=== PATIENT | male | born 1990 | race African-American/Black ===

== ENCOUNTER 2018-01-27 16:41 | Emergency (ER) | payer OTHER ==
--- OUTSIDE RECORDS SUMMARY | 2018-01-27 16:43 | XMS REPORT | Clinical Summary ---
:1990 Author Organization [facility] Address [address] [place] [address] Care Team Providers Name Role Phone Asked, No Pcp Primary Care Provider Unavailable Allergies No Known Allergies Current Medications No known medications Active Problems No known active problems Encounters Date Type Specialty Care Team Description 07/28/2017 Office Visit Orthopedic Surgery Valerie Valentin It band syndrome, left (Primary Dx); FELIPA Shah Osteochondroma of femur, left 07/27/2017 Orders Only Orthopedic Surgery Ace Rojas, Left knee pain, MA unspecified chronicity (Primary Dx) after 01/26/2017 Family History Medical History Relation Name Comments Diabetes Father Prashanth goyal Diabetes Maternal Grandfather Wu rideaux Relation Name Status Comments Father Prashanth goyal Maternal Grandfather Wu rideaux Social History Tobacco Use Types Packs/Day Years Used Date Never Assessed Alcohol Use Drinks/Week oz/Week Comments Yes Drink only on holidays or once a month Sex Assigned at Date Recorded Not on file Last Filed Vital Signs Not on file Plan of Treatment Health Maintenance Due Date Last Done Comments INFLUENZA VACCINE 03/09/2018 Procedures Procedure Name Priority Date/Time Associated Diagnosis Comments XR KNEE 4+ VW LEFT Routine 07/28/2017 3:57 PM Left knee pain, 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 after 01/26/2017 Results XR Knee 4+ Vw Left (07/28/2017 3:57 PM) Narrative Performed At Four views (standing bilateral weightbearing AP and 45 degree flexion PA, HM [employer] Mer[employer], and lateral views) of the left knee are obtained and reviewed today. The alignment appears normal. There is no significant narrowing or other degenerative change of the tibiofemoral or patellofemoral joint spaces.No fractures or loose bodies are seen. Cortical lesion medial distal metaphysis which appears to be an osteochondroma. Performing Organization Address City/State/Zipcode Phone Number [facility] [address] [place] [address] after 01/26/2017 Insurance Payer Benefit Plan / Group Subscriber ID Type Phone Address [facility]/[place] [address]
[2018-01-27] MEDS ORDERED: ALBUTEROL 2.5 MG/3 ML NEB SOL ONE (17:26)
[2018-01-27] MEDS ORDERED: NA CHLORIDE 0.9% 1,000 ML ONE (17:26)
[2018-01-27] MEDS ORDERED: METHYLPREDNISOLONE 125 MG INJ ONE (17:26)
[2018-01-27] MEDS ORDERED: ONDANSETRON 4 MG/2 ML VIAL ONE (17:41)
--- NOTE | 2018-01-27 18:42 | ER ---
Nurse's Notes [facility] Name: Kd Velazquez Age: 27 yrs Sex: Male : 1990 Arrival Date: 01/27/2018 Time: 16:43 Bed 18 Private MD: Toni Iverson H Diagnosis: Acute bronchitis Presentation: 01/27 16:48 Presenting complaint: Patient states: Cough non productive, chest congestion, and sg wheezes for several days. Pt reports starting to take mucinex OTC for symptoms today, pt denies N/V/D,FEVER. Transition of care: patient was not received from another setting of care. Resp Distress? No respiratory distress is noted at this time. Onset of symptoms was January 27, 2018. Risk Assessment: Do you want to hurt yourself or someone else? Patient reports no desire to harm self or others. Initial Sepsis Screen: Does the patient meet any 2 criteria? No. Patient's initial sepsis screen is negative. Does the patient have a suspected source of infection? No. Patient's initial sepsis screen is negative. Care prior to arrival: None. 16:48 Method Of Arrival: Ambulatory sg 16:48 Acuity: NIELS 4 sg Historical: - Allergies: 16:46 No Known Allergies; sg - Home Meds: 16:46 None [Active]; sg - PMHx: 16:49 None; sg - PSHx: 16:46 Tonsillectomy; sg - Immunization history:: Adult Immunizations up to date. - Social history:: Smoking status: Patient/guardian denies using tobacco. - Ebola Screening: : Patient negative for fever greater than or equal to 101.5 degrees Fahrenheit, and additional compatible Ebola Virus Disease symptoms Patient denies exposure to infectious person Patient denies travel to an Ebola-affected area in the 21 days before illness onset No symptoms or risks identified at this time. Screenin:15 Abuse screen: Denies threats or abuse. Denies injuries from another. Nutritional jl7 screening: No deficits noted. Tuberculosis screening: No symptoms or risk factors identified. Fall Risk IV access (20 points). Total Carpenter Fall Scale indicates No Risk (0-24 pts). Assessment: 17:15 General: Appears in no apparent distress. uncomfortable, Behavior is calm, cooperative, jl7 appropriate for age. Pain: Denies pain. Neuro: Level of Consciousness is awake, alert, obeys commands, Oriented to person, place, time, situation. Cardiovascular: Heart tones S1 S2 present Patient's skin is warm and dry. Respiratory: Airway is patent Respiratory effort is even, unlabored, Respiratory pattern is regular, symmetrical, Breath sounds with wheezes bilaterally. GI: No signs and/or symptoms were reported involving the gastrointestinal system. : No signs and/or symptoms were reported regarding the genitourinary system. EENT: No signs and/or symptoms were reported regarding the EENT system. Derm: Skin is dry, Skin is normal, Skin temperature is warm. Musculoskeletal: No signs and/or symptoms reported regarding the musculoskeletal system. 18:15 Reassessment: Patient and/or family updated on plan of care and expected duration. Pain jl7 level reassessed. Patient is alert, oriented x 3, equal unlabored respirations, skin warm/dry/pink. Patient states symptoms have improved. Vital Signs: 16:46 Pulse 98; Resp 17 S; Temp 97.9(TE); Pulse Ox 96% on R/A; Pain 8/10; sg 17:30 BP 110 / 64; Pulse 90; Resp 16; Pulse Ox 99% ; jl7 18:30 BP 120 / 62; Pulse 85; Resp 16; Pulse Ox 99% ; jl7 ED Course: 16:43 Patient arrived in ED. sb2 16:44 Toni Iverson DO is Private Physician. sb2 16:46 Arm band placed on. sg 16:49 Triage completed. sg 16:55 Demond Marshall, YOCASTA is Primary Nurse. jl7 17:00 Greyson Rouse PA is PHCP. jr8 17:00 Suhas Thao MD is Attending Physician. jr8 17:15 Patient has correct armband on for positive identification. Bed in low position. Call jl7 light in reach. Side rails up X 1. Pulse ox on. NIBP on. 17:15 Initial lab(s) drawn, by me, sent to lab. Inserted saline lock: 20 gauge in right jl7 antecubital area, using aseptic technique. Blood collected. 18:25 XRAY Chest (1 view) In Process Unspecified. EDMS 18:41 Toni Iverson DO is Referral Physician. jr8 19:12 No provider procedures requiring assistance completed. IV discontinued, intact, jl7 bleeding controlled, No redness/swelling at site. Pressure dressing applied. Administered Medications: 17:25 Drug: Albuterol 2.5 mg Route: Inhalation; jl7 17:30 Drug: NS 0.9% 1000 ml Route: IV; Rate: 1000 ml; Site: right antecubital; jl7 18:30 Follow up: Response: No adverse reaction; IV Status: Completed infusion jl7 17:31 Drug: SOLU-Medrol 125 mg Route: IVP; Site: right antecubital; jl7 17:59 Follow up: Response: No adverse reaction jl7 19:10 Follow up: Response: No adverse reaction jl7 17:40 Drug: Zofran 4 mg Route: IVP; Site: right antecubital; jl7 18:00 Follow up: Response: No adverse reaction; Nausea is decreased jl7 17:45 Drug: Albuterol 2.5 mg Route: Inhalation; jl7 17:59 Drug: Albuterol 2.5 mg Route: Inhalation; jl7 19:10 Follow up: Response: No adverse reaction jl7 Outcome: 18:41 Discharge ordered by . jr8 19:12 Discharged to home ambulatory. jl7 19:12 Condition: stable 19:12 Discharge instructions given to patient, Instructed on discharge instructions, follow up and referral plans. medication usage, Demonstrated understanding of instructions, follow-up care, medications, Prescriptions given X 3. 19:12 Patient left the ED. jl7 Signatures: Dispatcher [employer] EDMS Cabrera Tapia RN RN sg Roszak, Josh, PA PA jr8 Demond Marshall RN RN jl7 Suzan Mackey sb2
--- NOTE | 2018-01-27 18:42 | EDPHYS ---
Physician Documentation [facility] Name: Kd Velazquez Age: 27 yrs Sex: Male : 1990 Arrival Date: 01/27/2018 Time: 16:43 Bed 18 Private MD: oTni Iverson H ED Physician Suhas Thao HPI: 01/27 17:16 This 27 yrs old Black Male presents to ER via Ambulatory with complaints of Cough, jr8 Congestion, Wheezing > 1 Year. 17:16 The patient or guardian reports cough, that is intermittent, described as moderate, jr8 with no sputum, difficulty breathing. Onset: The symptoms/episode began/occurred gradually, 1 week(s) ago. Severity of symptoms: At their worst the symptoms were mild, in the emergency department the symptoms are unchanged. Modifying factors: The symptoms are alleviated by nothing, the symptoms are aggravated by exertion. Associated signs and symptoms: The patient has no apparent associated signs or symptoms. The patient has not experienced similar symptoms in the past. The patient has not recently seen a physician. Historical: - Allergies: 16:46 No Known Allergies; sg - Home Meds: 16:46 None [Active]; sg - PMHx: 16:49 None; sg - PSHx: 16:46 Tonsillectomy; sg - Immunization history:: Adult Immunizations up to date. - Social history:: Smoking status: Patient/guardian denies using tobacco. - Ebola Screening: : Patient negative for fever greater than or equal to 101.5 degrees Fahrenheit, and additional compatible Ebola Virus Disease symptoms Patient denies exposure to infectious person Patient denies travel to an Ebola-affected area in the 21 days before illness onset No symptoms or risks identified at this time. ROS: 17:16 Eyes: Negative for injury, pain, redness, and discharge, ENT: Negative for injury, jr8 pain, and discharge, Neck: Negative for injury, pain, and swelling, Cardiovascular: Negative for chest pain, palpitations, and edema, Abdomen/GI: Negative for abdominal pain, nausea, vomiting, diarrhea, and constipation, Back: Negative for injury and pain, MS/Extremity: Negative for injury and deformity, Skin: Negative for injury, rash, and discoloration, Neuro: Negative for headache, weakness, numbness, tingling, and seizure. 17:16 Respiratory: Positive for cough, shortness of breath, wheezing. Exam: 17:16 Eyes: Pupils equal round and reactive to light, extra-ocular motions intact. Lids and jr8 lashes normal. Conjunctiva and sclera are non-icteric and not injected. Cornea within normal limits. Periorbital areas with no swelling, redness, or edema. ENT: Nares patent. No nasal discharge, no septal abnormalities noted. Tympanic membranes are normal and external auditory canals are clear. Oropharynx with no redness, swelling, or masses, exudates, or evidence of obstruction, uvula midline. Mucous membranes moist. Neck: Trachea midline, no thyromegaly or masses palpated, and no cervical lymphadenopathy. Supple, full range of motion without nuchal rigidity, or vertebral point tenderness. No Meningismus. Cardiovascular: Regular rate and rhythm with a normal S1 and S2. No gallops, murmurs, or rubs. Normal PMI, no JVD. No pulse deficits. Abdomen/GI: Soft, non-tender, with normal bowel sounds. No distension or tympany. No guarding or rebound. No evidence of tenderness throughout. Back: No spinal tenderness. No costovertebral tenderness. Full range of motion. Skin: Warm, dry with normal turgor. Normal color with no rashes, no lesions, and no evidence of cellulitis. MS/ Extremity: Pulses equal, no cyanosis. Neurovascular intact. Full, normal range of motion. Neuro: Awake and alert, GCS 15, oriented to person, place, time, and situation. Cranial nerves II-XII grossly intact. Motor strength 5/5 in all extremities. Sensory grossly intact. Cerebellar exam normal. Normal gait. 17:16 Respiratory: the patient does not display signs of respiratory distress, Respirations: normal, symetrical, no use of accessory muscles, no grunting, no evidence of nasal flaring, no prolonged exhalations, no pursed lip breathing, no retractions, no shallow respirations, no splinting, no tachypnea, Breath sounds: wheezing: expiratory that is moderate, is heard diffusely. Vital Signs: 16:46 Pulse 98; Resp 17 S; Temp 97.9(TE); Pulse Ox 96% on R/A; Pain 8/10; sg 17:30 BP 110 / 64; Pulse 90; Resp 16; Pulse Ox 99% ; jl7 18:30 BP 120 / 62; Pulse 85; Resp 16; Pulse Ox 99% ; jl7 MDM: 17:00 Patient medically screened. jr8 18:40 Data reviewed: vital signs, nurses notes, radiologic studies, plain films, and as a jr8 result, I will discharge patient. Data interpreted: Pulse oximetry: on room air is 96 %. Interpretation: normal. Counseling: I had a detailed discussion with the patient and/or guardian regarding: the historical points, exam findings, and any diagnostic results supporting the discharge/admit diagnosis, radiology results, the need for outpatient follow up, a family practitioner, to return to the emergency department if symptoms worsen or persist or if there are any questions or concerns that arise at home. Response to treatment: the patient's symptoms have markedly improved after treatment, and as a result, I will discharge patient. 01/27 17:13 Order name: XRAY Chest (1 view); Complete Time: 19:12 jr8 01/27 17:13 Order name: IV; Complete Time: 17:57 jr8 Administered Medications: 17:25 Drug: Albuterol 2.5 mg Route: Inhalation; jl7 17:30 Drug: NS 0.9% 1000 ml Route: IV; Rate: 1000 ml; Site: right antecubital; jl7 18:30 Follow up: Response: No adverse reaction; IV Status: Completed infusion jl7 17:31 Drug: SOLU-Medrol 125 mg Route: IVP; Site: right antecubital; jl7 17:59 Follow up: Response: No adverse reaction jl7 19:10 Follow up: Response: No adverse reaction jl7 17:40 Drug: Zofran 4 mg Route: IVP; Site: right antecubital; jl7 18:00 Follow up: Response: No adverse reaction; Nausea is decreased jl7 17:45 Drug: Albuterol 2.5 mg Route: Inhalation; jl7 17:59 Drug: Albuterol 2.5 mg Route: Inhalation; jl7 19:10 Follow up: Response: No adverse reaction jl7 Disposition: 01/28 07:13 Co-signature as Attending Physician, Suhas Thao MD. rn Disposition: 01/27/18 18:41 Discharged to Home. Impression: Acute bronchitis. - Condition is Stable. - Discharge Instructions: Acute Bronchitis. - Prescriptions for Prednisone 20 mg Oral Tablet - take 1 tablet by ORAL route once daily for 5 days; 5 tablet. Albuterol Sulfate 90 mcg/actuation - inhale 1-2 puff by INHALATION route every 4-6 hours; 1 Inhaler. Guaifenesin AC 10- 100 mg/5 mL Oral Liquid - take 10 milliliter by ORAL route every 4 hours As needed; 240 milliliter. - Medication Reconciliation Form, Thank You Letter, Antibiotic Education, Prescription Opioid Use form. - Follow up: Toni Iverson DO; When: 5 - 6 days; Reason: Recheck today's complaints, Continuance of care, Re-evaluation by your physician. - Problem is new. - Symptoms have improved. Signatures: Dispatcher [employer] EDMS Cabrera Tapia RN RN Suhas Martinez MD MD rn Roszak, Josh, PA PA jr8 Demond Marshall RN RN jl7 Corrections: (The following items were deleted from the chart) 01/27 19:12 18:41 01/27/2018 18:41 Discharged to Home. Impression: Acute bronchitis. Condition is jl7 Stable. Forms are Medication Reconciliation Form, Thank You Letter, Antibiotic Education, Prescription Opioid Use. Follow up: Toni Iverson; When: 5 - 6 days; Reason: Recheck today's complaints, Continuance of care, Re-evaluation by your physician. Problem is new. Symptoms have improved. jr8
--- NOTE | 2018-01-27 19:08 | RAD REPORT ---
EXAM DESCRIPTION: RAD - Chest Single View - 01/27/2018 6:26 pm CLINICAL HISTORY: Dyspnea COMPARISON: September 2016 TECHNIQUE: AP portable chest image was obtained 1753 hours . FINDINGS: No focal consolidation, mass or significant failure finding. Lung markings are not substan tially different from comparison. Heart and vasculature are normal. No measurable pleural effusion an d no pneumothorax. No gross bony abnormality seen. No acute aortic findings suspected. IMPRESSION: No acute cardiopulmonary process. No significant change from the comparison.
== END 2018-01-27 19:12 | disposition home or self-care (01) ==
LOC: ER 16:41
DX: J20.9 Acute bronchitis, unspecified (principal)
CPT/HCPCS: 71045; 96361; 96374; 96375; 99284; J2405; J2930; J7030

== ENCOUNTER 2018-05-09 08:12 | Emergency (ER) | payer OTHER ==
--- OUTSIDE RECORDS SUMMARY | 2018-05-09 08:14 | XMS REPORT | Clinical Summary ---
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 after 05/08/2017 Results XR Knee 4+ Vw Left (07/28/2017 [...] Performing Organization Address City/State/Zipcode Phone Number [facility] [address] [place] [address] after 05/08/2017 Insurance Payer Benefit Plan / Group Subscriber ID Type Phone Address [facility]WORK xxxxxxxxx[place] [address]
[2018-05-09] MEDS ORDERED: ONDANSETRON 4 MG/2 ML VIAL ONE ×2 (09:23→11:09)
[2018-05-09] MEDS ORDERED: NA CHLORIDE 0.9% 1,000 ML ONE (09:23)
[2018-05-09 09:31] LABS: Absolute Lymphocytes (CBC) 1.1 K/uL (0.7-4.9); Absolute Monocytes 0.5 K/uL (0.1-1.3); Absolute Neutrophil 2.1 K/uL (1.8-8.0); Eosinophils % 3.9 % (0-4.4); Hematocrit 39.4 % (39.6-49.0); Lymphocytes % 27.6 % (15.3-44.8); MCH 27.9 pg (27.0-35.0); MCV 82.8 fL (80-100); MPV 9.2 fL (7.6-11.3); Monocytes % 13.7 % (3.3-12.3); RBC Red Blood Cell Count 4.76 M/uL (4.33-5.43)
[2018-05-09 09:43] LABS: ALT/SGPT 47 U/L (12-78); AST/SGOT 26 U/L (15-37); Albumin 4.1 g/dL (3.4-5.0); Alkaline Phosphatase 63 U/L (45-117); BUN Blood Urea Nitrogen 12 mg/dL (7-18); Bicarbonate 27 mmol/L (21-32); Bilirubin Direct 0.3 mg/dL (0-0.2); Bilirubin Total 1.4 mg/dL (0.2-1.0); Glucose Level 101 mg/dL (74-106); Lipase 79 U/L (73-393); Protein, Total 8.3 g/dL (6.4-8.2); Sodium Level 134 mmol/L (136-145)
[2018-05-09] MEDS ORDERED: POTASSIUM CL SA 10 MEQ TAB PO ONE (10:18)
--- NOTE | 2018-05-09 10:25 | RAD REPORT ---
EXAM DESCRIPTION: RAD - Chest Single View - 05/09/2018 9:52 am CLINICAL HISTORY: Cough, shortness of breath COMPARISON: January 27 TECHNIQUE: AP portable chest image was obtained 0935 hours . FINDINGS: Lungs are clear. Heart and vasculature are normal. No measurable pleural effusion and no p neumothorax. No gross bony abnormality seen. No acute aortic findings suspected. IMPRESSION: No acute cardiopulmonary process. No significant interval change.
--- NOTE | 2018-05-09 11:12 | RAD REPORT ---
EXAM DESCRIPTION: US - Abdomen Exam Limited - 05/09/2018 10:02 am CLINICAL HISTORY: Abdominal pain, right upper quadrant pain COMPARISON: CT imaging September 2016 FINDINGS: No gallstones, sludge or other abnormalities within the gallbladder lumen. There is no wal l thickening or pericholecystic fluid. No common duct stone or biliary tree dilatation identified. Liver is 14 cm in maximum dimension. Spleen is 9-10 cm in maximum dimension. No focal liver lesions s een. No capsular nodularity or ascites. Portal vein flow direction and velocity are normal range. Anum er parenchymal echogenicity not outside of normal range. IMPRESSION: Normal gallbladder and biliary tree ultrasound. No hepatomegaly or focal hepatic parenchymal abnormality. A minimal or borderline fatty infiltration pattern is possible.
--- NOTE | 2018-05-09 11:32 | EDPHYS ---
Physician Documentation [facility] Name: Kd Velazquez Age: 27 yrs Sex: Male : 1990 Arrival Date: 05/09/2018 Time: 08:15 Bed 7 Private MD: Toni Iverson H ED Physician Suhas Thao HPI: 05/09 09:52 This 27 yrs old Black Male presents to ER via Ambulatory with complaints of Vomiting, jr8 Decreased Appetite. 09:52 The patient presents to the emergency department with nausea, vomiting. Onset: The jr8 symptoms/episode began/occurred gradually, 1 week(s) ago. Possible causes: unknown. The symptoms are aggravated by food , The symptoms are alleviated by nothing. Associated signs and symptoms: Pertinent positives: decreased appetite . Severity of symptoms: At their worst the symptoms were moderate in the emergency department the symptoms are unchanged. The patient has not experienced similar symptoms in the past. The patient has not recently seen a physician. Historical: - Allergies: 08:27 No Known Allergies; ss - Home Meds: 08:27 None [Active]; ss - PMHx: 08:27 None; ss - PSHx: 08:27 Tonsillectomy; ss - Immunization history:: Adult Immunizations up to date. - Social history:: Smoking status: Patient/guardian denies using tobacco. - Ebola Screening: : Patient denies exposure to infectious person Patient denies travel to an Ebola-affected area in the 21 days before illness onset. ROS: 09:52 Eyes: Negative for injury, pain, redness, and discharge, ENT: Negative for injury, jr8 pain, and discharge, Neck: Negative for injury, pain, and swelling, Cardiovascular: Negative for chest pain, palpitations, and edema, Respiratory: Negative for shortness of breath, cough, wheezing, and pleuritic chest pain, Back: Negative for injury and pain, MS/Extremity: Negative for injury and deformity, Skin: Negative for injury, rash, and discoloration, Neuro: Negative for headache, weakness, numbness, tingling, and seizure. 09:52 Abdomen/GI: Positive for nausea and vomiting, Negative for abdominal pain, diarrhea, abdominal cramps, abdominal distension, anorexia, dysphagia, hematemesis, black/tarry stool, rectal pain, rectal bleeding, bowel incontinence, flatulence. Exam: 10:02 Eyes: Pupils equal round and reactive to light, extra-ocular motions intact. Lids and jr8 lashes normal. Conjunctiva and sclera are non-icteric and not injected. Cornea within normal limits. Periorbital areas with no swelling, redness, or edema. ENT: Nares patent. No nasal discharge, no septal abnormalities noted. Tympanic membranes are normal and external auditory canals are clear. Oropharynx with no redness, swelling, or masses, exudates, or evidence of obstruction, uvula midline. Mucous membranes moist. Neck: Trachea midline, no thyromegaly or masses palpated, and no cervical lymphadenopathy. Supple, full range of motion without nuchal rigidity, or vertebral point tenderness. No Meningismus. Cardiovascular: Regular rate and rhythm with a normal S1 and S2. No gallops, murmurs, or rubs. Normal PMI, no JVD. No pulse deficits. Respiratory: Lungs have equal breath sounds bilaterally, clear to auscultation and percussion. No rales, rhonchi or wheezes noted. No increased work of breathing, no retractions or nasal flaring. Abdomen/GI: Soft, non-tender, with normal bowel sounds. No distension or tympany. No guarding or rebound. No evidence of tenderness throughout. Back: No spinal tenderness. No costovertebral tenderness. Full range of motion. Skin: Warm, dry with normal turgor. Normal color with no rashes, no lesions, and no evidence of cellulitis. MS/ Extremity: Pulses equal, no cyanosis. Neurovascular intact. Full, normal range of motion. Neuro: Awake and alert, GCS 15, oriented to person, place, time, and situation. Cranial nerves II-XII grossly intact. Motor strength 5/5 in all extremities. Sensory grossly intact. Cerebellar exam normal. Normal gait. Vital Signs: 08:27 BP 126 / 91; Pulse 80; Resp 16; Temp 97.8(TE); Pulse Ox 98% on R/A; Weight 99.79 kg; ss Height 6 ft. 1 in. (185.42 cm); Pain 0/10; 10:16 BP 129 / 80; Pulse 63; Resp 18; Pulse Ox 100% ; sv 11:29 BP 138 / 81; Pulse 66; Resp 18; Pulse Ox 99% ; sv 08:27 Body Mass Index 29.03 (99.79 kg, 185.42 cm) ss MDM: 08:27 Patient medically screened. jr8 11:30 Data reviewed: vital signs, nurses notes, lab test result(s), radiologic studies, jr8 ultrasound, and as a result, I will discharge patient. Data interpreted: Pulse oximetry: on room air is 99 %. Interpretation: normal. 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 ED course: Patient had also been having sinus drainage. No fevers. Likely allergy related. Will put him on short course of steroids to dry him up. Mild fatty liver but no other acute hepatic or biliary findings. Will f/u with GI again . 05/09 08:53 Order name: Basic Metabolic Panel; Complete Time: 09:47 05/09 08:53 Order name: CBC with Diff; Complete Time: 09:47 05/09 08:53 Order name: Creatinine for Radiology; Complete Time: 09:47 05/09 08:53 Order name: Hepatic Function; Complete Time: 09:47 05/09 08:53 Order name: Lipase; Complete Time: 09:47 05/09 11:19 Order name: Urine Dipstick--Ancillary (enter results) bd 05/09 08:53 Order name: IV Saline Lock; Complete Time: 09:15 05/09 09:16 Order name: XRAY Chest (1 view); Complete Time: 10:28 05/09 09:48 Order name: US Abdomen Limited; Complete Time: 11:23 05/09 11:19 Order name: Urine Dipstick-Ancillary EDMS 05/09 08:53 Order name: Labs collected and sent; Complete Time: 09:15 05/09 08:53 Order name: Urine Dipstick-Ancillary (obtain specimen); Complete Time: 08:58 Administered Medications: 09:20 Drug: Zofran 4 mg Route: IVP; Site: right antecubital; sv 09:30 Follow up: Response: No adverse reaction sv 09:20 Drug: NS 0.9% 1000 ml Route: IV; Rate: 1000 ml; Site: right antecubital; sv 11:46 Follow up: Response: No adverse reaction; IV Status: Completed infusion; IV Intake: sv 1000ml 10:13 Drug: Potassium Chloride 40 mEq Route: PO; sv 11:08 Follow up: Response: No adverse reaction sv 11:08 Drug: Zofran 4 mg Route: IVP; Site: right antecubital; sv 11:14 Follow up: Response: No adverse reaction sv Disposition: 12:54 Co-signature as Attending Physician, Suhas Thao MD. rn Disposition: 05/09/18 11:32 Discharged to Home. Impression: Postnasal drip, Nausea and vomiting. - Condition is Stable. - Discharge Instructions: Gastritis, Adult, Gastroesophageal Reflux Disease, Adult, Nausea and Vomiting, Adult. - Prescriptions for omeprazole 40 mg Oral capsule,delayed release(DR/EC) - take 1 capsule by ORAL route once daily before a meal; 14 capsule. Prednisone 20 mg Oral Tablet - take 1 tablet by ORAL route once daily for 5 days; 5 tablet. Zofran 4 mg Oral Tablet - take 1 tablet by ORAL route every 12 hours As needed; 20 tablet. - Work release form, Medication Reconciliation Form, Thank You Letter, Antibiotic Education, Prescription Opioid Use form. - Follow up: Private Physician; When: 5 - 6 days; Reason: Recheck today's complaints, Continuance of care, Re-evaluation by your physician. - Problem is new. - Symptoms have improved. Signatures: Dispatcher [employer] Cheli Rojo RN RN sv Nieto, Roman, MD MD rn Smirch, Shelby, RN RN ss Roszak, Josh, PA PA jr8 Corrections: (The following items were deleted from the chart) 11:46 11:32 05/09/2018 11:32 Discharged to Home. Impression: Postnasal drip; Nausea and sv vomiting. Condition is Stable. Forms are Medication Reconciliation Form, Thank You Letter, Antibiotic Education, Prescription Opioid Use. Follow up: Private Physician; When: 5 - 6 days; Reason: Recheck today's complaints, Continuance of care, Re-evaluation by your physician. Problem is new. Symptoms have improved. jr8
--- NOTE | 2018-05-09 11:32 | ER ---
Nurse's Notes [facility] Name: Kd Velazquez Age: 27 yrs Sex: Male : 1990 Arrival Date: 05/09/2018 Time: 08:15 Bed 7 Private MD: Toni Iverson H Diagnosis: Postnasal drip;Nausea and vomiting Presentation: 05/09 08:25 Presenting complaint: Patient states: decreased appetite, N/V and dark urine x 5 days. ss Patient states, "I think it has a lot to do with depression because my weight keeps fluctuating." Denies SI/ HI ideations. Transition of care: patient was not received from another setting of care. Onset of symptoms was June 02, 2018. Risk Assessment: Do you want to hurt yourself or someone else? Patient reports no desire to harm self or others. Initial Sepsis Screen: Does the patient meet any 2 criteria? No. Patient's initial sepsis screen is negative. Does the patient have a suspected source of infection? No. Patient's initial sepsis screen is negative. Care prior to arrival: None. 08:25 Method Of Arrival: Ambulatory 08:25 Acuity: NIELS 3 ss Historical: - Allergies: 08:27 No Known Allergies; ss - Home Meds: 08:27 None [Active]; ss - PMHx: 08:27 None; ss - PSHx: 08:27 Tonsillectomy; ss - Immunization history:: Adult Immunizations up to date. - Social history:: Smoking status: Patient/guardian denies using tobacco. - Ebola Screening: : Patient denies exposure to infectious person Patient denies travel to an Ebola-affected area in the 21 days before illness onset. Screenin:15 Abuse screen: Denies threats or abuse. Denies injuries from another. Nutritional sv screening: No deficits noted. Tuberculosis screening: No symptoms or risk factors identified. Fall Risk None identified. Assessment: 09:15 General: Appears in no apparent distress. uncomfortable, Behavior is calm, cooperative, sv appropriate for age. Pain: Denies pain. Neuro: Level of Consciousness is awake, alert, obeys commands, Oriented to person, place, time, situation, Moves all extremities. Full function Gait is steady, Speech is normal. Cardiovascular: Patient's skin is warm and dry. Respiratory: Respiratory effort is even, unlabored, Respiratory pattern is regular, symmetrical. GI: Reports intolerance of fluids, nausea, vomiting, decreased appetite. : Reports dark colored urine. Derm: Skin is normal. Musculoskeletal: Range of motion: intact in all extremities. 10:13 Reassessment: Patient appears in no apparent distress at this time. Patient and/or sv family updated on plan of care and expected duration. Pain level reassessed. Patient is alert, oriented x 3, equal unlabored respirations, skin warm/dry/pink. Pt reports decreased nausea. 11:45 Reassessment: Patient appears in no apparent distress at this time. Patient and/or sv family updated on plan of care and expected duration. Pain level reassessed. Patient is alert, oriented x 3, equal unlabored respirations, skin warm/dry/pink. Patient states symptoms have improved. Vital Signs: 08:27 BP 126 / 91; Pulse 80; Resp 16; Temp 97.8(TE); Pulse Ox 98% on R/A; Weight 99.79 kg; Height 6 ft. 1 in. (185.42 cm); Pain 0/10; 10:16 BP 129 / 80; Pulse 63; Resp 18; Pulse Ox 100% ; sv 11:29 BP 138 / 81; Pulse 66; Resp 18; Pulse Ox 99% ; sv 08:27 Body Mass Index 29.03 (99.79 kg, 185.42 cm) ED Course: 08:15 Patient arrived in ED. as 08:15 Toni Iverson DO is Private Physician. as 08:27 [facility] jr8 08:27 Suhas Thao MD is Attending Physician. jr8 08:27 Triage completed. ss 08:27 Arm band placed on right wrist. ss 09:13 Cheli Toledo, YOCASTA is Primary Nurse. sv 09:15 Patient has correct armband on for positive identification. Bed in low position. Call sv light in reach. Pulse ox on. NIBP on. Door closed. Warm blanket given. Head of bed elevated. 09:17 Initial lab(s) drawn, by me, sent to lab. Inserted saline lock: 20 gauge in right em1 antecubital area, using aseptic technique. Blood collected. 09:42 X-ray completed. Portable x-ray completed in exam room. Patient tolerated procedure ml well. 09:52 XRAY Chest (1 view) In Process Unspecified. EDMS 10:01 US Abdomen Limited In Process Unspecified. EDMS 10:01 Patient taken to ultrasound. via wheelchair. aa4 10:01 Ultrasound completed. Patient tolerated well. Patient moved back from ultrasound. aa4 11:45 No provider procedures requiring assistance completed. IV discontinued, intact, sv bleeding controlled, No redness/swelling at site. Pressure dressing applied. Administered Medications: 09:20 Drug: Zofran 4 mg Route: IVP; Site: right antecubital; sv 09:30 Follow up: Response: No adverse reaction sv 09:20 Drug: NS 0.9% 1000 ml Route: IV; Rate: 1000 ml; Site: right antecubital; sv 11:46 Follow up: Response: No adverse reaction; IV Status: Completed infusion; IV Intake: sv 1000ml 10:13 Drug: Potassium Chloride 40 mEq Route: PO; sv 11:08 Follow up: Response: No adverse reaction sv 11:08 Drug: Zofran 4 mg Route: IVP; Site: right antecubital; sv 11:14 Follow up: Response: No adverse reaction sv Intake: 11:46 IV: 1000ml; Total: 1000ml. sv Outcome: 11:32 Discharge ordered by jrCatalino 11:45 Discharged to home ambulatory. sv 11:45 Condition: stable 11:45 Discharge instructions given to patient, Instructed on discharge instructions, follow up and referral plans. medication usage, Demonstrated understanding of instructions, follow-up care, medications, Prescriptions given X 3. 11:46 Patient left the ED. sv Signatures: Dispatcher [employer] Cheli Rojo, RN Shawanda Monreal Melissa ml Frazier, Amanda aaAce Hummel1 Iman Taylor RN RN ss Roszak, Josh, PA PA jr8
[2018-05-09 12:25] VITALS: TEMP 97.8
[2018-05-09 12:27] VITALS: BP 138/81; O2SAT 99
[2018-05-09 16:25] LABS: Urine Blood 1+ (NEG); Urine Glucose NEGATIVE (NEG); Urine Protein 2+ (NEG); Urine Specific Gravity >1.030 (1.005-1.030)
== END 2018-05-09 11:46 | disposition home or self-care (01) ==
LOC: ER 08:12
DX: R09.82 Postnasal drip (principal)
CPT/HCPCS: 36415; 71045; 76705; 80048; 80076; 81003; 83690; 85025; 96361; 96374; 99284; J2405; J7030

== ENCOUNTER 2018-10-07 20:27 | Emergency (ER) | payer OTHER ==
--- OUTSIDE RECORDS SUMMARY | 2018-10-07 20:29 | XMS REPORT | Clinical Summary ---
:[address] [facility] [place], [place] Address [address] [place] [address] Care Team Providers Name Role Phone Asked, No Pcp Primary Care Provider Unavailable Allergies No Known Allergies Medications No known medications Active Problems No known active problems Family History Medical History Relation Name Comments Diabetes Father Prashanth silva Diabetes Maternal Grandfather Wu rideaux Relation Name Status Comments Father Prashanth silva Maternal Grandfather Wu rideaux Social History Tobacco Use Types Packs/Day Years Used Date Never Assessed Alcohol Use Drinks/Week oz/Week Comments Yes Drink only on holidays or once a month Sex Assigned at Date Recorded Not on file Job Start Date Occupation Industry Not on file Not on file Not on file Travel History Travel Start Travel End No recent travel history available. Last Filed Vital Signs Not on file Plan of Treatment Health Maintenance Due Date Last Done Comments INFLUENZA VACCINE 03/09/2018 Results Not on fileafter 10/06/2017 Insurance Payer Benefit Plan / Group Subscriber ID Type Phone Address [employer] C[employer] OPEN ACCESS/NETWORK xxxxxxxxxxxx HMO Advance Directives Patient has advance care planning documents on file. For more information, please contact:[facility] [id number] [place] [address]
--- NOTE | 2018-10-07 21:27 | EDPHYS ---
Physician Documentation [facility] Name: Kd Velazquez Age: 27 yrs Sex: Male : 1990 Arrival Date: 10/07/2018 Time: 20:34 Bed 7 Private MD: ED Physician Jeremy White HPI: 10/07 21:23 This 27 yrs old Black Male presents to ER via Ambulatory with complaints of Neck Pain, nh <24hrs Old, Sore Throat. 21:24 The patient reports fever, not measured (subjective). Associated signs and symptoms: nh Pertinent positives: sore throat. Severity of symptoms: At their worst the symptoms were moderate just prior to arrival, in the emergency department the symptoms are unchanged. The patient has not experienced similar symptoms in the past. Historical: - Allergies: 20:53 No Known Allergies; jd3 - Home Meds: 20:53 None [Active]; jd3 - PMHx: 20:53 None; jd3 - PSHx: 20:53 Tonsillectomy; jd3 - Immunization history:: Adult Immunizations up to date. - Social history:: Smoking status: Patient uses tobacco products, denies chronic smoking, but will smoke occasionally. - Ebola Screening: : Patient negative for fever greater than or equal to 101.5 degrees Fahrenheit, and additional compatible Ebola Virus Disease symptoms. ROS: 21:24 Constitutional: Negative for fever, chills, and weight loss, Eyes: Negative for injury, nh pain, redness, and discharge, Neck: Negative for injury, pain, and swelling, Cardiovascular: Negative for chest pain, palpitations, and edema, Respiratory: Negative for shortness of breath, cough, wheezing, and pleuritic chest pain, Abdomen/GI: Negative for abdominal pain, nausea, vomiting, diarrhea, and constipation, Back: Negative for injury and pain, : Negative for injury, bleeding, discharge, and swelling, MS/Extremity: Negative for injury and deformity, Skin: Negative for injury, rash, and discoloration. 21:24 ENT: Positive for sore throat. Exam: 21:24 Constitutional: This is a well developed, well nourished patient who is awake, alert, nh and in no acute distress. Head/Face: Normocephalic, atraumatic. Eyes: Pupils equal round and reactive to light, extra-ocular motions intact. Lids and lashes normal. Conjunctiva and sclera are non-icteric and not injected. Cornea within normal limits. Periorbital areas with no swelling, redness, or edema. Neck: Trachea midline, no thyromegaly or masses palpated, and no cervical lymphadenopathy. Supple, full range of motion without nuchal rigidity, or vertebral point tenderness. No Meningismus. Chest/axilla: Normal chest wall appearance and motion. Nontender with no deformity. No lesions are appreciated. Cardiovascular: Regular rate and rhythm with a normal S1 and S2. No gallops, murmurs, or rubs. Normal PMI, no JVD. No pulse deficits. Respiratory: Lungs have equal breath sounds bilaterally, clear to auscultation and percussion. No rales, rhonchi or wheezes noted. No increased work of breathing, no retractions or nasal flaring. Abdomen/GI: Soft, non-tender, with normal bowel sounds. No distension or tympany. No guarding or rebound. No evidence of tenderness throughout. Back: No spinal tenderness. No costovertebral tenderness. Full range of motion. 21:24 ENT: Posterior pharynx: swelling, erythema. Vital Signs: 20:53 BP 135 / 73; Pulse 70; Resp 17 S; Temp 99.1(O); Pulse Ox 100% on R/A; Weight 102.51 kg jd3 (R); Height 6 ft. 0 in. (182.88 cm) (R); Pain 6/10; 21:38 BP 136 / 83; Pulse 62; Resp 18; Pulse Ox 100% on R/A; tl2 20:53 Body Mass Index 30.65 (102.51 kg, 182.88 cm) jd3 MDM: 21:08 Patient medically screened. sc 21:24 Data reviewed: vital signs, nurses notes, and as a result, I will discharge patient. sc Counseling: I had a detailed discussion with the patient and/or guardian regarding: the historical points, exam findings, and any diagnostic results supporting the discharge/admit diagnosis, the need for outpatient follow up, to return to the emergency department if symptoms worsen or persist or if there are any questions or concerns that arise at home. Administered Medications: No medications were administered Disposition: 10/07/18 21:26 Discharged to Home. Impression: Acute pharyngitis. - Condition is Stable. - Discharge Instructions: Pharyngitis. - Prescriptions for Zithromax Z- Fernando 250 mg Oral Tablet - take 1 tablet by ORAL route as directed for 5 days Day 1 - take two (2) tablets one time. Day 2, 3, 4 , 5 take one (1) tablet once daily.; 6 tablet. - Medication Reconciliation Form, Thank You Letter, Antibiotic Education, Prescription Opioid Use form. - Follow up: Private Physician; When: 2 - 3 days; Reason: Recheck today's complaints. - Problem is new. - Symptoms are unchanged. Signatures: Sarah Paredes, MUSIC SOUND LIGHT TECHNICIAN MUSIC SOUND LIGHT TECHNICIAN sc Natalie Read RN RN tl2 Danilo May RN RN jd3 Corrections: (The following items were deleted from the chart) 21:47 21:26 10/07/2018 21:26 Discharged to Home. Impression: Acute pharyngitis. Condition is tl2 Stable. Forms are Medication Reconciliation Form, Thank You Letter, Antibiotic Education, Prescription Opioid Use. Follow up: Private Physician; When: 2 - 3 days; Reason: Recheck today's complaints. Problem is new. Symptoms are unchanged. sc
--- NOTE | 2018-10-07 21:27 | ER ---
Nurse's Notes [facility] Name: Kd Velazquez Age: 27 yrs Sex: Male : 1990 Arrival Date: 10/07/2018 Time: 20:34 Bed 7 Private MD: Diagnosis: Acute pharyngitis Presentation: 10/07 20:51 Presenting complaint: Patient states: "neck pain, ear pain, and throat pain for about a jd3 week. I am also feeling nauseous.". Transition of care: patient was not received from another setting of care. Onset of symptoms was October 07, 2018. Risk Assessment: Do you want to hurt yourself or someone else? Patient reports no desire to harm self or others. Initial Sepsis Screen: Does the patient meet any 2 criteria? No. Patient's initial sepsis screen is negative. Does the patient have a suspected source of infection? No. Patient's initial sepsis screen is negative. Care prior to arrival: None. 20:51 Method Of Arrival: Ambulatory jd3 20:51 Acuity: NIELS 4 jd3 Historical: - Allergies: 20:53 No Known Allergies; jd3 - Home Meds: 20:53 None [Active]; jd3 - PMHx: 20:53 None; jd3 - PSHx: 20:53 Tonsillectomy; jd3 - Immunization history:: Adult Immunizations up to date. - Social history:: Smoking status: Patient uses tobacco products, denies chronic smoking, but will smoke occasionally. - Ebola Screening: : Patient negative for fever greater than or equal to 101.5 degrees Fahrenheit, and additional compatible Ebola Virus Disease symptoms. Screenin:25 Abuse screen: Denies threats or abuse. Nutritional screening: No deficits noted. tl2 Tuberculosis screening: No symptoms or risk factors identified. Fall Risk None identified. Assessment: 21:25 General: Appears in no apparent distress. uncomfortable, Behavior is calm, cooperative, tl2 appropriate for age. Pain: Complains of pain in neck, sore throat. Neuro: Level of Consciousness is awake, alert, obeys commands, Oriented to person, place, time, situation. Cardiovascular: Denies chest pain. Respiratory: Airway is patent Respiratory effort is even, unlabored, Respiratory pattern is regular, symmetrical. GI: Reports nausea. : No signs and/or symptoms were reported regarding the genitourinary system. Derm: Skin is pink, warm \\T\\ dry. 21:46 Reassessment: Patient appears in no apparent distress at this time. Patient and/or tl2 family updated on plan of care and expected duration. Pain level reassessed. Patient is alert, oriented x 3, equal unlabored respirations, skin warm/dry/pink. pt verbalized understanding of discharge instructions, need for follow up and prescription usage. Vital Signs: 20:53 BP 135 / 73; Pulse 70; Resp 17 S; Temp 99.1(O); Pulse Ox 100% on R/A; Weight 102.51 kg jd3 (R); Height 6 ft. 0 in. (182.88 cm) (R); Pain 6/10; 21:38 BP 136 / 83; Pulse 62; Resp 18; Pulse Ox 100% on R/A; tl2 20:53 Body Mass Index 30.65 (102.51 kg, 182.88 cm) jd3 ED Course: 20:34 Patient arrived in ED. am2 20:52 Triage completed. jd3 20:54 Arm band placed on. jd3 20:59 Natalie Read, YOCASTA is Primary Nurse. tl2 21:08 [facility]NP [facility]. nh 21:08 Jeremy White MD is Attending Physician. nh 21:25 Patient has correct armband on for positive identification. Bed in low position. Call tl2 light in reach. Side rails up X 1. 21:25 No provider procedures requiring assistance completed. Patient did not have IV access tl2 during this emergency room visit. Administered Medications: No medications were administered Outcome: 21:26 Discharge ordered by . nh 21:39 Discharged to home ambulatory. tl2 21:39 Condition: stable 21:39 Discharge instructions given to patient, Instructed on discharge instructions, follow up and referral plans. Demonstrated understanding of instructions, follow-up care, medications, Prescriptions given X 1. 21:47 Patient left the ED. tl2 Signatures: Sarah Paredes FNP [facility] Natalie Read RN RN tl2 Kristy Machado am2 Danilo May RN RN jd3 Corrections: (The following items were deleted from the chart) 21:38 21:25 BP 136 / 83; Pulse 62bpm; Resp 18bpm; Pulse Ox 100% RA; tl2 tl2
[2018-10-07 21:50] VITALS: TEMP 99.1; O2SAT 100
[2018-10-07 21:52] VITALS: BP 136/83
== END 2018-10-07 21:47 | disposition home or self-care (01) ==
LOC: ER 20:27
DX: J02.9 Acute pharyngitis, unspecified (principal); Z72.0 Tobacco use
CPT/HCPCS: 99282

== ENCOUNTER 2019-02-01 20:16 | Emergency (ER) | payer OTHER, SELFPAY ==
--- OUTSIDE RECORDS SUMMARY | 2019-02-01 20:19 | XMS REPORT | Clinical Summary ---
:1990 Author Organization [facility] Address [address] [place] [address] Care Team Providers Name Role Phone Asked, [...] Due Date Last Done Comments INFLUENZA VACCINE 03/09/2019 Results Not on fileafter 01/31/2018 [address] [facility] (Home) [place] [id number] Advance Directives Patient has advance care planning documents on file. For more information, please contact:[place] [phone] [place] [address]
--- NOTE | 2019-02-01 21:42 | EDPHYS ---
Physician Documentation [facility] Name: Kd Velazquez Age: 28 yrs Sex: Male : 1990 Arrival Date: 02/01/2019 Time: 20:27 Bed Waiting Private MD: Toni Iverson H ED Physician Suhas Thao Historical: - Allergies: 02/01 20:35 No Known Drug Allergies; aj - Ebola Screening: : Patient negative for fever greater than or equal to 101.5 degrees Fahrenheit, and additional compatible Ebola Virus Disease symptoms Patient denies exposure to infectious person Patient denies travel to an Ebola-affected area in the 21 days before illness onset No symptoms or risks identified at this time. Vital Signs: 20:35 BP 145 / 70; Pulse 80; Resp 16; Temp 98.2; Pulse Ox 98% on R/A; Weight 98.43 kg; Height aj 6 ft. 0 in. (182.88 cm); 20:35 Body Mass Index 29.43 (98.43 kg, 182.88 cm) aj MDM: 21:38 Patient medically screened. snw 21:41 ED course: pt left facility prior to exam by me. snw Administered Medications: No medications were administered Disposition: 02/02 00:16 Co-signature as Attending Physician, Suhas Thao MD. rn Disposition: 02/01/19 21:42 Patient left the facility before being seen by provider. - Patient left due to wait time. Signatures: Kristy Barragan RN RN Robina Lester, PLASTIC SURGERY MANAGER-C PLASTIC SURGERY MANAGER-Csnw Suhas Thao MD MD rn
--- NOTE | 2019-02-01 21:42 | ER ---
Nurse's Notes [facility] Name: Kd Velazquez Age: 28 yrs Sex: Male : 1990 Arrival Date: 02/01/2019 Time: 20:27 Bed Waiting Private MD: Toni Iverson H Diagnosis: Presentation: 02/01 20:34 Presenting complaint: Patient states: "I think I may have a hernia in my abdomen, and I aj have a bump on the right side of my neck." No hernia noted and "bump" could not be felt. Care prior to arrival: None. 20:34 Acuity: NIELS 4 aj Triage Assessment: 20:35 General: Appears in no apparent distress. comfortable, Behavior is calm, cooperative, aj appropriate for age. Pain: Complains of pain in right upper quadrant. Neuro: Level of Consciousness is awake, alert, obeys commands, Oriented to person, place, time, situation, Appropriate for age. GI: Abdomen is flat. Derm: Skin is intact, is healthy with good turgor, Skin is pink, warm \\T\\ dry. normal. Historical: - Allergies: 20:35 No Known Drug Allergies; aj - Ebola Screening: : Patient negative for fever greater than or equal to 101.5 degrees Fahrenheit, and additional compatible Ebola Virus Disease symptoms Patient denies exposure to infectious person Patient denies travel to an Ebola-affected area in the 21 days before illness onset No symptoms or risks identified at this time. Vital Signs: 20:35 BP 145 / 70; Pulse 80; Resp 16; Temp 98.2; Pulse Ox 98% on R/A; Weight 98.43 kg; Height aj 6 ft. 0 in. (182.88 cm); 20:35 Body Mass Index 29.43 (98.43 kg, 182.88 cm) aj ED Course: 20:27 Patient arrived in ED. es 20:27 Toni Iverson DO is Private Physician. es 20:34 Triage completed. aj 20:35 Arm band placed on left wrist. Patient placed in waiting room, Patient notified of wait aj time. 21:22 [facility] snw 21:22 Suhas Thao MD is Attending Physician. snw 21:42 Suhas Thao MD is Attending Physician. heath Administered Medications: No medications were administered Outcome: 21:41 Eloped from waiting room, before seeing physician Time discovered patient gone: January at 21:41 21:42 Patient left the ED. heath Signatures: Kristy Barragan, RN RN Robina Lester, ANIMAL HEALTH TECHNICIAN-C ANIMAL HEALTH TECHNICIAN-Csnw Chitra Gerardo
[2019-02-01 22:37] VITALS: BP 145/70; TEMP 98.2; O2SAT 98
== END 2019-02-01 21:42 | disposition left against medical advice (07) ==
LOC: ER 20:16
DX: Z53.21 Procedure and treatment not carried out due to patient leaving prior to being seen by health care provider (principal)
CPT/HCPCS: 99281

== ENCOUNTER 2019-02-02 06:24 | Emergency (ER) | payer SELFPAY ==
--- OUTSIDE RECORDS SUMMARY | 2019-02-02 06:27 | XMS REPORT | Clinical Summary ---
:1990 Author Organization [facility] Address [address] [place] [address] Care Team Providers Name Role Phone Asked, [...] INFLUENZA VACCINE 03/09/2019 Results Not on fileafter 02/01/2018 [address] [facility] (Home) [place] [id number] Advance Directives Patient has advance care planning documents on file. For more information, please contact:[place] [phone] [place] [address]
--- NOTE | 2019-02-02 06:50 | ER ---
Nurse's Notes [facility] Name: Kd Velazquez Age: 28 yrs Sex: Male : 1990 Arrival Date: 02/02/2019 Time: 06:25 Bed 19 Private MD: Toni Iverson H Diagnosis: Localized enlarged lymph nodes-right post cervical Presentation: 02/02 06:34 Presenting complaint: Patient states: Have a nod in the back of the head. Patient ao points to the right side of the neck. Transition of care: patient was not received from another setting of care. Onset of symptoms is unknown. Risk Assessment: Do you want to hurt yourself or someone else? Patient reports no desire to harm self or others. Initial Sepsis Screen: Does the patient meet any 2 criteria? No. Patient's initial sepsis screen is negative. Does the patient have a suspected source of infection? No. Patient's initial sepsis screen is negative. Care prior to arrival: None. 06:34 Method Of Arrival: Ambulatory ao 06:34 Acuity: NIELS 4 ao Historical: - Allergies: 06:36 No Known Allergies; ao - Home Meds: 06:36 None [Active]; ao - PMHx: 06:36 None; ao - PSHx: 06:36 None; ao - Immunization history:: Adult Immunizations up to date. - Social history:: Smoking status: Patient uses tobacco products, smokes one-half pack cigarettes per day, Patient uses street drugs, marijuana. - Ebola Screening: : Patient negative for fever greater than or equal to 101.5 degrees Fahrenheit, and additional compatible Ebola Virus Disease symptoms Patient denies exposure to infectious person Patient denies travel to an Ebola-affected area in the 21 days before illness onset. Screenin:38 Abuse screen: Denies threats or abuse. Denies injuries from another. Nutritional ao screening: No deficits noted. Tuberculosis screening: No symptoms or risk factors identified. Fall Risk None identified. Assessment: 06:38 General: Appears in no apparent distress. comfortable, Behavior is calm, cooperative, ao appropriate for age. Pain: Complains of pain in base of the skull. Neuro: Level of Consciousness is awake, alert, obeys commands, Oriented to person, place, time, situation, Appropriate for age Moves all extremities. Full function Speech is normal, Facial symmetry appears normal. Cardiovascular: Capillary refill < 3 seconds Patient's skin is warm and dry. Respiratory: Airway is patent Respiratory effort is even, unlabored, Respiratory pattern is regular, symmetrical. GI: Abdomen is non-distended. : No deficits noted. No signs and/or symptoms were reported regarding the genitourinary system. EENT: Small lump noted in the right side of the neck. Derm: Skin is intact, Skin is pink, warm \T\ dry. normal, Skin temperature is warm. Musculoskeletal: Circulation, motion, and sensation intact. Range of motion: intact in all extremities. 07:00 Reassessment: DC instructions given to patient. patient agree with the POC and to ao follow up with PCP. No questions at this time. Vital Signs: 06:37 BP 137 / 82; Pulse 66; Resp 18; Temp 97.7(O); Pulse Ox 100% ; Weight 95.25 kg (R); ao Height 6 ft. 00 in. (182.88 cm) (R); Pain 5/10; 06:37 Body Mass Index 28.48 (95.25 kg, 182.88 cm) ao ED Course: 06:25 Patient arrived in ED. am2 06:26 Toni Iverson DO is Private Physician. am2 06:29 Jeremy Reeder PA is PHCP. cp 06:29 Suhas Thao MD is Attending Physician. cp 06:35 Triage completed. ao 06:38 Arm band placed on right wrist. Patient placed in an exam room, on a stretcher, on ao pulse oximetry, Patient notified of wait time. 06:38 Patient has correct armband on for positive identification. Allergy band placed. Fall ao risk band placed. Placed in gown. Bed in low position. Call light in reach. Side rails up X 1. Pulse ox on. NIBP on. 07:00 No provider procedures requiring assistance completed. Patient did not have IV access ao during this emergency room visit. Administered Medications: No medications were administered Outcome: 06:49 Discharge ordered by . cp 07:00 Discharged to home ambulatory. ao 07:00 Condition: stable 07:00 Discharge instructions given to patient, Instructed on discharge instructions, follow up and referral plans. Demonstrated understanding of instructions, follow-up care, medications. 07:03 Patient left the ED. ao Signatures: Jeremy Reeder PA PA cp Ortiz, Alex RN RN Kristy Padilla
--- NOTE | 2019-02-02 06:50 | EDPHYS ---
Physician Documentation [facility] Name: Kd Velazquez Age: 28 yrs Sex: Male : 1990 Arrival Date: 02/02/2019 Time: 06:25 Bed 19 Private MD: Toni Iverson H ED Physician Suhas Thao HPI: 02/02 06:38 This 28 yrs old Black Male presents to ER via Ambulatory with complaints of knot/bump cp on back of neck. 06:39 The patient or guardian complains of swelling. The symptoms are located on the right cp lateral posterior neck. Context: Patient reports girlfriend was messaging neck when she noticed "lump". Patient denies pain, denies cough, denies sore throat. Associated signs and symptoms: Pertinent negatives: chills, fever, headache. Severity of symptoms: in the emergency department the symptoms are unchanged, despite home interventions. Historical: - Allergies: 06:36 No Known Allergies; ao - Home Meds: 06:36 None [Active]; ao - PMHx: 06:36 None; ao - PSHx: 06:36 None; ao - Immunization history:: Adult Immunizations up to date. - Social history:: Smoking status: Patient uses tobacco products, smokes one-half pack cigarettes per day, Patient uses street drugs, marijuana. - Ebola Screening: : Patient negative for fever greater than or equal to 101.5 degrees Fahrenheit, and additional compatible Ebola Virus Disease symptoms Patient denies exposure to infectious person Patient denies travel to an Ebola-affected area in the 21 days before illness onset. ROS: 06:41 Eyes: Negative for injury, pain, redness, and discharge. cp 06:41 Constitutional: Negative for body aches, chills, fever, weight loss. 06:41 ENT: Negative for drainage from ear(s), ear pain, sinus congestion, sinus pain, sore throat, difficulty swallowing, difficulty handling secretions. 06:41 Neck: Positive for swollen nodes, Negative for pain with movement, pain at rest, rash, stiffness, tenderness, bony tenderness. 06:41 Cardiovascular: Negative for chest pain. 06:41 Respiratory: Negative for cough, shortness of breath, wheezing. 06:41 Abdomen/GI: Negative for abdominal pain, nausea, vomiting, and diarrhea. 06:41 Skin: Negative for rash. 06:41 Neuro: Negative for altered mental status, headache, weakness. 06:41 All other systems are negative. Exam: 06:42 Head/Face: Normocephalic, atraumatic. cp 06:42 Constitutional: The patient appears in no acute distress, alert, awake, non-toxic, well developed, well nourished. 06:42 Eyes: Periorbital structures: appear normal, Conjunctiva: normal, no exudate, no injection, Sclera: no appreciated abnormality, Lids and lashes: appear normal, bilaterally. 06:42 ENT: External ear(s): are unremarkable, Ear canal(s): are normal, clear, TM's: are normal, no evidence of bulging, no erythema, dullness, bilaterally, Nose: is normal, Mouth: is normal, Posterior pharynx: is normal, airway is patent, no erythema, no exudate, Voice: is normal. 06:42 Neck: ROM/movement: is normal, is supple, without pain, no range of motions limitations, no meningismus, no nuchal rigidity, Lymph nodes: lymphadenopathy is appreciated, right post cervical enlarged node, non-tender. 06:42 Chest/axilla: Inspection: normal, Palpation: is normal, no crepitus, no tenderness, Lymph nodes: lymphadenopathy is not appreciated. 06:42 Cardiovascular: Rate: normal, Rhythm: regular. 06:42 Respiratory: the patient does not display signs of respiratory distress, Respirations: normal, no use of accessory muscles, no retractions, no splinting, no tachypnea, labored breathing, is not present, Breath sounds: are clear throughout, no decreased breath sounds, no stridor, no wheezing. 06:42 Abdomen/GI: Exam negative for discomfort, distension, guarding, Inspection: abdomen appears normal. 06:42 Skin: no rash present. Vital Signs: 06:37 BP 137 / 82; Pulse 66; Resp 18; Temp 97.7(O); Pulse Ox 100% ; Weight 95.25 kg (R); ao Height 6 ft. 00 in. (182.88 cm) (R); Pain 5/10; 06:37 Body Mass Index 28.48 (95.25 kg, 182.88 cm) ao MDM: 06:29 Patient medically screened. cp Administered Medications: No medications were administered Disposition: 07:03 Co-signature as Attending Physician, Suhas Thao MD. rn Disposition: 02/02/19 06:49 Discharged to Home. Impression: Localized enlarged lymph nodes - right post cervical. - Condition is Stable. - Discharge Instructions: Lymphadenopathy. - Medication Reconciliation Form, Thank You Letter, Antibiotic Education, Prescription Opioid Use form. - Follow up: Private Physician; When: 2 - 3 days; Reason: Worsening of condition. - Problem is new. - Symptoms are unchanged. Signatures: Suhas Thao MD MD rn Jeremy Reeder PA PA cp Ortiz, Alex, RN RN ao Corrections: (The following items were deleted from the chart) 07:03 06:49 02/02/2019 06:49 Discharged to Home. Impression: Localized enlarged lymph nodes - ao right post cervical. Condition is Stable. Forms are Medication Reconciliation Form, Thank You Letter, Antibiotic Education, Prescription Opioid Use. Follow up: Private Physician; When: 2 - 3 days; Reason: Worsening of condition. Problem is new. Symptoms are unchanged. cp
[2019-02-02 07:47] VITALS: BP 137/82; TEMP 97.7; O2SAT 100
== END 2019-02-02 07:03 | disposition home or self-care (01) ==
LOC: ER 06:24
DX: R59.0 Localized enlarged lymph nodes (principal); F17.210 Nicotine dependence, cigarettes, uncomplicated
CPT/HCPCS: 99283

== ENCOUNTER 2019-02-04 07:40 | Emergency (ER) | payer SELFPAY ==
--- OUTSIDE RECORDS SUMMARY | 2019-02-04 07:42 | XMS REPORT | Clinical Summary ---
:1990 Author Organization [facility] Address [address] [place] [address] Care Team Providers Name Role Phone Asked, [...] INFLUENZA VACCINE 03/09/2019 Results Not on fileafter 02/03/2018 [address] [facility] (Home) [place] [id number] Advance Directives Patient has advance care planning documents on file. For more information, please contact:[place] [phone] [place] [address]
--- OUTSIDE RECORDS SUMMARY | 2019-02-04 07:43 | XMS REPORT ---
:1990 Author Organization [facility] Address [address] [place] [address] Dr. Solis [address] [place] [id number] Care Team Providers Name Role Phone Unavailable Unavailable Unavailable Problems This patient has no known problems. Allergies, Adverse Reactions, Alerts This patient has no known allergies or adverse reactions. Medications This patient has no known medications.
[2019-02-04] MEDS ORDERED: CYCLOBENZAPRINE 10 MG TAB ONE (08:24)
[2019-02-04 08:34] LABS: Absolute Lymphocytes (CBC) 1.5 K/uL (0.7-4.9); Basophils % 1.1 % (0-1.3); Eosinophils % 6.8 % (0-4.4); Hematocrit 40.5 % (39.6-49.0); Lymphocytes % 38.6 % (15.3-44.8); MPV 9.1 fL (7.6-11.3); Monocytes % 10.4 % (3.3-12.3); RBC Red Blood Cell Count 4.71 M/uL (4.33-5.43)
[2019-02-04 08:46] LABS: BUN Blood Urea Nitrogen 13 mg/dL (7-18); Bicarbonate 27 mmol/L (21-32); Glucose Level 99 mg/dL (74-106); Potassium 3.8 mmol/L (3.5-5.1); Sodium Level 144 mmol/L (136-145)
--- NOTE | 2019-02-04 09:36 | RAD REPORT ---
EXAM DESCRIPTION: CT - Soft Tissue Neck W/Contr - 02/04/2019 9:01 am CLINICAL HISTORY: Neck pain with sore throat COMPARISON: 2012 TECHNIQUE: Computed axial tomography of the neck was obtained. 50 cc Isovue 300 was administered in travenously. Coronal and sagittal reconstruction was performed. All CT scans are performed using dose optimization technique as appropriate and may include automated exposure control or mA/KV adjustment according to patient size. FINDINGS: The pharynx, tongue base, larynx and subglottic trachea appear unremarkable The parotid, submandibular and thyroid glands appear unremarkable. Several borderline enlarged lymph nodes Mild sinusitis. Clear mastoids IMPRESSION: Several borderline enlarged lymph nodes within the neck are nonspecific but probably patience ign.
--- NOTE | 2019-02-04 09:48 | ER ---
Nurse's Notes [facility] Name: Kd Velazquez Age: 28 yrs Sex: Male : 1990 Arrival Date: 02/04/2019 Time: 07:41 Bed 20 Private MD: Diagnosis: Torticollis;Nonspecific lymphadenitis Presentation: 02/04 07:48 Presenting complaint: Patient states: neck pain that began when patient woke up this ss morning. Pt states, "I can't move my neck, it's stiff.". Transition of care: patient was not received from another setting of care. Acute neurological deficit: none identified. Onset of symptoms was February 04, 2019. Risk Assessment: Do you want to hurt yourself or someone else? Patient reports no desire to harm self or others. Initial Sepsis Screen: Does the patient meet any 2 criteria? No. Patient's initial sepsis screen is negative. Does the patient have a suspected source of infection? No. Patient's initial sepsis screen is negative. Care prior to arrival: None. 07:48 Method Of Arrival: Ambulatory 07:48 Acuity: NIELS 3 ss Historical: - Allergies: 07:50 No Known Allergies; ss - Home Meds: 07:50 None [Active]; ss - PMHx: 07:50 None; ss - PSHx: 07:50 Tonsillectomy; ss - Immunization history:: Adult Immunizations up to date. - Social history:: Smoking status: Patient/guardian denies using tobacco, Patient uses street drugs, marijuana. - Ebola Screening: : Patient denies exposure to infectious person Patient denies travel to an Ebola-affected area in the 21 days before illness onset. - Family history:: not pertinent. - Hospitalizations: : No recent hospitalization is reported. Screenin:20 Abuse screen: Denies threats or abuse. Nutritional screening: No deficits noted. em Tuberculosis screening: No symptoms or risk factors identified. Fall Risk None identified. Assessment: 08:00 General: Appears in no apparent distress. uncomfortable, Behavior is calm, cooperative, em Denies fever. Pain: Complains of pain in left sternocleidomastoid Pain currently is 8 out of 10 on a pain scale. Pain began 3 hours ago. Neuro: Level of Consciousness is awake, alert, obeys commands, Oriented to person, place, time, situation. Cardiovascular: Capillary refill < 3 seconds Patient's skin is warm and dry. Respiratory: Airway is patent Respiratory effort is even, unlabored, Respiratory pattern is regular, symmetrical, Denies cough. GI: Reports nausea. EENT: Denies nasal congestion, nasal discharge. Derm: Skin is intact, is healthy with good turgor, Skin is pink, warm \\T\\ dry. Musculoskeletal: Capillary refill < 3 seconds, Range of motion: intact in all extremities. 08:53 Reassessment: Patient appears in no apparent distress at this time. Patient and/or em family updated on plan of care and expected duration. Pain level reassessed. Patient is alert, oriented x 3, equal unlabored respirations, skin warm/dry/pink. pain unchanged. 08:56 Reassessment: Pt to CT now VIA wheelchair. ss 09:15 Reassessment: reports medication has not helped, pain unchanged, provider notified. em 10:00 Reassessment: Patient appears in no apparent distress at this time. Patient and/or em family updated on plan of care and expected duration. Pain level reassessed. Patient is alert, oriented x 3, equal unlabored respirations, skin warm/dry/pink. Patient states symptoms have not improved. 10:20 Reassessment: pending shot time. em Vital Signs: 07:50 BP 136 / 89; Pulse 75; Resp 16; Temp 98.1(TE); Pulse Ox 98% on R/A; Height 6 ft. 0 in. ss (182.88 cm); Pain 8/10; 08:50 BP 126 / 74; Pulse 65; Resp 18; Pulse Ox 100% on R/A; em 10:00 BP 125 / 74; Pulse 72; Resp 18; Pulse Ox 99% on R/A; Pain 8/10; em ED Course: 07:41 Patient arrived in ED. as 07:44 Suhas Thao MD is Attending Physician. rn 07:47 Goyo Edmonds LVN is Primary Nurse. em 07:49 Triage completed. ss 07:50 Arm band placed on right wrist. ss 08:20 Patient has correct armband on for positive identification. Bed in low position. Call em light in reach. Pulse ox on. NIBP on. 08:20 Initial lab(s) drawn, by me, sent to lab. Inserted saline lock: 20 gauge in right em antecubital area, using aseptic technique. Blood collected. 08:30 Radiology exam delayed due to lab results not completed at this time. (BUN/Creatinine). ls3 09:00 CT completed. Patient tolerated procedure well. Patient moved back from CT. mw3 09:04 CT Soft Tissue Neck W/contr In Process Unspecified. EDMS 10:37 No provider procedures requiring assistance completed. IV discontinued, intact, em bleeding controlled, No redness/swelling at site. Pressure dressing applied. Administered Medications: 08:15 Drug: Flexeril 10 mg Route: PO; em 09:00 Follow up: Response: No adverse reaction; Pain is unchanged, physician notified em 10:18 Drug: TORadol 30 mg Route: IM; Site: left deltoid; ss 10:42 Follow up: Response: No adverse reaction em 10:18 Drug: Decadron - Dexamethasone 10 mg Route: IVP; Site: right antecubital; ss 10:42 Follow up: Response: No adverse reaction em Outcome: 09:47 Discharge ordered by . rn 10:37 Discharged to home ambulatory. em 10:37 Condition: good 10:37 Discharge instructions given to patient, Instructed on discharge instructions, follow up and referral plans. medication usage, Demonstrated understanding of instructions, follow-up care, medications, Prescriptions given X 2. 10:42 Patient left the ED. em Signatures: Dispatcher [employer] Goyo Reilly, SIZER HAND SIZER HAND Shawanda Bojorquez Roman, MD MD rn Smirch, Shelby, RN RN Leta Gan mw3 Kami Schaffer ls3
--- NOTE | 2019-02-04 09:48 | EDPHYS ---
Physician Documentation [facility] Name: Kd Velazquez Age: 28 yrs Sex: Male : 1990 Arrival Date: 02/04/2019 Time: 07:41 Bed 20 Private MD: ED Physician Suhas Thao HPI: 02/04 08:20 This 28 yrs old Black Male presents to ER via Ambulatory with complaints of Neck Pain, rn <24hrs Old, Headache. 08:20 The patient or guardian complains of pain, that is acute. The symptoms are located on rn the left lateral neck. Onset: The symptoms/episode began/occurred this morning. Associated signs and symptoms: Pertinent negatives: fever, headache, bladder incontinence, bowel incontinence, nausea, numbness, tingling, vomiting, weakness. The pain does not radiate. Modifying factors: The symptoms are alleviated by remaining still, the symptoms are aggravated by movement, pressure. Severity of symptoms: At their worst the symptoms were moderate, in the emergency department the symptoms are unchanged. The patient has not experienced similar symptoms in the past. The patient has been recently seen at the [facility] Emergency Department. REports seen here recently and told had swollen lymph nodes of neck, reports was doing ok and woke up today with left neck pain, hurts to touch and turn head, no focal neurological complaints. NO trauma. No fever. NO sore throat. Does not feel sick. Didn't try anything at home, came here immediately. No headache.. Historical: - Allergies: 07:50 No Known Allergies; ss - Home Meds: 07:50 None [Active]; ss - PMHx: 07:50 None; ss - PSHx: 07:50 Tonsillectomy; ss - Immunization history:: Adult Immunizations up to date. - Social history:: Smoking status: Patient/guardian denies using tobacco, Patient uses street drugs, marijuana. - Ebola Screening: : Patient denies exposure to infectious person Patient denies travel to an Ebola-affected area in the 21 days before illness onset. - Family history:: not pertinent. - Hospitalizations: : No recent hospitalization is reported. ROS: 08:20 Constitutional: Negative for fever, chills, and weight loss, Eyes: Negative for injury, rn pain, redness, and discharge, ENT: Negative for injury, pain, and discharge, Neck: + left neck pain Cardiovascular: Negative for chest pain, palpitations, and edema, Respiratory: Negative for shortness of breath, cough, wheezing, and pleuritic chest pain, Abdomen/GI: Negative for abdominal pain, nausea, vomiting, diarrhea, and constipation, MS/Extremity: Negative for injury and deformity, Skin: Negative for injury, rash, and discoloration, Neuro: Negative for headache, weakness, numbness, tingling, and seizure. Exam: 08:20 Constitutional: This is a well developed, well nourished patient who is awake, alert, rn sitting on edge of stretcher, appears anxious Head/Face: Normocephalic, atraumatic. Eyes: Pupils equal round and reactive to light, extra-ocular motions intact. Lids and lashes normal. Conjunctiva and sclera are non-icteric and not injected. Cornea within normal limits. Periorbital areas with no swelling, redness, or edema. ENT: MMM, no stridor, no oral swelling Neck: Trachea midline, no thyromegaly or masses palpated, mild bilateral equal non-tender cervical LAD. No vertebral point tenderness. No Meningismus. + tenderness along left SCM and trapezius. No crepitus. No overlying skin changes Respiratory: No increased work of breathing, no retractions or nasal flaring. Skin: Warm, dry with normal turgor. Normal color with no rashes, no lesions, and no evidence of cellulitis. MS/ Extremity: Pulses equal, no cyanosis. Neurovascular intact. Full, normal range of motion. Equal circumference. Neuro: Awake and alert, GCS 15, oriented to person, place, time, and situation. Cranial nerves II-XII grossly intact. Motor strength 5/5 in all extremities. Sensory grossly intact. Cerebellar exam normal. Normal gait. Vital Signs: 07:50 BP 136 / 89; Pulse 75; Resp 16; Temp 98.1(TE); Pulse Ox 98% on R/A; Height 6 ft. 0 in. ss (182.88 cm); Pain 8/10; 08:50 BP 126 / 74; Pulse 65; Resp 18; Pulse Ox 100% on R/A; em 10:00 BP 125 / 74; Pulse 72; Resp 18; Pulse Ox 99% on R/A; Pain 8/10; em MDM: 07:44 Patient medically screened. rn 09:46 Differential diagnosis: cervical strain, torticollis, lymphadenopathy, lymphadenitis. rn Data reviewed: vital signs, nurses notes. Counseling: I had a detailed discussion with the patient and/or guardian regarding: the historical points, exam findings, and any diagnostic results supporting the discharge/admit diagnosis, lab results, radiology results, the need for outpatient follow up, to return to the emergency department if symptoms worsen or persist or if there are any questions or concerns that arise at home. Response to treatment: the patient's symptoms have mildly improved after treatment, and as a result, I will discharge patient. Special discussion: I discussed with the patient/guardian in detail that at this point there is no indication for admission to the hospital. It is understood, however, that if the symptoms persist or worsen the patient needs to return immediately for re-evaluation. ED course: No acute findings, non-specific LAD on CT, bloodwork not consistent with hematologic emergency, will dc home with abx for possible lymphadenitis. Recommend heat and stretching as well as may just be torticollis.. 02/04 07:53 Order name: CBC with Diff rn 02/04 07:53 Order name: Basic Metabolic Panel; Complete Time: 08:47 rn 02/04 07:53 Order name: CT Soft Tissue Neck W/contr; Complete Time: 09:45 rn 02/04 07:54 Order name: CBC with Automated Diff; Complete Time: 08:47 EDMS 02/04 07:53 Order name: IV Start; Complete Time: 08:21 rn Administered Medications: 08:15 Drug: Flexeril 10 mg Route: PO; em 09:00 Follow up: Response: No adverse reaction; Pain is unchanged, physician notified em 10:18 Drug: TORadol 30 mg Route: IM; Site: left deltoid; ss 10:42 Follow up: Response: No adverse reaction em 10:18 Drug: Decadron - Dexamethasone 10 mg Route: IVP; Site: right antecubital; ss 10:42 Follow up: Response: No adverse reaction em Disposition: 02/04/19 09:47 Discharged to Home. Impression: Torticollis, Nonspecific lymphadenitis. - Condition is Stable. - Discharge Instructions: Acute Torticollis, Adult, Lymphadenopathy. - Prescriptions for Clindamycin HCl 300 mg Oral Capsule - take 1 capsule by ORAL route every 6 hours for 10 days; 40 capsule. Cyclobenzaprine 10 mg Oral Tablet - take 1 tablet by ORAL route every 8 hours As needed; 15 tablet. - Medication Reconciliation Form, Thank You Letter, Antibiotic Education, Prescription Opioid Use form. - Follow up: Private Physician; When: As needed; Reason: Recheck today's complaints, Re-evaluation by your physician. - Problem is an ongoing problem. - Symptoms have improved. Signatures: Dispatcher [employer] EDAR Goyo Edmonds, GENERAL SURGERY PHYSICIAN ASSISTANT GENERAL SURGERY PHYSICIAN ASSISTANT Suhas Tucker MD MD rn Iman Taylor RN RN ss Corrections: (The following items were deleted from the chart) 10:42 09:47 02/04/2019 09:47 Discharged to Home. Impression: Torticollis; Nonspecific em lymphadenitis. Condition is Stable. Forms are Medication Reconciliation Form, Thank You Letter, Antibiotic Education, Prescription Opioid Use. Follow up: Private Physician; When: As needed; Reason: Recheck today's complaints, Re-evaluation by your physician. Problem is an ongoing problem. Symptoms have improved. rn
[2019-02-04] MEDS ORDERED: DEXAMETHASONE 10 MG/ML VIAL ONE (10:28)
[2019-02-04] MEDS ORDERED: KETOROLAC 30 MG/ML INJ ONE (10:29)
[2019-02-04 11:15] VITALS: TEMP 98.1
[2019-02-04 11:17] VITALS: BP 125/74; O2SAT 99
== END 2019-02-04 10:42 | disposition home or self-care (01) ==
LOC: ER 07:40
DX: M43.6 Torticollis (principal); I88.9 Nonspecific lymphadenitis, unspecified
CPT/HCPCS: 36415; 70491; 80048; 85025; 96372; 96374; 99284; J1100

== ENCOUNTER 2020-10-16 17:00 | Emergency (ER) | payer OTHER ==
--- OUTSIDE RECORDS SUMMARY | 2020-10-16 17:03 | XMS REPORT | Continuity of Care Document ---
:1990 Author Organization [facility] t Address [address] [place] [address] Care Team Providers Name Role Phone Asked, Pcp Primary Care Physician Unavailable uJany Durand Attending Clinician Problems Condition Condition Condition Status Onset Resolution Last Treating Co mments Source Name Details Category Date Date Treatment Clinician Date Urethral Urethral Diagnosis Active [facility] - in male in male [facility] ent Clinics Tinea Tinea Problem [facility] ent Clinics Allergies, Adverse Reactions, Alerts This patient has no known allergies or adverse reactions. Family History Family Member Diagnosis Comments Start Date Stop Date Source Natural father Diabetes [facility] thodist Maternal grandfather Diabetes [facility] Social History Social Habit Start Date Stop Date Quantity Comments Source Alcohol intake 2017-07-28 2017-07-28 Current drinker [place] [facility] 00:00:00 00:00:00 of alcohol (finding) Alcohol Comment 2017-07-28 2017-07-28 Drink only on [place] 00:00:00 00:00:00 holidays or once a month Sex Ass[birth year] At [birth year] [facility] 00:00:00 00:00:00 Medications This patient has no known medications. Procedures This patient has no known procedures. Plan of Care Planned Activity Planned Date Details Comments Source Future Scheduled 2020-03-09 INFLUENZA VACCINE [place] [facility] 00:00:00 [code = INFLUENZA VACCINE] Future Scheduled 2008 COVID-19 VACCINE (1 [place] [facility] 00:00:00 of 2) [code = COVID-19 VACCINE (1 of 2)] Encounters Start End Encounter Admission Attending Care Care Encounter Source Date/Time Date/Time Type Type Clinicians Facility Department ID 2020-01-22 2020-01-23 Emergency Raquel, K [facility] [id number] 22:24:14 00:57:00 Juany Sanabria [id number] [place] [id number] [place] [id number] 2019-12-04 2019-12-04 [facility] [id number] [facility] 13:30:00 13:30:00 t Specialty/U Valerie ramachandran - Specialty rology [facility] /Urology Clinic l Clinic Outpati ent Clinics Results This patient has no known results.
[2020-10-16 20:05] LABS: SARS-COV-2 RT PCR POSITIVE (NEGATIVE)
--- NOTE | 2020-10-16 21:37 | ER ---
Nurse's Notes [facility] Name: Kd Velazquez Age: 29 yrs Sex: Male : 1990 Arrival Date: 10/16/2020 Time: 17:07 Bed 23 Private MD: Toni Iverson H Diagnosis: Coronavirus infection, unspecified Presentation: 10/16 17:32 Chief complaint: Patient states: i think i might have covid, i started having body tw2 aches and chills for 2 days and i have been around somebody that tested positive for covid, i do have a cough and a headache, diarrhea, nausea. Coronavirus screen: chills, cough unrelated to allergies, diarrhea, headache, nausea, shaking with chills. Ebola Screen: Patient denies travel to an Ebola-affected area in the 21 days before illness onset. Initial Sepsis Screen: Does the patient meet any 2 criteria? No. Patient's initial sepsis screen is negative. Does the patient have a suspected source of infection? No. Patient's initial sepsis screen is negative. Risk Assessment: Do you want to hurt yourself or someone else? Patient reports no desire to harm self or others. Onset of symptoms was October 16, 2020. 17:32 Method Of Arrival: Ambulatory tw2 17:32 Acuity: NIELS 4 tw2 Triage Assessment: 17:37 General: Appears in no apparent distress. Behavior is calm, cooperative, appropriate tw2 for age. Pain: Complains of pain in headache. Historical: - Allergies: 17:37 No Known Drug Allergies; tw2 - Home Meds: 17:37 None [Active]; tw2 - PMHx: 17:37 None; tw2 - PSHx: 17:37 Tonsillectomy; tw2 - Immunization history:: Adult Immunizations. - Social history:: Smoking status: . Screenin:52 Abuse screen: Denies threats or abuse. Nutritional screening: No deficits noted. em Tuberculosis screening: No symptoms or risk factors identified. Fall Risk None identified. Assessment: 20:41 General: Appears in no apparent distress. Behavior is calm, cooperative, appropriate em for age. Pain: Complains of pain in right leg and left leg/ generalized body aches. Neuro: Level of Consciousness is awake, alert. Cardiovascular: Denies chest pain. Respiratory: Airway is patent Trachea midline Respiratory effort is even, unlabored. GI: Abdomen is non-distended. 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 Musculoskeletal: Reports pain in right leg and left leg. 21:15 Reassessment: Patient appears in no apparent distress at this time. Patient and/or em family updated on plan of care and expected duration. Pain level reassessed. reports pain in testicles, provider notified. 21:40 Reassessment: US at bedside. em Vital Signs: 17:32 BP 127 / 67; Pulse 98; Resp 18; Temp 98.1(TE); Pulse Ox 99% on R/A; Weight 98.88 kg tw2 (R); Height 6 ft. 0 in. (182.88 cm); 20:41 BP 129 / 91; Pulse 89; Resp 17; Temp 98.8; Pulse Ox 98% on R/A; em 17:32 Body Mass Index 29.57 (98.88 kg, 182.88 cm) tw2 ED Course: 17:07 Patient arrived in ED. am2 17:07 Toni Iverson DO is Private Physician. am2 17:17 [facility]C [facility] kb 17:17 Suhas Thao MD is Attending Physician. kb 17:36 Triage completed. tw2 17:37 Arm band placed on. tw2 17:52 Flu Sent. tw2 17:52 COVID-19 : Document "Date of Symptom Onset" if Symptomatic. Sent. tw2 20:51 Goyo Edmonds, RN is Primary Nurse. em 20:52 Patient has correct armband on for positive identification. em 21:58 No provider procedures requiring assistance completed. Patient did not have IV access em during this emergency room visit. 23:15 US Scrotum Testicles In Process Unspecified. EDMS Administered Medications: 21:37 Drug: [place] 5 mg-325 mg 1 tabs Route: PO; em 21:59 Follow up: Response: No adverse reaction em Outcome: 21:36 Discharge ordered by MD. kb 21:58 Discharged to home ambulatory. em 21:58 Condition: good 21:58 Discharge instructions given to patient, Instructed on discharge instructions, follow up and referral plans. Demonstrated understanding of instructions, follow-up care. 22:00 Patient left the ED. em Signatures: Dispatcher [employer] Leslie Quick, [facility] ALINE-Goyo Rutherford, RN RN em Ariana Alexis RN RN tw2 Kristy Machado 2
--- NOTE | 2020-10-16 21:37 | EDPHYS ---
Physician Documentation [facility] Name: Kd Velazquez Age: 29 yrs Sex: Male : 1990 Arrival Date: 10/16/2020 Time: 17:07 Bed 23 Private MD: Toni Iverson H ED Physician Suhas Thao HPI: 10/16 22:02 This 29 yrs old Black Male presents to ER via Ambulatory with complaints of chills, kb covid symptoms, bodyaches. 22:02 The patient or guardian reports cough, that is intermittent, described as mild, flu kb symptoms, low-grade fever, myalgias, no appetite. Onset: The symptoms/episode began/occurred 2 day(s) ago. Severity of symptoms: At their worst the symptoms were mild, in the emergency department the symptoms are unchanged. Modifying factors: The symptoms are alleviated by nothing, the symptoms are aggravated by nothing. Associated signs and symptoms: The patient has no apparent associated signs or symptoms. The patient has not experienced similar symptoms in the past. The patient has not recently seen a physician. Historical: - Allergies: 17:37 No Known Drug Allergies; tw2 - Home Meds: 17:37 None [Active]; tw2 - PMHx: 17:37 None; tw2 - PSHx: 17:37 Tonsillectomy; tw2 - Immunization history:: Adult Immunizations. - Social history:: Smoking status: . ROS: 22:00 Cardiovascular: Negative for chest pain, palpitations, and edema, Abdomen/GI: Negative kb for abdominal pain, nausea, vomiting, diarrhea, and constipation, MS/Extremity: Negative for injury and deformity, Skin: Negative for injury, rash, and discoloration. 22:00 Constitutional: Positive for body aches, chills, fatigue, malaise. 22:00 Respiratory: Positive for cough, Negative for dyspnea on exertion, hemoptysis, orthopnea, pleurisy, shortness of breath, sputum production, wheezing. 22:00 : Positive for testicular pain 22:00 Neuro: Positive for headache. Exam: 22:00 Constitutional: This is a well developed, well nourished patient who is awake, alert, kb and in no acute distress. Head/Face: Normocephalic, atraumatic. Skin: Warm, dry with normal turgor. Normal color with no rashes, no lesions, and no evidence of cellulitis. MS/ Extremity: Pulses equal, no cyanosis. Neurovascular intact. Full, normal range of motion. Neuro: Awake and alert, GCS 15, oriented to person, place, time, and situation. Cranial nerves II-XII grossly intact. Moves all extremities. Sensory grossly intact. Cerebellar exam normal. Normal gait. 22:00 Respiratory: the patient does not display signs of respiratory distress, Respirations: normal. Vital Signs: 17:32 BP 127 / 67; Pulse 98; Resp 18; Temp 98.1(TE); Pulse Ox 99% on R/A; Weight 98.88 kg tw2 (R); Height 6 ft. 0 in. (182.88 cm); 20:41 BP 129 / 91; Pulse 89; Resp 17; Temp 98.8; Pulse Ox 98% on R/A; em 17:32 Body Mass Index 29.57 (98.88 kg, 182.88 cm) tw2 MDM: 20:38 Patient medically screened. kb 21:56 Data reviewed: vital signs, nurses notes. Data interpreted: Pulse oximetry: on room air kb is 98 %. Interpretation: normal. Counseling: I had a detailed discussion with the patient and/or guardian regarding: the historical points, exam findings, and any diagnostic results supporting the discharge/admit diagnosis, lab results, radiology results, the need for outpatient follow up, a family practitioner, to return to the emergency department if symptoms worsen or persist or if there are any questions or concerns that arise at home. 10/16 17:17 Order name: Flu 10/16 17:17 Order name: COVID-19 : Document "Date of Symptom Onset" if Symptomatic. kb 10/16 18:36 Order name: Influenza Screen (A EDAK 10/16 18:36 Order name: CORONAVIRUS EDAK 10/16 20:06 Order name: COVID-19/FLU A+B; Complete Time: 20:09 EDAK 10/16 20:42 Order name: US Scrotum Testicles kb Administered Medications: 21:37 Drug: [place] 5 mg-325 mg 1 tabs Route: PO; em 21:59 Follow up: Response: No adverse reaction em Disposition: 10/16/20 21:36 Discharged to Home. Impression: Coronavirus infection, unspecified. - Condition is Stable. - Discharge Instructions: Viral Respiratory Infection, [id number], COVID-19. - Medication Reconciliation Form, Thank You Letter, Antibiotic Education, Prescription Opioid Use, Work release form form. - Follow up: Emergency Department; When: As needed; Reason: Worsening of condition. Follow up: Private Physician; When: 2 - 3 days; Reason: Recheck today's complaints, Continuance of care, Re-evaluation by your physician. Addendum: 10/18/2020 19:05 Co-signature as Attending Physician, Suhas Thao MD. r n Signatures: Dispatcher [employer] EDMS Leslie Bueno, LAB[employer]ER [employer]-C [employer]-Ckb Goyo Edmonds, RN RN Suhas Tucker MD MD rn Wise, Tara, RN RN tw2 Corrections: (The following items were deleted from the chart) 10/16 22:00 21:36 10/16/2020 21:36 Discharged to Home. Impression: Coronavirus infection, em unspecified. Condition is Stable. Forms are Work release form, Medication Reconciliation Form, Thank You Letter, Antibiotic Education, Prescription Opioid Use. Follow up: Emergency Department; When: As needed; Reason: Worsening of condition. Follow up: Private Physician; When: 2 - 3 days; Reason: Recheck today's complaints, Continuance of care, Re-evaluation by your physician. kb
[2020-10-16] MEDS ORDERED: HYDROCODONE/APAP 5/325 MG TAB ONE (21:54)
[2020-10-17 01:22] VITALS: BP 129/91; TEMP 98.8; O2SAT 98
--- NOTE | 2020-10-17 07:06 | RAD REPORT ---
EXAM DESCRIPTION: US - Scrotum Testicles - 10/16/2020 9:44 pm CLINICAL HISTORY: PAIN, scrotal pain COMPARISON: None FINDINGS: Homogeneous testicular tissue noted with no mass lesion. Doppler evaluation shows normal b lood flow within the testicular tissue. No epididymis enlargement or hyperemia seen. No extratesticul ar abnormalities identified. IMPRESSION: Negative scrotal ultrasound
== END 2020-10-16 22:00 | disposition home or self-care (01) ==
LOC: ER 17:00
DX: U07.1 COVID-19 (principal)
CPT/HCPCS: 0240U; 76870; 99283

== ENCOUNTER 2021-01-22 03:01 | Emergency (ER) | payer OTHER ==
--- OUTSIDE RECORDS SUMMARY | 2021-01-22 03:04 | XMS REPORT | Continuity of Care Document ---
:1990 Author Organization [facility] t Address [address] [place] [place] [address] Care Team Providers Name Role Phone Asked, Pcp Primary Care Physician Unavailable Juany Durand Attending Clinician Problems Condition Condition Condition Status Onset Resolution Last Treating Co mments Source Name Details Category Date Date Treatment Clinician Date Urethral Urethral Diagnosis Active [facility] Luke s - in male in male [facility] ent Clinics Tinea Tinea Problem [facility] Allergies, Adverse Reactions, Alerts This patient has no known allergies or adverse reactions. Family History Family Member Diagnosis Comments Start Date Stop Date Source Natural father Diabetes [facility] thodist Maternal grandfather Diabetes [facility] Social History Social Habit Start Date Stop Date Quantity Comments Source Alcohol intake 2017-07-28 2017-07-28 Current drinker [place] 00:00:00 00:00:00 of alcohol (finding) Alcohol Comment 2017-07-28 2017-07-28 Drink only on [place] 00:00:00 00:00:00 holidays or once a month Sex Assigned At [birth year] [facility] ethodist 00:00:00 00:00:00 Medications This patient has no known medications. Procedures This patient has no known procedures. Plan of Care Planned Activity Planned Date Details Comments Source Future Scheduled 2021-03-09 INFLUENZA VACCINE Regina paulson [facility] 00:00:00 [code = INFLUENZA VACCINE] Future Scheduled 2004 COVID-19 VACCINE (1) Anamika koenig [facility] 00:00:00 [code = COVID-19 VACCINE (1)] Encounters Start End Encounter Admission Attending Care Care Encounter Source Date/Time Date/Time Type Type Clinicians Facility Department ID 2020-01-22 2020-01-23 Emergency Raquel, [facility] [id number] 22:24:14 00:57:00 Juany [place] [id number] [place] [id number] [place] [id number] 2019-12-04 2019-12-04 [facility] [id number] [facility] 13:30:00 13:30:00 t Specialty/U Valerie ramachandran - Specialty rology [facility] /Urology Clinic l Clinic Outpati ent Clinics Results This patient has no known results.
[2021-01-22] MEDS ORDERED: KETOROLAC 30 MG/ML INJ ONE (04:04)
[2021-01-22] MEDS ORDERED: NA CHLORIDE 0.9% 1,000 ML ONE (04:04)
--- NOTE | 2021-01-22 05:12 | ER ---
Nurse's Notes [facility] Name: Kd Velazquez Age: 30 yrs Sex: Male : 1990 Arrival Date: 01/22/2021 Time: 03:05 Bed 5 Private MD: Toni Iverson H Diagnosis: Headache;Dehydration Presentation: 01/22 03:18 Chief complaint: Patient states: he has had a headache all day, he has recurring ring bb worm, when he woke up his vision was foggy for about 5 minutes but not currently. Coronavirus screen: At this time, the client does not indicate any symptoms associated with coronavirus-19. Ebola Screen: No symptoms or risks identified at this time. Initial Sepsis Screen: Does the patient meet any 2 criteria? No. Patient's initial sepsis screen is negative. Does the patient have a suspected source of infection? No. Patient's initial sepsis screen is negative. Risk Assessment: Do you want to hurt yourself or someone else? Patient reports no desire to harm self or others. Onset of symptoms was January 21, 2021. 03:18 Method Of Arrival: Ambulatory bb 03:18 Acuity: NIELS 4 bb 03:23 Note Pt states "I don't fell like myself" Pt had COVID in October. bb Historical: - Allergies: 03:21 No Known Allergies; bb - Home Meds: 03:21 None [Active]; bb - PMHx: 03:21 None; bb - PSHx: 03:21 Tonsillectomy; bb - Immunization history:: Adult Immunizations up to date. - Social history:: Smoking status: Patient reports the use of cigarette tobacco products, denies chronic smoking, but will smoke occasionally, Patient uses alcohol, occasionally. Patient/guardian denies using street drugs. - Family history:: not pertinent. - Hospitalizations: : No recent hospitalization is reported. Screenin:59 Abuse screen: Denies threats or abuse. Nutritional screening: No deficits noted. ea Tuberculosis screening: No symptoms or risk factors identified. Fall Risk None identified. Assessment: 03:58 General: Appears uncomfortable, Behavior is appropriate for age. Neuro: Level of ea Consciousness is awake, alert, obeys commands, Oriented to person, place, time. Cardiovascular: Patient's skin is warm and dry. Respiratory: Airway is patent Respiratory effort is even, unlabored, Respiratory pattern is regular, symmetrical. Derm: Skin is pink, warm \\T\\ dry. 04:50 Reassessment: Patient and/or family updated on plan of care and expected duration. Pain ea level reassessed. Patient is alert, oriented x 3, equal unlabored respirations, skin warm/dry/pink. 05:19 Reassessment: Patient and/or family updated on plan of care and expected duration. Pain ea level reassessed. Patient is alert, oriented x 3, equal unlabored respirations, skin warm/dry/pink. Discharge instruction given to patient verbalized the understanding of instruction. Pt left ED ambulatory tolerating well. General: Appears. Vital Signs: 03:18 BP 137 / 82; Pulse 84; Resp 14 S; Temp 99(O); Pulse Ox 98% on R/A; Weight 106.59 kg bb (R); Height 6 ft. 0 in. (182.88 cm) (R); Pain 7/10; 04:36 BP 121 / 72; Pulse 76; Resp 18 S; Pulse Ox 99% on R/A; ad5 03:18 Body Mass Index 31.87 (106.59 kg, 182.88 cm) bb Scarlett Coma Score: 05:10 Eye Response: spontaneous(4). Verbal Response: oriented(5). Motor Response: obeys rn commands(6). Total: 15. ED Course: 03:05 Patient arrived in ED. es 03:06 Toni Iverson DO is Private Physician. es 03:11 Suhas Thao MD is Attending Physician. rn 03:21 Triage completed. bb 03:21 Arm band placed on Patient placed in an exam room, on a stretcher, on pulse oximetry. bb 03:26 Karl Phillips is Primary Nurse. ad5 03:57 Inserted saline lock: 20 gauge in right antecubital area, using aseptic technique. ea Blood collected. 03:59 Patient has correct armband on for positive identification. Bed in low position. Call ea light in reach. Side rails up X2. 05:20 No provider procedures requiring assistance completed. IV discontinued, intact, ea bleeding controlled, No redness/swelling at site. Pressure dressing applied. Administered Medications: 03:57 Drug: NS 0.9% 1000 ml Route: IV; Rate: 1000 ml; Site: right antecubital; ea 05:10 Follow up: Response: No adverse reaction; IV Status: Completed infusion; IV Intake: ea 1000ml 03:57 Drug: TORadol (ketorolac) 30 mg Route: IVP; Site: right antecubital; ea 05:00 Follow up: Response: No adverse reaction ea Intake: 05:10 IV: 1000ml; Total: 1000ml. ea Outcome: 05:11 Discharge ordered by . rn 05:21 Discharged to home ambulatory. ea 05:21 Condition: stable 05:21 Discharge instructions given to patient, Instructed on discharge instructions, follow up and referral plans. Demonstrated understanding of instructions, follow-up care. 05:21 Patient left the ED. ea Signatures: Chitra Gerardo Brenda RN RN Suhas Plunkett MD MD rn Antunez, Elena, RN RN ea Davidson, Andrea ad5
--- NOTE | 2021-01-22 05:12 | EDPHYS ---
Physician Documentation [facility] Name: Kd Velazquez Age: 30 yrs Sex: Male : 1990 Arrival Date: 01/22/2021 Time: 03:05 Bed 5 Private MD: Toni Iverson H ED Physician Suhas Thao HPI: 01/22 04:44 This 30 yrs old Black Male presents to ER via Ambulatory with complaints of Headache, rn dehydration. 04:44 The patient complains of pain to the back of head. rn 04:45 The patient describes the headache as aching. Onset: The symptoms/episode rn began/occurred yesterday. Associated signs and symptoms: Pertinent positives: fatigue, Pertinent negatives: altered mental status, fever, neck stiffness, rash, vision loss. Severity of symptoms: At its worst the pain was moderate, in the emergency department the pain has improved. The symptoms are alleviated by nothing. the symptoms are aggravated by nothing. The patient has not experienced similar symptoms in the past. The patient has not recently seen a physician. Reports began with headache yesterday, was working outside doing yardwork for hours, felt dehydrated so went inside, + posterior headache and malaise. No fever. NO head injury. No focal neurological complaint. Had COVID in october. No vision complaints currently. No chest pain/sob/abd pain/vomiting/diarrhea. . Historical: - Allergies: 03:21 No Known Allergies; bb - Home Meds: 03:21 None [Active]; bb - PMHx: 03:21 None; bb - PSHx: 03:21 Tonsillectomy; bb - Immunization history:: Adult Immunizations up to date. - Social history:: Smoking status: Patient reports the use of cigarette tobacco products, denies chronic smoking, but will smoke occasionally, Patient uses alcohol, occasionally. Patient/guardian denies using street drugs. - Family history:: not pertinent. - Hospitalizations: : No recent hospitalization is reported. ROS: 04:45 Constitutional: Negative for fever, chills, and weight loss, Eyes: Negative for injury, rn pain, redness, and discharge, Neck: Negative for injury, pain, and swelling, Cardiovascular: Negative for chest pain, palpitations, and edema, Respiratory: Negative for shortness of breath, cough, wheezing, and pleuritic chest pain, Abdomen/GI: Negative for abdominal pain, nausea, vomiting, diarrhea, and constipation, Back: Negative for injury and pain, : Negative for injury, bleeding, discharge, and swelling, MS/Extremity: Negative for injury and deformity, Skin: Negative for injury, rash, and discoloration, Neuro: Negative for numbness, tingling, and seizure. Exam: 04:45 Constitutional: This is a well developed, well nourished patient who is awake, alert, rn and in no acute distress. Ambulatory to room without difficulty or assistance. Head/Face: Normocephalic, atraumatic. Eyes: Pupils equal round and reactive to light, extra-ocular motions intact. Periorbital areas with no swelling, redness, or edema. ENT: MMM Neck: Trachea midline, no masses palpated, and no cervical lymphadenopathy. Supple, full range of motion without nuchal rigidity, or vertebral point tenderness. No Meningismus. Cardiovascular: Regular rate and rhythm. No pulse deficits. Respiratory: No increased work of breathing, no retractions or nasal flaring. Abdomen/GI: soft, non-tender Skin: Warm, dry MS/ Extremity: Pulses equal, no cyanosis. Neuro: Awake and alert, GCS 15, oriented to person, place, time, and situation. Cranial nerves II-XII grossly intact. Motor strength 5/5 in all extremities. Sensory grossly intact. Cerebellar exam normal. Normal gait. Vital Signs: 03:18 BP 137 / 82; Pulse 84; Resp 14 S; Temp 99(O); Pulse Ox 98% on R/A; Weight 106.59 kg bb (R); Height 6 ft. 0 in. (182.88 cm) (R); Pain 7/10; 04:36 BP 121 / 72; Pulse 76; Resp 18 S; Pulse Ox 99% on R/A; ad5 03:18 Body Mass Index 31.87 (106.59 kg, 182.88 cm) bb Scarlett Coma Score: 05:10 Eye Response: spontaneous(4). Verbal Response: oriented(5). Motor Response: obeys rn commands(6). Total: 15. MDM: 03:11 Patient medically screened. rn 05:10 Differential diagnosis: hypertensive headache, migraine, tension headache, vasomotor rn headache. Data reviewed: vital signs, nurses notes, lab test result(s), and as a result, I will discharge patient. Counseling: I had a detailed discussion with the patient and/or guardian regarding: the historical points, exam findings, and any diagnostic results supporting the discharge/admit diagnosis, lab results, the need for outpatient follow up, to return to the emergency department if symptoms worsen or persist or if there are any questions or concerns that arise at home. Response to treatment: the patient's symptoms have mildly improved after treatment, and as a result, I will discharge patient. Special discussion: I discussed with the patient/guardian in detail that at this point there is no indication for admission to the hospital. It is understood, however, that if the symptoms persist or worsen the patient needs to return immediately for re-evaluation. 01/22 03:36 Order name: Strep; Complete Time: 04:44 rn 01/22 03:36 Order name: Tucker Screen Profile; Complete Time: 05:10 rn 01/22 03:36 Order name: Flu; Complete Time: 04:44 rn 01/22 04:24 Order name: Throat Culture [facility] 01/22 03:36 Order name: IV Start; Complete Time: 03:57 rn Administered Medications: 03:57 Drug: NS 0.9% 1000 ml Route: IV; Rate: 1000 ml; Site: right antecubital; ea 05:10 Follow up: Response: No adverse reaction; IV Status: Completed infusion; IV Intake: ea 1000ml 03:57 Drug: TORadol (ketorolac) 30 mg Route: IVP; Site: right antecubital; ea 05:00 Follow up: Response: No adverse reaction ea Disposition: 01/22/21 05:11 Discharged to Home. Impression: Headache, Dehydration. - Condition is Stable. - Discharge Instructions: Dehydration, Adult, General Headache Without Cause. - Medication Reconciliation Form, Thank You Letter, Antibiotic Education, Prescription Opioid Use form. - Follow up: Private Physician; When: As needed; Reason: Recheck today's complaints, Re-evaluation by your physician. - Problem is new. - Symptoms have improved. Signatures: Dispatcher [employer] EDSherlyn Espinoza RN RN bb Nieto, Roman, MD MD rn Antunez, Elena, RN RN ea Corrections: (The following items were deleted from the chart) : 05:11 01/22/2021 05:11 Discharged to Home. Impression: Headache; Dehydration. Condition ea is Stable. Forms are Medication Reconciliation Form, Thank You Letter, Antibiotic Education, Prescription Opioid Use. Follow up: Private Physician; When: As needed; Reason: Recheck today's complaints, Re-evaluation by your physician. Problem is new. Symptoms have improved. rn
[2021-01-22 05:39] VITALS: TEMP 99
[2021-01-22 05:47] VITALS: BP 121/72; O2SAT 99
== END 2021-01-22 05:21 | disposition home or self-care (01) ==
LOC: ER 03:01
DX: E86.0 Dehydration (principal); Z86.16 Personal history of COVID-19; F17.210 Nicotine dependence, cigarettes, uncomplicated
CPT/HCPCS: 87070; 36415; 86308; 87081; 87804 ×2; J7030; 96361; 96374; 99284

== ENCOUNTER 2022-12-01 17:53 | Emergency (ER) | payer OTHER ==
--- NOTE | 2022-12-01 17:57 | EDPHYS ---
Physician Documentation [facility] Name: Kd Velazquez Age: 32 yrs Sex: Male : 1990 Arrival Date: 12/01/2022 Time: 17:53 Bed Waiting [facility] MD: ED Physician Kevin Davis HPI: 12/01 17:56 This 32 yrs old Black Male presents to ER via Unassigned with complaints of Chest Pain, ms3 Anxiety. 17:56 32-year-old male with no past medical history presents for chest palpitations that ms3 began 1 week prior to arrival. Patient states he has been seen in the emergency department multiple times for similar symptoms. Patient denies pain at this time. Patient states he feels a weird sensation in his chest. ROS: 17:56 Constitutional: Negative for fever, and chills. ENT: Negative for injury, pain, and ms3 discharge, Neck: Negative for injury, pain, and swelling. 17:56 Respiratory: Negative for shortness of breath, cough, wheezing, and pleuritic chest pain, Abdomen/GI: Negative for abdominal pain, nausea, vomiting, diarrhea, and constipation, MS/Extremity: Negative for injury and deformity. 17:56 Cardiovascular: Positive for palpitations. 17:56 All other systems are negative. Exam: 17:56 Constitutional: This is a well developed, well nourished patient who is awake, alert, ms3 and in no acute distress. Head/Face: Normocephalic, atraumatic. Chest/axilla: Normal chest wall appearance and motion. Nontender with no deformity. Cardiovascular: Regular rate and rhythm with a normal S1 and S2. No gallops, murmurs, or rubs. Normal PMI, no JVD. No pulse deficits. Respiratory: Lungs have equal breath sounds bilaterally, clear to auscultation and percussion. No rales, rhonchi or wheezes noted. No increased work of breathing, no retractions or nasal flaring. Abdomen/GI: Soft, non-tender, with normal bowel sounds. No distension or tympany. No guarding or rebound. No evidence of tenderness throughout. Skin: Warm, dry with normal turgor. Normal color with no rashes, no lesions, and no evidence of cellulitis. MS/ Extremity: Pulses equal, no cyanosis. Neurovascular intact. Full, normal range of motion. MDM: 17:56 Patient medically screened. ms3 17:56 Differential diagnosis: abnormal EKG, Hyperthyroidism versus palpitations. Data ms3 reviewed: vital signs, nurses notes, and as a result, I will discharge patient. Independent interpretation of the following test(s) in the Emergency Department Rhythm Strip Interpretation Rate: 76BPM Rhythm: regular, EMS rhythm strip. Counseling: I had a detailed discussion with the patient and/or guardian regarding: the historical points, exam findings, and any diagnostic results supporting the discharge/admit diagnosis, the need for outpatient follow up, to return to the emergency department if symptoms worsen or persist or if there are any questions or concerns that arise at home. ED course: On arrival while on the EMS stretcher patient states he will not wait in the lobby. Discussed physical exam findings with patient. Patient may return at any time to continue his care. All questions were answered. Return precautions discussed include worsening symptoms, or any other concerns.. Administered Medications: No medications were administered Disposition Summary: 12/01/22 17:56 Discharge Ordered Location: Home ms3 Condition: Stable ms3 Diagnosis - Palpitations ms3 Followup: ms3 - With: Freddy Sanchez MD - When: 1 - 2 days - Reason: Recheck today's complaints Discharge Instructions: - Discharge Summary Sheet ms3 - Palpitations ms3 Forms: - Medication Reconciliation Form ms3 - Thank You Letter ms3 - Antibiotic Education ms3 - Prescription Opioid Use ms3 Signatures: Kevin Davis, DO ms3
--- OUTSIDE RECORDS SUMMARY | 2022-12-01 17:57 | XMS REPORT | Continuity of Care Document ---
:1990 Author Organization [facility] t Address [address] [place] [address] [place] [id number] Care Team Providers Name Role Phone Asked, No Pcp Primary Care Physician Unavailable Toni Iverson Attending Clinician Unavailable CHON BUSCH Attending Clinician Unavailable Chon Busch MD Attending Clinician LANCE WAKEFIELD Attending Clinician Unavailable LANCE WAKEFIELD Attending Clinician Unavailable Lance Wakefield DO Attending Clinician RAMAN ZIMMERMAN Attending Clinician Unavailable Raman Zimmerman MD Attending Clinician Doctor Unassigned, [place] Attending Clinician Unavailable FRANNIE MURCIA Attending Clinician Unavailable Frannie Murcia NP Attending Clinician NAYELI BARRAZA Attending Clinician Unavailable Nayeli Barraza MD Attending Clinician Yaquelin Durand Attending Clinician LANCE WAKEFIELD Admitting Clinician Unavailable RAMAN ZIMMERMAN Admitting Clinician Unavailable Payers Payer Name Policy Type Policy Number Effective Date Expiration Date Vikram DUNAWAY II [id number] 2016 00:00:00 Problems Condition Condition Condition Status Onset Resolution Last Treating Co mments Source Name Details Category Date Date Treatment Clinician Date Hematemesi Hematemesi Disease Active Tennille correa s 10-05 ity of 00:00: [place] 00 Medical Branch Urethral Urethral Diagnosis Active Com mon discharge discharge Spir it in male in male [facility] Tinea Tinea Problem Active Common cruris cruris [facility] Allergies, Adverse Reactions, Alerts Allergy Allergy Status Severity Reaction(s) Onset Inactive Treating Comm ents Source Name Type Date Date Clinician Penicill Propensi Active Hives Patient Unive rs ins ty to 10-13 returned ity of adverse 00:00: to clinic [place] reaction and Medical s stated Branch his mother stated he is allergic to PCN had a rxn as a child PENICILL Drug Active Hives Univers INS Class 10-13 ity of 00:00: [place] 00 Medical Branch Penicill Propensi Active Hives Patient Unive rs ins ty to 10-13 returned ity of adverse 00:00: to clinic [place] reaction and Medical s stated Branch his mother stated he is allergic to PCN had a rxn as a child Penicill Propensi Active Hives Patient Unive rs ins ty to 10-13 returned ity of adverse 00:00: to clinic [place] reaction 00 and Medical s stated Branch his mother stated he is allergic to PCN had a rxn as a child NO KNOWN Drug Active Univers ALLERGIE Class ity of S [facility] Family History Family Member Diagnosis Comments Start Date Stop Date Source Natural father Diabetes [facility] Maternal grandfather Diabetes [facility] Social History Social Habit Start Date Stop Date Quantity Comments Source History of tobacco Cigarette Smoker University of use [facility] History SDOH University o f Alcohol Frequency [facility] Hospital edical [place] History SDOH University o f Alcohol Std Drinks [facility] History SDOH University o f Alcohol Binge [place] Medic al [place] Gender identity [facility] Sexual orientation [facility] Hospital Exposure to 2022-11-14 2022-11-24 Not sure University of SARS-CoV-2 (event) 00:00:00 20:58:00 [facility] Tobacco use and 2019-05-01 2019-05-01 Smokeless Universit y of exposure 00:00:00 00:00:00 tobacco non-user [facility] Alcohol intake 2017-07-28 2017-07-28 Current drinker [facility] 00:00:00 00:00:00 of alcohol Hospital (finding) Alcohol Comment 2017-07-28 2017-07-28 Drink only on Method ist 00:00:00 00:00:00 holidays or once Hospital a month Sex Ass[birth year] At [birth year] [facility] 00:[facility]00 Hospital Smoking Status Start Date Stop Date Source Tobacco smoking [facility] consumption unknown Ex-smoker 2019-05-01 00:00:00 2019-05-01 [place] o f [place] 00:00:00 Medical Branch Medications Ordered Filled Start Stop Current Ordering Indication Dosage Frequency Signature Comments Components Source Medication Medication Date Date Medication? Clinician (SIG) Name Name LORazepam No 1mg 1 mg, Univer s (ATIVAN) 11-26 Oral, ity of tablet 1 mg 02:00: 01:48 [place]CE[place] 1 [place] :[place] dose, On Medical Wed Branch 11/25/22 at 2100, ZACK ondansetron No 4mg 4 mg, Slow Univers (ZOFRAN 11-26 IV Push, ity of (PF)) 02:00: 01:48 ONCE, 1 [place] injection 4 00 :00 dose, On Medi colby mg Wed Branch 11/25/22 at 2100, ZACK ketorolac No 30mg 30 mg, Unive rs (TORADOL) 11-25 Slow IV ity of injection 03:45: 03:02 Push, [place] 30 mg 00 :00 ONCE, 1 Medical dose, On Branch Wed11/24/22 at 2245, Routine NaCl 0.9% 2022- No 1000mL at 999 Uni vers (NS) bolus 11-25 mL/hr, ity of infusion 03:00: 03:35 1,000 mL, [place] 1,000 mL 00 :00 IV Medical Piggyback, Branch ONCE, 1 dose, On Wed11/24/22 at 2200, STAT ondansetron 2022- No 4mg 4 mg, Slow Univers (ZOFRAN 4- 04-19 IV Push, ity of (PF)) 02:45: 02:36 ONCE, 1 [place] injection 4 00 :00 dose, On Medi colby mg [facility] Branch 11/24/22 at 2145, ZACK alum-mag 0 Yes 30mL 30 mL, Univers hydroxide-s 4-19 Oral, ity of imeth 02:34: Q6HPRN, [place] (MAALOX 10 Starting Medical PLUS / on [facility] Branch MAG-AL 11/24/22 at PLUS) 2134, 200-200-20 Until mg/5 mL Discontinu suspension ed, 30 mL Routine, Indigestio n LORazepam Yes [id number] 1mg Take 1 Un tera (ATIVAN) 1 4-19 tablet by ity of mg tablet 00:00: mouth [place] 00 every 24 Medical (twenty-fo Branch ur) hours as needed for Anxiety or Agitation. iohexoL 2021- No [id number] 50mL 50 mL, Uni vers (OMNIPAQUE 01-26 06-20 Intravenou it y of 350 BULK-50 03:45: 03:39 s, ONCE, 1 [place] mL) 00 :00 dose, On Medical injection [facility] 50 mL 01/25/22 at 2245, Routine ondansetron 2021- No 4mg 4 mg, Slow Univers (ZOFRAN 01-26 06-20 IV Push, ity of (PF)) 03:45: 02:48 ONCE, 1 [place] injection 4 00 :00 dose, On Medi colby mg [facility] 01/25/22 at 2245, ZACK ketorolac 2021- No 30mg 30 mg, Unive rs (TORADOL) 6-20 06-20 Slow IV ity of injection 03:45: 02:48 Push, [place] 30 mg 00 :00 ONCE, 1 Medical dose, On Branch [place] 01/25/22 at 2245, Routine dicyclomine 2021- Yes [id number] 20mg Take 1 Univers 20 mg 6-19 tablet by ity of tablet 00:00: mouth [place] 00 every 6 Medical (six) Branch hours as needed for Abdominal pain. traMADoL 2021-0 Yes [id number] 50mg Take 1 Univers (ULTRAM) 50 6-19 tablet by ity of mg tablet 00:00: mouth [place] 00 every 6 Medical (six) Branch hours as needed for Pain (scale 7-10). Indication s: acute pain ondansetron 2-0 Yes [id number] 4mg Take 1 Univers (ZOFRAN) 4 6-19 tablet by ity of mg tablet 00:00: mouth [place] 00 every 8 Medical (eight) Branch hours as needed for Nausea and Vomiting (N/V). dicyclomine 2022-0 Yes [id number] 20mg Take 1 Univers 20 mg 6-19 tablet by ity of tablet 00:00: mouth [place] 00 every 6 Medical (six) Branch hours as needed for Abdominal pain. traMADoL 2021-0 Yes [id number] 50mg Take 1 Univers (ULTRAM) 50 6-19 tablet by ity of mg tablet 00:00: mouth [place] 00 every 6 Medical (six) Branch hours as needed for Pain (scale 7-10). Indication s: acute pain ondansetron 2021-0 Yes [id number] 4mg Take 1 Univers (ZOFRAN) 4 6-19 tablet by ity of mg tablet 00:00: mouth [place] 00 every 8 Medical (eight) Branch hours as needed for Nausea and Vomiting (N/V). dicyclomine 2-0 Yes [id number] 20mg Take 1 Univers 20 mg 6-19 tablet by ity of tablet 00:00: mouth [place] 00 every 6 Medical (six) Branch hours as needed for Abdominal pain. traMADoL 2-0 Yes [id number] 50mg Take 1 Univers (ULTRAM) 50 6-19 tablet by ity of mg tablet 00:00: mouth [place] 00 every 6 Medical (six) Branch hours as needed for Pain (scale 7-10). Indication s: acute pain ondansetron 2-0 Yes [id number] 4mg Take 1 Univers (ZOFRAN) 4 6-19 tablet by ity of mg tablet 00:00: mouth [place] 00 every 8 Medical (eight) Branch hours as needed for Nausea and Vomiting (N/V). ondansetron 2-0 2- No [id number] 4mg Take 1 Univers (ZOFRAN) 4 6-19 06-19 tablet by ity of mg tablet 00:00: 00:00 mouth [place] 00 :00 every 8 Medical (eight) Branch hours as needed for Nausea and Vomiting (N/V). ondansetron 2021- No [id number] 4mg Take 1 Univers (ZOFRAN) 4 01-25 tablet by ity of mg tablet 00:00: 00:00 mouth [place] 00 :00 every 8 Medical (eight) Branch hours as needed for Nausea and Vomiting (N/V). NaCl 0.9% 2021- No 1000mL at 999 Uni vers (NS) IV 09-22 mL/hr, ity of infusion 05:45: 05:56 Intravenou [place] 1,000 mL 00 :00 s, ONCE, 1 Medic al dose, On Branch 09/21/21 at 2345, Routine proMETHazin No 12.5mg 12.5 mg, Univers e 09-22 IV ity of (PHENERGAN) 04:55: 05:06 Piggyback, [place] 12.5 mg in 00 :00 ONCE, 1 Medica l NaCl 0.9% dose, On Branch (NS) 50 mL Sun IV 09/21/21 at piggyback 2300, ZACK acetaminoph No 1000mg 1,000 mg, Univers en 09-22 Oral, ity of (TYLENOL) 03:00: 03:07 ONCE, 1 [place] tablet 00 :00 dose, On Medical 1,000 mg Sun Branch 09/21/21 at 2115, ZACK ondansetron 2021- No 4mg 4 mg, Slow Univers (ZOFRAN 09-22 IV Push, ity of (PF)) 03:00: 03:13 ONCE, 1 [place] injection 4 00 :00 dose, On Medi colby mg Sun Branch 09/21/21 at 2115, ZACK NaCl 0.9% 2021- No 1000mL at 999 Uni vers (NS) bolus 09-22 mL/hr, ity of infusion 03:00: 04:47 1,000 mL, [place] 1,000 mL 00 :00 IV Medical Infusion, Branch ONCE, 1 dose, On 09/21/21 at 2115, ZACK proMETHazin Yes [id number] 25mg Take 1 Univers e 25 mg 2-14 tablet by ity of tablet 00:00: mouth [place] 00 every 6 Medical (six) Branch hours as needed for Nausea and Vomiting (N/V). proMETHazin 2021-0 Yes [id number] 25mg Take 1 Univers e 25 mg 2-14 tablet by ity of tablet 00:00: mouth [place] 00 every 6 Medical (six) Branch hours as needed for Nausea and Vomiting (N/V). proMETHazin 2021-0 Yes [id number] 25mg Take 1 Univers e 25 mg 2-14 tablet by ity of tablet 00:00: mouth [place] 00 every 6 Medical (six) Branch hours as needed for Nausea and Vomiting (N/V). proMETHazin 2021-0 Yes [id number] 25mg Take 1 Univers e 25 mg 2-14 tablet by ity of tablet 00:00: mouth [place] 00 every 6 Medical (six) Branch hours as needed for Nausea and Vomiting (N/V). proMETHazin 0 Yes [id number] 25mg Take 1 Univers e 25 mg 2-14 tablet by ity of tablet 00:00: mouth [place] 00 every 6 Medical (six) Branch hours as needed for Nausea and Vomiting (N/V). multivit-mi 2021- No Take by Un tera n/folic/vit 2-13 02-13 mouth ity of K/lycop 22:42: 00:00 daily. [place] (ONE-A-DAY 28 :00 Medical MEN'S Branch MULTIVITAMI N ORAL) dicyclomine 0 Yes [id number] 20mg Take 1 Univers 20 mg 2-13 tablet by ity of tablet 00:00: mouth 4 [place] 00 (four) Medical times Branch daily as needed for Abdominal pain. ondansetron 0 Yes [id number] 4mg Take 1 Univers 4 mg 2-13 tablet by ity of disintegrat 00:00: mouth [place] ing tablet 00 every 8 Medica l (eight) Branch hours as needed for Nausea and Vomiting (N/V). dicyclomine 0 Yes [id number] 20mg Take 1 Univers 20 mg 2-13 tablet by ity of tablet 00:00: mouth 4 [place] 00 (four) Medical times Branch daily as needed for Abdominal pain. ondansetron 2021-0 Yes [id number] 4mg Take 1 Univers 4 mg 2-13 tablet by ity of disintegrat 00:00: mouth [place] ing tablet 00 every 8 Medica l (eight) Branch hours as needed for Nausea and Vomiting (N/V). dicyclomine 2022-0 Yes [id number] 20mg Take 1 Univers 20 mg 2-13 tablet by ity of tablet 00:00: mouth 4 [place] 00 (four) Medical times Branch daily as needed for Abdominal pain. ondansetron 2021-0 Yes [id number] 4mg Take 1 Univers 4 mg 2-13 tablet by ity of disintegrat 00:00: mouth [place] ing tablet 00 every 8 Medica l (eight) Branch hours as needed for Nausea and Vomiting (N/V). dicyclomine 2-0 Yes [id number] 20mg Take 1 Univers 20 mg 2-13 tablet by ity of tablet 00:00: mouth 4 [place] 00 (four) Medical times Branch daily as needed for Abdominal pain. ondansetron 2021-0 Yes [id number] 4mg Take 1 Univers 4 mg 2-13 tablet by ity of disintegrat 00:00: mouth [place] ing tablet 00 every 8 Medica l (eight) Branch hours as needed for Nausea and Vomiting (N/V). dicyclomine 2-0 Yes [id number] 20mg Take 1 Univers 20 mg 2-13 tablet by ity of tablet 00:00: mouth 4 [place] 00 (four) Medical times Branch daily as needed for Abdominal pain. ondansetron 2-0 Yes [id number] 4mg Take 1 Univers 4 mg 2-13 tablet by ity of disintegrat 00:00: mouth [place] ing tablet 00 every 8 Medica l (eight) Branch hours as needed for Nausea and Vomiting (N/V). ketorolac 2021-0 2021- No [id number] 30mg Univers (TORADOL) 08-29 ity of injection 23:45: 22:53 [place] 30 mg 00 :00 Medical Branch ketorolac 2021-0 2021- No [id number] 30mg 30 mg, Univers (TORADOL) 08-29 Intramuscu ity of injection 23:45: 22:53 lar, ONCE, [place] 30 mg 00 :00 1 dose, On Medical Fri Branch 08/29/21 at 1745, Routine
produce service team member approving Restricted medication : NAYELI BARRAZA methocarbam 2022-0 Yes [id number] 500mg Take 1 Univers oL 1-21 9103 tablet by ity of (ROBAXIN) 00:00: mouth 4 [place] 500 mg 00 (four) Medical tablet times Branch daily. methocarbam 2022-0 Yes [id number] 500mg Take 1 Univers oL 1-21 9103 tablet by ity of (ROBAXIN) 00:00: mouth 4 [place] 500 mg 00 (four) Medical tablet times Branch daily. methocarbam 2022-0 Yes [id number] 500mg Take 1 Univers oL 1-21 9103 tablet by ity of (ROBAXIN) 00:00: mouth 4 [place] 500 mg 00 (four) Medical tablet times Branch daily. methocarbam 2022-0 Yes [id number] 500mg Take 1 Univers oL 1-21 9103 tablet by ity of (ROBAXIN) 00:00: mouth 4 [place] 500 mg 00 (four) Medical tablet times Branch daily. methocarbam 2022-0 Yes [id number] 500mg Take 1 Univers oL 1-21 9103 tablet by ity of (ROBAXIN) 00:00: mouth 4 [place] 500 mg 00 (four) Medical tablet times Branch daily. methocarbam 2022-0 Yes [id number] 500mg Take 1 Univers oL 1-21 9103 tablet by ity of (ROBAXIN) 00:00: mouth 4 [place] 500 mg 00 (four) Medical tablet times Branch daily. methocarbam 2022-0 Yes [id number] 500mg Take 1 Univers oL 1-21 9103 tablet by ity of (ROBAXIN) 00:00: mouth 4 [place] 500 mg 00 (four) Medical tablet times Branch daily. methocarbam 2022-0 Yes [id number] 500mg Take 1 Univers oL 1-21 9103 tablet by ity of (ROBAXIN) 00:00: mouth 4 [place] 500 mg 00 (four) Medical tablet times Branch daily. azithromyci 2022-0 Yes Univer s n 250 mg 1-18 ity of tablet 00:00: [place] 00 Medical Branch ketoconazol 2022-0 Yes Univer s e 200 mg 1-18 ity of tablet 00:00: [place] 00 Medical Branch azithromyci 2022-0 Yes Univer s n 250 mg 1-18 ity of tablet 00:00: [place] 00 Medical Branch ketoconazol 2021-0 Yes Univer s e 200 mg 1-18 ity of tablet 00:00: [place] 00 Medical Branch azithromyci 2021-0 Yes Univer s n 250 mg 1-18 ity of tablet 00:00: [place] 00 Medical Branch ketoconazol 2021-0 Yes Univer s e 200 mg 1-18 ity of tablet 00:00: [place] 00 Medical Branch azithromyci 2021-0 2- No Unive rs n 250 mg 1-18 -13 ity of tablet 00:00: 00:00 [place] 00 :00 Medical Branch ketoconazol 2021-0 2021- No Unive rs e 200 mg -18 -13 ity of tablet 00:00: 00:00 [place] 00 :00 Medical Branch LIDOCAINE 2020-1 Yes Univers VISCOUS 2 % 2-03 ity of solution 00:00: [place] 00 Medical Branch predniSONE 2020-1 Yes Univers 20 mg 2-03 ity of tablet 00:00: [place] 00 Medical Branch LIDOCAINE 2020-1 Yes Univers VISCOUS 2 % 2-03 ity of solution 00:00: [place] 00 Medical Branch predniSONE 2020-1 Yes Univers 20 mg 2-03 ity of tablet 00:00: [place] 00 Medical Branch LIDOCAINE 2020-1 Yes Univers VISCOUS 2 % 2-03 ity of solution 00:00: [place] 00 Medical Branch predniSONE 2020-1 Yes Univers 20 mg 2-03 ity of tablet 00:00: [place] [id number] Medical Branch LIDOCAINE 2020-1 2021- No Univers VISCOUS 2 % 2-03 -13 ity of solution 00:00: 00:00 [place] 00 :00 Medical Branch predniSONE 2020-1 2021- No Univer s 20 mg 2-03 02-13 ity of tablet 00:00: 00:00 [place] 00 :00 Medical Branch ibuprofen 2020-1 2021- No Univers 800 mg 2-03 - ity of tablet 00:00: 00:00 [place] 00 :00 Medical Branch ondansetron 2019-0 Yes [id number] 4mg Take 1 Univers (ZOFRAN 6-16 tablet by ity of ODT) 4 mg 00:00: mouth [facility] 00 every 8 Medic al ing tablet (eight) Branch hours as needed for Nausea and Vomiting (N/V). ondansetron 2020-0 Yes [id number] 4mg Take 1 Univers (ZOFRAN 6-16 tablet by ity of ODT) 4 mg 00:00: mouth [place] disintegrat 00 every 8 Medic al ing tablet (eight) Branch hours as needed for Nausea and Vomiting (N/V). ondansetron 2020-0 Yes [id number] 4mg Take 1 Univers (ZOFRAN 6-16 tablet by ity of ODT) 4 mg 00:00: mouth [place] disintegrat 00 every 8 Medic al ing tablet (eight) Branch hours as needed for Nausea and Vomiting (N/V). ondansetron 2020-0 Yes [id number] 4mg Take 1 Univers (ZOFRAN 6-16 tablet by ity of ODT) 4 mg 00:00: mouth [place] disintegrat 00 every 8 Medic al ing tablet (eight) Branch hours as needed for Nausea and Vomiting (N/V). ondansetron 2020-0 Yes [id number] 4mg Take 1 Univers (ZOFRAN 6-16 tablet by ity of ODT) 4 mg 00:00: mouth [place] disintegrat 00 every 8 Medic al ing tablet (eight) Branch hours as needed for Nausea and Vomiting (N/V). ondansetron 2020-0 Yes [id number] 4mg Take 1 Univers (ZOFRAN 6-16 tablet by ity of ODT) 4 mg 00:00: mouth [place] disintegrat 00 every 8 Medic al ing tablet (eight) Branch hours as needed for Nausea and Vomiting (N/V). ondansetron 2020-0 Yes [id number] 4mg Take 1 Univers (ZOFRAN 6-16 tablet by ity of ODT) 4 mg 00:00: mouth [place] disintegrat 00 every 8 Medic al ing tablet (eight) Branch hours as needed for Nausea and Vomiting (N/V). ondansetron 2020-0 Yes [id number] 4mg Take 1 Univers (ZOFRAN 6-16 tablet by ity of ODT) 4 mg 00:00: mouth [place] disintegrat 00 every 8 Medic al ing tablet (eight) Branch hours as needed for Nausea and Vomiting (N/V). multivit-mi 2018- Yes Take by Uni vers n/folic/vit 9- mouth ity of K/lycop 13:48: daily. [place] (ONE-A-DAY 02 Medical MENS [place] MULTIVITAMI N ORAL) multivit-or 2018- Yes Take by Uni vers n/folic/vit 9-23 mouth ity of K/lycop 13:48: daily. [place] (ONE-A-DAY Medical MENS [place] MULTIVITAMI N ORAL) multivit-mi Yes Take by Uni vers n/folic/vit 9-23 mouth ity of K/lycop 13:48: daily. [place] (ONE-A-DAY Medical MENS [place] MULTIVITAMI N ORAL) Vital Signs Vital Name Observation Time Observation Value Comments Source Systolic blood 2022-11-26 02:30:00 145 mm[Hg] Univer sity of pressure [facility] Diastolic blood 2022-11-26 02:30:00 93 mm[Hg] Unive rsity of [facility] Heart rate 2022-11-26 02:30:00 71 /min [facility] Respiratory rate 2022-11-26 02:30:00 16 /min [facility] Oxygen saturation in 2022-11-26 02:30:00 99 /min [facility] Arterial blood by [facility] Pulse oximetry [place] Body temperature 2022-11-26 00:39:00 37.33 Karla [facility] Body height 2022-11-26 00:39:00 182.9 cm [facility] Body weight 2022-11-26 00:39:00 111.131 kg [facility] BMI 2022-11-26 00:39:00 33.23 kg/m2 [facility] Body temperature 2022-11-25 02:04:00 36.89 Karla [facility] Systolic blood 2022-11-25 02:00:00 152 mm[Hg] Univer sity of [facility] Diastolic blood 2022-11-25 02:00:00 90 mm[Hg] Unive rsity of [facility] Heart rate 2022-11-25 02:00:00 78 /min [facility] Respiratory rate 2022-11-25 02:00:00 22 /min [facility] weight 2022-11-25 02:00:00 111.131 kg [facility] BMI 2022-11-25 02:00:00 33.23 kg/m2 Universi ty of [place] [facility] Oxygen saturation in 2022-11-25 02:00:00 99 /min University of Arterial blood by [facility] [place] [facility] colby Pulse oximetry Branch Systolic blood 2022-01-26 04:00:00 143 mm[Hg] Univer sity of pressure [place] [facility] Diastolic blood 2022-01-26 04:00:00 75 mm[Hg] Unive rsity of pressure [place] [facility] Heart rate 2022-01-26 04:00:00 74 /min Universi ty of [place] [facility] Respiratory rate 2022-01-26 04:00:00 19 /min Univ ersity of [place] [facility] Oxygen saturation in 2022-01-26 04:00:00 99 /min University of Arterial blood by [facility] Pulse oximetry Branch Body temperature 2022-01-26 02:17:00 36.94 Karla Univ ersity of [place] [facility] Body height 2022-01-26 02:16:00 182.9 cm Universi ty of [place] [facility] Body weight 2022-01-26 02:16:00 122.471 kg Universi ty [facility] [place] [facility] BMI 2022-01-26 02:16:00 36.62 kg/m2 [facility]i ty [facility] [place] [facility] Systolic blood 2021-09-22 06:16:00 128 mm[Hg] Univer sity of pressure [place] [facility] Diastolic blood 2021-09-22 06:16:00 72 mm[Hg] Unive rsity of pressure [place] [facility] Heart rate 2021-09-22 06:16:00 115 /min Universi ty of [place] [facility] Body temperature 2021-09-22 06:16:00 38.28 Karla Univ ersity of [place] [facility] Respiratory rate 2021-09-22 06:16:00 20 /min Univ ersity of [place] [facility] Oxygen saturation in 2021-09-22 06:16:00 96 /min University of Arterial blood by [place] [employer] colby Pulse oximetry Branch Body height 2021-09-22 02:54:00 182.9 cm [facility]i ty [facility] [place] [facility] Body weight 2021-09-22 02:54:00 122.471 kg [facility]i ty [facility] [place] [facility] BMI 2021-09-22 02:54:00 36.62 kg/m2 [facility] Systolic blood 2021-08-29 22:09:00 138 mm[Hg] Univer sity of pressure [facility] Diastolic blood 2021-08-29 22:09:00 84 mm[Hg] [facility] 2021-08-29 22:09:00 83 /min [facility] Body temperature 2021-08-29 22:09:00 36.89 Karla [facility] Respiratory rate 2021-08-29 22:09:00 18 /min [facility] Body height 2021-08-29 22:09:00 182.9 cm [facility] Body weight 2021-08-29 22:09:00 111.131 kg [facility] BMI 2021-08-29 22:09:00 33.23 kg/m2 [facility] Oxygen saturation in 2021-08-29 22:09:00 98 /min [facility] Arterial blood by [facility] Pulse oximetry Branch Procedures Procedure Date / Time Performing Clinician Source Performed PROTHROMBIN TIME / INR 2022-11-26 01:45:00 [facility]on Busch [facility] D-DIMER 2022-11-26 01:45:00 Chon Busch [facility] ACTIVATED PARTIAL 2022-11-26 01:45:[address] [facility] THRMPLAS [facility] URINALYSIS 2022-11-26 01:45:00 Chon Busch [facility] URINE DRUG (IMMUNOASSAY) 2022-11-26 01:45:00 Chon Busch [facility] nch SCREEN W/O REFLEX MAGNESIUM 2022-11-26 00:41:00 Chon Busch [facility] FREE T4 2022-11-26 00:41:00 Chon Busch [facility] THYROID STIMULATING 2022-11-26 00:41:00 Chon Busch [facility] HORMONE [facility] COMP. METABOLIC PANEL 2022-11-26 00:41:00 Chon Busch [facility] ([id number]) [facility] CBC WITH DIFF 2022-11-26 00:41:00 Chon Busch o f [facility] CONSENT/REFUSAL FOR 2022-11-26 00:26:36 [facility] Name Medical Branch LIPASE 2022-11-25 02:30:00 Randy Buckner [facility] MAGNESIUM 2022-11-25 02:30:00 Randy Buckner [facility] TROPONIN I 2022-11-25 02:30:00 Randy Buckner [facility] HEPATIC FUNCTION PANEL 2022-11-25 02:30:00 Randy Buckner [facility] ([id number]) (ALB,T.PRO,BILI [facility] T,BU/BC,ALT,AST,ALK PHOS) BASIC METABOLIC PANEL 2022-11-25 02:30:00 Randy Buckner [facility] (NA, K, CL, CO2, Medical Branch GLUCOSE, BUN, CREATININE, CA) CBC WITH DIFF 2022-11-25 02:30:00 Randy Buckner [facility] CT ABDOMEN PELVIS W 2022-01-26 03:43:42 Raman Zimmerman [facility] CONTRAST Medical Branch AMYLASE 2022-01-26 02:23:00 Raman Zimmerman [facility] LIPASE 2022-01-26 02:23:00 Raman Zimmerman [facility] COMP. METABOLIC PANEL 2022-01-26 02:23:00 Raman Zimmerman [facility] ([id number]) [facility] CBC WITH DIFF 2022-01-26 02:23:00 Raman Zimmerman [facility] URINALYSIS 2022-01-26 02:23:00 Raman Zimmerman [facility] CONSENT/REFUSAL FOR 2022-01-26 02:11:11 Doctor Unassigned, No Un [facility] DIAGNOSIS AND TREATMENT Name Medical Branch LIPASE 2021-09-22 03:15:00 Frannie Murcia [facility] COMP. METABOLIC PANEL 2021-09-22 03:15:00 Frannie Murcia [facility] ([id number]) Medical [place] CBC WITH DIFF 2021-09-22 03:15:00 Frannie Murcia [facility] RAPID INFLUENZA A/B 2021-09-22 03:15:00 Frannie Murcia [facility] COVID-19 (ID NOW RAPID 2021-09-22 03:15:00 Frannie Murcia [facility] TESTING) Medical Branch URINALYSIS 2021-09-22 03:14:00 Frannie Murcia [facility] NOTICE OF PRIVACY 2021-09-22 02:49:48 Doctor Unassigned, No [facility] PRACTICES Name [facility] CONSENT/REFUSAL FOR 2021-09-22 02:49:13 Doctor Unassigned, [facility] DIAGNOSIS AND TREATMENT Name [facility] POCT MOLECULAR STREP 2021-08-29 22:24:[address] [facility] EMERGENCY DEPARTMENT Doctor [facility]assigned, No [facility] Name [facility] Plan of Care Planned Activity Planned Date Details Comments Source Future Scheduled 2022-11-07 COVID-19 [facility]ACCINE [facility] Test 16:35:12 (#1) [code = COVID-19 VACCINE (#1)] Future Scheduled 2022-11-07 INFLUENZA VACCINE [facility] Test 16:35:12 [code = INFLUENZA VACCINE] Future Scheduled 2022-11-07 INFLUENZA VACCINE Method [facility] Test 16:35:12 [code = INFLUENZA VACCINE] Future Scheduled 2022-11-07 COVID-19 [facility]ACCINE [facility] Test 16:35:12 (#1) [code = COVID-19 VACCINE (#1)] Encounters Start End Encounter Admission Attending Care Care Encounter Source Date/Time Date/Time Type Type Clinicians Facility Department ID 2021-09-03 Outpatient Iverson, STLMLC STLC [id number] Common 11:19:38 Toni 78745 [facility] 2021-06-06 Emergency [facility] [id number] Univers 01:08:[address] [facility] 2022-11-25 2022-11-25 Emergency X ANG[facility]I [facility] ERT [id number] Univers 19:32:00 21:59:[address] [facility] 2022-11-25 2022-11-25 Emergency [facility] [id number] Univers 19:32:00 21:59:00 Chon MALDONADO 350.1.13.10 i ty [facility] 4.2.7.2.686 [facility] [phone] [place] [id number] Branch 2022-11-24 2022-11-24 Emergency [facility] 1 [id number] Univers 21:04:00 23:27:00 ASHULANCE Menard ity [facility] 2022-11-24 2022-11-24 Emergency Ashu, TRAUMA [id number] Univers 21:04:00 23:27:00 [facility] 350.1.13.10 ity of 4.2.7.2.686 [facility] [phone] [facility] 014 Branch 2022-01-25 2022-01-26 Emergency X [facility] ERT [id number] Univers 21:14:00 00:03:[address] [facility] 2022-01-25 2022-01-26 Emergency Critical access hospital [id number] Univers 21:14:00 00:03:00 Raman MALDONADO 350.1.13.10 ity of [place] 4.2.7.2.686 [facility] [phone] [place] [id number] [place] 2022-01-25 2022-01-25 Orders Doctor CAMARILLO [id number] Univers 00:00:00 00:00:00 Only Unassigned, ROMEL 350.1.13.10 ity of [place] [facility] 4.2.7.2.686 Rober [id number] [facility] 009 Branch 2021-09-21 2021-09-22 Emergency X [facility] ERT [id number] Univers 21:01:00 03:07:00 [facility] 2021-09-21 2021-09-22 Emergency [facility] [id number] Univers 21:01:00 03:07:00 Frannie Wynne JOEL 350.1.13.10 ity of [place] 4.2.7.2.686 [place] [facility] [phone] [facility] 084 Branch 2021-09-21 2021-09-21 Orders Doctor CAMARILLO [id number] Univers 00:00:00 00:00:00 Only Unassigned, ROMEL 350.1.13.10 ity of [place] [facility] 4.2.7.2.686 Rober as [phone] [facility] 009 Branch 2021-08-29 2021-08-29 Outpatient [facility] [id number] Univers 16:33:39 23:59:00 NAYELI ity of [facility] 2021-08-29 2021-08-29 [facility] 1.2.840.114 [id number] Univers 16:33:39 23:59:00 Encounter [facility] 350.1.13.10 ity of [place] 4.2.7.2.686 Rober as SAURAV?BLEA [id number] [facility] [address] [place] [address] [facility] 2021-08-29 2021-08-29 [facility] 1.2.840.114 [id number] Univers 16:20:00 16:53:00 Care Nayeli [facility] 350.1.13.10 it y of [place] 4.2.7.2.686 Rober as SAURAV?BLEA [id number] [facility] [address] [place] MEDICAL OFFICE BUILDING 2020-01-22 2020-01-23 Emergency Raquel, K [facility] 1.2.840.114 [id number] 22:24:14 00:57:00 Juany Joel 350.1.13.10 [place] 4.2.7.2.686 [place] [phone] 084 2019-12-04 2019-12-04 Out[facility] [id number] Common 13:30:00 13:30:00 t Specialty/U Sp carmen [facility] - [facility] Orders Doctor CAMARILLO 1.2.840.114 [id number] Univers 00:00:00 00:00:00 Only Unassigned, ROMEL 350.1.13.10 ity of [place] [facility] 4.2.7.2.686 Rober as [phone] [place] [address] Branch Results Test Description Test Time Test Comments Results Result Comments Source CBC WITH DIFF 2022-11-25 03:26:51 Test Item Value Reference Range Interpretation Comme nts WBC (test code = 6690-2) 4.68 See_Comment [A utomated message] The system which ge nerated this result transmit michelle reference range: 4.20 - 1 0.70 10*3/?L. The reference r stefan was not used to interpr et this result as normal/abnor mal. RBC (test code = 789-8) 4.55 See_Comment [Au tomated message] The system which ge nerated this result transmit michelle reference range: 4.26 - 5 .52 10*6/?L. The reference r stefan was not used to interpr et this result as normal/abnor mal. HGB (test code = 718-7) 12.6 g/dL 12.2-16.4 HCT (test code = 4544-3) 39.0 % 38.4-49.3 MCV (test code = 787-2) 85.7 fL 81.7-95.6 MCH (test code = 785-6) 27.7 pg 26.1-32.7 MCHC (test code = 786-4) 32.3 g/dL 31.2-35.0 RDW-SD (test code = 21757-8) 41.0 fL 38.5-51.6 RDW-CV (test code = 788-0) 13.2 % 12.1-15.4 PLT (test code = 777-3) 242 See_Comment [Au tomated message] The system which ge nerated this result transmit michelle reference range: 150 - 32 8 10*3/?L. The reference range was not used to interpret th is result as normal/abnormal . MPV (test code = 49966-6) 10.3 fL 9.8-13.0 NRBC/100 WBC (test code = 0.0 See_Comment [ Automated message] The 7113343615) system which ge nerated this result transmit michelle reference range: 0.0 - 10 .0 /100 WBCs. The reference r stefan was not used to interpr et this result as normal/abnor mal. NRBC x10^3 (test code = See_Comment [Au tomated message] The 0402798922) system which [employer] nerated this result transmit michelle reference range: 10*3/?L. The reference range was not u sed to interpret this result as normal/abnormal . GRAN MAT (NEUT) % (test code 41.9 % = 770-8) IMM GRAN % (test code = 0.20 % 5299887825) LYMPH % (test code = 736-9) 41.2 % MONO % (test code = 5905-5) 9.0 % EOS % (test code = 713-8) 7.1 % BASO % (test code = 706-2) 0.6 % GRAN MAT x10^3(ANC) (test 1.96 10*3/uL 1.99-6.95 L code = 2094327836) IMM GRAN x10^3 (test code = 0.00-0.06 4874619879) LYMPH x10^3 (test code = 1.93 10*3/uL 1.09-3.23 731-0) MONO x10^3 (test code = 0.42 10*3/uL 0.36-1.02 742-7) EOS x10^3 (test code = 0.33 10*3/uL 0.06-0.53 711-2) BASO x10^3 (test code = 0.03 10*3/uL 0.01-0.09 704-7) Lab Interpretation (test Abnormal code = 74872-1) [id number] 03:13:03 Test Item Value Reference Range Interpretation Comments TROPONIN I (test code = 0.005 ng/mL <=0.034 1194616092) FREDI (test code = FREDI) Reference (Normal) Range (defined by the 99th percentile reference limit): <= 0.034 ng/mL Note: Cardiac troponin begins to rise 3-4 hours after the onset of ischemia. Repeat in 4-6 hours if the sample was drawn within 3-4 hours of the onset of the symptom and found normal. Diagnosis of myocardial injury is made with acute changes in cTn concentrations with at least one serial sample above the 99th percentile upper reference limit (URL), taken together with the patient's clinical presentation. Biotin has been reported to cause a negative bias, interpret results relative to patient's use of biotin. Lab Interpretation Normal (test code = 19336-9) [facility] 03:03:43 Test Item Value Reference Range Interpretation Comments LIPASE (test code = 0379827280) 48 U/L 0-220 Lab Interpretation (test code = Normal 87081-5) [facility] (69504[facility] (ALB,T.PRO,BILI T,BU/BC,ALT,AST,ALK PHOS)2022-11-25 03:03:42 Test Item Value Reference Range Interpretation Comments TOTAL BILI (test code = 3865466334) 0.5 mg/dL 0.1-1.1 BILI UNCON (test code = 2308396830) 0.3 mg/dL 0.1-1.1 BILI CONJ (test code = 5722776939) 0.0 mg/dL 0.0-0.3 T PROTEIN (test code = 4193480916) 7.8 g/dL 6.3-8.2 ALBUMIN (test code = 4163534924) 4.7 g/dL 3.5-5.0 ALK PHOS (test code = 7298056839) 50 U/L 34-122 ALTv (test code = 1742-6) 77 U/L 5-50 H AST(SGOT) (test code = 9005899023) 39 U/L 13-40 Lab Interpretation (test code = Abnormal 87199-3) [facility] (NA, K, CL, CO2, GLUCOSE, BUN, CREATININE, CA)2022-11-25 03:03:42 Test Item Value Reference Range Interpretation Comments NA (test code = 140 mmol/L 135-145 8706481145) K (test code = 3.6 mmol/L 3.5-5.0 0394165873) CL (test code = 105 mmol/L 98-108 6852405198) CO2 TOTAL (test code = 25 mmol/L 23-31 7412974399) AGAP (test code = 10 2-16 3406958883) BUN (test code = 13 mg/dL 7-23 9328435278) GLUCOSE (test code = 115 mg/dL 70-110 H 7145086428) CREATININE (test code = 0.80 mg/dL 0.60-1.25 6157717693) CALCIUM (test code = 9.2 mg/dL 8.6-10.6 2153843408) eGFR (test code = 113.5 mL/min/1.73m2 5799368978) FREDI (test code = FREDI) Association of Glomerular Filtration Rate (GFR) and Staging of Kidney Disease* + --+ --+ ------+| GFR (mL/min/1.73 m2) ?| With Kidney Damage ?| ?Without Kidney Damage+ --------+ --------+ +| ?>90 ?| ?Stage one ?| ? Normal ?+ ---+ ---+ -------+| ?60-89 ?| ?Stage two ?| ? Decreased GFR ? + --+ --+ ------+| ?30-59 ?| ?Stage three ?| ? Stage three ? + --+ --+ ------+| ?15-29 ?| ?Stage four ? | ? Stage four ?+ ---+ ---+ -------+| ?<15 (or dialysis) ? ?| ?Stage five ? | ? Stage five ?+ ---+ ---+ -------+ *Each stage assumes the associated GFR level has been in effect for at least three months. ?Stages 1 to 5, with or without kidney disease, indicate chronic kidney disease. Notes: Determination of stages one and two (with eGFR >59mL/min/1.73 m2) requires estimation of kidney damage for at least three months as defined by structural or functional abnormalities of the kidney, manifested by either:Pathological abnormalities or Markers of kidney damage (including abnormalities in the composition of the blood or urine or abnormalities in imaging tests). Lab Interpretation Abnormal (test code = 15862-5) [facility] 03:03:42 Test Item Value Reference Range Interpretation Comments MAGNESIUM (test code = 1629413214) 1.9 mg/dL 1.7-2.4 Lab Interpretation (test code = Normal 08039-9) [facility] with Jefgwpynwibw6458-02-02 02:58:40 Test Item Value Reference Range Interpretation Comments WBC (test code = See_Comment [Automated 6690-2) message] The sy stem which generated this result transmitted reference range : 4.20 - 10.70 10*3/?L. The reference range was not used to interpret this result as normal/abnormal . RBC (test code = See_Comment [Automated 789-8) message] The sy stem which generated this result transmitted reference range : 4.26 - 5.52 10*6/?L. The reference range was not used to interpret this result as normal/abnormal . HGB (test code = 12.7 g/dL 12.2-16.4 718-7) HCT (test code = 39.2 % 38.4-49.3 4544-3) MCV (test code = 83.4 fL 81.7-95.6 787-2) MCH (test code = 27.0 pg 26.1-32.7 785-6) MCHC (test code = 32.4 g/dL 31.2-35.0 786-4) RDW-SD (test code = 37.2 fL 38.5-51.6 L 76604-5) RDW-CV (test code = 12.2 % 12.1-15.4 788-0) PLT (test code = See_Comment [Automated 777-3) message] The sy stem which generated this result transmitted reference range : 150 - 328 10*3/ ?L. The reference r stefan was not used to interpret this result as normal/abnormal . MPV (test code = 10.4 fL 9.8-13.0 59764-2) NRBC/100 WBC (test See_Comment [Automat ed code = 6024307234) message] The system which generated this result transmitted reference range : 0.0 - 10.0 /100 WBCs. The refer ence range was not u sed to interpret th is result as normal/abnormal . NRBC x10^3 (test code <0.01 See_Comment [Auto mated = 0562316155) message] The s ystem which generated this result transmitted reference range : 10*3/?L. The reference range was not used to interpret this result as normal/abnormal . GRAN MAT (NEUT) % 43.2 % (test code = 770-8) IMM GRAN % (test code 0.40 % = 8145234051) LYMPH % (test code = 38.8 % 736-9) MONO % (test code = 10.1 % 5905-5) EOS % (test code = 6.7 % 713-8) BASO % (test code = 0.8 % 706-2) GRAN MAT x10^3(ANC) 2.14 10*3/uL 1.99-6.95 (test code = 6823272236) IMM GRAN x10^3 (test <0.03 0.00-0.06 code = 5538397290) LYMPH x10^3 (test code 1.92 10*3/uL 1.09-3.23 = 731-0) MONO x10^3 (test code 0.50 10*3/uL 0.36-1.02 = 742-7) EOS x10^3 (test code = 0.33 10*3/uL 0.06-0.53 711-2) BASO x10^3 (test code 0.04 10*3/uL 0.01-0.09 = 704-7) Lab Interpretation Abnormal (test code = 45884-1) [facility] Metabolic Jgpqb8038-14-16 02:47:58 Test Item Value Reference Range Interpretation Comments NA (test code = 141 mmol/L 135-145 6057656122) K (test code = 3.9 mmol/L 3.5-5.0 1808202121) CL (test code = 105 mmol/L 98-108 4409636741) CO2 TOTAL (test code = 27 mmol/L 23-31 1233562748) AGAP (test code = 2-16 1919857880) BUN (test code = 14 mg/dL 7-23 7667449413) GLUCOSE (test code = 147 mg/dL 70-110 H 8583898543) CREATININE (test code = 0.96 mg/dL 0.60-1.25 6810410057) TOTAL BILI (test code = 0.7 mg/dL 0.1-1.3 0079863376) CALCIUM (test code = 9.5 mg/dL 8.6-10.6 5255992900) T PROTEIN (test code = 7.7 g/dL 6.3-8.2 4473541951) ALBUMIN (test code = 4.4 g/dL 3.5-5.0 3886913582) ALK PHOS (test code = 60 U/L 34-122 6586783330) ALTv (test code = 116 U/L 5-50 H 1742-6) AST(SGOT) (test code = 50 U/L 13-40 H 4228262490) eGFR (test code = mL/min/1.73m2 0079497994) FREDI (test code = FREDI) Association of Glomerular Filtration Rate (GFR) and Staging of Kidney Disease* + --+ --+ ------+| GFR (mL/min/1.73 m2) ?| With Kidney Damage ?| ?Without Kidney Damage+ --------+ --------+ +| ?>90 ?| ?Stage one ?| ? Normal ?+ ---+ ---+ -------+| ?60-89 ?| ?Stage two ?| ? Decreased GFR ? + --+ --+ ------+| ?30-59 ?| ?Stage three ?| ? Stage three ? + --+ --+ ------+| ?15-29 ?| ?Stage four ? | ? Stage four ?+ ---+ ---+ -------+| ?<15 (or dialysis) ? ?| ?Stage five ? | ? Stage five ?+ ---+ ---+ -------+ *Each stage assumes the associated GFR level has been in effect for at least three months. ?Stages 1 to 5, with or without kidney disease, indicate chronic kidney disease. Notes: Determination of stages one and two (with eGFR >59mL/min/1.73 m2) requires estimation of kidney damage for at least three months as defined by structural or functional abnormalities of the kidney, manifested by either:Pathological abnormalities or Markers of kidney damage (including abnormalities in the composition of the blood or urine or abnormalities in imaging tests). Lab Interpretation Abnormal (test code = 58535-0) [facility], Bvkja7838-45-42 02:47:38 Test Item Value Reference Range Interpretation Comments LIPASE (test code = 8427744973) 86 U/L 0-220 Lab Interpretation (test code = Normal 05916-7) [facility]2022-[facility]-20 02:46:58 Test Item Value Reference Range Interpretation Comments ADRIANA (test code = 6357624676) 81 U/L 35-110 Lab Interpretation (test code = Normal 82375-0) [facility] Metabolic Gmfhv0334-46-73 03:57:42 Test Item Value Reference Range Interpretation Comments NA (test code = 137 mmol/L 135-145 5887827857) K (test code = 4.2 mmol/L 3.5-5.0 0100171127) CL (test code = 105 mmol/L 98-108 3403022363) CO2 TOTAL (test code = 25 mmol/L 23-31 1054610861) AGAP (test code = 2-16 7538732086) BUN (test code = 15 mg/dL 7-23 2538181002) GLUCOSE (test code = 120 mg/dL 70-110 H 0170497645) CREATININE (test code = 1.07 mg/dL 0.60-1.25 0827623571) TOTAL BILI (test code = 1.3 mg/dL 0.1-1.1 H 0663988964) CALCIUM (test code = 9.3 mg/dL 8.6-10.6 9388780533) T PROTEIN (test code = 8.8 g/dL 6.3-8.2 H 4461376268) ALBUMIN (test code = 5.1 g/dL 3.5-5.0 H 8172703800) ALK PHOS (test code = 59 U/L 34-122 2557577518) ALTv (test code = 62 U/L 5-50 H 1742-6) AST(SGOT) (test code = 46 U/L 13-40 H 2364704685) eGFR (test code = mL/min/1.73m2 0612420997) FREDI (test code = FREDI) Association of Glomerular Filtration Rate (GFR) and Staging of Kidney Disease* + --+ --+ ------+| GFR (mL/min/1.73 m2) ?| With Kidney Damage ?| ?Without Kidney Damage+ --------+ --------+ +| ?>90 ?| ?Stage one ?| ? Normal ?+ ---+ ---+ -------+| ?60-89 ?| ?Stage two ?| ? Decreased GFR ? + --+ --+ ------+| ?30-59 ?| ?Stage three ?| ? Stage three ? + --+ --+ ------+| ?15-29 ?| ?Stage four ? | ? Stage four ?+ ---+ ---+ -------+| ?<15 (or dialysis) ? ?| ?Stage five ? | ? Stage five ?+ ---+ ---+ -------+ *Each stage assumes the associated GFR level has been in effect for at least three months. ?Stages 1 to 5, with or without kidney disease, indicate chronic kidney disease. Notes: Determination of stages one and two (with eGFR >59mL/min/1.73 m2) requires estimation of kidney damage for at least three months as defined by structural or functional abnormalities of the kidney, manifested by either:Pathological abnormalities or Markers of kidney damage (including abnormalities in the composition of the blood or urine or abnormalities in imaging tests). Lab Interpretation Abnormal (test code = 40207-1) [facility] 03:57:02 Test Item Value Reference Range Interpretation Comments LIPASE (test code = 3161679738) 80 U/L 0-220 Lab Interpretation (test code = Normal 57610-1) [facility] with Bojttvxrpsqv2379-84-25 03:35:00 Test Item Value Reference Range Interpretation Comments WBC (test code = See_Comment [Automated 2219-2) message] The sy stem which generated this result transmitted reference range : 4.20 - 10.70 10*3/?L. The reference range was not used to interpret this result as normal/abnormal . RBC (test code = See_Comment [Automated 263-8) message] The sy stem which generated this result transmitted reference range : 4.26 - 5.52 10*6/?L. The reference range was not used to interpret this result as normal/abnormal . HGB (test code = 13.7 g/dL 12.2-16.4 718-7) HCT (test code = 41.7 % 38.4-49.3 4544-3) MCV (test code = 83.7 fL 81.7-95.6 787-2) MCH (test code = 27.5 pg 26.1-32.7 785-6) MCHC (test code = 32.9 g/dL 31.2-35.0 786-4) RDW-SD (test code = 38.2 fL 38.5-51.6 L 83371-2) RDW-CV (test code = 12.6 % 12.1-15.4 788-0) PLT (test code = See_Comment [Automated 777-3) message] The sy stem which generated this result transmitted reference range : 150 - 328 10*3/ ?L. The reference r stefan was not used to interpret this result as normal/abnormal . MPV (test code = 10.6 fL 9.8-13.0 09337-3) NRBC/100 WBC (test See_Comment [Automat ed code = 2454485361) message] The system which generated this result transmitted reference range : 0.0 - 10.0 /100 WBCs. The refer ence range was not u sed to interpret th is result as normal/abnormal . NRBC x10^3 (test code <0.01 See_Comment [Auto mated = 2438470269) message] The s ystem which generated this result transmitted reference range : 10*3/?L. The reference range was not used to interpret this result as normal/abnormal . GRAN MAT (NEUT) % 80.9 % (test code = 770-8) IMM GRAN % (test code 0.40 % = 1105364555) LYMPH % (test code = 8.0 % 736-9) MONO % (test code = 6.9 % 5905-5) EOS % (test code = 3.4 % 713-8) BASO % (test code = 0.4 % 706-2) GRAN MAT x10^3(ANC) 4.23 10*3/uL 1.99-6.95 (test code = 9880950545) IMM GRAN x10^3 (test <0.03 0.00-0.06 code = 3390858113) LYMPH x10^3 (test code 0.42 10*3/uL 1.09-3.23 L = 731-0) MONO x10^3 (test code 0.36 10*3/uL 0.36-1.02 = 742-7) EOS x10^3 (test code = 0.18 10*3/uL 0.06-0.53 711-2) BASO x10^3 (test code <0.03 0.01-0.09 = 704-7) Lab Interpretation Abnormal (test code = 35709-9) [facility] [id number] 22:35:02 Test Item Value Reference Range Interpretation Comments POCT Molecular Strep (test code = Negative Negative 25842-8) Lab Interpretation (test code = Normal 57953-0) [facility]"
--- NOTE | 2022-12-01 18:57 | ER ---
Nurse's Notes [facility] Name: Kd Velazquez Age: 32 yrs Sex: Male : 1990 Arrival Date: 12/01/2022 Time: 17:53 Bed Waiting Private MD: Diagnosis: Palpitations Presentation: 12/01 18:55 Chief complaint: Patient states: patient refused triage. ap3 18:55 Method Of Arrival: EMS ap3 ED Course: 17:55 Patient arrived in ED. mr 17:56 Kevin Davis DO is Attending Physician. ms3 17:56 Freddy Sanchez MD is Referral Physician. ms3 Administered Medications: No medications were administered Outcome: 17:56 Discharge ordered by . ms3 18:56 Patient left the ED. ap3 Signatures: Shivani Berrios Amanda, RN RN ap3 Kevin Davis DO DO ms3
== END 2022-12-01 18:56 | disposition home or self-care (01) ==
LOC: ER 17:53
DX: R00.2 Palpitations (principal)
CPT/HCPCS: 99282

== ENCOUNTER 2022-12-24 11:12 | Emergency (ER) | payer OTHER ==
--- OUTSIDE RECORDS SUMMARY | 2022-12-24 11:16 | XMS REPORT | Continuity of Care Document ---
:1990 Author Organization [facility] t Address [address] [place] [address] [place] [id number] Care Team Providers Name Role Phone Asked, No Pcp Primary Care Physician Unavailable Toni Iverson Attending Clinician Unavailable NING ANDRADE Attending Clinician Unavailable Lupe LÓPEZ, Ning Attending Clinician Ace Dorsey MD Attending Clinician JOSUE JACOBSON Attending Clinician Unavailable Bright Crouch Attending Clinician Josue Jacobson MD Attending Clinician CHON BUSCH Attending Clinician Unavailable Chon Busch MD Attending Clinician LANCE WAKEFIELD Attending Clinician Unavailable LANCE WAKEFIELD Attending Clinician Unavailable Lance Wakefield DO Attending Clinician RAMAN ZIMMERMAN Attending Clinician Unavailable Raman Zimmerman MD Attending Clinician Doctor Unassigned, Conception Attending Clinician Unavailable FRANNIE MURCIA Attending Clinician Unavailable Frannie Murcia NP Attending Clinician NAYELI BARRAZA Attending Clinician Unavailable Nayeli Barraza MD Attending Clinician Yaquelin Durand Attending Clinician NING ANDRADE Admitting Clinician Unavailable BRIGHT SPENCER Admitting Clinician Unavailable LANCE WAKEFIELD Admitting Clinician Unavailable RAMAN ZIMMERMAN Admitting Clinician Unavailable Payers Payer Name Policy Type Policy Number Effective Date Expiration Date Vikram DUNAWAY II [id number] 2016 00:00:00 Problems Condition Condition Condition Status Onset Resolution Last Treating Co mments Source Name Details Category Date Date Treatment Clinician Date Hematemesi Hematemesi Disease Active U pablo correa s 10-05 ity of 00:00: [place] 00 Medical Branch Urethral Urethral Diagnosis Active Com mon discharge discharge Spir it in male in male [facility] Tinea Tinea Problem Active Common cruris cruris Spirit [facility] Allergies, Adverse Reactions, Alerts Allergy [...] PENICILL Drug Active Hives Univers INS Class 307 ity of 00:00: [place] 00 Medical Branch [...] Active Univers ALLERGIE Class ity of [facility] Family History Family Member Diagnosis Comments Start Date Stop Date Source Natural father Diabetes [facility] Maternal grandfather [facility] Social History Social Habit Start Date Stop Date Quantity Comments Source History of tobacco Cigarette Smoker University of use [place] [facility] History SDOH University o f Alcohol Frequency [place] M edical Branch History [facility] University o f Alcohol Std Drinks [facility] History [facility] o f Alcohol Binge [place] [facility] al Branch Gender identity [facility] Sexual orientation [facility] Exposure to 2022-11-28 2022-12-08 Not sure [facility] SARS-CoV-2 (event) 00:00:00 10:17:00 [facility] Tobacco use and 2022-12-02 2022-12-02 Former smokeless [facility] of exposure 00:00:00 00:00:00 tobacco user Medicine Alcohol intake 2017-07-28 2017-07-28 Current drinker [facility] dist 00:00:00 00:00:00 of [facility] (finding) Alcohol Comment 2017-07-28 2017-07-28 Drink only on Method ist 00:00:00 00:00:00 holidays or once Hospital a month Sex Assigned At [birth year] [facility] 00:[facility]00 Hospital Smoking Status Start Date Stop Date Source Tobacco smoking [facility] consumption unknown Never smoked tobacco [facility] Ex-smoker 2019-05-01 00:00:00 2019-05-01 [facility] [place] 00:00:00 [facility] Medications Ordered Filled Start Stop Current Ordering Indication Dosage Frequency Signature Comments Components Source Medication Medication Date Date Medication? Clinician (SIG) Name Name diazePAM 10 Yes 10mg Take 1 Univ ers mg tablet 5-02 tablet by ity o f 10:31: mouth as [place] 45 needed. Medical Branch busPIRone Yes 10mg Take 1 Univer s 10 mg 5-02 tablet by ity of tablet 10:31: mouth in [place] [address] the Medical morning Branch and 1 tablet in the evening. methIMAzole Yes 5mg Take 1 Univ ers 5 mg tablet 5-02 tablet by ity of 10:31: mouth in [place] 45 the Medical morning. Branch diazePAM 10 Yes 10mg Take 1 Univ ers mg tablet 5-02 tablet by ity o f 10:31: mouth as [place] 45 needed. Medical Branch busPIRone Yes 10mg Take 1 Univer s 10 mg 5-02 tablet by ity of tablet 10:31: mouth in [place] [address] the Medical morning Branch and 1 tablet in the evening. methIMAzole Yes 5mg Take 1 Univ ers 5 mg tablet 5-02 tablet by ity of 10:31: mouth in [place] [address] the Medical morning. Branch aspirin 2022- Yes 325mg 325 mg, Unive rs tablet 325 12-02 Oral, ity of mg 02:45: 14:44 ONCE, 1 [place] 00 :00 dose, On [facility] 12/01/22 at 2145, Routine LORazepam 2022- No 1mg 1 mg, Slow U nivers (ATIVAN) 12-02 IV Push, ity of injection 1 00:30: 00:35 ONCE, 1 [place] mg 00 :[place] dose, On [facility] 12/01/22 at 1930, STAT ibuprofen 2022- Yes [id number] 800mg Take 1 Univers 800 mg 12-01 tablet by ity of tablet 00:00: 04:59 mouth [place] 00 :00 every 8 Medical (eight) Branch hours as needed for Pain (scale 4-6) for up to 5 days. LORazepam 1 2022- Yes [id number] 1mg Take 1 Univers mg tablet 12-01 tablet by ity of 00:00: 04:59 mouth 2 [place] 00 :00 (two) Medical times Branch daily as needed for Anxiety or Agitation for up to 3 days. escitalopra Yes 10mg Take 1 [place] [facility] (LEXAPRO) 4-24 Tablet by Col lege 10 MG 00:00: mouth of tablet 00 daily. Medicin e LORazepam 2022- No 1mg 1 mg, Univer s (ATIVAN) 11-26 04-20 Oral, ity of tablet 1 mg 02:00: 01:48 ONCE, 1 [place] :[place] dose, On [facility] 11/25/22 at 2100, ZACK ondansetron 2022- No 4mg 4 mg, Slow Univers (ZOFRAN 11-26 04-20 IV Push, ity of (PF)) 02:00: 01:48 ONCE, 1 [place] injection 4 00 :00 dose, On Medi colby mg [facility] 11/25/22 at 2100, ZACK ketorolac 2022-0 2022- No 30mg 30 mg, Unive rs (TORADOL) 11-25 Slow IV ity of injection 03:45: 03:02 Push, [place] 30 mg 00 :00 ONCE, 1 Medical dose, On Branch 11/24/22 at 2245, Routine NaCl 0.9% 0 2022- No 1000mL at 999 Uni vers (NS) bolus 11-25 mL/hr, ity of infusion 03:00: 03:35 1,000 mL, [place] 1,000 mL 00 :00 IV Medical Piggyback, Branch ONCE, 1 dose, On Wed11/24/22 at 2200, STAT ondansetron 2022- No 4mg 4 mg, Slow Univers (ZOFRAN 11-25 IV Push, ity of (PF)) 02:45: 02:36 ONCE, 1 [place] injection 4 00 :00 dose, On Medi colby mg [facility] 11/24/22 at 2145, ZACK alum-mag Yes 30mL 30 mL, Univers hydroxide-s 11-25 Oral, ity of imeth 02:34: Q6HPRN, [place] (MAALOX 10 Starting Medical PLUS / on Wed Branch MAG-AL 11/24/22 at PLUS) 2134, 200-200-20 Until mg/5 mL Discontinu suspension ed, 30 mL Routine, Indigestio n LORazepam 2022-0 Yes [id number] 1mg Take 1 Un tera (ATIVAN) 1 4-19 tablet by ity of mg tablet 00:00: mouth 00 every 24 Medical ( Branch ur) hours as needed for Anxiety or Agitation. LORazepam 2022-0 Yes [id number] 1mg Take 1 Un tera (ATIVAN) 1 4-19 tablet by ity of mg tablet 00:00: mouth 00 every 24 Medical ( Branch ur) hours as needed for Anxiety or Agitation. LORazepam 2022-0 Yes [id number] 1mg Take 1 Un tera (ATIVAN) 1 4-19 tablet by ity of mg tablet 00:00: mouth [place] 00 every 24 Medical (twenty-fo Branch ur) hours as needed for Anxiety or Agitation. LORazepam Yes [id number] 1mg Take 1 Un tera (ATIVAN) 1 4-19 tablet by ity of mg tablet 00:00: mouth [place] 00 every 24 Medical (twenty-fo Branch ur) hours as needed for Anxiety or Agitation. lorazepam 2022- Yes 1mg Take 1 [place] [facility] (ATIVAN) 1 4-19 04-29 Tablet by Col lege MG tablet 00:00: 04:59 mouth. of 00 :00 Medicin e iohexoL 2021- No [id number] 50mL 50 mL, Uni vers (OMNIPAQUE 01-26-20 Intravenou it y of 350 BULK-50 03:45: 03:39 s, ONCE, 1 [place] mL) 00 :00 dose, On Medical injection [facility] 50 mL 01/25/22 at 2245, Routine ondansetron 2021- No 4mg 4 mg, Slow Univers (ZOFRAN 01-2620 IV Push, ity of (PF)) 03:45: 02:48 ONCE, 1 [place] injection 4 00 :00 dose, On Medi colby mg [facility] 01/25/22 at 2245, ZACK ketorolac 2021- No 30mg 30 mg, Unive rs (TORADOL) 01-26-20 Slow IV ity of injection 03:45: 02:48 Push, [place] 30 mg 00 :00 ONCE, 1 Medical dose, On Branch [facility] 01/25/22 at 2245, Routine dicyclomine 0 Yes [id number] 20mg Take 1 Univers 20 mg 6-19 tablet by ity of tablet 00:00: mouth [place] 00 every 6 Medical (six) Branch hours as needed for Abdominal pain. traMADoL 0 Yes [id number] 50mg Take 1 Univers (ULTRAM) 50 6-19 tablet by ity of mg tablet 00:00: mouth [place] 00 every 6 Medical (six) Branch hours as needed for Pain (scale 7-10). Indication s: acute pain ondansetron 2021-0 Yes [id number] 4mg Take 1 Univers (ZOFRAN) 4 6-19 tablet by ity of mg tablet 00:00: mouth [place] 00 every 8 Medical (eight) Branch hours as needed for Nausea and Vomiting (N/V). dicyclomine 2022-0 Yes [id number] 20mg Take 1 Univers 20 mg 6-19 tablet by ity of tablet 00:00: mouth [place] 00 every 6 Medical (six) Branch hours as needed for Abdominal pain. traMADoL 2022-0 Yes [id number] 50mg Take 1 Univers (ULTRAM) 50 6-19 tablet by ity of mg tablet 00:00: mouth [place] 00 every 6 Medical (six) Branch hours as needed for Pain (scale 7-10). Indication s: acute pain ondansetron 2-0 Yes [id number] 4mg Take 1 Univers (ZOFRAN) 4 6-19 tablet by ity of mg tablet 00:00: mouth [place] 00 every 8 Medical (eight) Branch hours as needed for Nausea and Vomiting (N/V). dicyclomine 2-0 Yes [id number] 20mg Take 1 Univers 20 mg 6-19 [...] Indication s: acute pain ondansetron 2-0 Yes [id number] 4mg Take 1 Univers (ZOFRAN) 4 6-19 tablet by ity of mg tablet 00:00: mouth [place] 00 every 8 Medical (eight) Branch hours as needed for Nausea and Vomiting (N/V). dicyclomine 2022-0 Yes [id number] 20mg Take 1 Univers 20 mg 6-19 tablet by ity of tablet 00:00: mouth [place] 00 every 6 Medical (six) Branch hours as needed for Abdominal pain. traMADoL 2022-0 Yes [id number] 50mg Take 1 Univers (ULTRAM) 50 6-19 tablet by ity of mg tablet 00:00: mouth [place] 00 every 6 Medical (six) Branch hours as needed for Pain (scale 7-10). Indication s: acute pain ondansetron 2022-0 Yes [id number] 4mg Take 1 Univers (ZOFRAN) 4 6-19 tablet by ity of mg tablet 00:00: mouth [place] 00 every 8 Medical (eight) Branch hours as needed for Nausea and Vomiting (N/V). dicyclomine 2022-0 Yes [id number] 20mg Take 1 Univers 20 mg 6-19 [...] Indication s: acute pain ondansetron 2-0 Yes [id number] 4mg Take 1 Univers (ZOFRAN) 4 6-19 tablet by ity of mg tablet 00:00: mouth [place] 00 every 8 Medical (eight) Branch hours as needed for Nausea and Vomiting (N/V). dicyclomine 2-0 Yes [id number] 20mg Take 1 Univers 20 mg 6-19 tablet by ity of tablet 00:00: mouth [place] 00 every 6 Medical (six) Branch hours as needed for Abdominal pain. traMADoL 2022-0 Yes [id number] 50mg Take 1 Univers (ULTRAM) 50 6-19 tablet by ity of mg tablet 00:00: mouth [place] 00 every 6 Medical (six) Branch hours as needed for Pain (scale 7-10). Indication s: acute pain ondansetron 2-0 Yes [id number] 4mg Take 1 Univers (ZOFRAN) 4 6-19 tablet by ity of mg tablet 00:00: mouth [place] 00 every 8 Medical (eight) Branch hours as needed for Nausea and Vomiting (N/V). ondansetron 2022-0 2- No [id number] 4mg Take 1 Univers (ZOFRAN) 4 6-19 06-19 tablet by ity of mg tablet 00:00: 00:00 mouth [place] 00 :00 every 8 Medical (eight) Branch hours as needed for Nausea and Vomiting (N/V). ondansetron 2022-0 2022- No [id number] 4mg Take 1 Univers (ZOFRAN) 4 6-19 06-19 tablet by ity of mg tablet 00:00: 00:00 mouth [place] 00 :00 every 8 Medical (eight) Branch hours as needed for Nausea and Vomiting (N/V). NaCl 0.9% No 1000mL at 999 Uni vers (NS) IV 09-22 mL/hr, ity of infusion 05:45: 05:56 Intravenou [place] 1,000 mL 00 :00 s, ONCE, 1 Medic al dose, On Branch [facility] 09/21/21 at 2345, Routine proMETHazin 2021- No 12.5mg 12.5 mg, Univers e 09-22 IV ity of (PHENERGAN) 04:55: 05:06 Piggyback, [place] 12.5 mg in 00 :00 ONCE, 1 [...] dose, On 09/21/21 at 2115, ZACK proMETHazin 2021-0 Yes [id number] 25mg Take 1 Univers e 25 mg - tablet by ity of tablet 00:00: mouth [place] 00 every 6 Medical (six) Branch hours as needed for Nausea and Vomiting (N/V). proMETHazin 2021-0 Yes [id number] 25mg Take 1 Univers e 25 mg 2-14 tablet by ity of tablet 00:00: mouth [place] 00 every 6 Medical (six) Branch hours as needed for Nausea and Vomiting (N/V). proMETHazin 0 Yes [id number] 25mg Take 1 Univers e 25 mg 2-14 tablet by ity of tablet 00:00: mouth [place] 00 every 6 Medical (six) Branch hours as needed for Nausea and Vomiting (N/V). proMETHazin 0 Yes [id number] 25mg Take 1 Univers e 25 mg 2-14 tablet by ity of tablet 00:00: mouth [place] 00 every 6 Medical (six) Branch hours as needed for Nausea and Vomiting (N/V). proMETHazin 0 Yes [id number] 25mg Take 1 Univers e 25 mg 2-14 tablet by ity of tablet 00:00: mouth [place] 00 every 6 Medical (six) Branch hours as needed for Nausea and Vomiting (N/V). proMETHazin Yes [id number] 25mg Take 1 Univers e 25 mg 2-14 tablet by ity of tablet 00:00: mouth [place] 00 every 6 Medical (six) Branch hours as needed for Nausea and Vomiting (N/V). proMETHazin 0 Yes [id number] 25mg Take 1 Univers e 25 mg 2-14 tablet by ity of tablet 00:00: mouth [place] 00 every 6 Medical (six) Branch hours as needed for Nausea and Vomiting (N/V). proMETHazin 0 Yes [id number] 25mg Take 1 Univers e 25 mg 2-14 tablet by ity of tablet 00:00: mouth [place] 00 every 6 Medical (six) Branch hours as needed for Nausea and Vomiting (N/V). multivit-mi 2021- No Take by Un tera n/folic/vit 2-13 02-13 mouth ity of K/lycop 22:42: 00:00 daily. [place] (ONE-A-DAY 28 :00 Medical MEN'S Branch MULTIVITAMI N ORAL) dicyclomine 0 Yes [id number] 20mg Take 1 Univers 20 mg 2-13 tablet by ity of tablet 00:00: mouth 00 (four) Medical times Branch daily as needed for Abdominal pain. ondansetron 0 Yes [id number] 4mg Take 1 Univers 4 mg 2-13 tablet by ity of disintegrat 00:00: mouth [place] ing tablet 00 every 8 Medica l (eight) Branch hours as needed for Nausea and Vomiting (N/V). dicyclomine 2022-0 Yes [id number] 20mg Take 1 Univers 20 mg 2-13 tablet by ity of tablet 00:00: mouth 4 [place] 00 (four) Medical times Branch daily as needed for Abdominal pain. ondansetron 2-0 Yes [id number] 4mg Take 1 Univers 4 mg 2-13 tablet by ity of disintegrat 00:00: mouth [place] ing tablet 00 every 8 Medica l (eight) Branch hours as needed for Nausea and Vomiting (N/V). dicyclomine 2-0 Yes [id number] 20mg Take 1 Univers 20 mg 2-13 tablet by ity of tablet 00:00: mouth 4 [place] 00 (four) Medical times Branch daily as needed for Abdominal pain. ondansetron 2-0 Yes [id number] 4mg Take 1 Univers 4 mg 2-13 tablet by ity of disintegrat 00:00: mouth [place] ing tablet 00 every 8 Medica l (eight) Branch hours as needed for Nausea and Vomiting (N/V). dicyclomine 2-0 Yes [id number] 20mg Take 1 Univers 20 mg 2-13 tablet by ity of tablet 00:00: mouth 4 [place] 00 (four) Medical times Branch daily as needed for Abdominal pain. ondansetron 2-0 Yes [id number] 4mg Take 1 Univers 4 mg 2-13 tablet by ity of disintegrat 00:00: mouth [place] ing tablet 00 every 8 Medica l (eight) Branch hours as needed for Nausea and Vomiting (N/V). dicyclomine 2022-0 Yes [id number] 20mg Take 1 Univers 20 mg 2-13 tablet by ity of tablet 00:00: mouth 4 [place] 00 (four) Medical times Branch daily as needed for Abdominal pain. ondansetron 2022-0 Yes [id number] 4mg Take 1 Univers 4 mg 2-13 tablet by ity of disintegrat 00:00: mouth [place] ing tablet 00 every 8 Medica l (eight) Branch hours as needed for Nausea and Vomiting (N/V). dicyclomine 2022-0 Yes [id number] 20mg Take 1 Univers 20 mg 2-13 tablet by ity of tablet 00:00: mouth 4 [place] 00 (four) Medical times Branch daily as needed for Abdominal pain. ondansetron 2021-0 Yes [id number] 4mg Take 1 Univers 4 mg 2-13 tablet by ity of disintegrat 00:00: mouth [place] ing tablet 00 every 8 Medica l (eight) Branch hours as needed for Nausea and Vomiting (N/V). dicyclomine 2021-0 Yes [id number] 20mg Take 1 Univers 20 mg 2-13 tablet by ity of tablet 00:00: mouth 4 [place] 00 (four) Medical times Branch daily as needed for Abdominal pain. ondansetron 2021-0 Yes [id number] 4mg Take 1 Univers 4 mg 2-13 tablet by ity of disintegrat 00:00: mouth [place] ing tablet 00 every 8 Medica l (eight) Branch hours as needed for Nausea and Vomiting (N/V). dicyclomine 2021-0 Yes [id number] 20mg Take 1 Univers 20 mg 2-13 tablet by ity of tablet 00:00: mouth 4 [place] 00 (four) Medical times Branch daily as needed for Abdominal pain. ondansetron 2021-0 Yes [id number] 4mg Take 1 Univers 4 mg 2-13 tablet by ity of disintegrat 00:00: mouth [place] ing tablet 00 every 8 Medica l (eight) Branch hours as needed for Nausea and Vomiting (N/V). ketorolac 2021-2021- No [id number] 30mg Univers (TORADOL) 08-29 ity of injection 23:45: 22:53 [place] 30 mg 00 :00 Medical Branch ketorolac 2021-0 2021- No [id number] 30mg 30 mg, Univers (TORADOL) 08-2903 Intramuscu ity of injection 23:45: 22:53 lar, ONCE, [place] 30 mg 00 :00 1 dose, On Medical Fri Branch 08/29/21 at 1745, Routine
environmental field team member approving Restricted medication : NAYELI BARRAZA methocarbam 2021- Yes [id number] 500mg Take 1 Univers oL 08-29 tablet by ity of (ROBAXIN) 00:00: mouth 4 [place] 500 mg 00 (four) Medical tablet times Branch daily. methocarbam 2022-0 Yes [id number] 500mg Take 1 Univers oL 1-21 9103 tablet by ity of (ROBAXIN) 00:00: mouth 4 [place] 500 mg 00 (four) Medical tablet times Branch daily. methocarbam 2022-0 Yes [id number] 500mg Take 1 Univers oL 1-21 9103 tablet by ity of (ROBAXIN) 00:00: mouth 4 [place] 500 mg 00 (four) Medical tablet times Branch daily. methocarbam 2022-0 Yes [id number] 500mg Take 1 Univers oL 1-21 9103 tablet by ity of (ROBAXIN) 00:00: mouth 4 [place] 500 mg 00 (four) Medical tablet times Branch daily. methocarbam 2022-0 Yes [id number] 500mg Take 1 Univers oL 1-21 9103 tablet by ity of (ROBAXIN) 00:00: mouth 4 [place] 500 mg 00 (four) Medical tablet times Branch daily. methocarbam 2022-0 Yes [id number] 500mg Take 1 Univers oL 1-21 9103 tablet by ity of (ROBAXIN) 00:00: mouth 4 [place] 500 mg 00 (four) Medical tablet times Branch daily. methocarbam 2022-0 Yes [id number] 500mg Take 1 Univers oL 1-21 9103 tablet by ity of (ROBAXIN) 00:00: mouth 4 [place] 500 mg 00 (four) Medical tablet times Branch daily. methocarbam 2022-0 Yes [id number] 500mg Take 1 Univers oL 1-21 9103 tablet by ity of (ROBAXIN) 00:00: mouth 4 [place] 500 mg 00 (four) Medical tablet times Branch daily. methocarbam 2022-0 Yes [id number] 500mg Take 1 Univers oL 1-21 9103 tablet by ity of (ROBAXIN) 00:00: mouth 4 [place] 500 mg 00 (four) Medical tablet times Branch daily. methocarbam 2022-0 Yes [id number] 500mg Take 1 Univers oL 1-21 9103 tablet by ity of (ROBAXIN) 00:00: mouth 4 [place] 500 mg 00 (four) Medical tablet times Branch daily. methocarbam 2022-0 Yes [id number] 500mg Take 1 Univers oL 1-21 9103 tablet by ity of (ROBAXIN) 00:00: mouth 4 [place] 500 mg 00 (four) Medical tablet times Branch daily. azithromyci 2021-0 Yes Univer s n 250 mg 1-18 ity of tablet 00:00: [place] 00 Medical Branch ketoconazol 2021-0 Yes Univer s e 200 mg 1-18 ity of tablet 00:00: [place] 00 Medical Branch azithromyci 2021-0 Yes Univer s n 250 mg 1-18 ity of tablet 00:00: [place] 00 Medical Branch ketoconazol 2021-0 Yes Univer s e 200 mg 1-18 ity of tablet 00:00: [place] 00 Medical Branch azithromyci 2021-0 Yes Univer s n 250 mg 1-18 ity of tablet 00:00: [place] 00 Medical Branch ketoconazol 2021-0 Yes Univer s e 200 mg 1-18 ity of tablet 00:00: [place] [address] Medical Branch azithromyci 2021-0 2- No Unive rs n 250 mg 1-18 02-13 ity of tablet 00:00: 00:00 [place] 00 :00 Medical Branch ketoconazol 2-0 2- No Unive rs e 200 mg 1-18 02-13 ity of tablet 00:00: 00:00 [place] 00 :00 Medical Branch LIDOCAINE 2021-1 Yes Univers VISCOUS 2 % 2-03 ity of solution 00:00: [place] 00 Medical Branch predniSONE 202-1 Yes Univers 20 mg 2-03 ity of tablet 00:00: [place] 00 Medical Branch LIDOCAINE 2021-1 Yes Univers VISCOUS 2 % 2-03 ity of solution 00:00: [place] 00 Medical Branch predniSONE 2021-1 Yes Univers 20 mg 2-03 ity of tablet 00:00: [place] 00 Medical Branch LIDOCAINE 2021-1 Yes Univers VISCOUS 2 % 2-03 ity of solution 00:00: [place] 00 Medical Branch predniSONE 2021-1 Yes Univers 20 mg 2-03 ity of tablet 00:00: [place] [address] Medical Branch LIDOCAINE 2021-1 2022- No Univers VISCOUS 2 % 2-03 02-13 ity of solution 00:00: 00:00 [place] 00 :00 Medical Branch predniSONE 2021-1 2- No Univer s 20 mg 2-03 02-13 ity of tablet 00:00: 00:00 [place] 00 :00 Medical Branch ibuprofen 2021-1 2022- No Univers 800 mg 208-29 ity of tablet 00:00: 00:00 [place] 00 :00 Medical Branch ondansetron 2020-0 Yes [id number] 4mg Take 1 Univers (ZOFRAN 6-16 tablet by ity of ODT) 4 mg 00:00: mouth [place] disintegrat 00 every 8 Medic al ing tablet (eight) Branch hours as needed for Nausea and Vomiting (N/V). ondansetron 2020-0 Yes [id number] 4mg Take 1 Univers (ZOFRAN 6-16 tablet by ity of ODT) 4 mg 00:00: mouth [place] disintegrat 00 every 8 Medic al ing tablet (eight) Branch hours as needed for Nausea and Vomiting (N/V). ondansetron 2020-0 Yes [id number] 4mg Take 1 Univers (ZOFRAN 6-16 tablet by ity of ODT) 4 mg 00:00: mouth [place] disintegrat 00 every 8 Medic al ing tablet (eight) Branch hours as needed for Nausea and Vomiting (N/V). ondansetron 2020-0 Yes [id number] 4mg Take 1 Univers (ZOFRAN 6-16 tablet by ity of ODT) 4 mg 00:00: mouth [place] disintegrat 00 every 8 Medic al ing tablet (eight) Branch hours as needed for Nausea and Vomiting (N/V). ondansetron 2020-0 Yes [id number] 4mg Take 1 Univers (ZOFRAN 6-16 tablet by ity of ODT) 4 mg 00:00: mouth [place] disintegrat 00 every 8 Medic al ing tablet (eight) Branch hours as needed for Nausea and Vomiting (N/V). ondansetron 2020-0 Yes [id number] 4mg Take 1 Univers (ZOFRAN 6-16 tablet by ity of ODT) 4 mg 00:00: mouth [place] disintegrat 00 every 8 Medic al ing tablet (eight) Branch hours as needed for Nausea and Vomiting (N/V). ondansetron 2020-0 Yes [id number] 4mg Take 1 Univers (ZOFRAN 6-16 tablet by ity of ODT) 4 mg 00:00: mouth [place] disintegrat 00 every 8 Medic al ing tablet (eight) Branch hours as needed for Nausea and Vomiting (N/V). ondansetron 2020-0 Yes [id number] 4mg Take 1 Univers (ZOFRAN 6-16 tablet by ity of ODT) 4 mg 00:00: mouth [place] disintegrat 00 every 8 Medic al ing tablet (eight) Branch hours as needed for Nausea and Vomiting (N/V). ondansetron 2020-0 Yes [id number] 4mg Take 1 Univers (ZOFRAN 6-16 tablet by ity of ODT) 4 mg 00:00: mouth [place] disintegrat 00 every 8 Medic al ing tablet (eight) Branch hours as needed for Nausea and Vomiting (N/V). ondansetron 2020-0 Yes [id number] 4mg Take 1 Univers (ZOFRAN 6-16 tablet by ity of ODT) 4 mg 00:00: mouth [place] disintegrat 00 every 8 Medic al ing tablet (eight) Branch hours as needed for Nausea and Vomiting (N/V). ondansetron 2020-0 Yes [id number] 4mg Take 1 Univers (ZOFRAN 6-16 tablet by ity of ODT) 4 mg 00:00: mouth [place] disintegrat 00 every 8 Medic al ing tablet (eight) Branch hours as needed for Nausea and Vomiting (N/V). multivit-mi Yes Take by Uni vers n/folic/vit 9-23 mouth ity of K/lycop 13:48: daily. [place] (ONE-A- [facility] MULTIVITAMI N ORAL) multivit-mi Yes Take by Uni vers n/folic/vit 9-23 mouth ity of K/lycop 13:48: daily. [place] (-A- [facility] MULTIVITAMI N ORAL) multivit-mi Yes Take by Uni vers n/folic/vit 9-23 mouth ity of K/lycop 13:48: daily. [place] (ONE-A-DAY [facility] MULTIVITAMI N ORAL) Vital Signs Vital Name Observation Time Observation Value Comments Source Systolic blood 2022-12-08 15:34:00 129 mm[Hg] [facility] Diastolic blood 2022-12-08 15:34:00 83 mm[Hg] Unive [facility] Heart rate 2022-12-08 15:34:00 76 /min [facility] Body temperature 2022-12-08 15:34:00 36.78 Karla [facility] [place] [facility] Respiratory rate 2022-12-08 15:34:00 18 /min [facility] [place] [facility] Body height 2022-12-08 15:34:00 182.9 cm [facility] [place] [facility] Body weight 2022-12-08 15:34:00 108.954 kg [facility] [place] [facility] BMI 2022-12-08 15:34:00 32.58 kg/m2 [facility]i ty of [facility] Oxygen saturation in 2022-12-08 15:34:00 98 /min University of Arterial blood by [facility] Pulse oximetry Branch Systolic blood 2022-12-02 16:41:00 130 mm[Hg] [facility] Medicine Diastolic blood 2022-12-02 16:41:00 80 mm[Hg] [facility] Heart rate 2022-12-02 16:41:00 83 /min [facility] Respiratory rate 2022-12-02 16:41:00 16 /min [facility] Body height 2022-12-02 16:41:00 182.9 cm [facility] Body weight 2022-12-02 16:41:00 108.863 kg [facility] BMI 2022-12-02 16:41:00 32.55 kg/m2 [facility] Systolic blood 2022-12-02 01:00:00 155 mm[Hg] Univer sity of pressure [facility] Diastolic blood 2022-12-02 01:00:00 110 mm[Hg] Unive rsity of pressure [facility] Heart rate 2022-12-02 01:00:00 87 /min [facility] [place] [facility] Respiratory rate 2022-12-02 01:00:00 17 /min Univ ersity of [facility] Oxygen saturation in 2022-12-02 01:00:00 98 /min University of Arterial blood by [place] [facility] Pulse oximetry Branch Body temperature 2022-12-01 23:31:00 36.89 Karla [facility] [place] [facility] Body height 2022-12-01 23:31:00 182.9 cm [facility] Body weight 2022-12-01 23:31:00 108.863 kg [facility] [place] [facility] BMI 2022-12-01 23:31:00 32.55 kg/m2 [facility] [place] [facility] Systolic blood 2022-11-26 02:30:00 145 mm[Hg] Univer sity of pressure [facility] [place] [facility] Diastolic blood 2022-11-26 02:30:00 93 mm[Hg] Unive rsity of pressure [facility] [place] [facility] Heart rate 2022-11-26 02:30:00 71 /min [facility] [place] [facility] Respiratory rate 2022-11-26 02:30:00 16 /min Univ [facility] [place] [facility] Oxygen saturation in 2022-11-26 02:30:00 99 /min [facility] of Arterial blood by [place] [facility] Pulse oximetry Branch Body temperature 2022-11-26 00:39:00 37.33 Karla [facility] [place] [facility] Body height 2022-11-26 00:39:00 182.9 cm [facility] Body weight 2022-11-26 00:39:00 111.131 kg [facility] [place] [facility] BMI 2022-11-26 00:39:00 33.23 kg/m2 [facility] Body temperature 2022-11-25 02:04:00 36.89 Karla [facility] [place] [facility] Systolic blood 2022-11-25 02:00:00 152 mm[Hg] Univer sity of pressure [facility] [place] [facility] Diastolic blood 2022-11-25 02:00:00 90 mm[Hg] Unive rsity of pressure [facility] [place] [facility] Heart rate 2022-11-25 02:00:00 78 /min [facility] [place] [facility] Respiratory rate 2022-11-25 02:00:00 22 /min [facility] [place] [facility] Body weight 2022-11-25 02:00:00 111.131 kg [facility] [place] [facility] BMI 2022-11-25 02:00:00 33.23 kg/m2 [facility] Oxygen saturation in 2022-11-25 02:00:00 99 /min [facility] Arterial blood by [place] [facility] Pulse oximetry Branch Systolic blood 2022-01-26 04:00:00 143 mm[Hg] Univer sity of pressure [facility] [place] [facility] Diastolic blood 2022-01-26 04:00:00 75 mm[Hg] Unive rsity of pressure [facility] [place] [facility] Heart rate 2022-01-26 04:00:00 74 /min [facility] [place] [facility] Respiratory rate 2022-01-26 04:00:00 19 /min [facility] [place] [facility] Oxygen saturation in 2022-01-26 04:00:00 99 /min [facility] Arterial blood by [place] [facility] Pulse oximetry Branch Body temperature 2022-01-26 02:17:00 36.94 Karla [facility] [place] [facility] Body height 2022-01-26 02:16:00 182.9 cm [facility] [place] [facility] Body weight 2022-01-26 02:16:00 122.471 kg [facility] [place] [facility] BMI 2022-01-26 02:16:00 36.62 kg/m2 [facility] [place] [facility] Systolic blood 2021-09-22 06:16:00 128 mm[Hg] Univer sity of pressure [facility] [place] [facility] Diastolic blood 2021-09-22 06:16:00 72 mm[Hg] Unive rsity of pressure [facility] [place] [facility] Heart rate 2021-09-22 06:16:00 115 /min [facility] [place] [facility] Body temperature 2021-09-22 06:16:00 38.28 Karla [facility] [place] [facility] Respiratory rate 2021-09-22 06:16:00 20 /min [facility] [place] [facility] Oxygen saturation in 2021-09-22 06:16:00 96 /min [facility] Arterial blood by [place] [facility] Pulse oximetry Branch Body height 2021-09-22 02:54:00 182.9 cm [facility] [place] [facility] Body weight 2021-09-22 02:54:00 122.471 kg [facility] [place] [facility] BMI 2021-09-22 02:54:00 36.62 kg/m2 [facility] [place] [facility] Systolic blood 2021-08-29 22:09:00 138 mm[Hg] Univer sity of pressure [place] [facility] Diastolic blood 2021-08-29 22:09:00 84 mm[Hg] Unive rsity of pressure [place] [facility] Heart rate 2021-08-29 22:09:00 83 /min [facility] Body temperature 2021-08-29 22:09:00 36.89 Karla [facility] Respiratory rate 2021-08-29 22:09:00 18 /min [facility] Body height 2021-08-29 22:09:[address] [facility] Body weight 2021-08-29 22:09:[address] [facility] BMI 2021-08-29 22:09:00 33.23 kg/m2 [facility] Oxygen saturation in 2021-08-29 22:09:00 98 /min [facility] Arterial blood by [facility] Pulse oximetry [place] Procedures Procedure Date / Time Performing Clinician Source Performed LIPASE 2022-12-02 00:29:[address] [facility] TROPONIN I 2022-12-02 00:29:[address] [facility] COMP. METABOLIC PANEL 2022-12-02 00:29:00 [id number] CBC WITH DIFF 2022-12-02 00:29:[address] [facility] D-DIMER 2022-12-02 00:29:[address] [facility] URINE DRUG (IMMUNOASSAY) 2022-12-02 00:25:00 Bright Spencer [facility] - COMPREHENSIVE DRUG Medical [facility] nch SCREEN W/O REFLEX XR CHEST 2 VW 2022-12-02 00:15:[address] [facility] CONSENT/REFUSAL FOR 2022-12-01 23:16:31 Doctor Unassigned, No Un [facility] DIAGNOSIS AND TREATMENT Name Medical Branch PROTHROMBIN TIME / INR 2022-11-26 01:45:00 Chon Busch [facility] D-DIMER 2022-11-26 01:45:[address] o f [facility] ACTIVATED PARTIAL 2022-11-26 01:45:00 Chon Busch [facility] 2022-11-26 01:45:00 Chon Busch [facility] URINE DRUG (IMMUNOASSAY) 2022-11-26 01:45:00 Chon Busch [facility] DRUG Medical [facility] SCREEN W/O REFLEX MAGNESIUM 2022-11-26 00:41:00 Chon Busch [facility] FREE T4 2022-11-26 00:41:00 Chon Busch [facility] THYROID STIMULATING 2022-11-26 00:41:00 Chon Busch [facility] HORMONE [facility] COMP. METABOLIC PANEL 2022-11-26 00:41:[address] [facility] ([id number]) [facility] CBC WITH DIFF 2022-11-26 00:41:00 Chon Busch [facility] CONSENT/REFUSAL FOR 2022-11-26 00:26:36 Doctor Unassigned, No Un [facility] DIAGNOSIS AND TREATMENT Name Medical Branch LIPASE 2022-11-25 02:30:00 Randy Buckner [facility] MAGNESIUM 2022-11-25 02:30:00 Randy Buckner [facility] TROPONIN I 2022-11-25 02:30:00 Randy Buckner [facility] HEPATIC FUNCTION PANEL 2022-11-25 02:30:00 Randy Buckner [facility] ([id number]) (ALB,T.PRO,BILI [facility] T,BU/BC,ALT,AST,ALK PHOS) BASIC METABOLIC PANEL 2022-11-25 02:30:00 Randy Buckner [facility] (NA, K, CL, CO2, Medical Branch GLUCOSE, BUN, CREATININE, CA) CBC WITH DIFF 2022-11-25 02:30:00 Randy Buckner [facility] CT ABDOMEN PELVIS W 2022-01-26 03:43:42 Raman Zimmerman [facility] CONTRAST Medical Branch AMYLASE 2022-01-26 02:23:00 Raman Zimmerman [facility] LIPASE 2022-01-26 02:23:00 Raman Zimmerman [facility] COMP. METABOLIC PANEL 2022-01-26 02:23:00 Raman Zimmerman [facility] ([id number]) [facility] CBC WITH DIFF 2022-01-26 02:23:00 Raman Zimmerman [facility] URINALYSIS 2022-01-26 02:23:00 Raman Zimmerman [facility] CONSENT/REFUSAL FOR 2022-01-26 02:11:11 Doctor Unassigned, No [facility] TREATMENT Name [facility] LIPASE 2021-09-22 03:15:00 Frannie Murcia [facility] COMP. METABOLIC PANEL 2021-09-22 03:15:00 Frannie Murcia [facility] ([id number]) [facility] CBC WITH DIFF 2021-09-22 03:15:00 Frannie Murcia [facility] RAPID INFLUENZA A/B 2021-09-22 03:15:00 Frannie Murcia [facility] COVID-19 (ID NOW RAPID 2021-09-22 03:15:00 Frannie Murcia [facility] TESTING) [facility] URINALYSIS 2021-09-22 03:14:00 Frannie Murcia [facility] NOTICE OF PRIVACY 2021-09-22 02:49:48 Doctor Unassigned, No Univ [facility] PRACTICES [facility] CONSENT/REFUSAL FOR 2021-09-22 02:49:13 Doctor Unassigned, No [facility]NOS[facility] AND TREATMENT [facility] POCT MOLECULAR STREP 2021-08-29 22:24:00 Nayeli Barraza [facility] EMERGENCY DEPARTMENT Doctor Unassigned, No [facility] DOCUMENTS Name [facility] Plan of Care Planned Activity Planned Date Details Comments Source Future Scheduled 2022-12-15 COVID-19 VACCINE (#1) [facility] Test 14:02:55 [code = COVID-19 Hospital VACCINE (#1)] Future Scheduled 2022-12-15 INFLUENZA VACCINE [code [facility] Test 14:02:55 = INFLUENZA VACCINE] Hospita l Future Scheduled 2022-12-02 BMI Follow Up Plan [facility] Test 12:28:02 [code = BMI Follow Up of Med icine Plan] Future Scheduled 2022-12-02 Human immunodeficiency B [facility] Test 12:28:02 virus screening of Medicine (procedure) [code = 217132114] Future Scheduled 2022-12-02 Hepatitis C screening [facility] Test 12:28:02 (procedure) [code = of Medic ine 486550903] Future Scheduled 2022-12-02 TETANUS SHOT (ADULT) [facility] Test 12:28:02 [code = TETANUS SHOT of Medi cine (ADULT)] Future Scheduled 2022-12-02 COVID-19 Vaccine (3 - Ba [facility] Test 12:28:02 Booster) [code = of Medicine COVID-19 Vaccine (3 - Booster)] Future Scheduled 2022-12-02 FLU VACCINE > 6 MONTHS B [facility] Test 12:28:02 [code = FLU VACCINE > 6 of M edicine MONTHS] Future Scheduled 2022-12-02 TSH [code = 41356-0] Ordered: [facility] Test 12:23:39 12/02/2022 of Medicine Future Scheduled 2022-12-02 T4 FREE [code = 3024-7] Ordered: [facility] Test 12:23:39 12/02/2022 of Medicine Future Scheduled 2022-12-02 T3 [code = 3053-6] Ordered: [facility] Test 12:23:39 12/02/2022 of Medicine Future Scheduled 2022-12-02 COMPREHENSIVE METABOLIC Ordered: [facility] Test 12:23:39 PANEL [code = 32201-5] 12/02/2022 of Me dicine Future Scheduled 2022-12-02 RENIN ACTIVITY [code = Ordered: [facility] Test 12:23:39 2915-7] 12/02/2022 of Medicine Future Scheduled 2022-12-02 ALDOSTERONE [code = Ordered: [facility] Test 12:23:39 1763-2] 12/02/2022 of Medicine Future Scheduled 2022-12-02 THYROID ANTIBODY GROUP Ordered: [facility] Test 12:23:39 (TPO + TG) [code = 12/02/2022 of Medici ne NOCPT] Future Scheduled 2022-12-02 THYROTROPIN RECEPTOR,AB Ordered: [facility] Test 12:23:39 [code = 68377-3] 12/02/2022 of Medicine Future Scheduled 2022-12-02 THYROID STIMULATING Ordered: [facility] Test 12:23:39 IMMUNOGLOBULIN [code = 12/02/2022 of Me dicine 53092-5] Future Scheduled 2022-12-02 METANEPHRINE,FRACT,LC/M Ordered: [facility] Test 12:23:39 S/MS,PL [code = NOCPT] 12/02/2022 of Me dicine Future Scheduled 2022-12-02 HEMOGLOBIN A1C [code = Ordered: B [facility] Test 12:23:39 4548-4] 12/02/2022 of Medicine Future Scheduled 2022-12-02 DHEA-SULFATE [code = Ordered: [facility] Test 12:23:39 2191-5] 12/02/2022 of Medicine Future Scheduled 2022-11-07 INFLUENZA VACCINE [code [facility] Test 16:35:12 = INFLUENZA VACCINE] Hospita l Future Scheduled 2022-11-07 COVID-19 VACCINE (#1) [facility] Test 16:35:12 [code = COVID-19 Hospital VACCINE (#1)] Future Scheduled 2022-11-07 INFLUENZA VACCINE [code [facility] Test 16:35:12 = INFLUENZA VACCINE] Hospita l Future Scheduled 2022-11-07 COVID-19 VACCINE (#1) [facility] Test 16:35:12 [code = COVID-19 Hospital VACCINE (#1)] Encounters Start End Encounter Admission Attending Care Care Encounter Source Date/Time Date/Time Type Type Clinicians Facility Department ID 2021-09-03 [facility] [id number] Common 11:19:38 Toni [id number] [facility] it - [facility] 2021-06-06 Emergency [facility] [id number] Univers 01:08:[address] [facility] 2022-12-16 2022-12-16 Outpatient Marva ANDRADE [facility] [id number] Univers 08:00:00 23:59:[address] [facility] 2022-12-15 2022-12-15 Outpatient Marva ANDRADE [facility] [id number] Univers 14:00:00 23:59:[address] [facility] 2022-12-08 2022-12-08 Outpatient R LUPE, [facility] [id number] Univers 10:00:00 10:55:20 [address] o f [facility] 2022-12-08 2022-12-08 Office Lupe, [facility] [id number] Univers 10:00:00 10:55:20 Visit Ning MALDONADO 350.1.13.10 ity of [place] 4.2.7.2.686 [facility] PROFESSIO [id number] Nj dical NAL 059 [facility] 2022-12-02 2022-12-02 Office Ace Dorsey [facility] [id number] [facility] 11:45:00 12:28:18 Visit AMBULATOR 350.1.13.21 College Y 0.2.7.2.686 of [id number] [facility] 310 e 2022-12-01 2022-12-01 Emergency X CHAPARRO [facility] ERT [id number] Univers 18:34:00 21:44:[address] [facility] 2022-12-01 2022-12-01 Emergency Bright Spencer F [facility] 1.2. [id number] [id number] Univers 18:34:00 21:44:00 Josue Jacobson 350.1.13.10 ity of [place] 4.2.7.2.686 [facility] [id number] [address] 2022-11-25 2022-11-25 Emergency [facility] E[facility] [id number] Univers 19:32:00 21:59:00 CHON ity [facility] 2022-11-25 2022-11-25 Emergency [facility] [id number] Univers 19:32:00 21:59:00 Chon MALDONADO 350.1.13.10 i ty of [place] 4.2.7.2.686 [facility] [id number] [address] 2022-11-24 2022-11-24 Emergency X LANCE WAKEFIELD [facility] ERT 1 [id number] Univers 21:04:00 23:27:00 ASHU, LANCE ity of [facility] 2022-11-24 2022-11-24 Emergency Ashu, TRAUMA [id number] Univers 21:04:00 23:27:00 [facility] 350.1.13.10 [place] [id number] [facility] 014 Branch 2022-01-25 2022-01-26 Emergency X [facility] ERT [id number] Univers 21:14:00 00:03:00 JAMIELI ity [facility] 2022-01-25 2022-01-26 Emergency [facility] [id number] [id number] Univers 21:14:00 00:03:00 Raman Correa JOEL 350.1.13.10 ity [facility] [place]2.7.2.[place] [id number] [facility] [address] [place] 2022-01-25 2022-01-25 Orders Doctor CAMARILLO 1.2.840.114 [id number] Univers 00:00:00 00:00:00 Only Unassigned, ROMEL 350.1.13.10 [facility] 4.2.7.2.686 Rober as [id number] [facility] 009 Branch 2021-09-21 2021-09-[address] [facility] ERT [id number] Univers 21:01:00 03:07:00 FRANNIE rodriguez [facility] 2021-09-21 2021-09-22 Emergency [facility] [id number] Univers 21:01:00 03:07:00 Frannie MALDONADO 350.1.13.10 ity [facility] 4[place]2.7.2.[place] [id number] [facility] [address] [place] 2021-09-21 2021-09-21 Orders Doctor CAMARILLO 1.2.840.114 [id number] Univers 00:00:00 00:00:00 Only Unassigned, ROMEL 350.1.13.10 [facility] of [facility] 4.2.7.2.686 Rober as [id number] [address] 2021-08-29 2021-08-29 Outpatient [facility] [id number] Univers 16:33:39 23:59:[address] [facility] 2021-08-29 2021-08-29 Hospital [facility] 1.2.840.114 [id number] Univers 16:33:39 23:59:00 Encounter Nayeli HEALTH 350.1.13.10 ity of [place] 4.2.7.2.686 Rober as SAURAV?BLEA [id number] [facility] [address] [place] MEDICAL OFFICE [facility] 2021-08-29 2021-08-29 Urgent [facility] 1.2.840.114 [id number] Univers 16:20:00 16:53:00 Care Nayeli HEALTH 350.1.13.10 it y of [place] 4.2.7.2.686 Rober as SAURAV?BLEA [id number] [facility] [address] [place] MEDICAL OFFICE [facility] 2020-01-22 2020-01-23 Emergency Raquel, Yaquelin [facility] 1.2.840.114 [id number] 22:24:14 00:57:00 Juany Schmtitton 350.1.13.10 [place] 4.2.7.2.686 Joanna [id number] 2019-12-04 2019-12-04 Outpatient [facility] [id number] Common 13:30:00 13:30:00 t Specialty/U Sp carmen Specialty rology - [facility] /Urology Clinic [facility] Orders Doctor MARQUISE 1.2.840.114 [id number] Univers 00:00:00 00:00:00 Only Unassigned, ROMEL 350.1.13.10 ity of [place] [facility] 4.2.7.2.686 Rober as [id number] [address] Results Test Description Test Time Test Comments Results Result Comments Source COMP. METABOLIC PANEL (96030) 2022-12-02 01:30:11 Test Item Value Reference Range Interpretation Comme nts NA (test code = 4447356790) 139 mmol/L 135-145 K (test code = 1046981540) 4.1 mmol/L 3.5-5.0 CL (test code = 6004697426) 106 mmol/L 98-108 CO2 TOTAL (test code = 2874121954) 21 mmol/L 23-31 L AGAP (test code = 9475357354) 12 2-16 BUN (test code = 4664142891) 15 mg/dL 7-23 GLUCOSE (test code = 4262016599) 105 mg/dL 70-110 CREATININE (test code = 0.95 mg/dL 0.60-1.25 7786888350) TOTAL BILI (test code = 1.6 mg/dL 0.1-1.1 H 6438941208) CALCIUM (test code = 9763588793) 9.6 mg/dL 8.6-10.6 T PROTEIN (test code = 5316094316) 8.9 g/dL 6.3-8.2 H ALBUMIN (test code = 7517019111) 5.1 g/dL 3.5-5.0 H ALK PHOS (test code = 5525088371) 56 U/L 34-122 ALTv (test code = 1742-6) 66 U/L 5-50 H AST(SGOT) (test code = 7949784921) 38 U/L 13-40 eGFR (test code = 4202033335) 93.1 mL/min/1.73m2 FREDI (test code = FREDI) Association of Glomerular Filtration Rate (GFR) and Staging of Kidney Disease* + +-------- + ------+| GFR (mL/min/1.73 m2) ?| With Kidney Damage ?| ?Without Kidney Damage+ +-- + +| ?>90 ?| ?Stage one ?| ? Normal ?+ +------- + -------+| ?60-89 ?| ?Stage two ?| ? Decreased GFR ? + +-------- + ------+| ?30-59 ?| ?Stage three ?| ? Stage three ? + +-------- + ------+| ?15-29 ?| ?Stage four ? | ? Stage four ?+ +------- + -------+| ?<15 (or dialysis) ? ?| ?Stage five ? | ? Stage five ?+ +------- + -------+ *Each stage assumes the associated GFR [...] or abnormalities in imaging tests). Lab Interpretation (test code = Abnormal 75201-7) [id number]21:50 Test Item Value Reference Range Interpretation Comments TROPONIN I (test code = 0.006 ng/mL <=0.034 0657014597) FREDI (test code = FREDI) Reference (Normal) [...] biotin. Lab Interpretation Normal (test code = 27392-7) [id number] 01:11:53 Test Item Value Reference Interpretation Comments Range D-DIMER (test code = See_Comment [Autom ated 4213336177) message] The system which generated this result transmitted reference range : <0.41 ?g/mL (FEU). The reference range was not used to interpret this result as normal/abnormal . FREDI (test code = This test may be FREDI) used in conjunction with a clinical pretest probability (PTP) assessment model to exclude venous thromboembolism (VTE) in patients suspected of deep venous thrombosis (DVT) and pulmonary embolism (PE) A D-Dimer value less than 0.50 ?g/ml (FEU) has a negative predicative value of 96 to 100% (95% CI)and 97 to 100% (95% CI) as an aid in the diagnosis of deep vein thrombosis (DVT) and pulmonary embolism when there is low or moderate pretest probability of PE or DVT. D-Dimer values are expressed in initial fibrinogen equivalent units (FEU)" The assay results should be used with other information, including the clinical context, in forming a diagnosis. Lab Interpretation Normal (test code = 83395-4) [facility] 01[facility]09:47 Test Item Value Reference Range Interpretation Comments LIPASE (test code = 0543706863) 63 U/L 0-220 Lab Interpretation (test code = Normal 23364-3) [facility] [id number] 00:58:04 Test Item Value Reference Range Interpretation Comments WBC (test code = 5.72 See_Comment [Automated message] 1890-2) The system [employer] generated this result transmitted ref erence range: 4.20 - 1 0.70 10*3/?L. The re ference range was not u sed to interpret this result as normal/abnor mal. RBC (test code = 4.98 See_Comment [Automated message] 312-8) The system [employer] generated this result transmitted ref erence range: 4.26 - 5 .52 10*6/?L. The re ference range was not u sed to interpret this result as normal/abnor mal. HGB (test code = 13.8 g/dL 12.2-16.4 718-7) HCT (test code = 41.9 % 38.4-49.3 4544-3) MCV (test code = 84.1 fL 81.7-95.6 787-2) MCH (test code = 27.7 pg 26.1-32.7 785-6) MCHC (test code = 32.9 g/dL 31.2-35.0 786-4) RDW-SD (test code 39.0 fL 38.5-51.6 = 20318-3) RDW-CV (test code 12.8 % 12.1-15.4 = 788-0) PLT (test code = 291 See_Comment [Automated message] 354-3) The system [employer] generated this result transmitted ref erence range: 150 - 32 8 10*3/?L. The re ference range was not u sed to interpret this result as normal/abnor mal. MPV (test code = 10.2 fL 9.8-13.0 00251-3) NRBC/100 WBC (test 0.0 See_Comment [Automat ed message] code = 5974592104) The syste m which generated this result transmitted ref erence range: 0.0 - 10 .0 /100 WBCs. The refer ence range was not u sed to interpret this result as normal/abnor mal. NRBC x10^3 (test See_Comment [Automated message] code = 9233976077) The syste m which generated this result transmitted ref erence range: 10*3/?L. The reference range was not used to interpr et this result as normal/abnormal . GRAN MAT (NEUT) % 49.2 % (test code = 770-8) IMM GRAN % (test 0.20 % code = 6940367957) LYMPH % (test code 38.5 % = 736-9) MONO % (test code 8.7 % = 5905-5) EOS % (test code = 2.4 % 713-8) BASO % (test code 1.0 % = 706-2) GRAN MAT 2.81 10*3/uL 1.99-6.95 x10^3(ANC) (test code = 9132213908) IMM GRAN x10^3 0.00-0.06 (test code = 0745323020) LYMPH x10^3 (test 2.20 10*3/uL 1.09-3.23 code = 731-0) MONO x10^3 (test 0.50 10*3/uL 0.36-1.02 code = 742-7) EOS x10^3 (test 0.14 10*3/uL 0.06-0.53 code = 711-2) BASO x10^3 (test 0.06 10*3/uL 0.01-0.09 code = 704-7) [facility] WITH [id number] 03:26:51 Test Item Value Reference Range Interpretation Comments WBC (test code = 4.68 See_Comment [Automated 6690-2) message] The sy stem which generated this result transmitted reference range : 4.20 - 10.70 10*3/?L. The reference range was not used to interpret this result as normal/abnormal . RBC (test code = 4.55 See_Comment [Automated 789-8) message] The sy stem which generated this result transmitted reference range : 4.26 - 5.52 10*6/?L. The reference range was not used to interpret this result as normal/abnormal . HGB (test code = 12.6 g/dL 12.2-16.4 718-7) HCT (test code = 39.0 % 38.4-49.3 4544-3) MCV (test code = 85.7 fL 81.7-95.6 787-2) MCH (test code = 27.7 pg 26.1-32.7 785-6) MCHC (test code = 32.3 g/dL 31.2-35.0 786-4) RDW-SD (test code = 41.0 fL 38.5-51.6 26815-1) RDW-CV (test code = 13.2 % 12.1-15.4 788-0) PLT (test code = 242 See_Comment [Automated 777-3) message] The sy stem which generated this result transmitted reference range : 150 - 328 10*3/ ?L. The reference r stefan was not used to interpret this result as normal/abnormal . MPV (test code = 10.3 fL 9.8-13.0 90766-6) NRBC/100 WBC (test 0.0 See_Comment [Automat ed code = 2811745102) message] The system which generated this result transmitted reference range : 0.0 - 10.0 /100 WBCs. The refer ence range was not u sed to interpret th is result as normal/abnormal . NRBC x10^3 (test code See_Comment [Auto mated = 4333786890) message] The s ystem which generated this result transmitted reference range : 10*3/?L. The reference range was not used to interpret this result as normal/abnormal . GRAN MAT (NEUT) % 41.9 % (test code = 770-8) IMM GRAN % (test code 0.20 % = 9919524181) LYMPH % (test code = 41.2 % 736-9) MONO % (test code = 9.0 % 5905-5) EOS % (test code = 7.1 % 713-8) BASO % (test code = 0.6 % 706-2) GRAN MAT x10^3(ANC) 1.96 10*3/uL 1.99-6.95 L (test code = 0715595639) IMM GRAN x10^3 (test 0.00-0.06 code = 2283305838) LYMPH x10^3 (test code 1.93 10*3/uL 1.09-3.23 = 731-0) MONO x10^3 (test code 0.42 10*3/uL 0.36-1.02 = 742-7) EOS x10^3 (test code = 0.33 10*3/uL 0.06-0.53 711-2) BASO x10^3 (test code 0.03 10*3/uL 0.01-0.09 = 704-7) Lab Interpretation Abnormal (test code = 97516-6) [id number] Test Item Value Reference Range Interpretation Comments TROPONIN I (test code = 0.005 ng/mL <=0.034 1830328206) FREDI (test code = FREDI) Reference (Normal) [...] biotin. Lab Interpretation Normal (test code = 29300-2) [facility] 03:03:43 Test Item Value Reference Range Interpretation Comments LIPASE (test code = 0054243699) 48 U/L 0-220 Lab Interpretation (test code = Normal 28981-8) [facility]07839[facility] (ALB,T.PRO,BILI T,BU/BC,ALT,AST,ALK PHOS)2022-11-25 03:03:42 Test Item Value Reference Range Interpretation Comments TOTAL BILI (test code = 4459071801) 0.5 mg/dL 0.1-1.1 BILI UNCON (test code = 0496278952) 0.3 mg/dL 0.1-1.1 BILI CONJ (test code = 2929963738) 0.0 mg/dL 0.0-0.3 T PROTEIN (test code = 3663474814) 7.8 g/dL 6.3-8.2 ALBUMIN (test code = 3715586845) 4.7 g/dL 3.5-5.0 ALK PHOS (test code = 6960654555) 50 U/L 34-122 ALTv (test code = 1742-6) 77 U/L 5-50 H AST(SGOT) (test code = 3612221183) 39 U/L 13-40 Lab Interpretation (test code = Abnormal 48920-6) [facility] METABOLIC PANEL (NA, K, CL, CO2, GLUCOSE, BUN, CREATININE, CA)2022-11-25 03:03:42 Test Item Value Reference Range Interpretation Comments NA (test code = 140 mmol/L 135-145 7837213737) K (test code = 3.6 mmol/L 3.5-5.0 8469855317) CL (test code = 105 mmol/L 98-108 2106666372) CO2 TOTAL (test code = 25 mmol/L 23-31 8788262798) AGAP (test code = 10 2-16 0648781365) BUN (test code = 13 mg/dL 7-23 4469023434) GLUCOSE (test code = 115 mg/dL 70-110 H 7264773414) CREATININE (test code = 0.80 mg/dL 0.60-1.25 7689877550) CALCIUM (test code = 9.2 mg/dL 8.6-10.6 1969650390) eGFR (test code = 113.5 mL/min/1.73m2 0705356121) FREDI (test code = FREDI) Association of [...] tests). Lab Interpretation Abnormal (test code = 11125-6) [facility] 03:03:42 Test Item Value Reference Range Interpretation Comments MAGNESIUM (test code = 8012862165) 1.9 mg/dL 1.7-2.4 Lab Interpretation (test code = Normal 67638-0) [facility] with [id number] 02:58:40 Test Item Value Reference Range Interpretation Comments WBC (test code = See_Comment [Automated 2206-2) message] The sy stem which generated this result transmitted reference range : 4.20 - 10.70 10*3/?L. The reference range was not used to interpret this result as normal/abnormal . RBC (test code = See_Comment [Automated 538-5) message] The sy stem which generated this [...] (test code = 37.2 fL 38.5-51.6 L 38275-0) RDW-CV (test code = 12.2 % 12.1-15.4 788-0) PLT (test code = See_Comment [Automated 777-3) message] The sy stem which generated this result transmitted reference range : 150 - 328 10*3/ ?L. The reference r stefan was not used to interpret this result as normal/abnormal . MPV (test code = 10.4 fL 9.8-13.0 70384-3) NRBC/100 WBC (test See_Comment [Automat ed code = 0126697572) message] The system which generated this result transmitted reference range : 0.0 - 10.0 /100 WBCs. The refer ence range was not u sed to interpret th is result as normal/abnormal . NRBC x10^3 (test code <0.01 See_Comment [Auto mated = 2679565604) message] The s ystem which generated this result transmitted reference range : 10*3/?L. The reference range was not used to interpret this result as normal/abnormal . GRAN MAT (NEUT) % 43.2 % (test code = 770-8) IMM GRAN % (test code 0.40 % = 6322749369) LYMPH % (test code = 38.8 % 736-9) MONO % (test code = 10.1 % 5905-5) EOS % (test code = 6.7 % 713-8) BASO % (test code = 0.8 % 706-2) GRAN MAT x10^3(ANC) 2.14 10*3/uL 1.99-6.95 (test code = 5604487015) IMM GRAN x10^3 (test <0.03 0.00-0.06 code = 0887756202) LYMPH x10^3 (test code 1.92 10*3/uL 1.09-3.23 = 731-0) MONO x10^3 (test code 0.50 10*3/uL 0.36-1.02 = 742-7) EOS x10^3 (test code = 0.33 10*3/uL 0.06-0.53 711-2) BASO x10^3 (test code 0.04 10*3/uL 0.01-0.09 = 704-7) Lab Interpretation Abnormal (test code = 57703-1) [facility] Metabolic [id number] 02:47:58 Test Item Value Reference Range Interpretation Comments NA (test code = 141 mmol/L 135-145 4293515595) K (test code = 3.9 mmol/L 3.5-5.0 8400058873) CL (test code = 105 mmol/L 98-108 4548144838) CO2 TOTAL (test code = 27 mmol/L 23-31 4145787276) AGAP (test code = 2-16 4257825734) BUN (test code = 14 mg/dL 7-23 3700423510) GLUCOSE (test code = 147 mg/dL 70-110 H 7346840760) CREATININE (test code = 0.96 mg/dL 0.60-1.25 8833714102) TOTAL BILI (test code = 0.7 mg/dL 0.1-1.7 5622503765) CALCIUM (test code = 9.5 mg/dL 8.6-10.6 8957628332) T PROTEIN (test code = 7.7 g/dL 6.3-8.2 3806316561) ALBUMIN (test code = 4.4 g/dL 3.5-5.0 3315654809) ALK PHOS (test code = 60 U/L 34-122 9270377158) ALTv (test code = 116 U/L 5-50 H 1742-6) AST(SGOT) (test code = 50 U/L 13-40 H 2242273086) eGFR (test code = mL/min/1.73m2 7765987985) FREDI (test code = FREDI) Association of [...] tests). Lab Interpretation Abnormal (test code = 98378-6) [facility] CenterLip[facility], [id number] 02:47:38 Test Item Value Reference Range Interpretation Comments LIPASE (test code = 1570044564) 86 U/L 0-220 Lab Interpretation (test code = Normal 23026-7) [facility] 02:46:58 Test Item Value Reference Range Interpretation Comments ADRIANA (test code = 3702883300) 81 U/L 35-110 Lab Interpretation (test code = Normal 25834-3) [facility] Met[facility] [id number] 03:57:42 Test Item Value Reference Range Interpretation Comments NA (test code = 137 mmol/L 135-145 8988335227) K (test code = 4.2 mmol/L 3.5-5.0 4074972181) CL (test code = 105 mmol/L 98-108 7504988404) CO2 TOTAL (test code = 25 mmol/L 23-31 2598298319) AGAP (test code = 2-16 9098992248) BUN (test code = 15 mg/dL 7-23 7281398035) GLUCOSE (test code = 120 mg/dL 70-110 H 7983504765) CREATININE (test code = 1.07 mg/dL 0.60-1.25 3399426975) TOTAL BILI (test code = 1.3 mg/dL 0.1-1.1 H 9143590026) CALCIUM (test code = 9.3 mg/dL 8.6-10.6 7502311460) T PROTEIN (test code = 8.8 g/dL 6.3-8.2 H 2871271536) ALBUMIN (test code = 5.1 g/dL 3.5-5.0 H 3167712384) ALK PHOS (test code = 59 U/L 34-122 0073797200) ALTv (test code = 62 U/L 5-50 H 1742-6) AST(SGOT) (test code = 46 U/L 13-40 H 8750674595) eGFR (test code = mL/min/1.73m2 8163513425) FREDI (test code = FREDI) Association of [...] tests). Lab Interpretation Abnormal (test code = 79410-4) [facility] 03:57:02 Test Item Value Reference Range Interpretation Comments LIPASE (test code = 0880674481) 80 U/L 0-220 Lab Interpretation (test code = Normal 37209-1) [facility] CenterCBC with [id number] 03:35:00 Test Item Value Reference Range Interpretation Comments WBC (test code = See_Comment [Automated 3690-2) message] The sy stem which generated this result transmitted reference range : 4.20 - 10.70 10*3/?L. The reference range was not used to interpret this result as normal/abnormal . RBC (test code = See_Comment [Automated 629-8) message] The sy stem which generated this [...] (test code = 38.2 fL 38.5-51.6 L 75664-9) RDW-CV (test code = 12.6 % 12.1-15.4 788-0) PLT (test code = See_Comment [Automated 777-3) message] The sy stem which generated this result transmitted reference range : 150 - 328 10*3/ ?L. The reference r stefan was not used to interpret this result as normal/abnormal . MPV (test code = 10.6 fL 9.8-13.0 89670-1) NRBC/100 WBC (test See_Comment [Automat ed code = 9432681753) message] The system which generated this result transmitted reference range : 0.0 - 10.0 /100 WBCs. The refer ence range was not u sed to interpret th is result as normal/abnormal . NRBC x10^3 (test code <0.01 See_Comment [Auto mated = 4622568928) message] The s ystem which generated this result transmitted reference range : 10*3/?L. The reference range was not used to interpret this result as normal/abnormal . GRAN MAT (NEUT) % 80.9 % (test code = 770-8) IMM GRAN % (test code 0.40 % = 6794398318) LYMPH % (test code = 8.0 % 736-9) MONO % (test code = 6.9 % 5905-5) EOS % (test code = 3.4 % 713-8) BASO % (test code = 0.4 % 706-2) GRAN MAT x10^3(ANC) 4.23 10*3/uL 1.99-6.95 (test code = 4496215143) IMM GRAN x10^3 (test <0.03 0.00-0.06 code = 6480327378) LYMPH x10^3 (test code 0.42 10*3/uL 1.09-3.23 L = 731-0) MONO x10^3 (test code 0.36 10*3/uL 0.36-1.02 = 742-7) EOS x10^3 (test code = 0.18 10*3/uL 0.06-0.53 711-2) BASO x10^3 (test code <0.03 0.01-0.09 = 704-7) Lab Interpretation Abnormal (test code = 86122-7) [facility] CenterPOCT [facility]LE[facility]ULAR [id number] 22:35:02 Test Item Value Reference Range Interpretation Comments POCT Molecular Strep (test code = Negative Negative 86638-6) Lab Interpretation (test code = Normal 24684-8) [facility]
[2022-12-24 11:47] LABS: Absolute Lymphocytes (CBC) 1.1 K/uL (0.7-4.9); Hematocrit 37.5 % (39.6-49.0); Lymphocytes % 33.4 % (15.3-44.8); MCV 85.1 fL (80-100); MPV 8.3 fL (7.6-11.3); RBC Red Blood Cell Count 4.41 M/uL (4.33-5.43)
[2022-12-24] MEDS ORDERED: NITROGLYCERIN 0.4 MG/TAB SL ONE (11:50)
[2022-12-24] MEDS ORDERED: ASPIRIN 81 MG CHEWABLE TABLET ONE (11:50)
[2022-12-24 12:12] LABS: Albumin 3.6 g/dL (3.4-5.0); Bilirubin Total 0.6 mg/dL (0.2-1.0); Potassium 3.7 mEq/L (3.5-5.1); Protein, Total 7.6 g/dL (6.4-8.2); Thyroid Stimulating Hormone 0.876 uIU/mL (0.358-3.740); Troponin High Sensitivity 7.3 pg/mL (<58.9)
--- NOTE | 2022-12-24 12:33 | RAD REPORT ---
EXAM DESCRIPTION: James Single View12/24/2022 12:19 pm CLINICAL HISTORY: Chest pain COMPARISON: November 2022 FINDINGS: The lungs appear clear of acute infiltrate. The heart is normal size IMPRESSION: No acute abnormalities displayed
--- NOTE | 2022-12-24 14:10 | ER ---
Nurse's Notes [facility] Name: Kd Velazquez Age: 32 yrs Sex: Male : 1990 Arrival Date: 12/24/2022 Time: 11:12 Bed 5 Private MD: Diagnosis: Chest pain, unspecified Presentation: 12/24 11:22 Chief complaint: EMS states: Pt c/o chest pressure, seen yesterday at [place] for similar ph complaint, recently dx w/ Graves disease and anxiety, VSS. Coronavirus screen: Vaccine status: Patient reports receiving the 1st dose of the Covid vaccine. Ebola Screen: No symptoms or risks identified at this time. Initial Sepsis Screen: Does the patient meet any 2 criteria? No. Patient's initial sepsis screen is negative. Does the patient have a suspected source of infection? No. Patient's initial sepsis screen is negative. Risk Assessment: Do you want to hurt yourself or someone else? Patient reports no desire to harm self or others. Onset of symptoms was December 24, 2022. 11:22 Method Of Arrival: EMS: [facility] 11:22 Acuity: NIELS 3 ph Triage Assessment: 11:26 General: Appears in no apparent distress. comfortable, well groomed, Behavior is calm, ph cooperative, appropriate for age. Pain: Complains of pain in anterior aspect of left upper chest. Neuro: Level of Consciousness is awake, alert, obeys commands, Oriented to person, place, time, situation. Cardiovascular: Reports chest pain, Rhythm is sinus rhythm. Cardiovascular: Chest pain quality is pressure, is located in left anterior chest wall. Respiratory: Airway is patent Respiratory effort is even, unlabored. GI: No signs and/or symptoms were reported involving the gastrointestinal system. Derm: Skin is healthy with good turgor, Skin is pink, warm \T\ dry. Historical: - Allergies: 11:24 No Known Drug Allergies; ph - Home Meds: 11:24 diazepam 10 mg Oral tablet daily as needed for anxiety [Active]; methimazole 5 mg Oral ph tablet daily [Active]; buspirone 10 mg Oral tablet 2 times per day [Active]; - PMHx: 11:24 Graves Disease; Anxiety; ph - Immunization history:: Adult Immunizations unknown. - Social history:: Smoking status: Patient denies any tobacco usage or history of. Patient/guardian denies using alcohol, street drugs. - Family history:: not pertinent. Screenin:26 [facility] ED Fall Risk Assessment (Adult) History of falling in the last 3 months, ph including since admission No falls in past 3 months (0 pts) Confusion or Disorientation No (0 pts) Intoxicated or Sedated No (0 pts) Impaired Gait No (0 pts) Mobility Assist Device Used No (0 pt) Altered Elimination No (0 pt) Score/Fall Risk Level 0 - 2 = Low Risk Oriented to surroundings, Maintained a safe environment, Hourly rounding (assess needs \T\ fall precautionary measures) done. Abuse screen: Denies threats or abuse. Denies injuries from another. Nutritional screening: No deficits noted. Tuberculosis screening: No symptoms or risk factors identified. Assessment: 11:27 General: SEE TRIAGE ASSESSMENT. ph 12:30 Reassessment: Patient appears in no apparent distress at this time. Patient and/or ph family updated on plan of care and expected duration. Pain level reassessed. Patient is alert, oriented x 3, equal unlabored respirations, skin warm/dry/pink. Patient denies pain at this time. Vital Signs: 11:22 BP 130 / 70; Pulse 72; Resp 18; Temp 97.8; Pulse Ox 97% on R/A; Weight 108.86 kg; ph Height 6 ft. 1 in. ; 12:00 BP 124 / 68; Pulse 65; Resp 18; Pulse Ox 98% on R/A; ph 13:15 BP 115 / 71; Pulse 75; Resp 18; Pulse Ox 98% on R/A; ph 14:15 BP 117 / 72; Pulse 68; Resp 18; Temp 97.9; Pulse Ox 99% on R/A; ph 11:22 Body Mass Index 31.66 (108.86 kg, 185.42 cm) ph ED Course: 11:16 Patient arrived in ED. ronnie 11:16 Jeremy White MD is Attending Physician. ronnie 11:17 Attending Physician role handed off by Jeremy White MD rt 11:17 Martin Vasquez MD is Attending Physician. rt 11:22 Cristiane Sood, YOCASTA is Primary Nurse. ph 11:24 Triage completed. ph 11:27 Patient has correct armband on for positive identification. Placed in gown. Bed in low ph position. Call light in reach. Side rails up X2. Client placed on continuous cardiac and pulse oximetry monitoring. NIBP monitoring applied. Door closed. Noise minimized. Warm blanket given. 11:27 Arm band placed on Patient placed in an exam room. ph 11:39 Inserted saline lock: 20 gauge in right antecubital area, using aseptic technique. bp Blood collected. 12:21 Chest Single View XRAY In Process Unspecified. EDMS 13:15 Troponin High Sensitivity Sent. ph 14:09 Freddy Sanchez MD is Referral Physician. rt 14:27 No provider procedures requiring assistance completed. IV discontinued, intact, ph bleeding controlled, No redness/swelling at site. Pressure dressing applied. Administered Medications: 11:45 Drug: Aspirin PO 325 mg Route: PO; ph 13:15 Follow up: Response: No adverse reaction ph 12:00 Not Given (Patient Refused): Nitroglycerin Sublingual 0.4 mg Sublingual once; every ph five minute if needed x3 Medication: 11:27 VIS not applicable for this client. ph Outcome: 14:09 Discharge ordered by MD. rt 14:27 Discharged to home ambulatory. ph 14:27 Condition: good 14:27 Discharge instructions given to patient, Instructed on discharge instructions, follow up and referral plans. Demonstrated understanding of instructions, follow-up care. 14:28 Patient left the ED. ph Signatures: Dispatcher [employer] Jeremy Garza MD MD cha Hall, Patricia, RN RN Boogie Corrales RN RN bp [place], Ryan, MD MD rt
--- NOTE | 2022-12-24 14:10 | EDPHYS ---
Physician Documentation [facility] Name: Kd Velazquez Age: 32 yrs Sex: Male : 1990 Arrival Date: 12/24/2022 Time: 11:12 Bed 5 Private MD: ED Physician Martin Vasquez HPI: 12/24 14:13 This 32 yrs old Black Male presents to ER via EMS with complaints of Chest tightness. rt 14:13 Patient with history of Graves' disease presents to the ED with a recurrent of chest rt tightness. Was seen at [place] yesterday, had a negative work-up, and symptoms have returned today prompting him to the ED for further evaluation. Denies shortness of breath, other acute complaints. Denies other symptoms, aggravating or alleviating factors, symptoms are moderate severity, nonradiating. Historical: - Allergies: 11:24 No Known Drug Allergies; ph - Home Meds: 11:24 diazepam 10 mg Oral tablet daily as needed for anxiety [Active]; methimazole 5 mg Oral ph tablet daily [Active]; buspirone 10 mg Oral tablet 2 times per day [Active]; - PMHx: 11:24 Graves Disease; Anxiety; ph - Immunization history:: Adult Immunizations unknown. - Social history:: Smoking status: Patient denies any tobacco usage or history of. Patient/guardian denies using alcohol, street drugs. - Family history:: not pertinent. ROS: 14:13 Constitutional: Negative for fever, chills, and weight loss, Respiratory: Negative for rt shortness of breath, cough, wheezing, and pleuritic chest pain, Abdomen/GI: Negative for abdominal pain, nausea, vomiting, diarrhea, and constipation, : Negative for injury, bleeding, discharge, and swelling, MS/Extremity: Negative for injury and deformity, Skin: Negative for injury, rash, and discoloration, Neuro: Negative for headache, weakness, numbness, tingling, and seizure, Psych: Negative for depression, anxiety, suicide ideation, homicidal ideation, and hallucinations. 14:13 Cardiovascular: Positive for chest pain, Negative for edema. Exam: 12:41 ECG was reviewed by the Attending Physician. rt 14:13 Constitutional: This is a well developed, well nourished patient who is awake, alert, rt and in no acute distress. Head/Face: Normocephalic, atraumatic. Chest/axilla: Normal chest wall appearance and motion. Nontender with no deformity. No lesions are appreciated. Cardiovascular: Regular rate and rhythm with a normal S1 and S2. No gallops, murmurs, or rubs. Normal PMI, no JVD. No pulse deficits. Respiratory: Lungs have equal breath sounds bilaterally, clear to auscultation and percussion. No rales, rhonchi or wheezes noted. No increased work of breathing, no retractions or nasal flaring. Abdomen/GI: Soft, non-tender, with normal bowel sounds. No distension or tympany. No guarding or rebound. No evidence of tenderness throughout. Skin: Warm, dry with normal turgor. Normal color with no rashes, no lesions, and no evidence of cellulitis. MS/ Extremity: Pulses equal, no cyanosis. Neurovascular intact. Full, normal range of motion. Neuro: Awake and alert, GCS 15, oriented to person, place, time, and situation. Cranial nerves II-XII grossly intact. Motor strength 5/5 in all extremities. Sensory grossly intact. Cerebellar exam normal. Normal gait. Psych: Awake, alert, with orientation to person, place and time. Behavior, mood, and affect are within normal limits. Vital Signs: 11:22 BP 130 / 70; Pulse 72; Resp 18; Temp 97.8; Pulse Ox 97% on R/A; Weight 108.86 kg; ph Height 6 ft. 1 in. ; 12:00 BP 124 / 68; Pulse 65; Resp 18; Pulse Ox 98% on R/A; ph 13:15 BP 115 / 71; Pulse 75; Resp 18; Pulse Ox 98% on R/A; ph 14:15 BP 117 / 72; Pulse 68; Resp 18; Temp 97.9; Pulse Ox 99% on R/A; ph 11:22 Body Mass Index 31.66 (108.86 kg, 185.42 cm) ph MDM: 11:16 Patient medically screened. ronnie 14:13 Differential diagnosis: Acute OR, PE, nonspecific chest pain, thyrotoxicosis, rt pneumonia, pneumothorax. HEART Score: History: Slightly Suspicious (0), ECG: Normal (0), Age: < or = 45 years (0), Risk Factors: No Risk Factors Known (0), Troponin: < or = 1 x Normal Limit (0), Total Score = 0. Data reviewed: vital signs, nurses notes, lab test result(s), EKG, radiologic studies. Test considered but Not performed: CT: Low suspicion for PE, CT angiogram not indicated. Counseling: I had a detailed discussion with the patient and/or guardian regarding: the historical points, exam findings, and any diagnostic results supporting the discharge/admit diagnosis, lab results, radiology results, the need for outpatient follow up, to return to the emergency department if symptoms worsen or persist or if there are any questions or concerns that arise at home. Response to treatment: the patient's symptoms have markedly improved after treatment. 12/24 11:18 Order name: CBC with Diff; Complete Time: 12:15 rt 12/24 11:18 Order name: CMP; Complete Time: 12:15 rt 12/24 11:18 Order name: Magnesium; Complete Time: 12:15 rt 12/24 11:18 Order name: TSH; Complete Time: 12:15 rt 12/24 11:18 Order name: T4 Free; Complete Time: 12:15 rt 12/24 11:18 Order name: Troponin High Sensitivity; Complete Time: 12:15 rt 12/24 12:40 Order name: Troponin High Sensitivity; Complete Time: 14:08 rt 12/24 11:18 Order name: Chest Single View XRAY; Complete Time: 12:35 rt 12/24 11:18 Order name: EKG; Complete Time: 11:19 rt 12/24 11:18 Order name: EKG - Nurse/Tech; Complete Time: 11:35 rt EC:41 Rate is 71 beats/min. Rhythm is regular, Normal Sinus Rhythm with No ectopy, Benign rt early repolarization is present. QRS [place] is Normal. MO interval is normal. QRS interval is normal. QT interval is normal. No Q waves. T waves are Normal. No ST changes noted. Interpreted by me. Administered Medications: 11:45 Drug: Aspirin PO 325 mg Route: PO; ph 13:15 Follow up: Response: No adverse reaction ph 12:00 Not Given (Patient Refused): Nitroglycerin Sublingual 0.4 mg Sublingual once; every ph five minute if needed x3 Disposition Summary: 12/24/22 14:09 Discharge Ordered Location: Home rt Problem: new rt Symptoms: have improved rt Condition: Stable rt Diagnosis - Chest pain, unspecified rt Followup: rt - With: Freddy Sanchez MD - When: 2 - 3 days - Reason: Discharge Instructions: - Discharge Summary Sheet rt - Nonspecific Chest Pain, Adult rt Forms: - Medication Reconciliation Form rt - Thank You Letter rt - Antibiotic Education rt - Prescription Opioid Use rt Signatures: Dispatcher [employer] Jeremy Garza MD MD cha Hall, Patricia, RN RN ph Martin Vasquez MD MD rt
[2022-12-24 14:46] VITALS: TEMP 97.8
[2022-12-24 14:53] VITALS: O2SAT 98
[2022-12-24 15:00] VITALS: BP 115/71
--- NOTE | 2022-12-27 17:38 | EKG ---
Test Date: 2022-12-24 Test Time: 11:29:12 General Engineer: CELIA MEASUREMENT RESULTS: Intervals: Rate: 71 MS: 184 QRSD: 100 QT: 388 QTc: 421 [place]: P: 63 MS: 184 QRS: 86 T: 25 INTERPRETIVE STATEMENTS: Normal sinus rhythm with sinus arrhythmia Normal ECG Compared to ECG 11/30/2022 19:26:02 No significant changes Electronically Signed On 12-27-22 17:35:43 CDT by Freddy Sanchez
== END 2022-12-24 14:28 | disposition home or self-care (01) ==
LOC: ER 11:12
DX: R07.89 Other chest pain (principal); F41.9 Anxiety disorder, unspecified
CPT/HCPCS: 36415; 71045; 80053; 83735; 84439; 84443; 84484; 85025; 93005; 99284

== ENCOUNTER 2022-12-29 10:16 | Emergency (ER) | payer OTHER ==
--- OUTSIDE RECORDS SUMMARY | 2022-12-29 10:23 | XMS REPORT | Continuity of Care Document ---
:1990 Author Organization [facility] t Address [address] [place] [address] [place] [id number] Care Team Providers Name Role Phone Asked, No Pcp Primary Care Physician Unavailable Toni Iverson Attending Clinician Unavailable NING ANDRADE Attending Clinician Unavailable Ning Andrade MD Attending Clinician Ace Dorsey MD Attending Clinician JOSUE JACOBSON Attending Clinician Unavailable Bright Crouch Attending Clinician Josue Jacobson MD Attending Clinician CHON BUSCH Attending Clinician Unavailable Chon Busch MD Attending Clinician LANCE WAKEFIELD Attending Clinician Unavailable LANCE WAKEFIELD Attending Clinician Unavailable Lance [place] DO Attending Clinician RAMAN ZIMMERMAN Attending Clinician Unavailable Raman Zimmerman MD Attending Clinician Doctor Unassigned, [place] Attending Clinician Unavailable FRANNIE MURCIA Attending Clinician Unavailable Frannie Murcia NP Attending Clinician NAYELI BARRAZA Attending Clinician Unavailable Nayeli Barraza MD Attending Clinician Yaquelin Durand Attending Clinician NING ANDRADE Admitting Clinician Unavailable BRIGHT SPENCER Admitting Clinician Unavailable LANCE WAKEFIELD Admitting Clinician Unavailable RAMAN ZIMMERMAN Admitting Clinician Unavailable Payers Payer Name Policy Type Policy Number Effective Date Expiration Date Vikram DUNAWAY II [id number] 2016 00:00:00 Problems Condition Condition Condition Status Onset Resolution Last Treating Co mments Source Name Details Category Date Date Treatment Clinician Date Hematemesi Hematemesi Disease Active U pablo correa s 10-05 ity of 00:00: [place] 00 Medical Branch Urethral Urethral Diagnosis Active Com mon discharge discharge Spir it in male in male [facility] Tinea Tinea Problem Active Common cruris cruris Spirit [facility] Allergies, Adverse Reactions, Alerts Allergy Allergy Status [...] Active Univers ALLERGIE Class ity of S [facility] Family History Family Member Diagnosis Comments Start Date Stop Date Source Natural father Diabetes [facility]aternal grandfather [facility] Social History Social Habit Start Date Stop Date Quantity Comments Source History of tobacco Cigarette Smoker [facility] of use [place] [facility] [place] History [employer] [facility] o f Alcohol Frequency [place] [facility] History [facility] University o f Alcohol Std Drinks [facility] History [facility] o f Alcohol Binge [place] [facility] Gender identity [facility] Sexual orientation [facility] Exposure to 2022-12-06 2022-12-16 Not sure [facility] SARS-CoV-2 (event) 00:00:00 16:06:[address] [facility] Tobacco use and 2022-12-02 2022-12-02 Former smokeless [facility] of exposure 00:00:00 00:00:00 tobacco user Medicine Alcohol intake 2017-07-28 2017-07-28 Current drinker Metho dist 00:00:00 00:00:00 of [facility] (finding) Alcohol Comment 2017-07-28 2017-07-28 Drink only on Method ist 00:00:00 00:00:00 holidays or once Hospital a month Sex Assigned At [birth year] Religious 00:00:00 00:00:00 Hospital Smoking Status Start Date Stop Date Source Tobacco smoking [facility] Hospit al consumption unknown Never smoked tobacco [facility] Ex-smoker 2019-05-01 00:00:00 2019-05-01 [facility] f [place] 00:00:00 [facility] [place] Medications Ordered Filled Start Stop Current Ordering Indication Dosage Frequency Signature Comments Components Source Medication Medication Date Date Medication? Clinician (SIG) Name Name diazePAM 10 Yes 10mg Take 1 Univ ers mg tablet 5-02 tablet by ity o f 10:31: mouth as [place] 45 needed. Medical Branch busPIRone Yes 10mg Take 1 Univer s 10 mg 5-02 tablet by ity of tablet 10:31: mouth in [place] [address] the Medical morning Branch and 1 tablet in the evening. methIMAzole Yes 5mg Take 1 Univ ers 5 mg tablet 5-02 tablet by ity of 10:31: mouth in [place] 45 the Medical morning. Branch diazePAM 10 2023-0 Yes 10mg Take 1 Univ ers mg tablet 5-02 tablet by ity o f 10:31: mouth as [place] [address] needed. Medical Branch busPIRone 0 Yes 10mg Take 1 Univer s 10 mg 5-02 tablet by ity of tablet 10:31: mouth in [place] [address] the Medical morning Branch and 1 tablet in the evening. methIMAzole Yes 5mg Take 1 Univ ers 5 mg tablet 5-02 tablet by ity of 10:31: mouth in [place] [address] the Medical morning. Branch diazePAM 10 0 Yes 10mg Take 1 Univ ers mg tablet 5-02 tablet by ity o f 10:31: mouth as [place] [address] needed. Medical Branch busPIRone 0 Yes 10mg Take 1 Univer s 10 mg 5-02 tablet by ity of tablet 10:31: mouth in [place] [address] the Medical morning Branch and 1 tablet in the evening. methIMAzole Yes 5mg Take 1 Univ ers 5 mg tablet 5-02 tablet by ity of 10:31: mouth in [place] [address] the Medical morning. Branch aspirin 2022- Yes 325mg 325 mg, Unive rs tablet 325 12-02 Oral, ity of mg 02:45: 14:44 ONCE, 1 [place] 00 :00 dose, On [facility] 12/01/22 at 2145, Routine LORazepam 2022- No 1mg 1 mg, Slow U nivers (ATIVAN) 12-02 IV Push, ity of injection 1 00:30: 00:35 ONCE, 1 [place] 00 :[place] dose, On [facility] 12/01/22 at 1930, STAT ibuprofen 0 2022- Yes [id number] 800mg Take 1 Univers 800 mg 12-01 05-01 tablet by ity of tablet 00:00: 04:59 mouth [place] 00 :00 every 8 Medical (eight) Branch hours as needed for Pain (scale 4-6) for up to 5 days. LORazepam 1 0 2022- Yes [id number] 1mg Take 1 Univers mg tablet 12-01 04-29 tablet by ity of 00:00: 04:59 mouth 2 [place] 00 :00 (two) Medical times Branch daily as needed for Anxiety or Agitation for up to 3 days. escitalopra Yes 10mg Take 1 [place] [facility] (LEXAPRO) 4-24 Tablet by Col lege 10 MG 00:00: mouth of tablet 00 daily. Medicin e LORazepam 2022- No 1mg 1 mg, Univer s (ATIVAN) 11-2620 Oral, ity of tablet 1 mg 02:00: 01:48 ONCE, 1 [place] :[place] dose, On Medical Wed11/25/22 at 2100, ZACK ondansetron 2022- No 4mg 4 mg, Slow Univers (ZOFRAN 11-26 IV Push, ity of (PF)) 02:00: 01:48 ONCE, 1 [place] injection 4 00 :00 dose, On Medi colby mg [facility] 11/25/22 at 2100, ZACK ketorolac 2022- No 30mg 30 mg, Unive rs [...] 00 :00 dose, On Medi colby mg Wed11/24/22 at 2145, ZACK alum-mag 0 Yes 30mL 30 mL, Univers hydroxide-s 11-25 Oral, ity of imeth 02:34: Q6HPRN, [place] (MAALOX 10 Starting Medical PLUS / on Wed Branch MAG-AL 11/24/22 at PLUS) 2134, 200-200-20 Until mg/5 mL Discontinu suspension ed, 30 mL Routine, Indigestio n LORazepam 2023-0 Yes [id number] 1mg Take 1 Un tera (ATIVAN) 1 4-19 tablet by ity of mg tablet 00:00: mouth [place] 00 every 24 Medical (twenty-fo Branch ur) hours as needed for Anxiety or Agitation. LORazepam 2022-0 Yes [id number] 1mg Take 1 Un tera (ATIVAN) 1 4-19 tablet by ity of mg tablet 00:00: mouth [place] 00 every 24 Medical (twenty-fo Branch ur) hours as needed for Anxiety or Agitation. LORazepam 2022-0 Yes [id number] 1mg Take 1 Un tera (ATIVAN) 1 4-19 tablet by ity of mg tablet 00:00: mouth [place] 00 every 24 Medical (twenty-fo Branch ur) hours as needed for Anxiety or Agitation. LORazepam 2022-0 Yes [id number] 1mg Take 1 Un tera (ATIVAN) 1 4-19 tablet by ity of mg tablet 00:00: mouth [place] 00 every 24 Medical (twenty-fo Branch ur) hours as needed for Anxiety or Agitation. LORazepam 0 Yes [id number] 1mg Take 1 Un tera (ATIVAN) 1 4-19 tablet by ity of mg tablet 00:00: mouth [place] 00 every 24 Medical (twenty-fo Branch ur) hours as needed for Anxiety or Agitation. lorazepam 2022- Yes 1mg Take 1 [place] (ATIVAN) 1 4-19 04-29 Tablet by Col lege MG tablet 00:00: 04:59 mouth. of 00 :00 Medicin e iohexoL 2021- No [id number] 50mL 50 mL, Uni vers (OMNIPAQUE 01-26-20 Intravenou it y of 350 BULK-50 03:45: 03:39 s, ONCE, 1 [place] mL) 00 :00 dose, On Medical injection Sun Branch 50 mL 01/25/22 at 2245, Routine ondansetron 2021- No 4mg 4 mg, Slow Univers (ZOFRAN 01-26-20 IV Push, ity of (PF)) 03:45: 02:48 ONCE, 1 [place] injection 4 00 :00 dose, On Medi colby mg Sun Branch 01/25/22 at 2245, ZACK ketorolac 2021- No 30mg 30 mg, Unive rs (TORADOL) 6-20 06-20 Slow IV ity of injection 03:45: 02:48 Push, [place] 30 mg 00 :00 ONCE, 1 Medical dose, On Branch 01/25/22 at 2245, Routine dicyclomine 2-0 Yes [id number] 20mg Take 1 Univers 20 mg 6-19 [...] Indication s: acute pain ondansetron 2021-0 Yes [id number] 4mg Take 1 Univers (ZOFRAN) 4 6-19 tablet by ity of mg tablet 00:00: mouth [place] 00 every 8 Medical (eight) Branch hours as needed for Nausea and Vomiting (N/V). dicyclomine 2021-0 Yes [id number] 20mg Take 1 Univers 20 mg 6-19 [...] Indication s: acute pain ondansetron 2021-0 Yes [id number] 4mg Take 1 Univers (ZOFRAN) 4 6-19 tablet by ity of mg tablet 00:00: mouth [place] 00 every 8 Medical (eight) Branch hours as needed for Nausea and Vomiting (N/V). dicyclomine 2022-0 Yes [id number] 20mg Take 1 Univers 20 mg 6-19 [...] Indication s: acute pain ondansetron 2022-0 Yes [id number] 4mg Take 1 Univers (ZOFRAN) 4 6-19 tablet by ity of mg tablet 00:00: mouth [place] 00 every 8 Medical (eight) Branch hours as needed for Nausea and Vomiting (N/V). dicyclomine 2022-0 Yes [id number] 20mg Take 1 Univers 20 mg 6-19 [...] Indication s: acute pain ondansetron 2-0 Yes [id number] 4mg Take 1 Univers (ZOFRAN) 4 6-19 tablet by ity of mg tablet 00:00: mouth [place] 00 every 8 Medical (eight) Branch hours as needed for Nausea and Vomiting (N/V). dicyclomine 2022-0 Yes [id number] 20mg Take 1 Univers 20 mg 6-19 [...] Indication s: acute pain ondansetron 2-0 Yes [id number] 4mg Take 1 Univers (ZOFRAN) 4 6-19 tablet by ity of mg tablet 00:00: mouth [place] 00 every 8 Medical (eight) Branch hours as needed for Nausea and Vomiting (N/V). dicyclomine 2022-0 Yes [id number] 20mg Take 1 Univers 20 mg 6-19 [...] Indication s: acute pain ondansetron 2021-0 Yes [id number] 4mg Take 1 Univers (ZOFRAN) 4 6-19 tablet by ity of mg tablet 00:00: mouth [place] 00 every 8 Medical (eight) Branch hours as needed for Nausea and Vomiting (N/V). dicyclomine 2021-0 Yes [id number] 20mg Take 1 Univers 20 mg 6-19 [...] Indication s: acute pain ondansetron 2021-0 Yes [id number] 4mg Take 1 Univers (ZOFRAN) 4 6-19 tablet by ity of mg tablet 00:00: mouth [place] 00 every 8 Medical (eight) Branch hours as needed for Nausea and Vomiting (N/V). ondansetron 2021-0 2021- No [id number] 4mg Take 1 Univers (ZOFRAN) 4 6-19 06-19 tablet by ity of mg tablet 00:00: 00:00 mouth [place] 00 :00 every 8 Medical (eight) Branch hours as needed for Nausea and Vomiting (N/V). ondansetron 2021-0 2- No [id number] 4mg Take 1 Univers (ZOFRAN) 4 6-19 06-19 tablet by ity of mg tablet 00:00: 00:00 mouth [place] 00 :00 every 8 Medical (eight) Branch hours as needed for Nausea and Vomiting (N/V). NaCl 0.9% 2021- No 1000mL at 999 Uni vers (NS) IV 09-22- mL/hr, ity of infusion 05:45: 05:56 Intravenou [place] 1,000 mL 00 :00 s, ONCE, 1 Medic al dose, On Branch 09/21/21 at 2345, Routine proMETHazin 0 2021- No 12.5mg 12.5 mg, Univers e 09-22 IV ity of (PHENERGAN) 04:55: 05:06 Piggyback, [place] 12.5 mg in 00 :00 ONCE, 1 Medica l NaCl 0.9% dose, On Branch (NS) 50 mL Sun IV 09/21/21 at piggyback 2300, ZACK acetaminoph 2021- No 1000mg 1,000 mg, Univers en 09-2214 Oral, ity of (TYLENOL) 03:00: 03:07 ONCE, [...] ity of infusion 03:00: 04:47 1,000 mL, [place] 1,000 mL 00 :00 IV Medical Infusion, Branch ONCE, 1 dose, On 09/21/21 at 2115, ZACK proMETHazin 2021-0 Yes [id number] 25mg Take 1 Univers e 25 mg 2-14 tablet by ity of tablet 00:00: mouth [place] 00 every 6 Medical (six) Branch hours as needed for Nausea and Vomiting (N/V). proMETHazin 2021-0 Yes [id number] 25mg Take 1 Univers e 25 mg 2-14 tablet by ity of tablet 00:00: mouth [place] 00 every 6 Medical (six) Branch hours as needed for Nausea and Vomiting (N/V). proMETHazin 202-0 Yes [id number] 25mg Take 1 Univers e 25 mg 2-14 tablet by ity of tablet 00:00: mouth [place] 00 every 6 Medical (six) Branch hours as needed for Nausea and Vomiting (N/V). proMETHazin 2021-0 Yes [id number] 25mg Take 1 Univers e 25 mg 2-14 tablet by ity of tablet 00:00: mouth [place] 00 every 6 Medical (six) Branch hours as needed for Nausea and Vomiting (N/V). proMETHazin 0 Yes [id number] 25mg Take 1 Univers e 25 mg 2-14 tablet by ity of tablet 00:00: mouth [place] 00 every 6 Medical (six) Branch hours as needed for Nausea and Vomiting (N/V). proMETHazin 0 Yes [id number] 25mg Take 1 Univers e 25 mg 2-14 tablet by ity of tablet 00:00: mouth [place] 00 every 6 Medical (six) Branch hours as needed for Nausea and Vomiting (N/V). proMETHazin 0 Yes [id number] 25mg Take 1 Univers e 25 mg 2-14 tablet by ity of tablet 00:00: mouth [place] 00 every 6 Medical (six) Branch hours as needed for Nausea and Vomiting (N/V). proMETHazin 0 Yes [id number] 25mg Take 1 Univers e 25 mg 2-14 tablet by ity of tablet 00:00: mouth [place] 00 every 6 Medical (six) Branch hours as needed for Nausea and Vomiting (N/V). proMETHazin Yes [id number] 25mg Take 1 Univers e 25 mg 2-14 tablet by ity of tablet 00:00: mouth [place] 00 every 6 Medical (six) Branch hours as needed for Nausea and Vomiting (N/V). multivit-mi 2021- No Take by Un tera n/folic/vit 2-13 02-13 mouth ity of K/lycop 22:42: 00:00 daily. [place] (ONE-A-DAY 28 :00 Medical MEN'S Branch MULTIVITAMI N ORAL) dicyclomine Yes [id number] 20mg Take 1 Univers 20 mg 2-13 tablet by ity of tablet 00:00: mouth 4 [place] 00 (four) Medical times Branch daily as needed for Abdominal pain. ondansetron 0 Yes [id number] 4mg Take 1 Univers 4 mg 2-13 tablet by ity of disintegrat 00:00: mouth [place] ing tablet 00 every 8 Medica l (eight) Branch hours as needed for Nausea and Vomiting (N/V). dicyclomine 0 Yes [id number] 20mg Take 1 Univers 20 mg 2-13 tablet by ity of tablet 00:00: mouth 4 [place] 00 (four) Medical times Branch daily as needed for Abdominal pain. ondansetron 2022-0 Yes [id number] 4mg Take 1 Univers 4 mg 2-13 tablet by ity of disintegrat 00:00: mouth [place] ing tablet 00 every 8 Medica l (eight) Branch hours as needed for Nausea and Vomiting (N/V). dicyclomine 2022-0 Yes [id number] 20mg Take 1 Univers 20 mg 2-13 tablet by ity of tablet 00:00: mouth 4 [place] 00 (four) Medical times Branch daily as needed for Abdominal pain. ondansetron 2022-0 Yes [id number] 4mg Take 1 Univers 4 mg 2-13 tablet by ity of disintegrat 00:00: mouth [place] ing tablet 00 every 8 Medica l (eight) Branch hours as needed for Nausea and Vomiting (N/V). dicyclomine 2022-0 Yes [id number] 20mg Take 1 Univers 20 mg 2-13 tablet by ity of tablet 00:00: mouth 4 [place] 00 (four) Medical times Branch daily as needed for Abdominal pain. ondansetron 2022-0 Yes [id number] 4mg Take 1 Univers 4 mg 2-13 tablet by ity of disintegrat 00:00: mouth [place] ing tablet 00 every 8 Medica l (eight) Branch hours as needed for Nausea and Vomiting (N/V). dicyclomine 2022-0 Yes [id number] 20mg Take 1 Univers 20 mg 2-13 tablet by ity of tablet 00:00: mouth 4 [place] 00 (four) Medical times Branch daily as needed for Abdominal pain. ondansetron 2022-0 Yes [id number] 4mg Take 1 Univers 4 mg 2-13 tablet by ity of disintegrat 00:00: mouth [place] ing tablet 00 every 8 Medica l (eight) Branch hours as needed for Nausea and Vomiting (N/V). dicyclomine 2022-0 Yes [id number] 20mg Take 1 Univers 20 mg 2-13 tablet by ity of tablet 00:00: mouth 4 [place] 00 (four) Medical times Branch daily as needed for Abdominal pain. ondansetron 2022-0 Yes [id number] 4mg Take 1 Univers 4 mg 2-13 tablet by ity of disintegrat 00:00: mouth [place] ing tablet 00 every 8 Medica l (eight) Branch hours as needed for Nausea and Vomiting (N/V). dicyclomine 2022-0 Yes [id number] 20mg Take 1 Univers 20 mg 2-13 tablet by ity of tablet 00:00: mouth 4 [place] 00 (four) Medical times Branch daily as needed for Abdominal pain. ondansetron 2021-0 Yes [id number] 4mg Take 1 Univers 4 mg 2-13 tablet by ity of disintegrat 00:00: mouth [place] ing tablet 00 every 8 Medica l (eight) Branch hours as needed for Nausea and Vomiting (N/V). dicyclomine 2021-0 Yes [id number] 20mg Take 1 Univers 20 mg 2-13 tablet by ity of tablet 00:00: mouth 4 [place] 00 (four) Medical times Branch daily as needed for Abdominal pain. ondansetron 2021-0 Yes [id number] 4mg Take 1 Univers 4 mg 2-13 tablet by ity of disintegrat 00:00: mouth [place] ing tablet 00 every 8 Medica l (eight) Branch hours as needed for Nausea and Vomiting (N/V). dicyclomine 2021-0 Yes [id number] 20mg Take 1 Univers 20 mg 2-13 tablet by ity of tablet 00:00: mouth 4 [place] 00 (four) Medical times Branch daily as needed for Abdominal pain. ondansetron 2021-0 Yes [id number] 4mg Take 1 Univers 4 mg 2-13 tablet by ity of disintegrat 00:00: mouth [place] ing tablet 00 every 8 Medica l (eight) Branch hours as needed for Nausea and Vomiting (N/V). ketorolac 2021-2021- No [id number] 30mg Univers (TORADOL) 08-29 ity of injection 23:45: 22:53 [place] 30 mg 00 :00 Medical Branch ketorolac 2021-0 2021- No [id number] 30mg 30 mg, Univers (TORADOL) 08-29 Intramuscu ity of injection 23:45: 22:53 [place], ONCE, [place] 30 mg 00 :00 1 dose, On Medical Fri Branch 08/29/21 at 1745, Routine
adjunct communications faculty member approving Restricted medication : NAYELI BARRAZA methocarbam 2021- Yes [id number] 500mg Take 1 Univers oL 1-21 9103 tablet by ity of (ROBAXIN) 00:00: mouth 4 [place] 500 mg 00 (four) Medical tablet times Branch daily. methocarbam 2022-0 Yes [id number] 500mg Take 1 Univers oL 1-21 9103 tablet by ity of (ROBAXIN) 00:00: mouth 4 [place] 500 mg 00 (four) Medical tablet times Branch daily. methocarbam 2022-0 Yes [id number] 500mg Take 1 Univers oL 1-21 9103 tablet by ity of (ROBAXIN) 00:00: mouth 4 [place] 500 mg 00 (four) Medical tablet times Branch daily. methocarbam 2022-0 Yes [id number] 500mg Take 1 Univers oL 1-21 9103 tablet by ity of (ROBAXIN) 00:00: mouth 4 [place] 500 mg 00 (four) Medical tablet times Branch daily. methocarbam 2022-0 Yes [id number] 500mg Take 1 Univers oL 1-21 9103 tablet by ity of (ROBAXIN) 00:00: mouth 4 [place] 500 mg 00 (four) Medical tablet times Branch daily. methocarbam 2022-0 Yes [id number] 500mg Take 1 Univers oL 1-21 9103 tablet by ity of (ROBAXIN) 00:00: mouth 4 [place] 500 mg 00 (four) Medical tablet times Branch daily. methocarbam 2022-0 Yes [id number] 500mg Take 1 Univers oL 1-21 9103 tablet by ity of (ROBAXIN) 00:00: mouth 4 [place] 500 mg 00 (four) Medical tablet times Branch daily. methocarbam 2022-0 Yes [id number] 500mg Take 1 Univers oL 1-21 9103 tablet by ity of (ROBAXIN) 00:00: mouth 4 [place] 500 mg 00 (four) Medical tablet times Branch daily. methocarbam 2022-0 Yes [id number] 500mg Take 1 Univers oL 1-21 9103 tablet by ity of (ROBAXIN) 00:00: mouth 4 [place] 500 mg 00 (four) Medical tablet times Branch daily. methocarbam 2022-0 Yes [id number] 500mg Take 1 Univers oL 1-21 9103 tablet by ity of (ROBAXIN) 00:00: mouth 4 [place] 500 mg 00 (four) Medical tablet times Branch daily. methocarbam 2022-0 Yes [id number] 500mg Take 1 Univers oL 1-21 9103 tablet by ity of (ROBAXIN) 00:00: mouth 4 [place] 500 mg 00 (four) Medical tablet times Branch daily. methocarbam 2-0 Yes [id number] 500mg Take 1 Univers oL 1-21 9103 tablet by ity of (ROBAXIN) 00:00: mouth 4 [place] 500 mg 00 (four) Medical tablet times Branch daily. azithromyci 2-0 Yes Univer s n 250 mg 1-18 ity of tablet 00:00: [place] 00 Medical Branch ketoconazol 2-0 Yes Univer s e 200 mg 1-18 ity of tablet 00:00: [place] 00 Medical Branch azithromyci 2-0 Yes Univer s n 250 mg 1-18 ity of tablet 00:00: [place] 00 Medical Branch ketoconazol 2-0 Yes Univer s e 200 mg 1-18 ity of tablet 00:00: [place] 00 Medical Branch azithromyci 2-0 Yes Univer s n 250 mg 1-18 ity of tablet 00:00: [place] 00 Medical Branch ketoconazol 2-0 Yes Univer s e 200 mg 1-18 ity of tablet 00:00: [place] 00 Medical Branch azithromyci 2022-0 2022- No Unive rs n 250 mg 1-18 02-13 ity of tablet 00:00: 00:00 [place] 00 :00 Medical Branch ketoconazol 2022-0 2022- No Unive rs e 200 mg 1-18 02-13 ity of tablet 00:00: 00:00 [place] 00 :00 Medical Branch LIDOCAINE 2021-1 Yes Univers VISCOUS 2 % 2-03 ity of solution 00:00: [place] 00 Medical Branch predniSONE 2020-1 Yes Univers 20 mg 2-03 ity of tablet 00:00: [place] 00 Medical Branch LIDOCAINE 2021-1 Yes Univers VISCOUS 2 % 2-03 ity of solution 00:00: [place] 00 Medical Branch predniSONE 2021-1 Yes Univers 20 mg 2-03 ity of tablet 00:00: [place] 00 Medical Branch LIDOCAINE 2021-1 Yes Univers VISCOUS 2 % 2-03 ity of solution 00:00: [place] 00 Medical Branch predniSONE 2021-1 Yes Univers 20 mg 2-03 ity of tablet 00:00: [place] 00 Medical Branch LIDOCAINE 2021-1 2022- No Univers VISCOUS 2 % 09-11 ity of solution 00:00: 00:00 [place] 00 :00 Medical Branch predniSONE 2020-08- No Univer s 20 mg 09-11 ity of tablet 00:00: 00:00 [place] 00 :00 Medical Branch ibuprofen 2020-08- No Univers 800 mg 09-11 ity of tablet 00:00: 00:00 [place] 00 :00 Medical Branch ondansetron 2020-0 Yes [id number] 4mg Take 1 Univers (ZOFRAN 6-16 tablet by ity of ODT) 4 mg 00:00: mouth [place] disintegrat 00 every 8 Medic al ing tablet (eight) Branch hours as needed for Nausea and Vomiting (N/V). ondansetron 2020-0 Yes [id number] 4mg Take 1 Univers (ZOFRAN 6-16 tablet by ity of ODT) 4 mg 00:00: mouth [place] disintegrat 00 every 8 Medic al ing tablet (eight) Branch hours as needed for Nausea and Vomiting (N/V). ondansetron 2020-0 Yes [id number] 4mg Take 1 Univers (ZOFRAN 6-16 tablet by ity of ODT) 4 mg 00:00: mouth [place] disintegrat 00 every 8 Medic al ing tablet (eight) Branch hours as needed for Nausea and Vomiting (N/V). ondansetron 2020-0 Yes [id number] 4mg Take 1 Univers (ZOFRAN 6-16 tablet by ity of ODT) 4 mg 00:00: mouth [place] disintegrat 00 every 8 Medic al ing tablet (eight) Branch hours as needed for Nausea and Vomiting (N/V). ondansetron 2020-0 Yes [id number] 4mg Take 1 Univers (ZOFRAN 6-16 tablet by ity of ODT) 4 mg 00:00: mouth [place] disintegrat 00 every 8 Medic al ing tablet (eight) Branch hours as needed for Nausea and Vomiting (N/V). ondansetron 2020-0 Yes [id number] 4mg Take 1 Univers (ZOFRAN 6-16 tablet by ity of ODT) 4 mg 00:00: mouth [place] disintegrat 00 every 8 Medic al ing tablet (eight) Branch hours as needed for Nausea and Vomiting (N/V). ondansetron 2020-0 Yes [id number] 4mg Take 1 Univers (ZOFRAN 6-16 tablet by ity of ODT) 4 mg 00:00: mouth [place] disintegrat 00 every 8 Medic al ing tablet (eight) Branch hours as needed for Nausea and Vomiting (N/V). ondansetron 2020-0 Yes [id number] 4mg Take 1 Univers (ZOFRAN 6-16 tablet by ity of ODT) 4 mg 00:00: mouth [place] disintegrat 00 every 8 Medic al ing tablet (eight) Branch hours as needed for Nausea and Vomiting (N/V). ondansetron 2020-0 Yes [id number] 4mg Take 1 Univers (ZOFRAN 6-16 tablet by ity of ODT) 4 mg 00:00: mouth [place] disintegrat 00 every 8 Medic al ing tablet (eight) Branch hours as needed for Nausea and Vomiting (N/V). ondansetron 2020-0 Yes [id number] 4mg Take 1 Univers (ZOFRAN 6-16 tablet by ity of ODT) 4 mg 00:00: mouth [place] disintegrat 00 every 8 Medic al ing tablet (eight) Branch hours as needed for Nausea and Vomiting (N/V). ondansetron 2020-0 Yes [id number] 4mg Take 1 Univers (ZOFRAN 6-16 tablet by ity of ODT) 4 mg 00:00: mouth [place] disintegrat 00 every 8 Medic al ing tablet (eight) Branch hours as needed for Nausea and Vomiting (N/V). ondansetron 2020-0 Yes [id number] 4mg Take 1 Univers (ZOFRAN 6-16 tablet by ity of ODT) 4 mg 00:00: mouth [place] disintegrat 00 every 8 Medic al ing tablet (eight) Branch hours as needed for Nausea and Vomiting (N/V). multivit-mi 2018-0 Yes Take by Uni vers n/folic/vit 9-23 mouth ity of K/lycop 13:48: daily. [place] (ONE-A-DAY 02 [facility] MULTIVITAMI N ORAL) multivit-mi 2018-0 Yes Take by Uni vers n/folic/vit 9-23 mouth ity of K/lycop 13:48: daily. [place] (ONE-A-DAY [facility] MULTIVITAMI N ORAL) multivit-mi 2018- Yes Take by Uni vers n/folic/vit - mouth ity of K/lycop 13:48: daily. [place] (ONE-A-DAY [facility] MEN'S Branch MULTIVITAMI N ORAL) Vital Signs Vital Name Observation Time Observation Value Comments Source Systolic blood 2022-12-08 15:34:00 129 mm[Hg] Univer sity of [facility] Diastolic blood 2022-12-08 15:34:00 83 mm[Hg] Unive rsity of [facility] Heart rate 2022-12-08 15:34:00 76 /min Universi ty [facility] Body temperature 2022-12-08 15:34:00 36.78 Karla [facility] Res[facility] rate 2022-12-08 15:34:00 18 /min [facility] Body height 2022-12-08 15:34:00 182.9 [facility] Body weight 2022-12-08 15:34:00 108.954 [facility] 2022-12-08 15:34:00 32.58 kg/m2 [facility] Oxygen saturation in 2022-12-08 15:34:00 98 /min University of Arterial blood by [facility] Pulse oximetry Branch Systolic blood 2022-12-02 16:41:00 130 mm[Hg] [facility] Medicine Diastolic blood 2022-12-02 16:41:00 80 mm[Hg] [facility] Medicine Heart rate 2022-12-02 16:41:00 83 /min [facility] Respiratory rate 2022-12-02 16:41:00 16 /min [facility] Body height 2022-12-02 16:41:00 182.9 cm [facility] Body weight 2022-12-02 16:41:00 108.863 kg [facility] BMI 2022-12-02 16:41:00 32.55 kg/m2 [facility] Systolic blood 2022-12-02 01:00:00 155 mm[Hg] Univer sity of [facility] Diastolic blood 2022-12-02 01:00:00 110 mm[Hg] Unive rsity of pressure [facility] Heart rate 2022-12-02 01:00:00 87 /min Universi ty [facility] Respiratory rate 2022-12-02 01:00:00 17 /min Univ ersity [facility] Oxygen saturation in 2022-12-02 01:00:00 98 /min University of Arterial blood by [facility] Pulse oximetry Branch Body temperature 2022-12-01 23:31:00 36.89 Karla Univ ersity [facility] Body height 2022-12-01 23:31:00 182.9 cm [facility]i ty [facility] Body weight 2022-12-01 23:31:00 108.863 kg [facility] BMI 2022-12-01 23:31:00 32.55 kg/m2 [facility] Systolic blood 2022-11-26 02:30:00 145 mm[Hg] Univer sity of pressure [facility] Diastolic blood 2022-11-26 02:30:00 93 mm[Hg] Unive rsity of pressure [facility] Heart rate 2022-11-26 02:30:00 71 /min [facility]i ty [facility] Respiratory rate 2022-11-26 02:30:00 16 /min Univ ersity [facility] Oxygen saturation in 2022-11-26 02:30:00 99 /min University of Arterial blood by [facility] Pulse oximetry Branch Body temperature 2022-11-26 00:39:00 37.33 Karla Univ ersity [facility] Body height 2022-11-26 00:39:00 182.9 cm [facility]i [facility] Body weight 2022-11-26 00:39:00 111.131 kg [facility] BMI 2022-11-26 00:39:00 33.23 kg/m2 [facility] Body temperature 2022-11-25 02:04:00 36.89 Karla Univ ers[facility] Systolic blood 2022-11-25 02:00:00 152 mm[Hg] Univer sity of pressure [facility] Diastolic blood 2022-11-25 02:00:00 90 mm[Hg] Unive rsity of pressure [facility] Heart rate 2022-11-25 02:00:00 78 /min Universi ty [facility] Respiratory rate 2022-11-25 02:00:00 22 /min Univ ersity [facility] Body weight 2022-11-25 02:00:00 111.131 kg [facility] BMI 2022-11-25 02:00:00 33.23 kg/m2 [facility] Oxygen saturation in 2022-11-25 02:00:00 99 /min University of Arterial blood by [place] [employer] Pulse oximetry Branch Systolic blood 2022-01-26 04:00:00 143 mm[Hg] Univer sity of pressure [facility] Diastolic blood 2022-01-26 04:00:00 75 mm[Hg] Unive rsity of pressure [facility] Heart rate 2022-01-26 04:00:00 74 /min [facility]i ty [facility] Respiratory rate 2022-01-26 04:00:00 19 /min Univ ersity [facility] Oxygen saturation in 2022-01-26 04:00:00 99 /min University of Arterial blood by [place] [employer] Pulse oximetry Branch Body temperature 2022-01-26 02:17:00 36.94 Karla Univ ersity [facility] Body height 2022-01-26 02:16:00 182.9 cm [facility] ty [facility] Body weight 2022-01-26 02:16:00 122.471 kg [facility] BMI 2022-01-26 02:16:00 36.62 kg/m2 [facility] Systolic blood 2021-09-22 06:16:00 128 mm[Hg] Univer sity of pressure [facility] Diastolic blood 2021-09-22 06:16:00 72 mm[Hg] Unive rsity of pressure [facility] Heart rate 2021-09-22 06:16:00 115 /min [facility] Body temperature 2021-09-22 06:16:00 38.28 Karla Univ [facility] Respiratory rate 2021-09-22 06:16:00 20 /min Univ [facility] Oxygen saturation in 2021-09-22 06:16:00 96 /min University of Arterial blood by [employer] Pulse oximetry Branch Body height 2021-09-22 02:54:00 182.9 cm Universi [facility] Body weight 2021-09-22 02:54:00 122.471 kg [facility] BMI 2021-09-22 02:54:00 36.62 kg/m2 [facility] Systolic blood 2021-08-29 22:09:00 138 mm[Hg] Univer sity of pressure [facility] Diastolic blood 2021-08-29 22:09:00 84 mm[Hg] Unive rsity of [facility] Heart rate 2021-08-29 22:09:00 83 /min [facility] Body temperature 2021-08-29 22:09:00 36.89 Karla [facility] Respiratory rate 2021-08-29 22:09:00 18 /min [facility] Body height 2021-08-29 22:09:00 182.9 cm [facility] Body weight 2021-08-29 22:09:00 111.131 kg [facility] BMI 2021-08-29 22:09:00 33.23 kg/m2 [facility] Oxygen saturation in 2021-08-29 22:09:00 98 /min [facility] Arterial blood by [facility] Pulse oximetry Branch Procedures Procedure Date / Time Performing Clinician Source Performed LIPASE 2022-12-02 00:29:00 Bright Spencer [facility] TROPONIN I 2022-12-02 00:29:00 Bright Spencer [facility] COMP. METABOLIC PANEL 2022-12-02 00:29:00 Bright Spencer [facility] ([id number]) [facility] CBC WITH DIFF 2022-12-02 00:29:00 Bright Spencer [facility] D-DIMER 2022-12-02 00:29:00 Bright Spencer [facility] URINE DRUG (IMMUNOASSAY) 2022-12-02 00:25:00 Bright Spencer [facility] Medical [facility] nc SCREEN W/O REFLEX XR CHEST 2 VW 2022-12-02 00:15:33 Bright Spencer [facility] CONSENT/REFUSAL FOR 2022-12-01 23:16:31 [facility]igned, [facility] Name [facility] PROTHROMBIN TIME / INR 2022-11-26 01:45:00 Chon Busch [facility] D-DIMER 2022-11-26 01:45:00 Chon Busch [facility] ACTIVATED PARTIAL 2022-11-26 01:45:00 Chon Busch [facility] THRMPLAS JHOAN [facility] URINALYSIS 2022-11-26 01:45:00 Narayan [facility] URINE DRUG (IMMUNOASSAY) 2022-11-26 01:45:00 Chon Busch [facility] DRUG [facility] nch SCREEN W/O REFLEX MAGNESIUM 2022-11-26 00:41:00 Narayan [facility] FREE T4 2022-11-26 00:41:00 Chon Busch [facility] THYROID STIMULATING 2022-11-26 00:41:00 Chon Busch [facility] HORMONE [facility] COMP. METABOLIC PANEL 2022-11-26 00:41:00 Chon Busch [facility] ([id number]) [facility] CBC WITH DIFF 2022-11-26 00:41:00 Narayan Chon [facility] CONSENT/REFUSAL FOR 2022-11-26 00:26:36 Doctor Unassigned, No [facility] Name Medical Branch LIPASE 2022-11-25 02:30:00 Randy Buckner [facility] MAGNESIUM 2022-11-25 02:30:00 Randy Buckner [facility] TROPONIN I 2022-11-25 02:30:00 Randy Buckner [facility] HEPATIC FUNCTION PANEL 2022-11-25 02:30:00 Randy Buckner [facility] ([id number]) (ALB,T.PRO,BILI Medical Branch T,BU/BC,ALT,AST,ALK PHOS) BASIC METABOLIC PANEL 2022-11-25 02:30:00 Randy Buckner [facility] (NA, K, CL, CO2, Medical Branch GLUCOSE, BUN, CREATININE, CA) CBC WITH DIFF 2022-11-25 02:30:00 Randy Buckner [facility] CT ABDOMEN PELVIS W 2022-01-26 03:43:42 Raman Zimmerman [facility] CONTRAST Medical Branch AMYLASE 2022-01-26 02:23:00 Raman Zimmerman [facility] LIPASE 2022-01-26 02:23:00 Raman Zimmerman [facility] COMP. METABOLIC PANEL 2022-01-26 02:23:00 Raman Zimmerman [facility] ([id number]) Medical Branch CBC WITH DIFF 2022-01-26 02:23:00 Raman Zimmerman [facility] URINALYSIS 2022-01-26 02:23:00 Raman Zimmerman [facility] CONSENT/REFUSAL FOR 2022-01-26 02:11:11 Doctor Unassigned, No [facility] DIAGNOSIS AND TREATMENT Name Medical Branch LIPASE 2021-09-22 03:15:00 Frannie Murcia [facility] COMP. METABOLIC PANEL 2021-09-22 03:15:00 Frannie Murcia [facility] ([id number]) Medical Branch CBC WITH DIFF 2021-09-22 03:15:00 Frannie Murcia [facility] RAPID INFLUENZA A/B 2021-09-22 03:15:00 Frannie Murcia [facility] COVID-19 (ID NOW RAPID 2021-09-22 03:15:00 Frannie Murcia [facility] TESTING) Medical Branch URINALYSIS 2021-09-22 03:14:00 Frannie Murcia [facility] NOTICE OF PRIVACY 2021-09-22 02:49:48 Doctor Unassigned, No [facility] PRACTICES Name [facility] CONSENT/REFUSAL FOR 2021-09-22 02:49:13 [facility]AT[facility] Name [facility] POCT MOLECULAR STREP 2021-08-29 22:24:00 Nayeli Barraza [facility] EMERGENCY DEPARTMENT Doctor Unassigned, No U [facility] DOCUMENTS Name Medical Branch Plan of Care Planned Activity Planned Date Details Comments Source Future Scheduled 2022-12-15 COVID-19 VACCINE (#1) [facility] Test 14:02:55 [code = COVID-19 Hospital VACCINE (#1)] Future Scheduled 2022-12-15 COVID-19 VACCINE (#1) [facility] Test 14:02:55 [code = COVID-19 Hospital VACCINE (#1)] Future Scheduled 2022-12-15 INFLUENZA VACCINE [code Religious Test 14:02:55 = INFLUENZA VACCINE] Hospita l Future Scheduled 2022-12-15 INFLUENZA VACCINE [code Religious Test 14:02:55 = INFLUENZA VACCINE] Hospita l Future Scheduled 2022-12-02 BMI Follow Up Plan [facility] r [facility] Test 12:28:02 [code = BMI Follow Up of Med icine Plan] Future Scheduled 2022-12-02 Human immunodeficiency B [facility] College Test 12:28:02 virus screening of Medicine (procedure) [code = 286110196] Future Scheduled 2022-12-02 Hepatitis C screening Ba or [place] Test 12:28:02 (procedure) [code = of Medic ine 375973378] Future Scheduled 2022-12-02 TETANUS SHOT (ADULT) [facility] Test 12:28:02 [code = TETANUS SHOT of Medi cine (ADULT)] Future Scheduled 2022-12-02 COVID-19 Vaccine (3 - Ba or College Test 12:28:02 Booster) [code = of Medicine COVID-19 Vaccine (3 - Booster)] Future Scheduled 2022-12-02 FLU VACCINE > 6 MONTHS B [facility] College Test 12:28:02 [code = FLU VACCINE > 6 of M edicine MONTHS] Future Scheduled 2022-12-02 TSH [code = 90738-0] Ordered: [place] [facility] [employer] Test 12:23:39 12/02/2022 of Medicine Future Scheduled 2022-12-02 T4 FREE [code = 3024-7] Ordered: [facility] College Test 12:23:39 12/02/2022 of Medicine Future Scheduled 2022-12-02 T3 [code = 3053-6] Ordered: [facility] Test 12:23:39 12/02/2022 of Medicine Future Scheduled 2022-12-02 COMPREHENSIVE METABOLIC Ordered: [facility] Test 12:23:39 PANEL [code = 08009-6] 12/02/2022 of Me dicine Future Scheduled 2022-12-02 RENIN ACTIVITY [code = Ordered: B [facility] Test 12:23:39 2915-7] 12/02/2022 of Medicine Future Scheduled 2022-12-02 ALDOSTERONE [code = Ordered: [facility] or [place] Test 12:23:39 1763-2] 12/02/2022 of Medicine Future Scheduled 2022-12-02 THYROID ANTIBODY GROUP Ordered: [facility] Test 12:23:39 (TPO + TG) [code = 12/02/2022 of Medici ne NOCPT] Future Scheduled 2022-12-02 THYROTROPIN RECEPTOR,AB Ordered: [facility] Test 12:23:39 [code = 19137-8] 12/02/2022 of Medicine Future Scheduled 2022-12-02 THYROID STIMULATING Ordered: [facility] or [place] Test 12:23:39 IMMUNOGLOBULIN [code = 12/02/2022 of Me dicine 35723-4] Future Scheduled 2022-12-02 METANEPHRINE,FRACT,LC/M Ordered: [facility] Test 12:23:39 S/MS,PL [code = NOCPT] 12/02/2022 of Me dicine Future Scheduled 2022-12-02 HEMOGLOBIN A1C [code = Ordered: B [facility] Test 12:23:39 4548-4] 12/02/2022 of Medicine Future Scheduled 2022-12-02 DHEA-SULFATE [code = Ordered: [facility] Test 12:23:39 2191-5] 12/02/2022 of Medicine Future Scheduled 2022-11-07 INFLUENZA VACCINE [code Religious Test 16:35:12 = INFLUENZA VACCINE] Hospita l Future Scheduled 2022-11-07 COVID-19 VACCINE (#1) [facility] Test 16:35:12 [code = COVID-19 Hospital VACCINE (#1)] Future Scheduled 2022-11-07 INFLUENZA VACCINE [code Religious Test 16:35:12 = INFLUENZA VACCINE] Hospita l Future Scheduled 2022-11-07 COVID-19 VACCINE (#1) [facility] Test 16:35:12 [code = COVID-19 Hospital VACCINE (#1)] Encounters Start End Encounter Admission Attending Care Care Encounter Source Date/Time Date/Time Type Type Clinicians Facility Department ID 2021-09-03 Outpatient AZIZA Iverson [facility] [id number] Common 11:19:38 Toni 07911 Spir it - [facility] 2021-06-06 Emergency [facility] [id number] Univers 01:08:11 ity [facility] 2022-12-16 2022-12-16 Outpatient R LUPE, [facility] [id number] Univers 08:00:00 23:59:00 NING rodriguez o [facility] 2022-12-15 2022-12-15 Outpatient R LUPE, [facility] [id number] Univers 14:00:00 23:59:00 NING nascimentoy o [facility] 2022-12-08 2022-12-08 Outpatient R LUPE, [facility] [id number] Univers 10:00:00 10:55:20 DAVIDCOMPA azamtamanna o [facility] 2022-12-08 2022-12-08 Office Lupe, [facility] [id number] Univers 10:00:00 10:55:20 Visit Ning MALDONADO 350.1.13.10 [facility] [place].2.[place] [id number] [place] [id number] [facility] 2022-12-02 2022-12-02 [facility] [id number] [facility] 11:45:00 12:28:18 Visit AMBULATOR 350.1.13.21 College Y 0.2.7.2.686 of [id number] Medi adrianna 310 e 2022-12-01 2022-12-01 Emergency X CHAPARRO ARMERA ERT [id number] Univers 18:34:00 21:44:00 JOSUE ittamanna [facility] 2022-12-01 2022-12-01 Emergency Bright Spencer F [facility] 1.2. 840.114 [id number] Univers 18:34:00 21:44:00 Josue Jacobson 350.1.13.10 ity of [place] 4.2.7.2.686 [facility] [id number] [facility] 084 Branch 2022-11-25 2022-11-25 Emergency [facility] ERT [id number] Univers 19:32:00 21:59:00 CHON ity of [facility] 2022-11-25 2022-11-25 Emergency [facility] [id number] Univers 19:32:00 21:59:00 Chon MALDONADO 350.1.13.10 i ty of [place] 4.2.7.2.686 [facility] [id number] [place] 644584 [place] 2022-11-24 2022-11-24 Emergency [facility] 1 [id number] Univers 21:04:00 23:27:00 [facility] 2022-11-24 2022-11-24 Emergency Ashu, TRAUMA [id number] Univers 21:04:00 23:27:00 [facility] 350.1.13.10 ity of 4.2.7.2.686 [place] [id number] [facility] 014 Branch 2022-01-25 2022-01-26 Emergency X [facility] ERT [id number] Univers 21:14:00 00:03:00 [facility] 2022-01-25 2022-01-26 [facility] 1.2.324.310 [id number] Univers 21:14:00 00:03:00 Raman MALDONADO 350.1.13.10 ity of [place] 4.2.7.2.686 [facility] [id number] [place] [id number] Branch 2022-01-25 2022-01-25 Orders Doctor CAMARILLO 1.2.840.114 [id number] Univers 00:00:00 00:00:00 Only Unassigned, ROMEL 350.1.13.10 [address]y [address] [place] [facility] 4.2.7.2.686 Rober as [id number] [facility] 009 Branch 2021-09-21 2021-09-22 Emergency [facility] ERT [id number] Univers 21:01:00 03:07:00 FRANNIE ittamanna [facility] 2021-09-21 2021-09-[address] [facility] [place] [id number] Univers 21:01:00 03:07:00 Frannie Wynne MARTITATRACY 350.1.13.10 ity of [place] 4.2.7.2.686 [place] [facility] [id number] [facility] 084 [place] 2021-09-21 2021-09-21 Orders Doctor MARQUISE 1.2.840.114 [id number] Univers 00:00:00 00:00:00 Only Unassigned, ROMEL 350.1.13.10 [address]y [place] [facility] 4.2.7.2.686 Rober as [id number] [address] 2021-08-29 2021-08-29 Outpatient R [facility] [id number] Univers 16:33:39 23:59:00 NAYELI ity [facility] 2021-08-29 2021-08-29 Hospital [facility] 1.2.840.114 [id number] Univers 16:33:39 23:59:00 Encounter Nayeli HEALTH 350.1.13.10 ity of [place] 4.2.7.2.686 Rober as SAURAV?BLEA [phone] Nj pavan GUZMAN [address] [place] MEDICAL OFFICE [facility] 2021-08-29 2021-08-29 Urgent [facility] 1.2.840.114 [id number] Univers 16:20:00 16:53:00 Care Nayeli HEALTH 350.1.13.10 it y of [place] 4.2.7.2.686 Rober as SAURAV?BLEA [phone] Nj pavan GUZMAN [address] [place] MEDICAL OFFICE BUILDING 2020-01-22 2020-01-23 Emergency Yaquelin García [facility] 1.2.840.114 [id number] 22:24:14 00:57:00 Juany Maldonado 350.1.13.10 [place] 4.2.7.2.686 [place] [id number] 084 2019-12-04 2019-12-04 Outpatient [facility] [id number] Common 13:30:00 13:30:00 t Specialty/U Sp carmen Specialty rology - [facility] Orders Doctor MARQUISE 1.2.840.114 [id number] Univers 00:00:00 00:00:00 Only Unassigned, ROMEL 350.1.13.10 ity of [place] [facility] 4.2.7.2.686 Rober as [id number] [facility] 009 Branch Results Test Description Test Time Test Comments Results Result Comments Source COMP. METABOLIC PANEL (45369) 2022-12-02 01:30:11 Test Item Value Reference Range Interpretation Comme nts NA (test code = 7414746296) 139 mmol/L 135-145 K (test code = 1343195324) 4.1 mmol/L 3.5-5.0 CL (test code = 1963245684) 106 mmol/L 98-108 CO2 TOTAL (test code = 4492177763) 21 mmol/L 23-31 L AGAP (test code = 3711522870) 12 2-16 BUN (test code = 4069629697) 15 mg/dL 7-23 GLUCOSE (test code = 7060445282) 105 mg/dL 70-110 CREATININE (test code = 0.95 mg/dL 0.60-1.25 2785902220) TOTAL BILI (test code = 1.6 mg/dL 0.1-1.1 H 5811340263) CALCIUM (test code = 4001440882) 9.6 mg/dL 8.6-10.6 T PROTEIN (test code = 1989579870) 8.9 g/dL 6.3-8.2 H ALBUMIN (test code = 3504896061) 5.1 g/dL 3.5-5.0 H ALK PHOS (test code = 7996381319) 56 U/L 34-122 ALTv (test code = 1742-6) 66 U/L 5-50 H AST(SGOT) (test code = 7086956447) 38 U/L 13-40 eGFR (test code = 0607968575) 93.1 mL/min/1.73m2 FREDI (test code = FREDI) [...] tests). Lab Interpretation (test code = Abnormal 22340-7) [id number] 01:21:50 Test Item Value Reference Range Interpretation Comments TROPONIN I (test code = 0.006 ng/mL <=0.034 0360095303) FREDI (test code = FREDI) Reference (Normal) [...] biotin. Lab Interpretation Normal (test code = 66637-5) [facility][id number] 01:11:53 Test Item Value Reference Interpretation Comments Range D-DIMER (test code = See_Comment [Autom ated 3819051693) message] The system which generated this result [...] diagnosis. Lab Interpretation Normal (test code = 76803-2) [facility] 01:09:47 Test Item Value Reference Range Interpretation Comments LIPASE (test code = 5837262676) 63 U/L 0-220 Lab Interpretation (test code = Normal 54550-0) [facility] WITH [id number] 00:58:04 Test Item Value Reference Range Interpretation Comments WBC (test code = 5.72 See_Comment [Automated message] 5290-2) The system [employer] generated this result transmitted ref erence range: 4.20 - 1 0.70 10*3/?L. The re ference range was not u sed to interpret this result as normal/abnor mal. RBC (test code = 4.98 See_Comment [Automated message] 919-8) The system [employer] generated this result transmitted ref erence range: [...] RDW-SD (test code 39.0 fL 38.5-51.6 = 25351-7) RDW-CV (test code 12.8 % 12.1-15.4 = 788-0) PLT (test code = 291 See_Comment [Automated message] 777-3) The system [employer] generated this result transmitted ref erence range: 150 - 32 8 10*3/?L. The re ference range was not u sed to interpret this result as normal/abnor mal. MPV (test code = 10.2 fL 9.8-13.0 77918-0) NRBC/100 WBC (test 0.0 See_Comment [Automat ed message] code = 1108685794) The syste m which generated this result transmitted ref erence range: 0.0 - 10 .0 /100 WBCs. The refer ence range was not u sed to interpret this result as normal/abnor mal. NRBC x10^3 (test See_Comment [Automated message] code = 3445140146) The syste m which generated this result transmitted ref erence range: 10*3/?L. The reference range was not used to interpr et this result as normal/abnormal . GRAN MAT (NEUT) % 49.2 % (test code = 770-8) IMM GRAN % (test 0.20 % code = 6329010777) LYMPH % (test code 38.5 % = 736-9) MONO % (test code 8.7 % = 5905-5) EOS % (test code = 2.4 % 713-8) BASO % (test code 1.0 % = 706-2) GRAN MAT 2.81 10*3/uL 1.99-6.95 x10^3(ANC) (test code = 7493789957) IMM GRAN x10^3 0.00-0.06 (test code = 7720178298) LYMPH x10^3 (test 2.20 10*3/uL 1.09-3.23 code = 731-0) MONO x10^3 (test 0.50 10*3/uL 0.36-1.02 code = 742-7) EOS x10^3 (test 0.14 10*3/uL 0.06-0.53 code = 711-2) BASO x10^3 (test 0.06 10*3/uL 0.01-0.09 code = 704-7) [facility] WITH [id number] 03:26:51 Test Item Value Reference Range Interpretation Comments WBC (test code = 4.68 See_Comment [Automated 6788-2) message] The sy stem which generated this result transmitted reference range : 4.20 - 10.70 10*3/?L. The reference range was not used to interpret this result as normal/abnormal . RBC (test code = 4.55 See_Comment [Automated 338-8) message] The sy stem which generated this [...] RDW-SD (test code = 41.0 fL 38.5-51.6 62038-0) RDW-CV (test code = 13.2 % 12.1-15.4 788-0) PLT (test code = 242 See_Comment [Automated 328-3) message] The sy stem which generated this result transmitted reference range : 150 - 328 10*3/ ?L. The reference r stefan was not used to interpret this result as normal/abnormal . MPV (test code = 10.3 fL 9.8-13.0 91499-1) NRBC/100 WBC (test 0.0 See_Comment [Automat ed code = 2277076343) message] The system which generated this result transmitted reference range : 0.0 - 10.0 /100 WBCs. The refer ence range was not u sed to interpret th is result as normal/abnormal . NRBC x10^3 (test code See_Comment [Auto mated = 4179086252) message] The s ystem which generated this result transmitted reference range : 10*3/?L. The reference range was not used to interpret this result as normal/abnormal . GRAN MAT (NEUT) % 41.9 % (test code = 770-8) IMM GRAN % (test code 0.20 % = 8101411174) LYMPH % (test code = 41.2 % 736-9) MONO % (test code = 9.0 % 5905-5) EOS % (test code = 7.1 % 713-8) BASO % (test code = 0.6 % 706-2) GRAN MAT x10^3(ANC) 1.96 10*3/uL 1.99-6.95 L (test code = 0749944610) IMM GRAN x10^3 (test 0.00-0.06 code = 6127201922) LYMPH x10^3 (test code 1.93 10*3/uL 1.09-3.23 = 731-0) MONO x10^3 (test code 0.42 10*3/uL 0.36-1.02 = 742-7) EOS x10^3 (test code = 0.33 10*3/uL 0.06-0.53 711-2) BASO x10^3 (test code 0.03 10*3/uL 0.01-0.09 = 704-7) Lab Interpretation Abnormal (test code = 10069-1) [id number]03 Test Item Value Reference Range Interpretation Comments TROPONIN I (test code = 0.005 ng/mL <=0.034 9367804545) FREDI (test code = FREDI) Reference (Normal) [...] biotin. Lab Interpretation Normal (test code = 94357-8) [facility] 03:03:43 Test Item Value Reference Range Interpretation Comments LIPASE (test code = 4419715289) 48 U/L 0-220 Lab Interpretation (test code = Normal 16269-6) [facility] (48490) (ALB,T.PRO,BILI T,BU/BC,ALT,AST,ALK PHOS)2022-11-25 03:03:42 Test Item Value Reference Range Interpretation Comments TOTAL BILI (test code = 4957092461) 0.5 mg/dL 0.1-1.1 BILI UNCON (test code = 4393449218) 0.3 mg/dL 0.1-1.1 BILI CONJ (test code = 1248371750) 0.0 mg/dL 0.0-0.3 T PROTEIN (test code = 7017726503) 7.8 g/dL 6.3-8.2 ALBUMIN (test code = 8999273745) 4.7 g/dL 3.5-5.0 ALK PHOS (test code = 0884005563) 50 U/L 34-122 ALTv (test code = 1742-6) 77 U/L 5-50 H AST(SGOT) (test code = 5060274410) 39 U/L 13-40 Lab Interpretation (test code = Abnormal 35268-2) [facility] (NA, K, CL, CO2, GLUCOSE, BUN, CREATININE, CA)2022-11-25 03:03:42 Test Item Value Reference Range Interpretation Comments NA (test code = 140 mmol/L 135-145 0427915094) K (test code = 3.6 mmol/L 3.5-5.0 1780263785) CL (test code = 105 mmol/L 98-108 8699087935) CO2 TOTAL (test code = 25 mmol/L 23-31 9491701287) AGAP (test code = 10 2-16 2980084242) BUN (test code = 13 mg/dL 7-23 8062314147) GLUCOSE (test code = 115 mg/dL 70-110 H 2731150672) CREATININE (test code = 0.80 mg/dL 0.60-1.25 4695158254) CALCIUM (test code = 9.2 mg/dL 8.6-10.6 3408737656) eGFR (test code = 113.5 mL/min/1.73m2 3519873666) FREDI (test code = FREDI) Association of [...] tests). Lab Interpretation Abnormal (test code = 77736-8) [facility] Test Item Value Reference Range Interpretation Comments MAGNESIUM (test code = 9460180424) 1.9 mg/dL 1.7-2.4 Lab Interpretation (test code = Normal 85032-5) [facility] with Fjstjvkaupzx5342-31-31 02:58:40 Test Item Value Reference Range Interpretation [...] (test code = 37.2 fL 38.5-51.6 L 55073-1) RDW-CV (test code = 12.2 % 12.1-15.4 788-0) PLT (test code = See_Comment [Automated 777-3) message] The sy stem which generated this result transmitted reference range : 150 - 328 10*3/ ?L. The reference r stefan was not used to interpret this result as normal/abnormal . MPV (test code = 10.4 fL 9.8-13.0 05649-7) NRBC/100 WBC (test See_Comment [Automat ed code = 8069124965) message] The system which generated this result transmitted reference range : 0.0 - 10.0 /100 WBCs. The refer ence range was not u sed to interpret th is result as normal/abnormal . NRBC x10^3 (test code <0.01 See_Comment [Auto mated = 9651070579) message] The s ystem which generated this result transmitted reference range : 10*3/?L. The reference range was not used to interpret this result as normal/abnormal . GRAN MAT (NEUT) % 43.2 % (test code = 770-8) IMM GRAN % (test code 0.40 % = 7451940456) LYMPH % (test code = 38.8 % 736-9) MONO % (test code = 10.1 % 5905-5) EOS % (test code = 6.7 % 713-8) BASO % (test code = 0.8 % 706-2) GRAN MAT x10^3(ANC) 2.14 10*3/uL 1.99-6.95 (test code = 9937597701) IMM GRAN x10^3 (test <0.03 0.00-0.06 code = 3430296394) LYMPH x10^3 (test code 1.92 10*3/uL 1.09-3.23 = 731-0) MONO x10^3 (test code 0.50 10*3/uL 0.36-1.02 = 742-7) EOS x10^3 (test code = 0.33 10*3/uL 0.06-0.53 711-2) BASO x10^3 (test code 0.04 10*3/uL 0.01-0.09 = 704-7) Lab Interpretation Abnormal (test code = 35326-0) [facility] Met[facility] [id number] 02:47:58 Test Item Value Reference Range Interpretation Comments NA (test code = 141 mmol/L 135-145 9668382004) K (test code = 3.9 mmol/L 3.5-5.0 8952918766) CL (test code = 105 mmol/L 98-108 8484609558) CO2 TOTAL (test code = 27 mmol/L 23-31 7615402105) AGAP (test code = 2-16 9816887049) BUN (test code = 14 mg/dL 7-23 1226561682) GLUCOSE (test code = 147 mg/dL 70-110 H 1909213222) CREATININE (test code = 0.96 mg/dL 0.60-1.25 6751710536) TOTAL BILI (test code = 0.7 mg/dL 0.1-1.7 1774689791) CALCIUM (test code = 9.5 mg/dL 8.6-10.6 0721404925) T PROTEIN (test code = 7.7 g/dL 6.3-8.2 6407055966) ALBUMIN (test code = 4.4 g/dL 3.5-5.0 2909776788) ALK PHOS (test code = 60 U/L 34-122 1182250566) ALTv (test code = 116 U/L 5-50 H 1742-6) AST(SGOT) (test code = 50 U/L 13-40 H 0661761720) eGFR (test code = mL/min/1.73m2 0031459392) FREDI (test code = FREDI) Association of [...] tests). Lab Interpretation Abnormal (test code = 08778-1) [facility], [id number] 02:47:38 Test Item Value Reference Range Interpretation Comments LIPASE (test code = 0752941169) 86 U/L 0-220 Lab Interpretation (test code = Normal 56515-7) [facility]2022-06-20 02:46:58 Test Item Value Reference Range Interpretation Comments ADRIANA (test code = 7558364688) 81 U/L 35-110 Lab Interpretation (test code = Normal 92432-6) [facility] [id number] 03:57:42 Test Item Value Reference Range Interpretation Comments NA (test code = 137 mmol/L 135-145 7368550616) K (test code = 4.2 mmol/L 3.5-5.0 7677394851) CL (test code = 105 mmol/L 98-108 6890209066) CO2 TOTAL (test code = 25 mmol/L 23-31 8003662942) AGAP (test code = 2-16 9161702440) BUN (test code = 15 mg/dL 7-23 2230249602) GLUCOSE (test code = 120 mg/dL 70-110 H 3338859714) CREATININE (test code = 1.07 mg/dL 0.60-1.25 1531505575) TOTAL BILI (test code = 1.3 mg/dL 0.1-1.1 H 6498459088) CALCIUM (test code = 9.3 mg/dL 8.6-10.6 4973341732) T PROTEIN (test code = 8.8 g/dL 6.3-8.2 H 7936104362) ALBUMIN (test code = 5.1 g/dL 3.5-5.0 H 0772642477) ALK PHOS (test code = 59 U/L 34-122 3885540296) ALTv (test code = 62 U/L 5-50 H 1742-6) AST(SGOT) (test code = 46 U/L 13-40 H 6022713285) eGFR (test code = mL/min/1.73m2 8677975193) FREDI (test code = FREDI) Association of [...] tests). Lab Interpretation Abnormal (test code = 71689-7) [facility] 03:57:02 Test Item Value Reference Range Interpretation Comments LIPASE (test code = 8738216304) 80 U/L 0-220 Lab Interpretation (test code = Normal 64586-5) [facility] with Pmtghmscmwuq6231-18-11 03:35:00 Test Item Value Reference Range Interpretation Comments WBC (test code = See_Comment [Automated 0392-2) message] The sy stem which generated this result transmitted reference range : 4.20 - 10.70 10*3/?L. The reference range was not used to interpret this result as normal/abnormal . RBC (test code = See_Comment [Automated 342-8) message] The sy stem which generated this result transmitted reference range : 4.26 - 5.52 10*6/?L. The reference range was not used to interpret this result as normal/abnormal . HGB (test code = 13.7 g/dL 12.2-16.4 768-7) HCT (test code = 41.7 % 38.4-49.3 4544-3) MCV (test code = 83.7 fL 81.7-95.6 787-2) MCH (test code = 27.5 pg 26.1-32.7 785-6) MCHC (test code = 32.9 g/dL 31.2-35.0 786-4) RDW-SD (test code = 38.2 fL 38.5-51.6 L 70803-0) RDW-CV (test code = 12.6 % 12.1-15.4 788-0) PLT (test code = See_Comment [Automated 777-3) message] The sy stem which generated this result transmitted reference range : 150 - 328 10*3/ ?L. The reference r stefan was not used to interpret this result as normal/abnormal . MPV (test code = 10.6 fL 9.8-13.0 85667-3) NRBC/100 WBC (test See_Comment [Automat ed code = 4065771048) message] The system which generated this result transmitted reference range : 0.0 - 10.0 /100 WBCs. The refer ence range was not u sed to interpret th is result as normal/abnormal . NRBC x10^3 (test code <0.01 See_Comment [Auto mated = 3309644251) message] The s ystem which generated this result transmitted reference range : 10*3/?L. The reference range was not used to interpret this result as normal/abnormal . GRAN MAT (NEUT) % 80.9 % (test code = 770-8) IMM GRAN % (test code 0.40 % = 7055397291) LYMPH % (test code = 8.0 % 736-9) MONO % (test code = 6.9 % 5905-5) EOS % (test code = 3.4 % 713-8) BASO % (test code = 0.4 % 706-2) GRAN MAT x10^3(ANC) 4.23 10*3/uL 1.99-6.95 (test code = 2064203659) IMM GRAN x10^3 (test <0.03 0.00-0.06 code = 4978557334) LYMPH x10^3 (test code 0.42 10*3/uL 1.09-3.23 L = 731-0) MONO x10^3 (test code 0.36 10*3/uL 0.36-1.02 = 742-7) EOS x10^3 (test code = 0.18 10*3/uL 0.06-0.53 711-2) BASO x10^3 (test code <0.03 0.01-0.09 = 704-7) Lab Interpretation Abnormal (test code = 61002-0) [facility] [id number] 22:35:02 Test Item Value Reference Range Interpretation Comments POCT Molecular Strep (test code = Negative Negative 86654-7) Lab Interpretation (test code = Normal 61628-6) [facility]
--- NOTE | 2022-12-29 10:46 | RAD REPORT ---
EXAM DESCRIPTION: RAD - Chest Single View - 12/29/2022 10:42 am CLINICAL HISTORY: COUGH Chest pain. COMPARISON: Chest Single View dated 12/24/2022; Chest Single View dated 11/29/2022; Chest Single View dated 05/09/2018; Chest Single View dated 01/27/2018 FINDINGS: Portable technique limits examination quality. The lungs are grossly clear. The heart is normal in size. No displaced fractures. IMPRESSION: No acute intrathoracic process suspected.
[2022-12-29 11:00] LABS: Absolute Lymphocytes (CBC) 0.4 K/uL (0.7-4.9); Hematocrit 40.2 % (39.6-49.0); Lymphocytes % 6.5 % (15.3-44.8); MCV 85.2 fL (80-100); MPV 8.3 fL (7.6-11.3); RBC Red Blood Cell Count 4.72 M/uL (4.33-5.43)
[2022-12-29 11:03] LABS: Protime INR 1.08
[2022-12-29] MEDS ORDERED: MAGNESIUM SULFATE 1 gm IVPB 1 GM/100 ML BAG IV ONE (11:10)
[2022-12-29] MEDS ORDERED: METOPROLOL TAR 50 MG TAB ONE (11:10)
[2022-12-29] MEDS ORDERED: NA CHLORIDE 0.9% 500 ML ONE (11:10)
[2022-12-29 11:27] LABS: Albumin 3.8 g/dL (3.4-5.0); Bilirubin Direct 0.2 mg/dL (0-0.2); Bilirubin Indirect, Calculated 0.5 mg/dL (0.2-0.8); Bilirubin Total 0.7 mg/dL (0.2-1.0); Magnesium 1.8 mg/dL (1.6-2.4); Potassium 3.6 mEq/L (3.5-5.1); Protein, Total 7.8 g/dL (6.4-8.2); Thyroid Stimulating Hormone 0.614 uIU/mL (0.358-3.740); Troponin High Sensitivity 8.9 pg/mL (<58.9)
[2022-12-29 12:17] LABS: Specific Gravity 1.025 (1.005-1.030); Urine Bacteria None Seen /HPF (<20); Urine Bilirubin NEGATIVE (Negative); Urine Blood Negative (Negative); Urine Clarity Clear (Clear); Urine Color Light-Yellow (Yellow); Urine Glucose NEGATIVE (Negative); Urine Mucus Slight /HPF (None Seen); Urine Protein TRACE (Negative); Urine RBC <5 /HPF (None Seen); Urine Urobilinogen Normal (Normal); Urine pH 7.5 (5.0-7.0)
[2022-12-29 12:27] LABS: Barbiturates NEGATIVE (NEGATIVE); Benzodiazepines POSITIVE (NEGATIVE); Cocaine NEGATIVE (NEGATIVE); METHAMPHETAM NEGATIVE (NEGATIVE); Methadone NEGATIVE (NEGATIVE); Opiates NEGATIVE (NEGATIVE); Phencyclidine NEGATIVE (NEGATIVE); THC Cannibis POSITIVE (NEGATIVE)
--- NOTE | 2022-12-29 12:35 | EDPHYS ---
Physician Documentation [facility] Name: Kd Velazquez Age: 32 yrs Sex: Male : 1990 Arrival Date: 12/29/2022 Time: 10:16 Bed 7 Private MD: ED Physician Jeremy White HPI: 12/29 11:36 This 32 yrs old Black Male presents to ER via EMS with complaints of Palpitations. ronnie 11:36 The patient presents with a history of heart racing. Context: The symptoms occur with [facility] light activity. Onset: The symptoms/episode began/occurred this morning, today. Duration: The patient or guardian reports a single episode, that is still ongoing. Modifying factors: The symptoms are aggravated by light activity, strenuous activity. Associated signs and symptoms: Pertinent positives: anxiety. Severity of symptoms: At their worst the symptoms were mild in the emergency department the symptoms are unchanged. The patient has experienced similar episodes in the past, a few times. Historical: - Allergies: 10:21 No Known Drug Allergies; bp - Home Meds: 10:21 methimazole 5 mg Oral tablet daily [Active]; diazepam 10 mg Oral tablet daily as needed bp for anxiety [Active]; buspirone 10 mg Oral tablet 2 times per day [Active]; - PMHx: 10:21 graves disease; Anxiety; bp - Immunization history:: Adult Immunizations up to date. - Social history:: Smoking status: Patient denies any tobacco usage or history of. - Family history:: not pertinent. ROS: 11:36 Constitutional: Negative for fever, chills, and weight loss, Eyes: Negative for injury, ronnie pain, redness, and discharge, ENT: Negative for injury, pain, and discharge, Neck: Negative for injury, pain, and swelling, Respiratory: Negative for shortness of breath, cough, wheezing, and pleuritic chest pain, Abdomen/GI: Negative for abdominal pain, nausea, vomiting, diarrhea, and constipation, Back: Negative for injury and pain, : Negative for injury, bleeding, discharge, and swelling, MS/Extremity: Negative for injury and deformity, Skin: Negative for injury, rash, and discoloration, Neuro: Negative for headache, weakness, numbness, tingling, and seizure, Psych: Negative for depression, anxiety, suicide ideation, homicidal ideation, and hallucinations, Allergy/Immunology: Negative for hives, rash, and allergies, Endocrine: Negative for neck swelling, polydipsia, polyuria, polyphagia, and marked weight changes, Hematologic/Lymphatic: Negative for swollen nodes, abnormal bleeding, and unusual bruising. 11:36 Cardiovascular: Positive for palpitations. 11:41 MS/extremity: Negative for acute changes, NO TRAUMA, NO STASIS, NO HC STATE. ronnie Exam: 11:36 Constitutional: This is a well developed, well nourished patient who is awake, alert, ronnie and in no acute distress. Head/Face: Normocephalic, atraumatic. Eyes: Pupils equal round and reactive to light, extra-ocular motions intact. Lids and lashes normal. Conjunctiva and sclera are non-icteric and not injected. Cornea within normal limits. Periorbital areas with no swelling, redness, or edema. ENT: Nares patent. No nasal discharge, no septal abnormalities noted. Tympanic membranes are normal and external auditory canals are clear. Oropharynx with no redness, swelling, or masses, exudates, or evidence of obstruction, uvula midline. Mucous membranes moist. Neck: Trachea midline, no thyromegaly or masses palpated, and no cervical lymphadenopathy. Supple, full range of motion without nuchal rigidity, or vertebral point tenderness. No Meningismus. Chest/axilla: Normal chest wall appearance and motion. Nontender with no deformity. No lesions are appreciated. Respiratory: Lungs have equal breath sounds bilaterally, clear to auscultation and percussion. No rales, rhonchi or wheezes noted. No increased work of breathing, no retractions or nasal flaring. Abdomen/GI: Soft, non-tender, with normal bowel sounds. No distension or tympany. No guarding or rebound. No evidence of tenderness throughout. Back: No spinal tenderness. No costovertebral tenderness. Full range of motion. Male : Normal genitalia with no discharge or lesions. Skin: Warm, dry with normal turgor. Normal color with no rashes, no lesions, and no evidence of cellulitis. MS/ Extremity: Pulses equal, no cyanosis. Neurovascular intact. Full, normal range of motion. Neuro: Awake and alert, GCS 15, oriented to person, place, time, and situation. Cranial nerves II-XII grossly intact. Motor strength 5/5 in all extremities. Sensory grossly intact. Cerebellar exam normal. Normal gait. Psych: Awake, alert, with orientation to person, place and time. Behavior, mood, and affect are within normal limits. 11:36 Cardiovascular: Rate: tachycardic, actual rate is 115 bpm, Rhythm: regular, Pulses: Pulses are 4+ in bilateral radial, brachial, femoral, popliteal, posterior tibial and and dorsalis pedis arteries.. Heart sounds: normal, Edema: is not appreciated, JVD: is not appreciated. 11:36 ECG was reviewed by the Attending Physician. 11:41 Musculoskeletal/extremity: DVT Exam: No signs of deep vein thrombosis. no pain, no ronnie swelling, no tenderness, negative Homans' sign noted on exam, no appreciated bluish discoloration, no erythema, no increased warmth. Vital Signs: 10:17 BP 144 / 69; Pulse 115; Resp 18; Temp 98; Pulse Ox 97% ; Weight 108.86 kg; Height 6 ft. bp 0 in. ; 11:49 BP 138 / 81; Pulse 111; Resp 16; Pulse Ox 100% ; bp 13:54 BP 127 / 79; Pulse 99; Resp 16; Pulse Ox 100% ; bp 10:17 Body Mass Index 32.55 (108.86 kg, 182.88 cm) bp MDM: 10:19 Patient medically screened. ronnie 11:39 VAN Risk Score: Total Score = 0. Differential diagnosis: arrythmia, dehydration, ronnie stress disorder. Data reviewed: vital signs, nurses notes, lab test result(s), EKG, radiologic studies, plain films. Consideration of Admission/Observation Escalation of care including admission/observation considered. I considered the following discharge prescriptions or medication management in the emergency department Medications were administered in the Emergency Department. See MAR. Independent interpretation of the following test(s) in the Emergency Department EKG: See my EKG interpretation above. Test considered but Not performed: CT: NO CT CHEST RO PE. Care significantly affected by the following chronic conditions: Obesity, ANXIETY , HYPERTHYROID. 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 12/29 10:22 Order name: Basic Metabolic Panel; Complete Time: 11:35 12/29 10:22 Order name: CBC with Diff; Complete Time: 11:35 12/29 10:22 Order name: LFT's; Complete Time: 11:35 12/29 10:22 Order name: Magnesium; Complete Time: 11:35 12/29 10:22 Order name: NT PRO-BNP; Complete Time: 11:35 12/29 10:22 Order name: PT-INR; Complete Time: 11:35 12/29 10:22 Order name: Troponin HS; Complete Time: 11:35 12/29 10:22 Order name: TSH; Complete Time: 11:35 [facility] 12/29 10:22 Order name: UDS; Complete Time: 12:35 12/29 11:41 Order name: Urinalysis w/ reflexes; Complete Time: 12:35 12/29 10:22 Order name: XRAY Chest (1 view); Complete Time: 11:35 12/29 10:22 Order name: EKG; Complete Time: 10:23 12/29 10:22 Order name: Cardiac monitoring; Complete Time: 10:59 12/29 10:22 Order name: EKG - Nurse/Tech; Complete Time: 10:59 12/29 10:22 Order name: IV Saline Lock; Complete Time: 10:51 12/29 10:22 Order name: Labs collected and sent; Complete Time: 10:51 12/29 10:22 Order name: O2 Per Protocol; Complete Time: 10:24 12/29 10:22 Order name: O2 Sat Monitoring; Complete Time: 10:24 [facility] EC:36 Rate is 118 beats/min. Rhythm is regular. QRS [place] is Normal. RI interval is normal. [facility] QRS interval is normal. QT interval is normal. No Q waves. T waves are Normal. No ST changes noted. Clinical impression: Sinus tachycardia and No evidence of ischemia. Interpreted by me. Reviewed by me. Administered Medications: 11:00 Drug: NS 0.9% IV 500 ml Route: IV; Rate: bolus; Site: right forearm; bp 11:00 Drug: Magnesium Sulfate IVPB 1 grams Route: IVPB; Infused Over: 1 hrs; Site: right bp forearm; 11:00 Drug: Metoprolol PO 50 mg Route: PO; bp 11:48 Follow up: Response: No adverse reaction bp 11:48 Drug: NS 0.9% IV 500 ml Route: IV; Rate: bolus; Site: right forearm; bp Disposition Summary: 12/29/22 12:35 Discharge Ordered Location: Home ronnie Problem: new ronnie Symptoms: have improved ronnie Condition: Stable ronnie Diagnosis - Palpitations ronnie - Tachycardia, unspecified ronnie Followup: ronnie - With: Private Physician - When: 2 - 3 days - Reason: Recheck today's complaints, Continuance of care, Re-evaluation by your physician Followup: ronnie - With: - When: 2 - 3 days - Reason: Recheck today's complaints, Continuance of care, Re-evaluation by your physician Discharge Instructions: - Discharge Summary Sheet ronnie - Palpitations ronnie - Aspirin and Your Heart ronnie - Palpitations, [id number] ronnie - Sinus Tachycardia ronnie Forms: - Medication Reconciliation Form ronnie - Thank You Letter ronnie - Antibiotic Education ronnie - Prescription Opioid Use ronnie Prescriptions: - Toprol XL 50 mg Oral Tablet - take 1 tablet by ORAL route once daily; 20 tablet; Refills: 0, Product ronnie Selection Permitted Signatures: Dispatcher [employer] EDJeremy Summers MD MD cha Peltier, Brian, RN RN bp
--- NOTE | 2022-12-29 12:35 | ER ---
Nurse's Notes [facility] Name: Kd Velazquez Age: 32 yrs Sex: Male : 1990 Arrival Date: 12/29/2022 Time: 10:16 Bed 7 Private MD: Diagnosis: Palpitations;Tachycardia, unspecified Presentation: 12/29 10:17 Chief complaint: EMS states: CHEST PAIN AND PALPITATIONS SINCE 929. Coronavirus bp screen: At this time, the client does not indicate any symptoms associated with coronavirus-19. Ebola Screen: No symptoms or risks identified at this time. Initial Sepsis Screen: Does the patient meet any 2 criteria? HR > 90 bpm. No. Patient's initial sepsis screen is negative. Does the patient have a suspected source of infection? No. Patient's initial sepsis screen is negative. Risk Assessment: Do you want to hurt yourself or someone else? Patient reports no desire to harm self or others. Onset of symptoms was December 29, 2022 at 09:30. 10:17 Method Of Arrival: EMS: [facility] bp 10:17 Acuity: NIELS 3 bp Triage Assessment: 10:21 General: Appears in no apparent distress. Behavior is cooperative, appropriate for age, bp anxious. Pain: Complains of pain in chest. EENT: No deficits noted. Neuro: No deficits noted. Cardiovascular: Reports palpitations, Rhythm is sinus tachycardia. Respiratory: No deficits noted. GI: No signs and/or symptoms were reported involving the gastrointestinal system. : No signs and/or symptoms were reported regarding the genitourinary system. Derm: No deficits noted. Musculoskeletal: No deficits noted. Historical: - Allergies: 10:21 No Known Drug Allergies; bp - Home Meds: 10:21 methimazole 5 mg Oral tablet daily [Active]; diazepam 10 mg Oral tablet daily as needed bp for anxiety [Active]; buspirone 10 mg Oral tablet 2 times per day [Active]; - PMHx: 10:21 graves disease; Anxiety; bp - Immunization history:: Adult Immunizations up to date. - Social history:: Smoking status: Patient denies any tobacco usage or history of. - Family history:: not pertinent. Screenin:22 [facility] ED Fall Risk Assessment (Adult) History of falling in the last 3 months, bp including since admission No falls in past 3 months (0 pts). Abuse screen: Denies threats or abuse. Denies injuries from another. Nutritional screening: No deficits noted. Tuberculosis screening: No symptoms or risk factors identified. Assessment: 10:22 General: SEE TRIAGE NOTE. bp 11:49 Reassessment: Patient appears in no apparent distress at this time. No changes from bp previously documented assessment. 13:54 Reassessment: DC HOME AMBULATORY. bp Vital Signs: 10:17 BP 144 / 69; Pulse 115; Resp 18; Temp 98; Pulse Ox 97% ; Weight 108.86 kg; Height 6 ft. bp 0 in. ; 11:49 BP 138 / 81; Pulse 111; Resp 16; Pulse Ox 100% ; bp 13:54 BP 127 / 79; Pulse 99; Resp 16; Pulse Ox 100% ; bp 10:17 Body Mass Index 32.55 (108.86 kg, 182.88 cm) bp ED Course: 10:17 Patient arrived in ED. bp 10:19 Jeremy White MD is Attending Physician. ronnie 10:19 Triage completed. bp 10:20 Boogie De Los Santos, YOCASTA is Primary Nurse. bp 10:21 Arm band placed on. bp 10:22 Patient has correct armband on for positive identification. Bed in low position. Call bp light in reach. Side rails up X2. 10:43 XRAY Chest (1 view) In Process Unspecified. EDMS 10:51 Inserted saline lock: 20 gauge in right forearm, using aseptic technique. Blood bp collected. 12:35 Freddy Sanchez MD is Referral Physician. ronnie 13:54 No provider procedures requiring assistance completed. IV discontinued, intact, bp bleeding controlled, No redness/swelling at site. Pressure dressing applied. Administered Medications: 11:00 Drug: NS 0.9% IV 500 ml Route: IV; Rate: bolus; Site: right forearm; bp 11:00 Drug: Magnesium Sulfate IVPB 1 grams Route: IVPB; Infused Over: 1 hrs; Site: right bp forearm; 11:00 Drug: Metoprolol PO 50 mg Route: PO; bp 11:48 Follow up: Response: No adverse reaction bp 11:48 Drug: NS 0.9% IV 500 ml Route: IV; Rate: bolus; Site: right forearm; bp Medication: 10:22 VIS not applicable for this client. bp Outcome: 12:35 Discharge ordered by . ronnie 13:54 Discharged to home ambulatory. bp 13:54 Condition: stable 13:54 Discharge instructions given to patient, Instructed on discharge instructions, follow up and referral plans. medication usage, Demonstrated understanding of instructions, follow-up care, medications, Prescriptions given X 1. 13:55 Patient left the ED. bp Signatures: Dispatcher [employer] EDAL Jeremy White MD MD cha Peltier, Brian, RN RN bp
[2022-12-29 14:42] VITALS: TEMP 98
[2022-12-29 14:44] VITALS: O2SAT 100
[2022-12-29 14:45] VITALS: BP 127/79
--- NOTE | 2022-12-30 04:56 | EKG ---
Test Date: 2022-12-29 Test Time: 10:56:52 Ocular Care Technologist: BP MEASUREMENT RESULTS: Intervals: Rate: 118 OH: 158 QRSD: 98 QT: 314 QTc: 440 [place]: P: 60 OH: 158 QRS: 73 T: 35 INTERPRETIVE STATEMENTS: Sinus tachycardia Otherwise normal ECG Compared to ECG 12/24/2022 11:29:12 Sinus rhythm no longer present Sinus arrhythmia no longer present Electronically Signed On 12-30-22 04:53:58 CDT by Michael Johnson
== END 2022-12-29 13:55 | disposition home or self-care (01) ==
LOC: ER 10:16
DX: R00.0 Tachycardia, unspecified (principal); F41.9 Anxiety disorder, unspecified
CPT/HCPCS: 85025; 81001; 80048; 36415; 83735; 85610; 80076; 84443; 84484; 83880; 80307; 71045; J3475; J7040; 93005

== ENCOUNTER 2022-12-31 06:12 | Emergency (ER) | payer OTHER ==
--- OUTSIDE RECORDS SUMMARY | 2022-12-31 06:16 | XMS REPORT | Continuity of Care Document ---
:1990 Author Organization [facility] t Address [address] [place] [address] [place] [id number] Care Team Providers Name Role Phone Asked, [...] Raman Zimmerman MD Attending Clinician Doctor Unassigned, [place] Attending Clinician Unavailable FRANNIE MURCIA Attending Clinician Unavailable Frannie Murcia NP Attending Clinician NAYELI BARRAZA Attending Clinician Unavailable Nayeli Barraza MD Attending Clinician Yaquelin Durand Attending Clinician NING ANDRADE Admitting Clinician Unavailable BRIGHT SPENCER Admitting Clinician Unavailable LANCE WAKEFIELD Admitting Clinician Unavailable RAMAN ZIMMERMAN Admitting Clinician Unavailable Payers Payer Name Policy Type Policy Number Effective Date Expiration Date Vikram DUNAWAY II [id number] 2016 00:00:00 Problems Condition Condition Condition Status Onset Resolution Last Treating Co mments Source Name Details Category Date Date Treatment Clinician Date Hematemesi Hematemesi Disease Active U pablo correa s 10-05 ity of 00:00: [place] 00 Medical Branch Urethral Urethral Diagnosis Active Com mon discharge discharge Spir it in male in male [facility] Tinea Tinea Problem Active Common cruris cruris [facility] Allergies, Adverse Reactions, Alerts Allergy Allergy Status [...] Active Univers ALLERGIE Class ity of [facility] Family History Family Member Diagnosis Comments Start Date Stop Date Source Natural father Diabetes [facility] Social [facility] Social Habit Start Date Stop Date Quantity Comments Source History of tobacco Cigarette Smoker University of use [facility] History SDRI [facility] o f Alcohol Frequency [place] [facility] History [facility] University o f Alcohol Std Drinks [facility] History [facility] o f Alcohol Binge [place] [facility] Gender identity [facility] Sexual orientation [facility] Exposure to 2022-12-06 2022-12-16 Not sure [facility] SARS-CoV-2 (event) 00:00:00 16:06:00 [facility] Tobacco use and 2022-12-02 2022-12-02 Former smokeless [facility] of exposure 00:00:00 00:00:00 tobacco user Medicine Alcohol intake 2017-07-28 2017-07-28 Current drinker [facility]o dist 00:00:00 00:00:00 of [facility] (finding) Alcohol Comment 2017-07-28 2017-07-28 Drink only on Method ist 00:00:00 00:00:00 holidays or once Hospital a month Sex Assigned At [birth year] [facility] 00:00[facility]00 Hospital Smoking Status Start Date Stop Date Source Tobacco smoking [facility] consumption unknown Never smoked tobacco [facility] Ex-smoker 2019-05-01 00:00:00 2019-05-01 [place] [facility] f [place] 00:00:00 [facility] [place] Medications Ordered Filled Start Stop Current Ordering Indication Dosage Frequency Signature Comments Components Source Medication Medication Date Date Medication? Clinician (SIG) Name Name diazePAM 10 Yes 10mg Take 1 Univ ers mg tablet 5-02 tablet by ity o f 10:31: mouth as [place] 45 needed. Medical Branch busPIRone Yes 10mg Take 1 Univer s 10 mg 5-02 tablet by ity of tablet 10:31: mouth in [place] [address] the Medical morning Branch and 1 tablet in the evening. methIMAzole Yes 5mg Take 1 Univ ers 5 mg tablet 5-02 tablet by ity of 10:31: mouth in [place] 45 the Medical morning. Branch diazePAM 10 2023-0 Yes 10mg Take 1 Univ ers mg tablet 5-02 tablet by ity o f 10:31: mouth as [place] [address] needed. Medical Branch busPIRone 0 Yes 10mg Take 1 Univer s 10 mg 5-02 tablet by ity of tablet 10:31: mouth in [place] [address] the Medical morning Branch and 1 tablet in the evening. methIMAzole Yes 5mg Take 1 Univ ers 5 mg tablet 5-02 tablet by ity of 10:31: mouth in [place] [address] the Medical morning. Branch diazePAM 10 0 Yes 10mg Take 1 Univ ers mg tablet 5-02 tablet by ity o f 10:31: mouth as [place] [address] needed. Medical Branch busPIRone 0 Yes 10mg Take 1 Univer s 10 mg 5-02 tablet by ity of tablet 10:31: mouth in [place] [address] the Medical morning Branch and 1 tablet in the evening. methIMAzole Yes 5mg Take 1 Univ ers 5 mg tablet 5-02 tablet by ity of 10:31: mouth in [place] [address] the Medical morning. Branch aspirin 2022- Yes 325mg 325 mg, Unive rs tablet 325 12-02 Oral, ity of mg 02:45: 14:44 ONCE, 1 [place] 00 :00 dose, On [facility] 12/01/22 at 2145, Routine LORazepam 2022- No 1mg 1 mg, Slow U nivers (ATIVAN) 12-02 IV Push, ity of injection 1 00:30: 00:35 ONCE, 1 [place] 00 :[place] dose, On [facility] 12/01/22 at 1930, STAT ibuprofen 0 2022- Yes [id number] 800mg Take 1 Univers 800 mg 12-01 05-01 tablet by ity of tablet 00:00: 04:59 mouth [place] 00 :00 every 8 Medical (eight) Branch hours as needed for Pain (scale 4-6) for up to 5 days. LORazepam 1 0 2022- Yes [id number] 1mg Take 1 Univers mg tablet 12-01 [...] 00 :00 dose, On Medi colby mg [facility] 11/25/22 at 2100, ZACK ketorolac 2022- No [...] 11-25 Oral, ity of imeth 02:34: Q6HPRN, [place] (MAALOX 10 Starting Medical PLUS / on Wed Branch MAG-AL 11/24/22 at PLUS) 2134, 200-200-20 Until mg/5 mL Discontinu suspension ed, 30 mL Routine, Indigestio n LORazepam 2023-0 Yes [id number] 1mg Take 1 Un tera (ATIVAN) 1 4-19 tablet by ity of mg tablet 00:00: mouth [place] 00 every 24 Medical (twenty-fo Branch ur) hours as needed for Anxiety or Agitation. LORazepam 2022-0 Yes [id number] 1mg Take 1 Un tera (ATIVAN) 1 4-19 tablet by ity of mg tablet 00:00: mouth [place] 00 every 24 Medical (twenty-fo Branch ur) hours as needed for Anxiety or Agitation. LORazepam 2022-0 Yes [id number] 1mg Take 1 Un tera (ATIVAN) 1 4-19 tablet by ity of mg tablet 00:00: mouth [place] 00 every 24 Medical (twenty-fo Branch ur) hours as needed for Anxiety or Agitation. LORazepam 2022-0 Yes [id number] 1mg Take 1 Un tera (ATIVAN) 1 4-19 tablet by ity of mg tablet 00:00: mouth [place] 00 every 24 Medical (twenty-fo Branch ur) hours as needed for Anxiety or Agitation. LORazepam 0 Yes [id number] 1mg Take 1 Un tera (ATIVAN) 1 4-19 tablet by ity of mg tablet 00:00: mouth [place] 00 every 24 Medical (twenty-fo Branch ur) hours as needed for Anxiety or Agitation. lorazepam 2022- Yes 1mg Take 1 [place] (ATIVAN) 1 4-19 04-29 Tablet by Col lege MG tablet 00:00: 04:59 mouth. of 00 :00 Medicin e iohexoL 2021- No [id number] 50mL 50 mL, Uni vers (OMNIPAQUE 01-26-20 [...] 01/25/22 at 2245, Routine dicyclomine 2-0 Yes [id number] 20mg Take 1 Univers 20 mg 6-19 [...] Indication s: acute pain ondansetron 2021-0 Yes [id number] 4mg Take 1 Univers (ZOFRAN) 4 6-19 tablet by ity of mg tablet 00:00: mouth [place] 00 every 8 Medical (eight) Branch hours as needed for Nausea and Vomiting (N/V). dicyclomine 2021-0 Yes [id number] 20mg Take 1 Univers 20 mg 6-19 [...] Indication s: acute pain ondansetron 2021-0 Yes [id number] 4mg Take 1 Univers (ZOFRAN) 4 6-19 tablet by ity of mg tablet 00:00: mouth [place] 00 every 8 Medical (eight) Branch hours as needed for Nausea and Vomiting (N/V). dicyclomine 2022-0 Yes [id number] 20mg Take 1 Univers 20 mg 6-19 [...] Indication s: acute pain ondansetron 2022-0 Yes [id number] 4mg Take 1 Univers (ZOFRAN) 4 6-19 tablet by ity of mg tablet 00:00: mouth [place] 00 every 8 Medical (eight) Branch hours as needed for Nausea and Vomiting (N/V). dicyclomine 2022-0 Yes [id number] 20mg Take 1 Univers 20 mg 6-19 [...] Indication s: acute pain ondansetron 2-0 Yes [id number] 4mg Take 1 Univers (ZOFRAN) 4 6-19 tablet by ity of mg tablet 00:00: mouth [place] 00 every 8 Medical (eight) Branch hours as needed for Nausea and Vomiting (N/V). dicyclomine 2022-0 Yes [id number] 20mg Take 1 Univers 20 mg 6-19 [...] Indication s: acute pain ondansetron 2-0 Yes [id number] 4mg Take 1 Univers (ZOFRAN) 4 6-19 tablet by ity of mg tablet 00:00: mouth [place] 00 every 8 Medical (eight) Branch hours as needed for Nausea and Vomiting (N/V). dicyclomine 2022-0 Yes [id number] 20mg Take 1 Univers 20 mg 6-19 [...] Indication s: acute pain ondansetron 2021-0 Yes [id number] 4mg Take 1 Univers (ZOFRAN) 4 6-19 tablet by ity of mg tablet 00:00: mouth [place] 00 every 8 Medical (eight) Branch hours as needed for Nausea and Vomiting (N/V). dicyclomine 2021-0 Yes [id number] 20mg Take 1 Univers 20 mg 6-19 [...] Indication s: acute pain ondansetron 2021-0 Yes [id number] 4mg Take 1 Univers (ZOFRAN) 4 6-19 tablet by ity of mg tablet 00:00: mouth [place] 00 every 8 Medical (eight) Branch hours as needed for Nausea and Vomiting (N/V). ondansetron 2021-0 2021- No [id number] 4mg Take 1 Univers (ZOFRAN) 4 6-19 06-19 tablet by ity of mg tablet 00:00: 00:00 mouth [place] 00 :00 every 8 Medical (eight) Branch hours as needed for Nausea and Vomiting (N/V). ondansetron 2021-0 2- No [id number] 4mg Take 1 Univers (ZOFRAN) 4 6-19 [...] IV ity of (PHENERGAN) 04:55: 05:06 Piggyback, [place] 12.5 mg in 00 :00 ONCE, 1 [...] 09/21/21 at 2115, ZACK proMETHazin 2021-0 Yes [id number] 25mg Take 1 Univers e 25 mg 2-14 tablet by ity of tablet 00:00: mouth [place] 00 every 6 Medical (six) Branch hours as needed for Nausea and Vomiting (N/V). proMETHazin 2021-0 Yes [id number] 25mg Take 1 Univers e 25 mg 2-14 tablet by ity of tablet 00:00: mouth [place] 00 every 6 Medical (six) Branch hours as needed for Nausea and Vomiting (N/V). proMETHazin 202-0 Yes [id number] 25mg Take 1 Univers e 25 mg 2-14 tablet by ity of tablet 00:00: mouth [place] 00 every 6 Medical (six) Branch hours as needed for Nausea and Vomiting (N/V). proMETHazin 2021-0 Yes [id number] 25mg Take 1 Univers e 25 mg 2-14 tablet by ity of tablet 00:00: mouth [place] 00 every 6 Medical (six) Branch hours as needed for Nausea and Vomiting (N/V). proMETHazin 0 Yes [id number] 25mg Take 1 Univers e 25 mg 2-14 tablet by ity of tablet 00:00: mouth [place] 00 every 6 Medical (six) Branch hours as needed for Nausea and Vomiting (N/V). proMETHazin 0 Yes [id number] 25mg Take 1 Univers e 25 mg 2-14 tablet by ity of tablet 00:00: mouth [place] 00 every 6 Medical (six) Branch hours as needed for Nausea and Vomiting (N/V). proMETHazin 0 Yes [id number] 25mg Take 1 Univers e 25 mg 2-14 tablet by ity of tablet 00:00: mouth [place] 00 every 6 Medical (six) Branch hours as needed for Nausea and Vomiting (N/V). proMETHazin 0 Yes [id number] 25mg Take 1 Univers e 25 mg 2-14 tablet by ity of tablet 00:00: mouth [place] 00 every 6 Medical (six) Branch hours as needed for Nausea and Vomiting (N/V). proMETHazin Yes [id number] 25mg Take 1 Univers e 25 mg 2-14 tablet by ity of tablet 00:00: mouth [place] 00 every 6 Medical (six) Branch hours as needed for Nausea and Vomiting (N/V). multivit-mi 2021- No Take by Un tera n/folic/vit 2-13 02-13 mouth ity of K/lycop 22:42: 00:00 daily. [place] (ONE-A-DAY 28 :00 Medical MEN'S Branch MULTIVITAMI N ORAL) dicyclomine Yes [id number] 20mg Take 1 Univers 20 mg 2-13 tablet by ity of tablet 00:00: mouth 4 [place] 00 (four) Medical times Branch daily as needed for Abdominal pain. ondansetron 0 Yes [id number] 4mg Take 1 Univers 4 mg 2-13 tablet by ity of disintegrat 00:00: mouth [place] ing tablet 00 every 8 Medica l (eight) Branch hours as needed for Nausea and Vomiting (N/V). dicyclomine 0 Yes [id number] 20mg Take 1 Univers 20 mg 2-13 tablet by ity of tablet 00:00: mouth 4 [place] 00 (four) Medical times Branch daily as needed for Abdominal pain. ondansetron 2022-0 Yes [id number] 4mg Take 1 Univers 4 mg 2-13 tablet by ity of disintegrat 00:00: mouth [place] ing tablet 00 every 8 Medica l (eight) Branch hours as needed for Nausea and Vomiting (N/V). dicyclomine 2022-0 Yes [id number] 20mg Take 1 Univers 20 mg 2-13 tablet by ity of tablet 00:00: mouth 4 [place] 00 (four) Medical times Branch daily as needed for Abdominal pain. ondansetron 2022-0 Yes [id number] 4mg Take 1 Univers 4 mg 2-13 tablet by ity of disintegrat 00:00: mouth [place] ing tablet 00 every 8 Medica l (eight) Branch hours as needed for Nausea and Vomiting (N/V). dicyclomine 2022-0 Yes [id number] 20mg Take 1 Univers 20 mg 2-13 tablet by ity of tablet 00:00: mouth 4 [place] 00 (four) Medical times Branch daily as needed for Abdominal pain. ondansetron 2022-0 Yes [id number] 4mg Take 1 Univers 4 mg 2-13 tablet by ity of disintegrat 00:00: mouth [place] ing tablet 00 every 8 Medica l (eight) Branch hours as needed for Nausea and Vomiting (N/V). dicyclomine 2022-0 Yes [id number] 20mg Take 1 Univers 20 mg 2-13 tablet by ity of tablet 00:00: mouth 4 [place] 00 (four) Medical times Branch daily as needed for Abdominal pain. ondansetron 2022-0 Yes [id number] 4mg Take 1 Univers 4 mg 2-13 tablet by ity of disintegrat 00:00: mouth [place] ing tablet 00 every 8 Medica l (eight) Branch hours as needed for Nausea and Vomiting (N/V). dicyclomine 2022-0 Yes [id number] 20mg Take 1 Univers 20 mg 2-13 tablet by ity of tablet 00:00: mouth 4 [place] 00 (four) Medical times Branch daily as needed for Abdominal pain. ondansetron 2022-0 Yes [id number] 4mg Take 1 Univers 4 mg 2-13 tablet by ity of disintegrat 00:00: mouth [place] ing tablet 00 every 8 Medica l (eight) Branch hours as needed for Nausea and Vomiting (N/V). dicyclomine 2022-0 Yes [id number] 20mg Take 1 Univers 20 mg 2-13 tablet by ity of tablet 00:00: mouth 4 [place] 00 (four) Medical times Branch daily as needed for Abdominal pain. ondansetron 2021-0 Yes [id number] 4mg Take 1 Univers 4 mg 2-13 tablet by ity of disintegrat 00:00: mouth [place] ing tablet 00 every 8 Medica l (eight) Branch hours as needed for Nausea and Vomiting (N/V). dicyclomine 2021-0 Yes [id number] 20mg Take 1 Univers 20 mg 2-13 tablet by ity of tablet 00:00: mouth 4 [place] 00 (four) Medical times Branch daily as needed for Abdominal pain. ondansetron 2021-0 Yes [id number] 4mg Take 1 Univers 4 mg 2-13 tablet by ity of disintegrat 00:00: mouth [place] ing tablet 00 every 8 Medica l (eight) Branch hours as needed for Nausea and Vomiting (N/V). dicyclomine 2021-0 Yes [id number] 20mg Take 1 Univers 20 mg 2-13 tablet by ity of tablet 00:00: mouth 4 [place] 00 (four) Medical times Branch daily as needed for Abdominal pain. ondansetron 2021-0 Yes [id number] 4mg Take 1 Univers 4 mg 2-13 tablet by ity of disintegrat 00:00: mouth [place] ing tablet 00 every 8 Medica l (eight) Branch hours as needed for Nausea and Vomiting (N/V). ketorolac 2021-2021- No [id number] 30mg Univers (TORADOL) 08-29 ity of injection 23:45: 22:53 [place] 30 mg 00 :00 Medical Branch ketorolac 2021-0 2021- No [id number] 30mg 30 mg, Univers (TORADOL) 08-29 Intramuscu ity of injection 23:45: 22:53 [place], ONCE, [place] 30 mg 00 :00 1 dose, On Medical Fri Branch 08/29/21 at 1745, Routine
mathematics faculty member approving Restricted medication : NAYELI BARRAZA methocarbam 2021- Yes [id number] 500mg Take 1 Univers oL 1-21 9103 tablet by ity of (ROBAXIN) 00:00: mouth 4 [place] 500 mg 00 (four) Medical tablet times Branch daily. methocarbam 2022-0 Yes [id number] 500mg Take 1 Univers oL 1-21 9103 tablet by ity of (ROBAXIN) 00:00: mouth 4 [place] 500 mg 00 (four) Medical tablet times Branch daily. methocarbam 2022-0 Yes [id number] 500mg Take 1 Univers oL 1-21 9103 tablet by ity of (ROBAXIN) 00:00: mouth 4 [place] 500 mg 00 (four) Medical tablet times Branch daily. methocarbam 2022-0 Yes [id number] 500mg Take 1 Univers oL 1-21 9103 tablet by ity of (ROBAXIN) 00:00: mouth 4 [place] 500 mg 00 (four) Medical tablet times Branch daily. methocarbam 2022-0 Yes [id number] 500mg Take 1 Univers oL 1-21 9103 tablet by ity of (ROBAXIN) 00:00: mouth 4 [place] 500 mg 00 (four) Medical tablet times Branch daily. methocarbam 2022-0 Yes [id number] 500mg Take 1 Univers oL 1-21 9103 tablet by ity of (ROBAXIN) 00:00: mouth 4 [place] 500 mg 00 (four) Medical tablet times Branch daily. methocarbam 2022-0 Yes [id number] 500mg Take 1 Univers oL 1-21 9103 tablet by ity of (ROBAXIN) 00:00: mouth 4 [place] 500 mg 00 (four) Medical tablet times Branch daily. methocarbam 2022-0 Yes [id number] 500mg Take 1 Univers oL 1-21 9103 tablet by ity of (ROBAXIN) 00:00: mouth 4 [place] 500 mg 00 (four) Medical tablet times Branch daily. methocarbam 2022-0 Yes [id number] 500mg Take 1 Univers oL 1-21 9103 tablet by ity of (ROBAXIN) 00:00: mouth 4 [place] 500 mg 00 (four) Medical tablet times Branch daily. methocarbam 2022-0 Yes [id number] 500mg Take 1 Univers oL 1-21 9103 tablet by ity of (ROBAXIN) 00:00: mouth 4 [place] 500 mg 00 (four) Medical tablet times Branch daily. methocarbam 2022-0 Yes [id number] 500mg Take 1 Univers oL 1-21 9103 tablet by ity of (ROBAXIN) 00:00: mouth 4 [place] 500 mg 00 (four) Medical tablet times Branch daily. methocarbam 2-0 Yes [id number] 500mg Take 1 Univers oL 1-21 9103 tablet by ity of (ROBAXIN) 00:00: mouth 4 [place] 500 mg 00 (four) Medical tablet times Branch daily. azithromyci 2-0 Yes Univer s n 250 mg 1-18 ity of tablet 00:00: [place] 00 Medical Branch ketoconazol 2-0 Yes Univer s e 200 mg 1-18 ity of tablet 00:00: [place] 00 Medical Branch azithromyci 2-0 Yes Univer s n 250 mg 1-18 ity of tablet 00:00: [place] 00 Medical Branch ketoconazol 2-0 Yes Univer s e 200 mg 1-18 ity of tablet 00:00: [place] 00 Medical Branch azithromyci 2-0 Yes Univer s n 250 mg 1-18 ity of tablet 00:00: [place] 00 Medical Branch ketoconazol 2-0 Yes Univer s e 200 mg 1-18 ity of tablet 00:00: [place] 00 Medical Branch azithromyci 2022-0 2022- No Unive rs n 250 mg 1-18 02-13 ity of tablet 00:00: 00:00 [place] 00 :00 Medical Branch ketoconazol 2022-0 2022- No Unive rs e 200 mg 1-18 02-13 ity of tablet 00:00: 00:00 [place] 00 :00 Medical Branch LIDOCAINE 2021-1 Yes Univers VISCOUS 2 % 2-03 ity of solution 00:00: [place] 00 Medical Branch predniSONE 2020-1 Yes Univers 20 mg 2-03 ity of tablet 00:00: [place] 00 Medical Branch LIDOCAINE 2021-1 Yes Univers VISCOUS 2 % 2-03 ity of solution 00:00: [place] 00 Medical Branch predniSONE 2021-1 Yes Univers 20 mg 2-03 ity of tablet 00:00: [place] 00 Medical Branch LIDOCAINE 2021-1 Yes Univers VISCOUS 2 % 2-03 ity of solution 00:00: [place] 00 Medical Branch predniSONE 2021-1 Yes Univers 20 mg 2-03 ity of tablet 00:00: [place] 00 Medical Branch LIDOCAINE 2021-1 2022- No Univers VISCOUS 2 % 09-11 ity of solution 00:00: 00:00 [place] 00 :00 Medical Branch predniSONE 2020-08- No Univer s 20 mg 09-11 ity of tablet 00:00: 00:00 [place] 00 :00 Medical Branch ibuprofen 2020-08- No Univers 800 mg 09-11 ity of tablet 00:00: 00:00 [place] 00 :00 Medical Branch ondansetron 2020-0 Yes [id number] 4mg Take 1 Univers (ZOFRAN 6-16 tablet by ity of ODT) 4 mg 00:00: mouth [place] disintegrat 00 every 8 Medic al ing tablet (eight) Branch hours as needed for Nausea and Vomiting (N/V). ondansetron 2020-0 Yes [id number] 4mg Take 1 Univers (ZOFRAN 6-16 tablet by ity of ODT) 4 mg 00:00: mouth [place] disintegrat 00 every 8 Medic al ing tablet (eight) Branch hours as needed for Nausea and Vomiting (N/V). ondansetron 2020-0 Yes [id number] 4mg Take 1 Univers (ZOFRAN 6-16 tablet by ity of ODT) 4 mg 00:00: mouth [place] disintegrat 00 every 8 Medic al ing tablet (eight) Branch hours as needed for Nausea and Vomiting (N/V). ondansetron 2020-0 Yes [id number] 4mg Take 1 Univers (ZOFRAN 6-16 tablet by ity of ODT) 4 mg 00:00: mouth [place] disintegrat 00 every 8 Medic al ing tablet (eight) Branch hours as needed for Nausea and Vomiting (N/V). ondansetron 2020-0 Yes [id number] 4mg Take 1 Univers (ZOFRAN 6-16 tablet by ity of ODT) 4 mg 00:00: mouth [place] disintegrat 00 every 8 Medic al ing tablet (eight) Branch hours as needed for Nausea and Vomiting (N/V). ondansetron 2020-0 Yes [id number] 4mg Take 1 Univers (ZOFRAN 6-16 tablet by ity of ODT) 4 mg 00:00: mouth [place] disintegrat 00 every 8 Medic al ing tablet (eight) Branch hours as needed for Nausea and Vomiting (N/V). ondansetron 2020-0 Yes [id number] 4mg Take 1 Univers (ZOFRAN 6-16 tablet by ity of ODT) 4 mg 00:00: mouth [place] disintegrat 00 every 8 Medic al ing tablet (eight) Branch hours as needed for Nausea and Vomiting (N/V). ondansetron 2020-0 Yes [id number] 4mg Take 1 Univers (ZOFRAN 6-16 tablet by ity of ODT) 4 mg 00:00: mouth [place] disintegrat 00 every 8 Medic al ing tablet (eight) Branch hours as needed for Nausea and Vomiting (N/V). ondansetron 2020-0 Yes [id number] 4mg Take 1 Univers (ZOFRAN 6-16 tablet by ity of ODT) 4 mg 00:00: mouth [place] disintegrat 00 every 8 Medic al ing tablet (eight) Branch hours as needed for Nausea and Vomiting (N/V). ondansetron 2020-0 Yes [id number] 4mg Take 1 Univers (ZOFRAN 6-16 tablet by ity of ODT) 4 mg 00:00: mouth [place] disintegrat 00 every 8 Medic al ing tablet (eight) Branch hours as needed for Nausea and Vomiting (N/V). ondansetron 2020-0 Yes [id number] 4mg Take 1 Univers (ZOFRAN 6-16 tablet by ity of ODT) 4 mg 00:00: mouth [place] disintegrat 00 every 8 Medic al ing tablet (eight) Branch hours as needed for Nausea and Vomiting (N/V). ondansetron 2020-0 Yes [id number] 4mg Take 1 Univers (ZOFRAN 6-16 tablet by ity of ODT) 4 mg 00:00: mouth [place] disintegrat 00 every 8 Medic al ing tablet (eight) Branch hours as needed for Nausea and Vomiting (N/V). multivit-mi 2018-0 Yes Take by Uni vers n/folic/vit 9-23 mouth ity of K/lycop 13:48: daily. [place] (ONE-A-DAY 02 [facility] MULTIVITAMI N ORAL) multivit-mi 2018-0 Yes Take by Uni vers n/folic/vit 9-23 mouth ity of K/lycop 13:48: daily. [place] (ONE-A-DAY [facility] MULTIVITAMI N ORAL) multivit-mi 2018- Yes Take by Uni vers n/folic/vit - mouth ity of K/lycop 13:48: daily. [place] (ONE-A-DAY [facility] MEN'S Branch MULTIVITAMI N ORAL) Vital Signs Vital Name Observation Time Observation Value Comments Source Systolic blood 2022-12-08 15:34:00 129 mm[Hg] [facility]iver [facility] of [facility] Diastolic blood 2022-12-08 15:34:00 83 mm[Hg] Unive rsity of [facility] Heart rate 2022-12-08 15:34:00 76 /min Universi ty [facility] Body temperature 2022-12-08 15:34:00 36.78 Karla [facility] 2022-12-08 15:34:00 18 /min [facility] Body height 2022-12-08 15:34:00 [facility] Body weight 2022-12-08 15:34:00 [facility] 2022-12-08 15:34:00 32.58 kg/m2 [facility] Oxygen saturation in 2022-12-08 15:34:00 98 /min University of Arterial blood by [facility] Pulse oximetry Branch Systolic blood 2022-12-02 16:41:00 130 mm[Hg] [facility] Medicine Diastolic blood 2022-12-02 16:41:00 80 mm[Hg] [facility] Medicine Heart rate 2022-12-02 16:41:00 83 /min [facility] Respiratory rate 2022-12-02 16:41:00 16 /min [facility] Body height 2022-12-02 16:41:00 182.9 cm [facility] Body weight 2022-12-02 16:41:00 108.863 kg [facility] BMI 2022-12-02 16:41:00 32.55 kg/m2 [facility] Systolic blood 2022-12-02 01:00:00 155 mm[Hg] Univer sity of [facility] Diastolic blood 2022-12-02 01:00:00 110 mm[Hg] Unive rsity of pressure [place] [facility] Heart rate 2022-12-02 01:00:00 87 /min Universi ty [facility] [place] [facility] Respiratory rate 2022-12-02 01:00:00 17 /min Univ ersity [facility] [place] [facility] Oxygen saturation in 2022-12-02 01:00:00 98 /min University of Arterial blood by [facility] Pulse oximetry Branch Body temperature 2022-12-01 23:31:00 36.89 Karla Univ ersity [facility] [place] [facility] Body height 2022-12-01 23:31:00 182.9 cm Universi ty of [place] [facility] Body weight 2022-12-01 23:31:00 108.863 kg Universi ty [facility] [place] [facility] BMI 2022-12-01 23:31:00 32.55 kg/m2 Universi ty [facility] [place] [facility] Systolic blood 2022-11-26 02:30:00 145 mm[Hg] Univer sity of pressure [place] [facility] Diastolic blood 2022-11-26 02:30:00 93 mm[Hg] Unive rsity of pressure [place] [facility] Heart rate 2022-11-26 02:30:00 71 /min Universi ty [facility] [place] [facility] Respiratory rate 2022-11-26 02:30:00 16 /min [facility] Oxygen saturation in 2022-11-26 02:30:00 99 /min [facility] Arterial blood by [facility] Pulse oximetry Branch Body temperature 2022-11-26 00:39:00 37.33 Karla [facility] Body height 2022-11-26 00:39:00 182.9 cm [facility] Body weight 2022-11-26 00:39:00 111.131 kg [facility] BMI 2022-11-26 00:39:00 33.23 kg/m2 [facility] Body temperature 2022-11-25 02:04:00 36.89 Karla [facility] Systolic blood 2022-11-25 02:00:00 152 mm[Hg] [facility] Diastolic blood 2022-11-25 02:00:00 90 mm[Hg] [facility] Heart rate 2022-11-25 02:00:00 78 /min [facility] Respiratory rate 2022-11-25 02:00:00 22 /min [facility] Body weight 2022-11-25 02:00:00 111.131 kg [facility] BMI 2022-11-25 02:00:00 33.23 kg/m2 [facility] Oxygen saturation in 2022-11-25 02:00:00 99 /min [facility] Arterial blood by [employer] [facility] Pulse oximetry Branch Systolic blood 2022-01-26 04:00:00 143 mm[Hg] [facility] Diastolic blood 2022-01-26 04:00:00 75 mm[Hg] [facility] Heart rate 2022-01-26 04:00:00 74 /min [facility] Respiratory rate 2022-01-26 04:00:00 19 /min [facility] Oxygen saturation in 2022-01-26 04:00:00 99 /min [facility] Arterial blood by [place] [employer] [facility] Pulse oximetry Branch Body temperature 2022-01-26 02:17:00 36.94 Karla [facility] Body height 2022-01-26 02:16:00 182.9 cm [facility] Body weight 2022-01-26 02:16:00 122.471 kg [facility] BMI 2022-01-26 02:16:00 36.62 kg/m2 [facility] Systolic blood 2021-09-22 06:16:00 128 mm[Hg] [facility] Diastolic blood 2021-09-22 06:16:00 72 mm[Hg] [facility] Heart rate 2021-09-22 06:16:00 115 /min [facility] Body temperature 2021-09-22 06:16:00 38.28 Karla [facility] Respiratory rate 2021-09-22 06:16:00 20 /min [facility] Oxygen saturation in 2021-09-22 06:16:00 96 /min [facility] Arterial blood by [employer] [facility] Pulse oximetry Branch Body height 2021-09-22 02:54:00 182.9 cm [facility] Body weight 2021-09-22 02:54:00 122.471 kg [facility] BMI 2021-09-22 02:54:00 36.62 kg/m2 [facility] Systolic blood 2021-08-29 22:09:00 138 mm[Hg] [facility] Diastolic blood 2021-08-29 22:09:00 84 mm[Hg] [facility] Heart rate 2021-08-29 22:09:00 83 /min [facility] Body temperature 2021-08-29 22:09:00 36.89 Karla [facility] 2021-08-29 22:09:00 18 /min [facility] Body height 2021-08-29 22:09:00 182.9 cm [facility] Body weight 2021-08-29 22:09:00 111.131 kg [facility] BMI 2021-08-29 22:09:00 33.23 kg/m2 [facility] Oxygen saturation in 2021-08-29 22:09:00 98 /min [facility] Arterial blood by [facility] Pulse oximetry Branch Procedures Procedure Date / Time Performing Clinician Source Performed LIPASE 2022-12-02 00:29:00 Bright Spencer [facility] TROPONIN I 2022-12-02 00:29:00 Bright Spencer [facility] COMP. METABOLIC PANEL 2022-12-02 00:29:00 Bright Spencer [facility] ([id number]) [facility] CBC WITH DIFF 2022-12-02 00:29:00 Bright Spencer [facility] D-DIMER 2022-12-02 00:29:00 Bright Spencer [facility] URINE DRUG (IMMUNOASSAY) 2022-12-02 00:25:00 Bright Spencer [facility] Medical [facility] nc SCREEN W/O REFLEX XR CHEST 2 VW 2022-12-02 00:15:33 Bright Spencer [facility] CONSENT/REFUSAL FOR 2022-12-01 23:16:31 [facility], [facility] Name [facility] PROTHROMBIN TIME / INR 2022-11-26 01:45:00 Chon Busch [facility] D-DIMER 2022-11-26 01:45:00 Chon [facility] ACTIVATED PARTIAL 2022-11-26 01:45:00 Chon Busch [facility] THRMPLAS JHOAN [facility] URINALYSIS 2022-11-26 01:45:00 Narayan [facility] URINE DRUG (IMMUNOASSAY) 2022-11-26 01:45:00 Chon Busch [facility] DRUG [facility] nch SCREEN W/O REFLEX MAGNESIUM 2022-11-26 00:41:00 Narayan [facility] FREE T4 2022-11-26 00:41:00 Chon Busch [facility] THYROID STIMULATING 2022-11-26 00:41:00 Chon Busch [facility] HORMONE [facility] COMP. METABOLIC PANEL 2022-11-26 00:41:00 Chon Busch [facility] ([id number]) [facility] CBC WITH DIFF 2022-11-26 00:41:00 Narayan [facility] CONSENT/REFUSAL FOR 2022-11-26 00:26:36 Doctor Unassigned, No [facility]AT[facility] Name Medical Branch LIPASE 2022-11-25 02:30:00 Randy Buckner [facility] MAGNESIUM 2022-11-25 02:30:00 Randy Buckner [facility] TROPONIN I 2022-11-25 02:30:00 Randy Buckner [facility] HEPATIC FUNCTION PANEL 2022-11-25 02:30:00 Randy Buckner [facility] ([id number]) (ALB,T.PRO,BILI Medical Branch T,BU/BC,ALT,AST,ALK PHOS) BASIC METABOLIC PANEL 2022-11-25 02:30:00 Randy Buckner [facility] (NA, K, CL, CO2, Medical Branch GLUCOSE, BUN, CREATININE, CA) CBC WITH DIFF 2022-11-25 02:30:00 Randy Buckner [facility] CT ABDOMEN PELVIS W 2022-01-26 03:43:42 Raman Zimmerman [facility] CONTRAST Medical Branch AMYLASE 2022-01-26 02:23:00 Raman Zimmerman [facility] LIPASE 2022-01-26 02:23:00 Raman Zimmerman [facility] COMP. METABOLIC PANEL 2022-01-26 02:23:00 Raman Zimmerman [facility] ([id number]) Medical Branch CBC WITH DIFF 2022-01-26 02:23:00 Raman Zimmerman [facility] URINALYSIS 2022-01-26 02:23:00 Raman Zimmerman [facility] CONSENT/REFUSAL FOR 2022-01-26 02:11:11 Doctor Unassigned, No [facility] DIAGNOSIS AND TREATMENT Name Medical Branch LIPASE 2021-09-22 03:15:00 Frannie Murcia [facility] COMP. METABOLIC PANEL 2021-09-22 03:15:00 Frannie Murcia [facility] ([id number]) Medical Branch CBC WITH DIFF 2021-09-22 03:15:00 Frannie Murcia [facility] RAPID INFLUENZA A/B 2021-09-22 03:15:00 Frannie Murcia [facility] COVID-19 (ID NOW RAPID 2021-09-22 03:15:00 Frannie Murcia [facility] TESTING) Medical Branch URINALYSIS 2021-09-22 03:14:00 Frannie Murcia [facility] NOTICE OF PRIVACY 2021-09-22 02:49:48 Doctor Unassigned, No [facility] PRACTICES Name [facility] CONSENT/REFUSAL FOR 2021-09-22 02:49:13 [facility], [facility] DIAGNOS[facility] TREATMENT Name [facility] POCT MOLECULAR STREP 2021-08-29 22:24:00 Nayeli Barraza [facility] EMERGENCY DEPARTMENT Doctor Unassigned, No [facility] DOCUMENTS Name Medical Branch Plan of Care Planned Activity Planned Date Details Comments Source Future Scheduled 2022-12-15 COVID-19 VACCINE (#1) [facility] 14:02:55 [code = COVID-19 Hospital VACCINE (#1)] Future Scheduled 2022-12-15 COVID-19 VACCINE (#1) [facility] Test 14:02:55 [code = COVID-19 Hospital VACCINE (#1)] Future Scheduled 2022-12-15 INFLUENZA VACCINE [code [facility] Test 14:02:55 = INFLUENZA VACCINE] Hospita l Future Scheduled 2022-12-15 INFLUENZA VACCINE [code [facility] Test 14:02:55 = INFLUENZA VACCINE] Hospita l Future Scheduled 2022-12-15 COVID-19 VACCINE (#1) [facility] Test 14:02:55 [code = COVID-19 Hospital VACCINE (#1)] Future Scheduled 2022-12-15 INFLUENZA VACCINE [code [facility] Test 14:02:55 = INFLUENZA VACCINE] Hospita l Future Scheduled 2022-12-02 BMI Follow Up Plan [facility] Test 12:28:02 [code = BMI Follow Up of Med icine Plan] Future Scheduled 2022-12-02 Human immunodeficiency [employer] Test 12:28:02 virus screening of Medicine (procedure) [code = 827759328] Future Scheduled 2022-12-02 Hepatitis C screening [employer] [facility] [employer] Test 12:28:02 (procedure) [code = of Medic ine 067591477] Future Scheduled 2022-12-02 TETANUS SHOT (ADULT) [facility] Test 12:28:02 [code = TETANUS SHOT of Medi cine (ADULT)] Future Scheduled 2022-12-02 COVID-19 Vaccine (3 - [employer] Test 12:28:02 Booster) [code = of Medicine COVID-19 Vaccine (3 - Booster)] Future Scheduled 2022-12-02 FLU VACCINE > 6 MONTHS [employer] Test 12:28:02 [code = FLU VACCINE > 6 of M edicine MONTHS] Future Scheduled 2022-12-02 TSH [code = 46227-4] Ordered: [facility] [employer] Test 12:23:39 12/02/2022 of Medicine Future Scheduled 2022-12-02 T4 FREE [code = 3024-7] Ordered: [facility] Test 12:23:39 12/02/2022 of Medicine Future Scheduled 2022-12-02 T3 [code = 3053-6] Ordered: [facility] Test 12:23:39 12/02/2022 of Medicine Future Scheduled 2022-12-02 COMPREHENSIVE METABOLIC Ordered: [facility] Test 12:23:39 PANEL [code = 94347-1] 12/02/2022 of Me dicine Future Scheduled 2022-12-02 RENIN ACTIVITY [code = Ordered: [facility] Test 12:23:39 2915-7] 12/02/2022 of Medicine Future Scheduled 2022-12-02 ALDOSTERONE [code = Ordered: [facility] Test 12:23:39 1763-2] 12/02/2022 of Medicine Future Scheduled 2022-12-02 THYROID ANTIBODY GROUP Ordered: [facility] Test 12:23:39 (TPO + TG) [code = 12/02/2022 of Medici ne NOCPT] Future Scheduled 2022-12-02 THYROTROPIN RECEPTOR,AB Ordered: [facility] Test 12:23:39 [code = 34731-7] 12/02/2022 of Medicine Future Scheduled 2022-12-02 THYROID STIMULATING Ordered: [facility] Test 12:23:39 IMMUNOGLOBULIN [code = 12/02/2022 of Me dicine 10701-1] Future Scheduled 2022-12-02 METANEPHRINE,FRACT,LC/M Ordered: [facility] Test 12:23:39 S/MS,PL [code = NOCPT] 12/02/2022 of Me dicine Future Scheduled 2022-12-02 HEMOGLOBIN A1C [code = Ordered: [facility] Test 12:23:39 4548-4] 12/02/2022 of Medicine Future Scheduled 2022-12-02 DHEA-SULFATE [code = Ordered: [facility] Test 12:23:39 2191-5] 12/02/2022 of Medicine Future Scheduled 2022-11-07 INFLUENZA VACCINE [code [facility] Test 16:35:12 = INFLUENZA VACCINE] Hospita l Future Scheduled 2022-11-07 COVID-19 VACCINE (#1) [facility] Test 16:35:12 [code = COVID-19 Hospital VACCINE (#1)] Future Scheduled 2022-11-07 INFLUENZA VACCINE [code [facility] Test 16:35:12 = INFLUENZA VACCINE] Hospita l Future Scheduled 2022-11-07 COVID-19 VACCINE (#1) [facility] Test 16:35:12 [code = COVID-19 Hospital VACCINE (#1)] Encounters Start End Encounter Admission Attending Care Care Encounter Source Date/Time Date/Time Type Type Clinicians Facility Department ID 2021-09-03 Outpatient Iverson, STLMLC [facility] [id number] Common 11:19:38 TressaRosalindh [address] [facility] it - [facility] 2021-06-06 Emergency [facility] [id number] Univers 01:08:11 ity [facility] 2022-12-16 2022-12-16 Outpatient R LUPE, [facility] [id number] Univers 08:00:00 23:59:00 NING rodriguez [facility] 2022-12-15 2022-12-15 Outpatient R LUPE, [facility] [id number] Univers 14:00:00 23:59:00 [facility] 2022-12-08 2022-12-08 [facility] [id number] Univers 10:00:00 10:55:20 [facility] 2022-12-08 2022-12-08 Office Lupe, [facility] [id number] Univers 10:00:00 10:55:20 Visit Ning MALDONADO 350.1.13.10 ity [place] [id number] Or dical NAL 059 Branch [facility] 2022-12-02 2022-12-02 Office Deal, Ace [facility] [id number] [facility] 11:45:00 12:28:18 Visit AMBULATOR 350.1.13.21 College Y 0.2.7.2.686 of [id number] Medi adrianna 310 e 2022-12-01 2022-12-01 Emergency X CHAPARRO, [facility] ERT [id number] Univers 18:34:00 21:44:00 JOSUE ity of [facility] 2022-12-01 2022-12-01 Emergency Bright Spencer [facility] 1.2. [id number] Univers 18:34:00 21:44:00 Josue Jacobson 350.1.13.10 ity of [place] 4.2.7.2.686 [facility] [id number] [address] 2022-11-25 2022-11-25 Emergency X [facility] ERT [id number] Univers 19:32:00 21:59:00 CHON ity [facility] 2022-11-25 2022-11-25 Emergency [facility] [id number] Univers 19:32:00 21:59:00 Chon [facility] 350.1.13.10 i ty of [place] 4.2.7.2.686 [facility] [id number] [address] 2022-11-24 2022-11-24 Emergency X LANCE WAKEFIELD [facility] ERT 1 [id number] Univers 21:04:00 23:27:00 LANCE WAKEFIELD ity [facility] 2022-11-24 2022-11-24 Emergency Nick, TRAUMA [id number] Univers 21:04:00 23:27:00 [facility] 350.1.13.10 ity of 4.2.7.2.686 [facility] [id number] [facility] 014 Branch 2022-01-25 2022-01-26 Emergency [facility] [id number] Univers 21:14:00 00:03:00 JAMIELI ity [facility] 2022-01-25 2022-01-26 Emergency [facility] [id number] Univers 21:14:00 00:03:00 Raman MALDONADO 350.1.13.10 ity of [place] 4.2.7.2.686 [facility] [id number] [place] [address] Branch 2022-01-25 2022-01-25 Orders Doctor MARQUISE 1.2.840.114 [id number] Univers 00:00:00 00:00:00 Only Unassigned, ROMEL 350.1.13.10 ity of [place] [facility] 4.2.7.2.686 Rober as [id number] [address] 2021-09-21 2021-09-22 Emergency X [facility] ERT [id number] Univers 21:01:00 03:07:00 FRANNIE ity [facility] 2021-09-21 2021-09-22 Emergency [facility] [id number] Univers 21:01:00 03:07:00 Frannie MALDONADO 350.1.13.10 ity of [place] 4.2.7.2.686 [place] [facility] [id number] [place] [id number] [place] 2021-09-21 2021-09-21 Orders Doctor MARQUISE 1.2.840.114 [id number] Univers 00:00:00 00:00:00 Only Unassigned, ROMEL 350.1.13.10 ity of [place] [facility] 4.2.7.2.686 Rober as [id number] [address] 2021-08-29 2021-08-29 Outpatient R [facility] [id number] Univers 16:33:39 23:59:00 [facility] 2021-08-29 2021-08-29 [facility] 1.2.840.114 [id number] Univers 16:33:39 23:59:00 Encounter Nayeli HEALTH 350.1.13.10 ity of [place] 4.2.7.2.686 Rober as SAURAV?BLEA [id number] Or екатеринаUAB HospitalSTEPHENIE [address] [place] MEDICAL OFFICE [facility] 2021-08-29 2021-08-[address] [facility] 1.2.840.114 [id number] Univers 16:20:00 16:53:00 Care Nayeli HEALTH 350.1.13.10 it y of [place] 4.2.7.2.686 Rober as SAURAV?BLEA [id number] Or pavan [facility] [address] [place] MEDICAL OFFICE BUILDING 2020-01-22 2020-01-23 Emergency Raquel, K [facility] 1.2.840.114 [id number] 22:24:14 00:57:00 Juany Maldonado 350.1.13.10 [place] 4.2.7.2.686 [place] [id number] 084 2019-12-04 2019-12-04 Outpatient [facility] [id number] Common 13:30:00 13:30:00 t Specialty/U Sp carmen Specialty rology - [facility] /[facility] Orders Doctor MARQUISE 1.2.840.114 [id number] Univers 00:00:00 00:00:00 Only Unassigned, ROMEL 350.1.13.10 ity of [place] [facility] 4.2.7.2.686 [facility] as [id number] [facility] 009 Branch Results Test Description Test Time Test Comments Results Result Comments Source COMP. METABOLIC PANEL ([id number]) 2022-12-02 01:30:11 Test Item Value Reference Range Interpretation Comme nts NA (test code = 3319771433) 139 mmol/L 135-145 K (test code = 8917685684) 4.1 mmol/L 3.5-5.0 CL (test code = 5441002436) 106 mmol/L 98-108 CO2 TOTAL (test code = 9793926938) 21 mmol/L 23-31 L AGAP (test code = 7809512246) 12 2-16 BUN (test code = 3480374281) 15 mg/dL 7-23 GLUCOSE (test code = 4364184297) 105 mg/dL 70-110 CREATININE (test code = 0.95 mg/dL 0.60-1.25 4000309251) TOTAL BILI (test code = 1.6 mg/dL 0.1-1.1 H 9596755031) CALCIUM (test code = 1862747916) 9.6 mg/dL 8.6-10.6 T PROTEIN (test code = 2907262454) 8.9 g/dL 6.3-8.2 H ALBUMIN (test code = 2795141009) 5.1 g/dL 3.5-5.0 H ALK PHOS (test code = 2000922780) 56 U/L 34-122 ALTv (test code = 1742-6) 66 U/L 5-50 H AST(SGOT) (test code = 2652653624) 38 U/L 13-40 eGFR (test code = 3098246830) 93.1 mL/min/1.73m2 FREDI (test code = FREDI) [...] tests). Lab Interpretation (test code = Abnormal 60652-9) [facility] [id number] 01:21:50 Test Item Value Reference Range Interpretation Comments TROPONIN I (test code = 0.006 ng/mL <=0.034 7208048185) FREDI (test code = FREDI) Reference (Normal) [...] biotin. Lab Interpretation Normal (test code = 38289-4) [facility] Texas[facility]-[id number] 01:11:53 Test Item Value Reference Interpretation Comments Range D-DIMER (test code = See_Comment [Autom ated 0853240697) message] The system which generated this result [...] diagnosis. Lab Interpretation Normal (test code = 16609-2) [facility] 01:09:47 Test Item Value Reference Range Interpretation Comments LIPASE (test code = 9606261741) 63 U/L 0-220 Lab Interpretation (test code = Normal 84430-8) [facility] WITH [id number] 00:58:04 Test Item Value Reference Range Interpretation Comments WBC (test code = 5.72 See_Comment [Automated message] 6690-2) The system [employer] generated this result transmitted ref erence range: 4.20 - 1 0.70 10*3/?L. The re ference range was not u sed to interpret this result as normal/abnor mal. RBC (test code = 4.98 See_Comment [Automated message] 216-8) The system [employer] generated this result transmitted ref erence range: [...] RDW-SD (test code 39.0 fL 38.5-51.6 = 03712-8) RDW-CV (test code 12.8 % 12.1-15.4 = 788-0) PLT (test code = 291 See_Comment [Automated message] 477-3) The system [employer] generated this result transmitted ref erence range: 150 - 32 8 10*3/?L. The re ference range was not u sed to interpret this result as normal/abnor mal. MPV (test code = 10.2 fL 9.8-13.0 84928-0) NRBC/100 WBC (test 0.0 See_Comment [Automat ed message] code = 2099967224) The syste m which generated this result transmitted ref erence range: 0.0 - 10 .0 /100 WBCs. The refer ence range was not u sed to interpret this result as normal/abnor mal. NRBC x10^3 (test See_Comment [Automated message] code = 6733476594) The syste m which generated this result transmitted ref erence range: 10*3/?L. The reference range was not used to interpr et this result as normal/abnormal . GRAN MAT (NEUT) % 49.2 % (test code = 770-8) IMM GRAN % (test 0.20 % code = 2219013456) LYMPH % (test code 38.5 % = 736-9) MONO % (test code 8.7 % = 5905-5) EOS % (test code = 2.4 % 713-8) BASO % (test code 1.0 % = 706-2) GRAN MAT 2.81 10*3/uL 1.99-6.95 x10^3(ANC) (test code = 4400417296) IMM GRAN x10^3 0.00-0.06 (test code = 8094224499) LYMPH x10^3 (test 2.20 10*3/uL 1.09-3.23 code = 731-0) MONO x10^3 (test 0.50 10*3/uL 0.36-1.02 code = 742-7) EOS x10^3 (test 0.14 10*3/uL 0.06-0.53 code = 711-2) BASO x10^3 (test 0.06 10*3/uL 0.01-0.09 code = 704-7) [facility] WITH [id number] 03:26:51 Test Item Value Reference Range Interpretation Comments WBC (test code = 4.68 See_Comment [Automated 7175-2) message] The sy stem which generated this result transmitted reference range : 4.20 - 10.70 10*3/?L. The reference range was not used to interpret this result as normal/abnormal . RBC (test code = 4.55 See_Comment [Automated 750-8) message] The sy stem which generated this [...] RDW-SD (test code = 41.0 fL 38.5-51.6 62133-8) RDW-CV (test code = 13.2 % 12.1-15.4 788-0) PLT (test code = 242 See_Comment [Automated 777-3) message] The sy stem which generated this result transmitted reference range : 150 - 328 10*3/ ?L. The reference r stefan was not used to interpret this result as normal/abnormal . MPV (test code = 10.3 fL 9.8-13.0 69142-7) NRBC/100 WBC (test 0.0 See_Comment [Automat ed code = 0354413289) message] The system which generated this result transmitted reference range : 0.0 - 10.0 /100 WBCs. The refer ence range was not u sed to interpret th is result as normal/abnormal . NRBC x10^3 (test code See_Comment [Auto mated = 6370877074) message] The s ystem which generated this result transmitted reference range : 10*3/?L. The reference range was not used to interpret this result as normal/abnormal . GRAN MAT (NEUT) % 41.9 % (test code = 770-8) IMM GRAN % (test code 0.20 % = 9084379417) LYMPH % (test code = 41.2 % 736-9) MONO % (test code = 9.0 % 5905-5) EOS % (test code = 7.1 % 713-8) BASO % (test code = 0.6 % 706-2) GRAN MAT x10^3(ANC) 1.96 10*3/uL 1.99-6.95 L (test code = 1390763387) IMM GRAN x10^3 (test 0.00-0.06 code = 0790589901) LYMPH x10^3 (test code 1.93 10*3/uL 1.09-3.23 = 731-0) MONO x10^3 (test code 0.42 10*3/uL 0.36-1.02 = 742-7) EOS x10^3 (test code = 0.33 10*3/uL 0.06-0.53 711-2) BASO x10^3 (test code 0.03 10*3/uL 0.01-0.09 = 704-7) Lab Interpretation Abnormal (test code = 32715-4) [facility] [id number] 03:13:03 Test Item Value Reference Range Interpretation Comments TROPONIN I (test code = 0.005 ng/mL <=0.034 6033022126) FREDI (test code = FREDI) Reference (Normal) [...] biotin. Lab Interpretation Normal (test code = 22972-6) [facility]23-04-19 03:03:43 Test Item Value Reference Range Interpretation Comments LIPASE (test code = 0096542758) 48 U/L 0-220 Lab Interpretation (test code = Normal 19999-7) [facility] FUN[facility] PANEL (28694) (ALB,T.PRO,BILI T,BU/BC,ALT,AST,ALK PHOS)2022-11-25 03:03:42 Test Item Value Reference Range Interpretation Comments TOTAL BILI (test code = 0711759518) 0.5 mg/dL 0.1-1.1 BILI UNCON (test code = 4597411868) 0.3 mg/dL 0.1-1.1 BILI CONJ (test code = 3557119532) 0.0 mg/dL 0.0-0.3 T PROTEIN (test code = 0880720910) 7.8 g/dL 6.3-8.2 ALBUMIN (test code = 0297305455) 4.7 g/dL 3.5-5.0 ALK PHOS (test code = 9189213055) 50 U/L 34-122 ALTv (test code = 1742-6) 77 U/L 5-50 H AST(SGOT) (test code = 5379733080) 39 U/L 13-40 Lab Interpretation (test code = Abnormal 69467-4) [facility] TexasBASI METABOLIC PANEL (NA, K, CL, CO2, GLUCOSE, BUN, CREATININE, CA)2022-11-25 03:03:42 Test Item Value Reference Range Interpretation Comments NA (test code = 140 mmol/L 135-145 4624881851) K (test code = 3.6 mmol/L 3.5-5.0 6062864106) CL (test code = 105 mmol/L 98-108 6838607161) CO2 TOTAL (test code = 25 mmol/L 23-31 6663974451) AGAP (test code = 10 2-16 2149917247) BUN (test code = 13 mg/dL 7-23 8647320774) GLUCOSE (test code = 115 mg/dL 70-110 H 4585684359) CREATININE (test code = 0.80 mg/dL 0.60-1.25 6539015846) CALCIUM (test code = 9.2 mg/dL 8.6-10.6 6734544858) eGFR (test code = 113.5 mL/min/1.73m2 3001731875) FREDI (test code = FREDI) Association of [...] tests). Lab Interpretation Abnormal (test code = 38952-6) [facility] TexasMAGNESIUM2023-04-19 03:03:42 Test Item Value Reference Range Interpretation Comments MAGNESIUM (test code = 8702300918) 1.9 mg/dL 1.7-2.4 Lab Interpretation (test code = Normal 85751-4) [facility] TexasCB with [id number] 02:58:40 Test Item Value Reference Range Interpretation [...] (test code = 37.2 fL 38.5-51.6 L 37166-4) RDW-CV (test code = 12.2 % 12.1-15.4 788-0) PLT (test code = See_Comment [Automated 777-3) message] The sy stem which generated this result transmitted reference range : 150 - 328 10*3/ ?L. The reference r stefan was not used to interpret this result as normal/abnormal . MPV (test code = 10.4 fL 9.8-13.0 40271-9) NRBC/100 WBC (test See_Comment [Automat ed code = 0674895631) message] The system which generated this result transmitted reference range : 0.0 - 10.0 /100 WBCs. The refer ence range was not u sed to interpret th is result as normal/abnormal . NRBC x10^3 (test code <0.01 See_Comment [Auto mated = 2260405191) message] The s ystem which generated this result transmitted reference range : 10*3/?L. The reference range was not used to interpret this result as normal/abnormal . GRAN MAT (NEUT) % 43.2 % (test code = 770-8) IMM GRAN % (test code 0.40 % = 8493740204) LYMPH % (test code = 38.8 % 736-9) MONO % (test code = 10.1 % 5905-5) EOS % (test code = 6.7 % 713-8) BASO % (test code = 0.8 % 706-2) GRAN MAT x10^3(ANC) 2.14 10*3/uL 1.99-6.95 (test code = 8034522733) IMM GRAN x10^3 (test <0.03 0.00-0.06 code = 7028776718) LYMPH x10^3 (test code 1.92 10*3/uL 1.09-3.23 = 731-0) MONO x10^3 (test code 0.50 10*3/uL 0.36-1.02 = 742-7) EOS x10^3 (test code = 0.33 10*3/uL 0.06-0.53 711-2) BASO x10^3 (test code 0.04 10*3/uL 0.01-0.09 = 704-7) Lab Interpretation Abnormal (test code = 30184-4) [facility] TexasComplete Metabolic [id number] 02:47:58 Test Item Value Reference Range Interpretation Comments NA (test code = 141 mmol/L 135-145 1152823673) K (test code = 3.9 mmol/L 3.5-5.0 9496520380) CL (test code = 105 mmol/L 98-108 3514517736) CO2 TOTAL (test code = 27 mmol/L 23-31 9333540705) AGAP (test code = 2-16 3082618231) BUN (test code = 14 mg/dL 7-23 8400495380) GLUCOSE (test code = 147 mg/dL 70-110 H 8491153022) CREATININE (test code = 0.96 mg/dL 0.60-1.25 6234361545) TOTAL BILI (test code = 0.7 mg/dL 0.1-1.2 7002299270) CALCIUM (test code = 9.5 mg/dL 8.6-10.6 8768211607) T PROTEIN (test code = 7.7 g/dL 6.3-8.2 1224211606) ALBUMIN (test code = 4.4 g/dL 3.5-5.0 0232215482) ALK PHOS (test code = 60 U/L 34-122 2311353058) ALTv (test code = 116 U/L 5-50 H 2-6) AST(SGOT) (test code = 50 U/L 13-40 H 5147082102) eGFR (test code = mL/min/1.73m2 0257774434) FREDI (test code = FREDI) Association of [...] tests). Lab Interpretation Abnormal (test code = 26000-7) [facility] TexasLipase, [id number] 02:47:38 Test Item Value Reference Range Interpretation Comments LIPASE (test code = 9909888400) 86 U/L 0-220 Lab Interpretation (test code = Normal 48733-1) [facility] TexasAMYLASE2022-06-20 02:46:58 Test Item Value Reference Range Interpretation Comments ADRIANA (test code = 5805788809) 81 U/L 35-110 Lab Interpretation (test code = Normal 36407-5) [facility] TexasComplete Metabolic [id number] 03:57:42 Test Item Value Reference Range Interpretation Comments NA (test code = 137 mmol/L 135-145 7821423294) K (test code = 4.2 mmol/L 3.5-5.0 2660537986) CL (test code = 105 mmol/L 98-108 3849649198) CO2 TOTAL (test code = 25 mmol/L 23-31 4200258267) AGAP (test code = 2-16 6335229461) BUN (test code = 15 mg/dL 7-23 0334420270) GLUCOSE (test code = 120 mg/dL 70-110 H 8506052845) CREATININE (test code = 1.07 mg/dL 0.60-1.25 2868464453) TOTAL BILI (test code = 1.3 mg/dL 0.1-1.1 H 4913704523) CALCIUM (test code = 9.3 mg/dL 8.6-10.6 7747629673) T PROTEIN (test code = 8.8 g/dL 6.3-8.2 H 0469425703) ALBUMIN (test code = 5.1 g/dL 3.5-5.0 H 8672293824) ALK PHOS (test code = 59 U/L 34-122 2618367559) ALTv (test code = 62 U/L 5-50 H 1742-6) AST(SGOT) (test code = 46 U/L 13-40 H 8131424469) eGFR (test code = mL/min/1.73m2 8656329458) FREDI (test code = FREDI) Association of [...] tests). Lab Interpretation Abnormal (test code = 93421-6) [facility] TexasLIPASE2022-02-14 03:57:02 Test Item Value Reference Range Interpretation Comments LIPASE (test code = 0914722802) 80 U/L 0-220 Lab Interpretation (test code = Normal 02080-7) [facility] TexasCB with [id number] 03:35:00 Test Item Value Reference Range Interpretation Comments WBC (test code = See_Comment [Automated 0827-2) message] The sy stem which generated this result transmitted reference range : 4.20 - 10.70 10*3/?L. The reference range was not used to interpret this result as normal/abnormal . RBC (test code = See_Comment [Automated 119-3) message] The sy stem which generated this [...] (test code = 38.2 fL 38.5-51.6 L 29106-0) RDW-CV (test code = 12.6 % 12.1-15.4 788-0) PLT (test code = See_Comment [Automated 777-3) message] The sy stem which generated this result transmitted reference range : 150 - 328 10*3/ ?L. The reference r stefan was not used to interpret this result as normal/abnormal . MPV (test code = 10.6 fL 9.8-13.0 41380-1) NRBC/100 WBC (test See_Comment [Automat ed code = 9959580268) message] The system which generated this result transmitted reference range : 0.0 - 10.0 /100 WBCs. The refer ence range was not u sed to interpret th is result as normal/abnormal . NRBC x10^3 (test code <0.01 See_Comment [Auto mated = 6591478498) message] The s ystem which generated this result transmitted reference range : 10*3/?L. The reference range was not used to interpret this result as normal/abnormal . GRAN MAT (NEUT) % 80.9 % (test code = 770-8) IMM GRAN % (test code 0.40 % = 8474807335) LYMPH % (test code = 8.0 % 736-9) MONO % (test code = 6.9 % 5905-5) EOS % (test code = 3.4 % 713-8) BASO % (test code = 0.4 % 706-2) GRAN MAT x10^3(ANC) 4.23 10*3/uL 1.99-6.95 (test code = 4516647683) IMM GRAN x10^3 (test <0.03 0.00-0.06 code = 0969294583) LYMPH x10^3 (test code 0.42 10*3/uL 1.09-3.23 L = 731-0) MONO x10^3 (test code 0.36 10*3/uL 0.36-1.02 = 742-7) EOS x10^3 (test code = 0.18 10*3/uL 0.06-0.53 711-2) BASO x10^3 (test code <0.03 0.01-0.09 = 704-7) Lab Interpretation Abnormal (test code = 04283-0) [facility] TexasPOCT MOLECULAR [id number] 22:35:02 Test Item Value Reference Range Interpretation Comments POCT Molecular Strep (test code = Negative Negative 12333-1) Lab Interpretation (test code = Normal 12221-3) [facility]
--- NOTE | 2022-12-31 06:38 | ER ---
Nurse's Notes [facility] Name: Kd Velazquez Age: 32 yrs Sex: Male : 1990 Arrival Date: 12/31/2022 Time: 06:12 Bed 6 Private MD: Diagnosis: Hypotension now resolved Presentation: 12/31 06:24 Chief complaint: EMS states: We got a call saying he was sleeping and woke up dizzy and vc1 sweating he took his blood pressure and got 90/50 upon arrival we got a blood pressure of 110/80 pulse 72 and he was 98% on room air. He stated he longer felt dizzy but was lighheaded. Coronavirus screen: Vaccine status: Patient reports receiving the 2nd dose of the covid vaccine. Date 2020 [facility] Patient reports having had a previously documented Covid positive illness. Client denies travel out of the [place] in the last 14 days. At this time, the client does not indicate any symptoms associated with coronavirus-19. Ebola Screen: Patient negative for fever greater than or equal to 101.5 degrees Fahrenheit, and additional compatible Ebola Virus Disease symptoms Patient denies exposure to infectious person. Patient denies travel to an Ebola-affected area in the 21 days before illness onset. No symptoms or risks identified at this time. Initial Sepsis Screen: Does the patient meet any 2 criteria? No. Patient's initial sepsis screen is negative. Does the patient have a suspected source of infection? Yes: Productive cough/pneumonia. Risk Assessment: Do you want to hurt yourself or someone else? Patient reports no desire to harm self or others. Onset of symptoms is unknown. 06:24 Method Of Arrival: EMS: [facility] vc1 06:24 Acuity: NIELS 4 vc1 06:28 Note Pt was here yesterday and sent home with cipro, tessalon perles, and prednisone. vc1 Pt did not take the prednisone because he felt like it was a bad idea to take with his anxiety. Triage Assessment: 06:29 General: Appears in no apparent distress. comfortable, ill, Behavior is calm, vc1 cooperative, appropriate for age. Pain: Denies pain. EENT: No deficits noted. No signs and/or symptoms were reported regarding the EENT system. Neuro: Level of Consciousness is awake, alert, obeys commands, Oriented to person, place, time, situation, Appropriate for age. Neuro: Reports woke up dizzy but no longer dizzy, now experiencing light headedness. Cardiovascular: No deficits noted. Respiratory: Airway is patent Respiratory effort is even, unlabored, Respiratory pattern is regular, symmetrical. GI: No deficits noted. No signs and/or symptoms were reported involving the gastrointestinal system. : No deficits noted. No signs and/or symptoms were reported regarding the genitourinary system. Derm: No deficits noted. No signs and/or symptoms reported regarding the dermatologic system. Musculoskeletal: No deficits noted. No signs and/or symptoms reported regarding the musculoskeletal system. Historical: - Allergies: : No Known Allergies; vc1 - Home Meds: : buspirone 10 mg Oral tablet 2 times per day [Active]; diazepam 10 mg Oral tablet daily vc1 as needed for anxiety [Active]; methimazole 5 mg Oral tablet daily [Active]; - PMHx: :27 Anxiety; graves disease; vc1 - PSHx: :27 None; vc1 - Immunization history:: Client reports receiving the 2nd dose of the Covid vaccine. - Social history:: Smoking status: Patient denies any tobacco usage or history of. Screenin:31 [facility] ED Fall Risk Assessment (Adult) History of falling in the last 3 months, vc1 including since admission No falls in past 3 months (0 pts) Confusion or Disorientation No (0 pts) Intoxicated or Sedated No (0 pts) Impaired Gait No (0 pts) Mobility Assist Device Used No (0 pt) Altered Elimination No (0 pt) Score/Fall Risk Level 0 - 2 = Low Risk Oriented to surroundings, Maintained a safe environment, Educated pt \T\ family on fall prevention, incl call for assistance when getting out of bed. Abuse screen: Denies threats or abuse. Nutritional screening: No deficits noted. Tuberculosis screening: No symptoms or risk factors identified. Vital Signs: 06:17 BP 127 / 78; Pulse 72; Resp 12; Temp 98(O); Pulse Ox 99% on R/A; Weight 108.86 kg; rv1 Height 6 ft. 0 in. ; Pain 0/10; 06:17 Body Mass Index 32.55 (108.86 kg, 182.88 cm) [facility] 06:17 Pain Scale: Adult rv1 ED Course: 06:16 Patient arrived in ED. rv1 06:24 Kristal Gonzalez, RN is Primary Nurse. vc1 06:27 Triage completed. vc1 06:30 Arm band placed on right wrist. vc1 06:31 Patient has correct armband on for positive identification. Placed in gown. Bed in low vc1 position. Call light in reach. Adult w/ patient. Client placed on continuous cardiac and pulse oximetry monitoring. NIBP monitoring applied. 06:34 Delia River MD is Attending Physician. sp3 06:50 No provider procedures requiring assistance completed. Patient did not have IV access vc1 during this emergency room visit. intact, bleeding controlled, No redness/swelling at site. Pressure dressing applied. Administered Medications: No medications were administered Medication: 06:31 VIS not applicable for this client. vc1 Outcome: 06:37 Discharge ordered by . sp3 06:51 Discharged to home ambulatory. vc1 06:51 Condition: good 06:51 Discharge instructions given to patient, Instructed on discharge instructions, follow up and referral plans. Demonstrated understanding of instructions, follow-up care. 06:51 Patient left the ED. vc1 Signatures: Delia River MD MD sp3 Kristal Gonzalez, RN RN vc1 Arleth Jordan rv1 Corrections: (The following items were deleted from the chart) 06:31 06:24 Acuity: NIELS 3 vc1 vc1
--- NOTE | 2022-12-31 06:38 | EDPHYS ---
Physician Documentation [facility] Name: Kd Velazquez Age: 32 yrs Sex: Male : 1990 Arrival Date: 12/31/2022 Time: 06:12 Bed 6 Private MD: ED Physician Delia River HPI: 12/31 06:34 This 32 yrs old Black Male presents to ER via EMS with complaints of Dizziness. sp3 06:34 32-year-old male with history of Graves' disease and anxiety now presents with chief sp3 complaint of low blood pressure which is now resolved. Patient states he woke up with a blood pressure of 90 systolic and was feeling slightly lightheaded. He had some "broth" which slowly improved his blood pressure and is feeling. EMS arrived to find patient with a blood pressure of 110 systolic. No other complaints and all symptoms have now resolved. Patient is on a beta-marco. ROS negative for headache, chest pain, shortness of breath, nausea, vomiting, diarrhea, rash,. To be, focal neurodeficit or any other concerning symptoms at this time.. Historical: - Allergies: 06:27 No Known Allergies; vc1 - Home Meds: 06:27 buspirone 10 mg Oral tablet 2 times per day [Active]; diazepam 10 mg Oral tablet daily vc1 as needed for anxiety [Active]; methimazole 5 mg Oral tablet daily [Active]; - PMHx: 06:27 Anxiety; graves disease; vc1 - PSHx: 06:27 None; vc1 - Immunization history:: Client reports receiving the 2nd dose of the Covid vaccine. - Social history:: Smoking status: Patient denies any tobacco usage or history of. ROS: 06:35 Constitutional: Negative for fever, chills, and weight loss, Eyes: Negative for injury, sp3 pain, redness, and discharge, Neck: Negative for injury, pain, and swelling, Respiratory: Negative for shortness of breath, cough, wheezing, and pleuritic chest pain, Abdomen/GI: Negative for abdominal pain, nausea, vomiting, diarrhea, and constipation, Back: Negative for injury and pain, MS/Extremity: Negative for injury and deformity, Skin: Negative for injury, rash, and discoloration, Neuro: Negative for headache, weakness, numbness, tingling, and seizure. 06:35 All other systems are negative. Exam: 06:35 Constitutional: This is a well developed, well nourished patient who is awake, alert, sp3 and in no acute distress. Head/Face: Normocephalic, atraumatic. Eyes: Pupils equal round and reactive to light, extra-ocular motions intact. Lids and lashes normal. Conjunctiva and sclera are non-icteric and not injected. Cornea within normal limits. Periorbital areas with no swelling, redness, or edema. ENT: Nares patent. No nasal discharge, no septal abnormalities noted. External auditory canals are clear. Oropharynx with no redness, swelling, or masses, exudates, or evidence of obstruction, uvula midline. Mucous membranes moist. Neck: Trachea midline, no thyromegaly or masses palpated, and no cervical lymphadenopathy. Supple, full range of motion without nuchal rigidity, or vertebral point tenderness. No Meningismus. Chest/axilla: Normal chest wall appearance and motion. Nontender with no deformity. No lesions are appreciated. Cardiovascular: Regular rate and rhythm with a normal S1 and S2. No gallops, murmurs, or rubs. Normal PMI, no JVD. No pulse deficits. Respiratory: Lungs have equal breath sounds bilaterally, clear to auscultation and percussion. No rales, rhonchi or wheezes noted. No increased work of breathing, no retractions or nasal flaring. Abdomen/GI: Soft, non-tender, with normal bowel sounds. No distension or tympany. No guarding or rebound. No evidence of tenderness throughout. Back: No spinal tenderness. No costovertebral tenderness. Full range of motion. Skin: Warm, dry with normal turgor. Normal color with no rashes, no lesions, and no evidence of cellulitis. MS/ Extremity: Pulses equal, no cyanosis. Neurovascular intact. Full, normal range of motion. Neuro: Awake and alert, GCS 15, oriented to person, place, time, and situation. Cranial nerves II-XII grossly intact. Motor strength 5/5 in all extremities. Sensory grossly intact. Cerebellar exam normal. Normal gait. Psych: Awake, alert, with orientation to person, place and time. Behavior, mood, and affect are within normal limits. 06:35 ECG was reviewed by the Attending Physician. EKG demonstrates normal sinus rhythm at 68 bpm with normal intervals, normal QRS, normal axis, mild J-point elevation in the precordial leads with nonspecific ST changes without evidence of acute ischemia. Today's EKG is unchanged from 2 days ago. Vital Signs: 06:17 BP 127 / 78; Pulse 72; Resp 12; Temp 98(O); Pulse Ox 99% on R/A; Weight 108.86 kg; rv1 Height 6 ft. 0 in. ; Pain 0/10; 06:17 Body Mass Index 32.55 (108.86 kg, 182.88 cm) rv1 06:17 Pain Scale: Adult rv1 MDM: 06:34 Patient medically screened. sp3 06:36 Data reviewed: vital signs, nurses notes. ED course: 32-year-old male with now resolved sp3 hypertension. Patient has no current symptoms and EKG does not show any concerning findings. Multiple blood pressure values in the emergency department continue to be normal. Remainder vital signs are also normal. I have counseled patient on what to do and where to follow-up. We will safely discharge patient home at this time. I also looked at the laboratory values from 2 days ago which were all normal.. Administered Medications: No medications were administered Disposition Summary: 12/31/22 06:37 Discharge Ordered Location: Home sp3 Condition: Stable sp3 Diagnosis - Hypotension now resolved sp3 Followup: sp3 - With: Private Physician - When: Upon discharge from the Emergency Department - Reason: Continuance of care Discharge Instructions: - Discharge Summary Sheet sp3 - Hypotension sp3 Forms: - Medication Reconciliation Form sp3 - Thank You Letter sp3 - Antibiotic Education sp3 - Prescription Opioid Use sp3 Signatures: Delia River MD MD sp3 Kristal Gonzalez RN RN vc1 Corrections: (The following items were deleted from the chart) 06:40 06:35 ECG was reviewed by the Attending Physician. EKG demonstrates normal sinus rhythm sp3 at 68 bpm with normal intervals, normal QRS, normal axis, mild J-point elevation in the precordial leads with nonspecific ST changes without evidence of acute ischemia. sp3
[2022-12-31 06:56] VITALS: BP 127/78; TEMP 98; O2SAT 99
== END 2022-12-31 06:51 | disposition home or self-care (01) ==
LOC: ER 06:12
DX: I95.9 Hypotension, unspecified (principal); F41.9 Anxiety disorder, unspecified
CPT/HCPCS: 99283

== ENCOUNTER 2023-01-23 15:21 | Emergency (ER) | payer OTHER ==
--- OUTSIDE RECORDS SUMMARY | 2023-01-23 15:27 | XMS REPORT | Continuity of Care Document ---
:1990 Author Organization [facility] t Address [address] [place] [address] [place] [id number] Care Team Providers Name Role Phone Asked, No Pcp Primary Care Physician Unavailable Toni Iverson Attending Clinician Unavailable NING ANDRADE Attending Clinician Unavailable Ainsley Sharif Attending Clinician Unknown, Attending Attending Clinician Unavailable AINSLEY ARGUETA Attending Clinician Unavailable Ning Andrade MD Attending Clinician Ace Dorsey MD Attending Clinician JOSUE JACOBSON Attending Clinician Unavailable Bright Crouch Attending Clinician Josue Jacobson MD Attending Clinician CHON BUSCH Attending Clinician Unavailable Chon Busch MD Attending Clinician LANCE WAKEFIELD Attending Clinician Unavailable LANCE WAKEFIELD Attending Clinician Unavailable NickLance fischer DO Attending Clinician RAMAN ZIMMERMAN Attending Clinician Unavailable Raman Zimmerman MD Attending Clinician Doctor Unassigned, [place] Attending Clinician Unavailable FRANNIE MURCIA Attending Clinician Unavailable Frannie Murcia NP Attending Clinician NAYELI BARRAZA Attending Clinician Unavailable Nayeli Barraza MD Attending Clinician Yaquelin Durand Attending Clinician NING ANDRADE Admitting Clinician Unavailable BRIGHT SPENCER Admitting Clinician Unavailable LANCE WAKEFIELD Admitting Clinician Unavailable RAMAN ZIMMERMAN Admitting Clinician Unavailable Payers Payer Name Policy Type Policy Number Effective Date Expiration Date Vikram DUNAWAY II [id number] 2016 00:00:00 Problems Condition Condition Condition Status Onset Resolution Last Treating Co mments Source Name Details Category Date Date Treatment Clinician Date Hematemesi Hematemesi Disease Active U pablo s s 10-05 ity of 00:00: [place] 00 Medical Branch Urethral Urethral Diagnosis Active Com mon discharge discharge Spir it in male in male [facility] Tinea Tinea Problem Active Common cruris cruris [facility] Allergies, Adverse Reactions, Alerts Allergy [...] as a child [place] [facility]i Active Hives 2020-0 Patient Unive rs ins ty to 10-13 returned ity of adverse 00:00: to clinic [place] reaction 00 and Medical s stated Branch his mother stated he is allergic to PCN had a rxn as a child NO KNOWN Drug Active Univers ALLERGIE Class ity of S [facility] Family History Family Member Diagnosis Comments Start Date Stop Date Source Natural father Diabetes [facility] Maternal grandfather Diabetes Meth odist [facility] Social History Social Habit Start Date Stop Date Quantity Comments Source History of tobacco Cigarette Smoker University of use [place] [facility] History SDOH University o f Alcohol Frequency [place] M edical Branch History SDOH University o f Alcohol Std Drinks [facility] History [facility] o f Alcohol Binge [place] [facility] al Branch Gender identity [facility] Sexual [facility] Tobacco use and 2023-01-01 2023-01-01 Smokeless Universit y of exposure 00:00:00 00:00:00 tobacco non-user [facility] [place] [facility] dical Adell Exposure to 2022-12-06 2022-12-16 Not sure [facility] SARS-CoV-2 (event) 00:00:00 16:06:00 [facility] Alcohol intake 2017-07-28 2017-07-28 Current drinker [facility]o dist 00:00:00 00:00:00 of [facility] (finding) Alcohol Comment 2017-07-28 2017-07-28 Drink only on Method [facility] 00:00:00 00:00:00 holidays or once Hospital a month Sex Ass[birth year] At [birth year] [facility] 00:[facility]00 Hospital Smoking Status Start Date Stop Date Source Tobacco smoking [facility] consumption unknown Ex-smoker 2023-01-01 00:00:00 2023-01-01 [facility] [place] 00:00:00 Medical [place] Never smoked tobacco [facility] ege of Medicine Medications Ordered Filled Start Stop Current Ordering Indication Dosage Frequency Signature Comments Components Source Medication Medication Date Date Medication? Clinician (SIG) Name Name ketoconazol Yes [id number] Apply to Univers e 2 % cream 01-01 area(s) ity o f 00:00: daily. [place] 00 Medical [place] diazePAM 10 Yes 10mg Take 1 Univ ers mg tablet 12-08 tablet by ity o f 10:31: mouth as [place] 45 needed. Medical Branch busPIRone 2023-0 Yes 10mg Take 1 Univer s 10 mg 5-02 tablet by ity of tablet 10:31: mouth in [place] [address] the Medical morning Branch and 1 tablet in the evening. methIMAzole 2022-0 Yes 5mg Take 1 Univ ers 5 mg tablet 5-02 tablet by ity of 10:31: mouth in [place] [address] the Medical morning. Branch diazePAM 10 2022-0 Yes 10mg Take 1 Univ ers mg tablet 5-02 tablet by ity o f 10:31: mouth as [place] [address] needed. Medical Branch busPIRone 2022-0 Yes 10mg Take 1 Univer s 10 mg 5-02 tablet by ity of tablet 10:31: mouth in [place] [address] the Medical morning Branch and 1 tablet in the evening. methIMAzole 2022-0 Yes 5mg Take 1 Univ ers 5 mg tablet 5-02 tablet by ity of 10:31: mouth in [place] [address] the Medical morning. Branch diazePAM 10 2022-0 Yes 10mg Take 1 Univ ers mg tablet 5-02 tablet by ity o f 10:31: mouth as [place] [address] needed. Medical Branch busPIRone 2022-0 Yes 10mg Take 1 Univer s 10 mg 5-02 tablet by ity of tablet 10:31: mouth in [place] [address] the Medical morning Branch and 1 tablet in the evening. methIMAzole 2022-0 Yes 5mg Take 1 Univ ers 5 mg tablet 5-02 tablet by ity of 10:31: mouth in [place] [address] the Medical morning. Branch diazePAM 10 2022-0 Yes 10mg Take 1 Univ ers mg tablet 5-02 tablet by ity o f 10:31: mouth as [place] [address] needed. Medical Branch busPIRone 2022-0 Yes 10mg Take 1 Univer s 10 mg 5-02 tablet by ity of tablet 10:31: mouth in [place] [address] the Medical morning Branch and 1 tablet in the evening. methIMAzole 3-0 Yes 5mg Take 1 Univ ers 5 mg tablet 5-02 tablet by ity of 10:31: mouth in [place] [address] the Medical morning. Branch aspirin 3-0 202- Yes 325mg 325 mg, Unive rs tablet 325 12-02 04-26 Oral, ity of mg 02:45: 14:44 ONCE, 1 [place] 00 :00 dose, On Medical Tue Branch 12/01/22 at 2145, Routine LORazepam 2022- No 1mg 1 mg, Slow U nivers (ATIVAN) 12-02-26 IV Push, ity of injection 1 00:30: 00:35 ONCE, 1 [place] mg 00 :00 dose, On Medical Wed Branch 12/01/22 at 1930, STAT ibuprofen 2022- Yes [id number] 800mg Take 1 Univers 800 mg 12-01- tablet by ity of tablet 00:00: 04:59 mouth [place] 00 :00 every 8 Medical (eight) Branch hours as needed for Pain (scale 4-6) for up to 5 days. LORazepam 1 2022- Yes [id number] 1mg Take 1 Univers mg tablet 12-01 tablet by ity of 00:00: 04:59 mouth 2 [place] 00 :00 (two) Medical times Branch daily as needed for Anxiety or Agitation for up to 3 days. escitalopra Yes 10mg Take 1 [place] [facility] (LEXAPRO) 11-30 Tablet by Col lege 10 MG 00:00: mouth of tablet 00 daily. Medicin e LORazepam 2022- No 1mg 1 mg, Univer s (ATIVAN) 11-26-20 Oral, ity of tablet 1 mg 02:00: 01:48 ONCE, 1 [place] :[place] dose, On Medical Wed Branch 11/25/22 at 2100, ZACK ondansetron 2022- No 4mg 4 mg, Slow Univers (ZOFRAN 11-26- IV Push, ity of (PF)) 02:00: 01:48 ONCE, 1 [place] injection 4 00 :00 dose, On Medi colby mg Wed Branch 11/25/22 at 2100, ZACK ketorolac 0 2022- No 30mg 30 mg, Unive rs (TORADOL) 11-25- Slow IV ity of injection 03:45: 03:02 Push, [place] 30 mg 00 :00 ONCE, 1 Medical dose, On Branch [facility] 11/24/22 at 2245, Routine NaCl 0.9% 2022- No 1000mL at 999 Uni vers (NS) bolus 11-25- mL/hr, ity of infusion 03:00: 03:35 1,000 mL, [place] 1,000 mL 00 :00 IV Medical Piggyback, Branch ONCE, 1 dose, On Wed11/24/22 at 2200, STAT ondansetron 2022-0 2022- No 4mg 4 mg, Slow Univers (ZOFRAN 11-25-19 IV Push, ity of (PF)) 02:45: 02:36 ONCE, 1 [place] injection 4 00 :00 dose, On Medi colby mg Wed Branch 11/24/22 at 2145, ZACK alum-mag 2022-0 Yes 30mL 30 mL, Univers hydroxide-s 11-25 Oral, ity of imeth 02:34: Q6HPRN, [place] (MAALOX 10 Starting Medical PLUS / on Wed Branch MAG-AL 11/24/22 at PLUS) 2134, 200-200-20 Until mg/5 mL Discontinu suspension ed, 30 mL Routine, Indigestio n LORazepam 2022-0 Yes [id number] 1mg Take 1 Un tera (ATIVAN) 1 4-19 tablet by ity of mg tablet 00:00: mouth [place] 00 every 24 Medical (twenty-fo Branch ur) hours as needed for Anxiety or Agitation. LORazepam 2022-0 Yes [id number] 1mg Take 1 Un tera (ATIVAN) 1 4-19 tablet by ity of mg tablet 00:00: mouth [place] 00 every 24 Medical (twenty-fo Branch ur) hours as needed for Anxiety or Agitation. LORazepam 2022-0 Yes [id number] 1mg Take 1 Un tera (ATIVAN) 1 4-19 tablet by ity of mg tablet 00:00: mouth [place] 00 every 24 Medical (twenty-fo Branch ur) hours as needed for Anxiety or Agitation. LORazepam 2022-0 Yes [id number] 1mg Take 1 Un tera (ATIVAN) 1 4-19 tablet by ity of mg tablet 00:00: mouth [place] 00 every 24 Medical (twenty-fo Branch ur) hours as needed for Anxiety or Agitation. LORazepam 2022-0 Yes [id number] 1mg Take 1 Un tera (ATIVAN) 1 4-19 tablet by ity of mg tablet 00:00: mouth [place] 00 every 24 Medical (twenty-fo Branch ur) hours as needed for Anxiety or Agitation. LORazepam 2022-0 Yes [id number] 1mg Take 1 Un tera (ATIVAN) 1 4-19 tablet by ity of mg tablet 00:00: mouth [place] 00 every 24 Medical (twenty-fo Branch ur) hours as needed for Anxiety or Agitation. lorazepam 2022- Yes 1mg Take 1 [place] [facility] (ATIVAN) 1 4-19 04-29 Tablet by Col lege MG tablet 00:00: 04:59 mouth. of 00 :00 Medicin e iohexoL 2021- No [id number] 50mL 50 mL, Uni vers (OMNIPAQUE 01-26 Intravenou it y of 350 BULK-50 03:45: 03:39 s, ONCE, 1 [place] mL) 00 :00 dose, On Medical injection [facility] 50 mL 01/25/22 at 2245, Routine ondansetron 2021- No 4mg 4 mg, Slow Univers (ZOFRAN 01-2620 IV Push, ity of (PF)) 03:45: 02:48 ONCE, 1 [place] injection 4 00 :00 dose, On Medi colby mg [facility] 01/25/22 at 2245, ZACK ketorolac 2021- No 30mg 30 mg, Unive rs (TORADOL) 01-26-20 Slow IV ity of injection 03:45: 02:48 Push, [place] 30 mg 00 :00 ONCE, 1 Medical dose, On Branch 01/25/22 at 2245, Routine dicyclomine 0 Yes [id number] 20mg Take 1 Univers 20 mg 6-19 [...] (scale 7-10). Indication s: acute pain ondansetron 0 Yes [id number] 4mg Take 1 Univers (ZOFRAN) 4 6-19 tablet by ity of mg tablet 00:00: mouth [place] 00 every 8 Medical (eight) Branch hours as needed for Nausea and Vomiting (N/V). dicyclomine 0 Yes [id number] 20mg Take 1 Univers 20 mg 6-19 [...] Indication s: acute pain ondansetron 2022-0 Yes [id number] 4mg Take 1 Univers (ZOFRAN) 4 6-19 tablet by ity of mg tablet 00:00: mouth [place] 00 every 8 Medical (eight) Branch hours as needed for Nausea and Vomiting (N/V). dicyclomine 2-0 Yes [id number] 20mg Take 1 Univers 20 mg 6-19 [...] Indication s: acute pain ondansetron 2-0 Yes [id number] 4mg Take 1 Univers (ZOFRAN) 4 6-19 tablet by ity of mg tablet 00:00: mouth [place] 00 every 8 Medical (eight) Branch hours as needed for Nausea and Vomiting (N/V). dicyclomine 2-0 Yes [id number] 20mg Take 1 Univers 20 mg 6-19 [...] Indication s: acute pain ondansetron 2022-0 Yes [id number] 4mg Take 1 Univers (ZOFRAN) 4 6-19 tablet by ity of mg tablet 00:00: mouth [place] 00 every 8 Medical (eight) Branch hours as needed for Nausea and Vomiting (N/V). dicyclomine 2022-0 Yes [id number] 20mg Take 1 Univers 20 mg 6-19 [...] Indication s: acute pain ondansetron 2-0 Yes [id number] 4mg Take 1 Univers (ZOFRAN) 4 6-19 tablet by ity of mg tablet 00:00: mouth [place] 00 every 8 Medical (eight) Branch hours as needed for Nausea and Vomiting (N/V). dicyclomine 2-0 Yes [id number] 20mg Take 1 Univers 20 mg 6-19 [...] Indication s: acute pain ondansetron 2021-0 Yes [id number] 4mg Take 1 Univers (ZOFRAN) 4 6-19 tablet by ity of mg tablet 00:00: mouth [place] 00 every 8 Medical (eight) Branch hours as needed for Nausea and Vomiting (N/V). dicyclomine 2-0 Yes [id number] 20mg Take 1 Univers 20 mg 6-19 [...] Indication s: acute pain ondansetron 2-0 Yes [id number] 4mg Take 1 Univers (ZOFRAN) 4 6-19 tablet by ity of mg tablet 00:00: mouth [place] 00 every 8 Medical (eight) Branch hours as needed for Nausea and Vomiting (N/V). dicyclomine 2022-0 Yes [id number] 20mg Take 1 Univers 20 mg 6-19 [...] Indication s: acute pain ondansetron 2021-0 Yes [id number] 4mg Take 1 Univers (ZOFRAN) 4 6-19 tablet by ity of mg tablet 00:00: mouth [place] 00 every 8 Medical (eight) Branch hours as needed for Nausea and Vomiting (N/V). ondansetron 2021- No [id number] 4mg Take 1 Univers (ZOFRAN) 4 6-19 06-19 tablet by ity of mg tablet 00:00: 00:00 mouth [place] 00 :00 every 8 Medical (eight) Branch hours as needed for Nausea and Vomiting (N/V). ondansetron 0 2021- No [id number] 4mg Take 1 Univers (ZOFRAN) 4 6-19 [...] On Branch 09/21/21 at 2345, Routine proMETHazin 2021- No 12.5mg 12.5 mg, Univers e 09-22 IV ity of (PHENERGAN) 04:55: 05:06 Piggyback, [place] 12.5 mg in 00 :00 ONCE, 1 Medica l NaCl 0.9% dose, On Branch (NS) 50 mL Sun IV 09/21/21 at piggyback 2300, ZACK acetaminoph 2021- No 1000mg 1,000 mg, Univers en 09-22 Oral, ity of (TYLENOL) 03:00: 03:07 ONCE, 1 [place] tablet 00 :00 dose, On Medical 1,000 mg [place] Branch 09/21/21 at 2115, ZACK ondansetron 2021- No 4mg 4 mg, Slow Univers (ZOFRAN 09-22 IV Push, ity of (PF)) 03:00: 03:13 ONCE, 1 [place] injection 4 00 :00 dose, On Medi colby mg [place] Branch 09/21/21 at 2115, ZACK NaCl 0.9% 2021- No 1000mL at 999 Uni vers (NS) bolus 09-22 mL/hr, ity of infusion 03:00: 04:47 1,000 mL, [place] 1,000 mL 00 :00 IV Medical Infusion, Branch ONCE, 1 dose, On 09/21/21 at 2115, ZACK proMETHazin 0 Yes [id number] 25mg Take 1 Univers e 25 mg 2-14 tablet by ity of tablet 00:00: mouth [place] 00 every 6 Medical (six) Branch hours as needed for Nausea and Vomiting (N/V). proMETHazin 2021-0 Yes [id number] 25mg Take 1 Univers e 25 mg 2-14 tablet by ity of tablet 00:00: mouth [place] 00 every 6 Medical (six) Branch hours as needed for Nausea and Vomiting (N/V). proMETHazin 2021-0 Yes [id number] 25mg Take 1 Univers e 25 mg 2-14 tablet by ity of tablet 00:00: mouth [place] 00 every 6 Medical (six) Branch hours as needed for Nausea and Vomiting (N/V). proMETHazin 2021-0 Yes [id number] 25mg Take 1 Univers e 25 mg 2-14 tablet by ity of tablet 00:00: mouth [place] 00 every 6 Medical (six) Branch hours as needed for Nausea and Vomiting (N/V). proMETHazin 2021-0 Yes [id number] 25mg Take 1 Univers e 25 mg 2-14 tablet by ity of tablet 00:00: mouth [place] 00 every 6 Medical (six) Branch hours as needed for Nausea and Vomiting (N/V). proMETHazin 2021-0 Yes [id number] 25mg Take 1 Univers e 25 mg 2-14 tablet by ity of tablet 00:00: mouth [place] 00 every 6 Medical (six) Branch hours as needed for Nausea and Vomiting (N/V). proMETHazin 2021-0 Yes [id number] 25mg Take 1 Univers e 25 mg 2-14 tablet by ity of tablet 00:00: mouth [place] 00 every 6 Medical (six) Branch hours as needed for Nausea and Vomiting (N/V). proMETHazin 2021-0 Yes [id number] 25mg Take 1 Univers e 25 mg 2-14 tablet by ity of tablet 00:00: mouth [place] 00 every 6 Medical (six) Branch hours as needed for Nausea and Vomiting (N/V). proMETHazin 2021-0 Yes [id number] 25mg Take 1 Univers e 25 mg 2-14 tablet by ity of tablet 00:00: mouth [place] 00 every 6 Medical (six) Branch hours as needed for Nausea and Vomiting (N/V). proMETHazin 0 Yes [id number] 25mg Take 1 Univers e 25 mg 2-14 tablet by ity of tablet 00:00: mouth [place] 00 every 6 Medical (six) Branch hours as needed for Nausea and Vomiting (N/V). multivit-mi 2021- No Take by Un tera n/folic/vit 2-13 02-13 mouth ity of K/lycop 22:42: 00:00 daily. [place] (ONE-A-DAY 28 :00 Medical MEN'S Branch MULTIVITAMI N ORAL) dicyclomine 0 Yes [id number] 20mg Take 1 Univers 20 mg 2-13 tablet by ity of tablet 00:00: mouth 4 [place] 00 (four) Medical times Branch daily as needed for Abdominal pain. ondansetron 0 Yes [id number] 4mg Take 1 Univers 4 mg 2-13 tablet by ity of disintegrat 00:00: mouth [place] ing tablet 00 every 8 Medica l (eight) Branch hours as needed for Nausea and Vomiting (N/V). dicyclomine 0 Yes [id number] 20mg Take 1 Univers 20 mg 2-13 tablet by ity of tablet 00:00: mouth 4 [place] 00 (four) Medical times Branch daily as needed for Abdominal pain. ondansetron 2021-0 Yes [id number] 4mg Take 1 Univers 4 mg 2-13 tablet by ity of disintegrat 00:00: mouth [place] ing tablet 00 every 8 Medica l (eight) Branch hours as needed for Nausea and Vomiting (N/V). dicyclomine 2022-0 Yes [id number] 20mg Take 1 Univers 20 mg 2-13 tablet by ity of tablet 00:00: mouth 4 [place] 00 (four) Medical times Branch daily as needed for Abdominal pain. ondansetron 2022-0 Yes [id number] 4mg Take 1 Univers 4 mg 2-13 tablet by ity of disintegrat 00:00: mouth [place] ing tablet 00 every 8 Medica l (eight) Branch hours as needed for Nausea and Vomiting (N/V). dicyclomine 2022-0 Yes [id number] 20mg Take 1 Univers 20 mg 2-13 tablet by ity of tablet 00:00: mouth 4 [place] 00 (four) Medical times Branch daily as needed for Abdominal pain. ondansetron 2-0 Yes [id number] 4mg Take 1 Univers 4 mg 2-13 tablet by ity of disintegrat 00:00: mouth [place] ing tablet 00 every 8 Medica l (eight) Branch hours as needed for Nausea and Vomiting (N/V). dicyclomine 2022-0 Yes [id number] 20mg Take 1 Univers 20 mg 2-13 tablet by ity of tablet 00:00: mouth 4 [place] 00 (four) Medical times Branch daily as needed for Abdominal pain. ondansetron 2-0 Yes [id number] 4mg Take 1 Univers 4 mg 2-13 tablet by ity of disintegrat 00:00: mouth [place] ing tablet 00 every 8 Medica l (eight) Branch hours as needed for Nausea and Vomiting (N/V). dicyclomine 2022-0 Yes [id number] 20mg Take 1 Univers 20 mg 2-13 tablet by ity of tablet 00:00: mouth 4 [place] 00 (four) Medical times Branch daily as needed for Abdominal pain. ondansetron 2022-0 Yes [id number] 4mg Take 1 Univers 4 mg 2-13 tablet by ity of disintegrat 00:00: mouth [place] ing tablet 00 every 8 Medica l (eight) Branch hours as needed for Nausea and Vomiting (N/V). dicyclomine 2022-0 Yes [id number] 20mg Take 1 Univers 20 mg 2-13 tablet by ity of tablet 00:00: mouth 4 [place] 00 (four) Medical times Branch daily as needed for Abdominal pain. ondansetron 2-0 Yes [id number] 4mg Take 1 Univers 4 mg 2-13 tablet by ity of disintegrat 00:00: mouth [place] ing tablet 00 every 8 Medica l (eight) Branch hours as needed for Nausea and Vomiting (N/V). dicyclomine 2-0 Yes [id number] 20mg Take 1 Univers 20 mg 2-13 tablet by ity of tablet 00:00: mouth 4 [place] 00 (four) Medical times Branch daily as needed for Abdominal pain. ondansetron 2021-0 Yes [id number] 4mg Take 1 Univers 4 mg 2-13 tablet by ity of disintegrat 00:00: mouth [place] ing tablet 00 every 8 Medica l (eight) Branch hours as needed for Nausea and Vomiting (N/V). dicyclomine 2021-0 Yes [id number] 20mg Take 1 Univers 20 mg 2-13 tablet by ity of tablet 00:00: mouth 4 [place] 00 (four) Medical times Branch daily as needed for Abdominal pain. ondansetron 2021-0 Yes [id number] 4mg Take 1 Univers 4 mg 2-13 tablet by ity of disintegrat 00:00: mouth [place] ing tablet 00 every 8 Medica l (eight) Branch hours as needed for Nausea and Vomiting (N/V). dicyclomine 2-0 Yes [id number] 20mg Take 1 Univers 20 mg 2-13 tablet by ity of tablet 00:00: mouth 4 [place] (four) Medical times Branch daily as needed for Abdominal pain. ondansetron 2021-0 Yes [id number] 4mg Take 1 Univers 4 mg 2-13 tablet by ity of disintegrat 00:00: mouth [place] ing tablet 00 every 8 Medica l (eight) Branch hours as needed for Nausea and Vomiting (N/V). ketorolac 2021-0 2021- No [id number] 30mg Univers (TORADOL) 08-29 ity of injection 23:45: 22:53 [place] 30 mg 00 :00 Medical Branch ketorolac 2021-0 2021- No [id number] 30mg 30 mg, Univers (TORADOL) -29 08- 9103 Intramuscu ity of injection 23:45: 22:53 [place], ONCE, [place] 30 mg 00 :00 1 dose, On Medical Fri Branch 08/29/21 at 1745, Routine
film crew member approving Restricted medication : NAYELI BARRAZA methocarbam 2022-0 Yes [id number] 500mg Take 1 Univers oL -21 9103 tablet by ity of (ROBAXIN) 00:00: mouth 4 [place] 500 mg 00 (four) Medical tablet times Branch daily. methocarbam 2-0 Yes [id number] 500mg Take 1 Univers oL 1-21 9103 tablet by ity of (ROBAXIN) 00:00: mouth 4 [place] 500 mg 00 (four) Medical tablet times Branch daily. methocarbam 2-0 Yes [id number] 500mg Take 1 Univers oL -21 9103 tablet by ity of (ROBAXIN) 00:00: mouth 4 [place] 500 mg 00 (four) Medical tablet times Branch daily. methocarbam 2-0 Yes [id number] 500mg Take 1 Univers oL -21 9103 tablet by ity of (ROBAXIN) 00:00: mouth 4 [place] 500 mg 00 (four) Medical tablet times Branch daily. methocarbam 2-0 Yes [id number] 500mg Take 1 Univers oL -21 9103 tablet by ity of (ROBAXIN) 00:00: mouth 4 [place] 500 mg 00 (four) Medical tablet times Branch daily. methocarbam 2-0 Yes [id number] 500mg Take 1 Univers oL -21 9103 tablet by ity of (ROBAXIN) 00:00: mouth 4 [place] 500 mg 00 (four) Medical tablet times Branch daily. methocarbam 2022-0 Yes [id number] 500mg Take 1 Univers oL 1-21 9103 tablet by ity of (ROBAXIN) 00:00: mouth 4 [place] 500 mg 00 (four) Medical tablet times Branch daily. methocarbam 2022-0 Yes [id number] 500mg Take 1 Univers oL 1-21 9103 tablet by ity of (ROBAXIN) 00:00: mouth 4 [place] 500 mg 00 (four) Medical tablet times Branch daily. methocarbam 2022-0 Yes [id number] 500mg Take 1 Univers oL 1-21 9103 tablet by ity of (ROBAXIN) 00:00: mouth 4 [place] 500 mg 00 (four) Medical tablet times Branch daily. methocarbam 2022-0 Yes [id number] 500mg Take 1 Univers oL 1-21 9103 tablet by ity of (ROBAXIN) 00:00: mouth 4 [place] 500 mg 00 (four) Medical tablet times Branch daily. methocarbam 2022-0 Yes [id number] 500mg Take 1 Univers oL 1-21 9103 tablet by ity of (ROBAXIN) 00:00: mouth 4 [place] 500 mg 00 (four) Medical tablet times Branch daily. methocarbam 2022-0 Yes [id number] 500mg Take 1 Univers oL 1-21 9103 tablet by ity of (ROBAXIN) 00:00: mouth 4 [place] 500 mg 00 (four) Medical tablet times Branch daily. methocarbam 2022-0 Yes [id number] 500mg Take 1 Univers oL 1-21 9103 tablet by ity of (ROBAXIN) 00:00: mouth 4 [place] 500 mg 00 (four) Medical tablet times Branch daily. azithromyci 2022-0 Yes Univer s n 250 mg 1-18 ity of tablet 00:00: [place] 00 Medical Branch ketoconazol 2022-0 Yes Univer s e 200 mg 1-18 ity of tablet 00:00: [place] 00 Medical Branch azithromyci 2022-0 Yes Univer s n 250 mg 1-18 ity of tablet 00:00: [place] 00 Medical Branch ketoconazol 2022-0 Yes Univer s e 200 mg 1-18 ity of tablet 00:00: [place] 00 Medical Branch azithromyci 2022-0 Yes Univer s n 250 mg 1-18 ity of tablet 00:00: [place] 00 Medical Branch ketoconazol 2022-0 Yes Univer s e 200 mg 1-18 ity of tablet 00:00: [place] 00 Medical Branch azithromyci 2022-0 2- No Unive rs n 250 mg 1-18 -13 ity of tablet 00:00: 00:00 [place] 00 :00 Medical Branch ketoconazol 2022-0 2- No Unive rs e 200 mg 1-18 -13 ity of tablet 00:00: 00:00 [place] 00 :00 Medical Branch LIDOCAINE 2020-08 Yes Univers VISCOUS 2 % 2-03 ity of solution 00:00: [place] 00 Medical Branch predniSONE 2020-08 Yes Univers 20 mg 2-03 ity of tablet 00:00: [place] 00 Medical Branch LIDOCAINE 2020-08 Yes Univers VISCOUS 2 % 2-03 ity of solution 00:00: [place] 00 Medical Branch predniSONE 2020-08 Yes Univers 20 mg 2-03 ity of tablet 00:00: [place] 00 Medical Branch LIDOCAINE 2020-08 Yes Univers VISCOUS 2 % 2-03 ity of solution 00:00: [place] 00 Medical Branch predniSONE 2020-08 Yes Univers 20 mg 2-03 ity of tablet 00:00: [place] 00 Medical Branch LIDOCAINE 2020-2021- No Univers VISCOUS 2 % 2-03 02-13 ity of solution 00:00: 00:00 [place] 00 :00 Medical Branch predniSONE 2020-08- No Univer s 20 mg 2-03 02-13 ity of tablet 00:00: 00:00 [place] 00 :00 Medical Branch ibuprofen 2020-08- No Univers 800 mg 2-03 - ity of tablet 00:00: 00:00 [place] 00 :00 Medical Branch ondansetron 2020-0 Yes [id number] 4mg Take 1 Univers (ZOFRAN 6-16 tablet by ity of ODT) 4 mg 00:00: mouth [place] disintegrat 00 every 8 Medic al ing tablet (eight) Branch hours as needed for Nausea and Vomiting (N/V). ondansetron 2020-0 Yes [id number] 4mg Take 1 Univers (ZOFRAN 6-16 tablet by ity of ODT) 4 mg 00:00: mouth [place] disintegrat 00 every 8 Medic al ing tablet (eight) Branch hours as needed for Nausea and Vomiting (N/V). ondansetron 2020-0 Yes [id number] 4mg Take 1 Univers (ZOFRAN 6-16 tablet by ity of ODT) 4 mg 00:00: mouth [place] disintegrat 00 every 8 Medic al ing tablet (eight) Branch hours as needed for Nausea and Vomiting (N/V). ondansetron 2020-0 Yes [id number] 4mg Take 1 Univers (ZOFRAN 6-16 tablet by ity of ODT) 4 mg 00:00: mouth [place] disintegrat 00 every 8 Medic al ing tablet (eight) Branch hours as needed for Nausea and Vomiting (N/V). ondansetron 2020-0 Yes [id number] 4mg Take 1 Univers (ZOFRAN 6-16 tablet by ity of ODT) 4 mg 00:00: mouth [place] disintegrat 00 every 8 Medic al ing tablet (eight) Branch hours as needed for Nausea and Vomiting (N/V). ondansetron 2020-0 Yes [id number] 4mg Take 1 Univers (ZOFRAN 6-16 tablet by ity of ODT) 4 mg 00:00: mouth [place] disintegrat 00 every 8 Medic al ing tablet (eight) Branch hours as needed for Nausea and Vomiting (N/V). ondansetron 2020-0 Yes [id number] 4mg Take 1 Univers (ZOFRAN 6-16 tablet by ity of ODT) 4 mg 00:00: mouth [place] disintegrat 00 every 8 Medic al ing tablet (eight) Branch hours as needed for Nausea and Vomiting (N/V). ondansetron 2020-0 Yes [id number] 4mg Take 1 Univers (ZOFRAN 6-16 tablet by ity of ODT) 4 mg 00:00: mouth [place] dis[place] 00 every 8 Medic al ing tablet (eight) Branch hours as needed for Nausea and Vomiting (N/V). ondansetron 2020-0 Yes [id number] 4mg Take 1 Univers (ZOFRAN 6-16 tablet by ity of ODT) 4 mg 00:00: mouth [place] disintegrat 00 every 8 Medic al ing tablet (eight) Branch hours as needed for Nausea and Vomiting (N/V). ondansetron 2020-0 Yes [id number] 4mg Take 1 Univers (ZOFRAN 6-16 tablet by ity of ODT) 4 mg 00:00: mouth [place] disintegrat 00 every 8 Medic al ing tablet (eight) Branch hours as needed for Nausea and Vomiting (N/V). ondansetron 2020-0 Yes [id number] 4mg Take 1 Univers (ZOFRAN 6-16 tablet by ity of ODT) 4 mg 00:00: mouth [place] disintegrat 00 every 8 Medic al ing tablet (eight) Branch hours as needed for Nausea and Vomiting (N/V). ondansetron 2020-0 Yes [id number] 4mg Take 1 Univers (ZOFRAN 6-16 tablet by ity of ODT) 4 mg 00:00: mouth [place] disintegrat 00 every 8 Medic al ing tablet (eight) Branch hours as needed for Nausea and Vomiting (N/V). ondansetron Yes [id number] 4mg Take 1 Univers (ZOFRAN 6-16 tablet by ity of ODT) 4 mg 00:00: mouth [place] disintegrat 00 every 8 Medic al ing tablet (eight) Branch hours as needed for Nausea and Vomiting (N/V). multivit-mi Yes Take by Uni vers n/folic/vit 9-23 mouth ity of K/lycop 13:48: daily. [place] (ONE-A-DAY [facility] MULTIVITAMI N ORAL) multivitmi Yes Take by Uni vers n/folic/vit 9-23 mouth ity of K/lycop 13:48: daily. [place] (ONE-A-DAY [facility] MULTIVITAMI N ORAL) multivit-mi Yes Take by Uni vers n/folic/vit 9-23 mouth ity of K/lycop 13:48: daily. [place] (ONE-A-DAY [facility] MULTIVITAMI N ORAL) Vital Signs Vital Name Observation Time Observation Value Comments Source Systolic blood 2023-01-01 20:40:00 124 mm[Hg] [facility] Diastolic blood 2023-01-01 20:40:00 80 mm[Hg] [facility] Heart rate 2023-01-01 20:40:00 67 /min [facility] Body temperature 2023-01-01 20:40:00 36.67 Karla [facility] Respiratory rate 2023-01-01 20:40:00 18 /min [facility] Body height 2023-01-01 20:40:00 182.9 cm [facility] Body weight 2023-01-01 20:40:00 110.179 kg [facility] BMI 2023-01-01 20:40:00 32.94 kg/m2 [facility] Oxygen saturation in 2023-01-01 20:40:00 98 /min [facility] Arterial blood by [facility] [place] [facility] Pulse oximetry Branch Systolic blood 2022-12-08 15:34:00 129 mm[Hg] Univer sity of pressure [place] [facility] Diastolic blood 2022-12-08 15:34:00 83 mm[Hg] Unive rsity of pressure [facility] Branch Heart rate 2022-12-08 15:34:00 76 /min [facility] [place] [facility] Body temperature 2022-12-08 15:34:00 36.78 Karal Univ ersity of [facility] Branch Respiratory rate 2022-12-08 15:34:00 18 /min Univ ersity of [facility] Branch Body height 2022-12-08 15:34:00 182.9 cm [facility]i [facility] [place] [facility] Body weight 2022-12-08 15:34:00 108.954 kg Universi ty of [facility] Branch BMI 2022-12-08 15:34:00 32.58 kg/m2 Universi ty of [facility] Oxygen saturation in 2022-12-08 15:34:00 98 /min University of Arterial blood by [facility] [place] [facility] Pulse oximetry Branch Diastolic blood 2022-12-02 16:41:00 80 mm[Hg] [facility] Medicine Heart rate 2022-12-02 16:41:00 83 /min [facility] Res[facility] rate 2022-12-02 16:41:00 16 /min [facility] Body height 2022-12-02 16:41:00 182.9 cm [facility] Body weight 2022-12-02 16:41:00 108.863 kg [facility] BMI 2022-12-02 16:41:00 32.55 kg/m2 [facility] Systolic blood 2022-12-02 16:41:00 130 mm[Hg] [facility] pressure Medicine Systolic blood 2022-12-02 01:00:00 155 mm[Hg] Univer sity of pressure [facility] Diastolic blood 2022-12-02 01:00:00 110 mm[Hg] Unive rsity of pressure [facility] Heart rate 2022-12-02 01:00:00 87 /min Universi ty of [facility] Respiratory rate 2022-12-02 01:00:00 17 /min Univ ersity of [facility] Oxygen saturation in 2022-12-02 01:00:00 98 /min University of Arterial blood by [facility] [place] [facility] Pulse oximetry Branch Body temperature 2022-12-01 23:31:00 36.89 Karla Univ ersity of [place] [facility] Body height 2022-12-01 23:31:00 182.9 cm [facility]i ty [facility] [place] [facility] Body weight 2022-12-01 23:31:00 108.863 kg [facility] [place] [facility] BMI 2022-12-01 23:31:00 32.55 kg/m2 Universi ty of [facility] Branch Systolic blood 2022-11-26 02:30:00 145 mm[Hg] Univer sity of pressure [place] [facility] Diastolic blood 2022-11-26 02:30:00 93 mm[Hg] Unive rsity of pressure [facility] Heart rate 2022-11-26 02:30:00 71 /min Universi ty [facility] [place] [facility] Respiratory rate 2022-11-26 02:30:00 16 /min Univ ersity of [facility] Oxygen saturation in 2022-11-26 02:30:00 99 /min University of Arterial blood by [facility] [place] [facility] Pulse oximetry Branch Body temperature 2022-11-26 00:39:00 37.33 Karla Univ [facility] [place] [facility] Body height 2022-11-26 00:39:00 182.9 cm [facility] [place] [facility] Body weight 2022-11-26 00:39:00 111.131 kg [facility] [place] [facility] BMI 2022-11-26 00:39:00 33.23 kg/m2 [facility] [place] [facility] Body temperature 2022-11-25 02:04:00 36.89 Karla Univ ersity of [facility] Branch Systolic blood 2022-11-25 02:00:00 152 mm[Hg] Univer sity of pressure [place] [facility] Diastolic blood 2022-11-25 02:00:00 90 mm[Hg] Unive rsity of pressure [place] [facility] Heart rate 2022-11-25 02:00:00 78 /min [facility] [place] [facility] Respiratory rate 2022-11-25 02:00:00 22 /min Univ ersity [facility] [place] [facility] Body weight 2022-11-25 02:00:00 111.131 kg [facility] [place] [facility] BMI 2022-11-25 02:00:00 33.23 kg/m2 [facility] [place] [facility] Oxygen saturation in 2022-11-25 02:00:00 99 /min University of Arterial blood by [place] [employer] [facility] Pulse oximetry Branch Systolic blood 2022-01-26 04:00:00 143 mm[Hg] Univer sity of pressure [place] [facility] Diastolic blood 2022-01-26 04:00:00 75 mm[Hg] Unive rsity of pressure [place] [facility] Heart rate 2022-01-26 04:00:00 74 /min [facility] [place] [facility] Respiratory rate 2022-01-26 04:00:00 19 /min Univ ersity of [place] [facility] Oxygen saturation in 2022-01-26 04:00:00 99 /min University of Arterial blood by [place] [employer] [facility] Pulse oximetry Branch Body temperature 2022-01-26 02:17:00 36.94 Karla Univ ersity [facility] [place] [facility] Body height 2022-01-26 02:16:00 182.9 cm [facility] [place] [facility] Body weight 2022-01-26 02:16:00 122.471 kg [facility] [place] [facility] BMI 2022-01-26 02:16:00 36.62 kg/m2 [facility] [place] [facility] Systolic blood 2021-09-22 06:16:00 128 mm[Hg] Univer sity of pressure [place] [facility] Diastolic blood 2021-09-22 06:16:00 72 mm[Hg] Unive rsity of pressure [place] [facility] Heart rate 2021-09-22 06:16:00 115 /min [facility] [place] [facility] Body temperature 2021-09-22 06:16:00 38.28 Karla Univ [facility] [place] [facility] Respiratory rate 2021-09-22 06:16:00 20 /min Univ ersity [facility] [place] [facility] Oxygen saturation in 2021-09-22 06:16:00 96 /min University of Arterial blood by [place] [employer] Pulse oximetry Branch Body height 2021-09-22 02:54:00 182.9 cm [facility] [place] [facility] Body weight 2021-09-22 02:54:00 122.471 kg [facility] [place] [facility] BMI 2021-09-22 02:54:00 36.62 kg/m2 [facility] [place] [facility] Systolic blood 2021-08-29 22:09:00 138 mm[Hg] Univer sity of pressure [facility] Diastolic blood 2021-08-29 22:09:00 84 mm[Hg] Unive rsity of pressure [facility] Heart rate 2021-08-29 22:09:00 83 /min [facility] Body temperature 2021-08-29 22:09:00 36.89 Karla [facility] Res[facility] rate 2021-08-29 22:09:00 18 /min [facility] Body height 2021-08-29 22:09:00 182.9 cm [facility] Body weight 2021-08-29 22:09:00 111.131 kg [facility] BMI 2021-08-29 22:09:00 33.23 kg/m2 [facility] Oxygen saturation in 2021-08-29 22:09:00 98 /min [facility] Arterial blood by [facility] [place] [facility] Pulse oximetry Branch Procedures Procedure Date / Time Performing Clinician Source Performed LIPASE 2022-12-02 00:29:00 Bright Spencer [facility] TROPONIN I 2022-12-02 00:29:00 Bright Spencer [facility] COMP. METABOLIC PANEL 2022-12-02 00:29:00 [id number] CBC WITH DIFF 2022-12-02 00:29:00 Bright Spencer [facility] D-DIMER 2022-12-02 00:29:00 Bright Spencer [facility] URINE DRUG (IMMUNOASSAY) 2022-12-02 00:25:00 Bright Spencer [facility] COMPREHENSIVE DRUG Medical [facility] SCREEN W/O REFLEX XR CHEST 2 VW 2022-12-02 00:15:33 Bright Spencer [facility] CONSENT/REFUSAL FOR 2022-12-01 23:16:31 Doctor Unassigned, No Un [facility] DIAGNOSIS AND TREATMENT Name Medical Branch PROTHROMBIN TIME / INR 2022-11-26 01:45:00 Chon Busch [facility] D-DIMER 2022-11-26 01:45:00 Chon Busch [facility] ACTIVATED PARTIAL 2022-11-26 01:45:00 Chon Busch [facility] THRMPLAS JHOAN [facility] URINALYSIS 2022-11-26 01:45:00 Chon Busch [facility] URINE DRUG (IMMUNOASSAY) 2022-11-26 01:45:00 Chon Busch [facility] DRUG [facility] nch SCREEN W/O REFLEX MAGNESIUM 2022-11-26 00:41:00 Chon Busch [facility] FREE T4 2022-11-26 00:41:00 Chon Busch [facility] THYROID STIMULATING 2022-11-26 00:41:00 Chon Busch [facility] HORMONE [facility] COMP. METABOLIC PANEL 2022-11-26 00:41:00 Chon Busch [facility] ([id number]) [facility] CBC WITH DIFF 2022-11-26 00:41:00 Chon Busch [facility] CONSENT/REFUSAL FOR 2022-11-26 00:26:36 Doctor Unassigned, No Un [facility] DIAGNOSIS AND TREATMENT Name Medical Branch LIPASE 2022-11-25 02:30:00 Randy Buckner [facility] MAGNESIUM 2022-11-25 02:30:00 Randy Buckner [facility] TROPONIN I 2022-11-25 02:30:00 Randy Buckner [facility] HEPATIC FUNCTION PANEL 2022-11-25 02:30:00 Randy Buckner [facility] ([id number]) (ALB,T.PRO,BILI [facility] Branch T,BU/BC,ALT,AST,ALK PHOS) BASIC METABOLIC PANEL 2022-11-25 02:30:00 Randy Buckner [facility] (NA, K, CL, CO2, Medical Branch GLUCOSE, BUN, CREATININE, CA) CBC WITH DIFF 2022-11-25 02:30:00 Randy Buckner [facility] CT ABDOMEN PELVIS W 2022-01-26 03:43:42 Raman Zimmerman [facility] CONTRAST Medical Branch AMYLASE 2022-01-26 02:23:00 Raman Zimmerman [facility] LIPASE 2022-01-26 02:23:00 Raman Zimmerman [facility] COMP. METABOLIC PANEL 2022-01-26 02:23:00 Raman Zimmerman [facility] ([id number]) [facility] CBC WITH DIFF 2022-01-26 02:23:00 Raman Zimmerman [facility] URINALYSIS 2022-01-26 02:23:00 Raman Zimmerman [facility] CONSENT/REFUSAL FOR 2022-01-26 02:11:11 Doctor Unassigned, [facility] LIPASE 2021-09-22 03:15:00 Frannie Murcia [facility] COMP. METABOLIC PANEL 2021-09-22 03:15:00 Frannie Murcia [facility] ([id number]) [facility] CBC WITH DIFF 2021-09-22 03:15:00 Frannie Murcia [facility] RAPID INFLUENZA A/B 2021-09-22 03:15:00 Frannie Murcia [facility] COVID-19 (ID NOW RAPID 2021-09-22 03:15:00 Frannie Murcia [facility] TESTING) [facility] URINALYSIS 2021-09-22 03:14:00 Frannie Murcia [facility] NOTICE OF PRIVACY 2021-09-22 02:49:48 Doctor Unassigned, No [facility] PR[facility] Name [facility] CONSENT/REFUSAL FOR 2021-09-22 02:49:13 Doctor Unassigned, No Un [facility] DI[facility]NOS[facility] TREATMENT Name [facility] POCT MOLECULAR STREP 2021-08-29 22:24:00 Nayeli Barraza [facility] EMERGENCY DEPARTMENT Doctor Unassigned, No [facility] DOCUMENTS Name [facility] Plan of Care Planned Activity Planned Date Details Comments Source Future Scheduled 2023-01-23 COVID-19 VACCINE (#1) [facility] 08:19:45 [code = COVID-19 Hospital VACCINE (#1)] Future Scheduled 2023-01-23 INFLUENZA VACCINE [code [facility] 08:19:45 = INFLUENZA VACCINE] Hospita Future Scheduled 2022-12-15 COVID-19 VACCINE (#1) [facility] 14:02:55 [code = COVID-19 Hospital VACCINE (#1)] Future Scheduled 2022-12-15 INFLUENZA VACCINE [code [facility] Test 14:02:55 = INFLU[facility]ZA VACCINE[facility]uled 2022-12-15 COVID-19 VACCINE (#1) [facility] Test 14:02:55 [code = COVID-19 Hospital VACCINE (#1)] Future Scheduled 2022-12-15 INFLUENZA VACCINE [code [facility] Test 14:02:55 = INFLUENZA VACCINE] [facility] Future Scheduled 2022-12-15 COVID-19 VACCINE (#1) [facility] Test 14:02:55 [code = COVID-19 Hospital VACCINE (#1)] Future Scheduled 2022-12-15 INFLUENZA VACCINE [code [facility] Test 14:02:55 = INFLUENZA VACCINE] [facility] Future Scheduled 2022-12-02 BMI Follow Up Plan [facility] Test 12:28:02 [code = BMI Follow Up of Med icine Plan] Future Scheduled 2022-12-02 Human immunodeficiency B [facility] Test 12:28:02 virus screening of Medicine (procedure) [code = 890303043] Future Scheduled 2022-12-02 Hepatitis C screening [facility] Test 12:28:02 (procedure) [code = of Medic ine 122314490] Future Scheduled 2022-12-02 TETANUS SHOT (ADULT) [facility] Test 12:28:02 [code = TETANUS SHOT of Medi cine (ADULT)] Future Scheduled 2022-12-02 COVID-19 Vaccine (3 - [facility] Test 12:28:02 Booster) [code = of Medicine COVID-19 Vaccine (3 - Booster)] Future Scheduled 2022-12-02 FLU VACCINE > 6 MONTHS B [facility] Test 12:28:02 [code = FLU VACCINE > 6 of M edicine MONTHS] Future Scheduled 2022-12-02 TSH [code = 50546-9] Ordered: [facility] [employer] Test 12:23:39 12/02/2022 of Medicine Future Scheduled 2022-12-02 T4 FREE [code = 3024-7] Ordered: [facility] Test 12:23:39 12/02/2022 of Medicine Future Scheduled 2022-12-02 T3 [code = 3053-6] Ordered: [facility] Test 12:23:39 12/02/2022 of Medicine Future Scheduled 2022-12-02 COMPREHENSIVE METABOLIC Ordered: [facility] Test 12:23:39 PANEL [code = 07518-8] 12/02/2022 of Me dicine Future Scheduled 2022-12-02 RENIN ACTIVITY [code = Ordered: [facility] Test 12:23:39 2915-7] 12/02/2022 of Medicine Future Scheduled 2022-12-02 ALDOSTERONE [code = Ordered: [facility] Test 12:23:39 1763-2] 12/02/2022 of Medicine Future Scheduled 2022-12-02 THYROID ANTIBODY GROUP Ordered: [facility] Test 12:23:39 (TPO + TG) [code = 12/02/2022 of Medici ne NOCPT] Future Scheduled 2022-12-02 THYROTROPIN RECEPTOR,AB Ordered: [facility] Test 12:23:39 [code = 29007-9] 12/02/2022 of Medicine Future Scheduled 2022-12-02 THYROID STIMULATING Ordered: [facility] Test 12:23:39 IMMUNOGLOBULIN [code = 12/02/2022 of Me dicine 23684-1] Future Scheduled 2022-12-02 METANEPHRINE,FRACT,LC/M Ordered: [facility] Test 12:23:39 S/MS,PL [code = NOCPT] 12/02/2022 of Me dicine Future Scheduled 2022-12-02 HEMOGLOBIN A1C [code = Ordered: [facility] Test 12:23:39 4548-4] 12/02/2022 of Medicine Future Scheduled 2022-12-02 DHEA-SULFATE [code = Ordered: [facility] Test 12:23:39 2191-5] 12/02/2022 of Medicine Future Scheduled 2022-11-07 INFLUENZA VACCINE [code [facility] Test 16:35:12 = INFLUENZA VACCINE] Hospita l Future Scheduled 2022-11-07 COVID-19 VACCINE (#1) [facility] Test 16:35:12 [code = COVID-19 Hospital VACCINE (#1)] Future Scheduled 2022-11-07 INFLUENZA VACCINE [code [facility] Test 16:35:12 = INFLUENZA VACCINE] Hospita l Future Scheduled 2022-11-07 COVID-19 VACCINE (#1) [facility] Test 16:35:12 [code = COVID-19 Hospital VACCINE (#1)] Encounters Start End Encounter Admission Attending Care Care Encounter Source Date/Time Date/Time Type Type Clinicians Facility Department ID 2021-09-03 Outpatient [facility] [id number] Common 11:19:38 Toni [id number] Spir it - [facility] 2021-06-06 Emergency [facility] [id number] Univers 01:08:11 ity [facility] 2023-01-13 2023-01-13 Outpatient R LUPE, [facility] [id number] Univers 08:16:39 23:59:00 NING fischer [facility] 2023-01-01 2023-01-01 Urgent Ainsley Argueta [facility] [id number] .[id number] Univers 15:20:00 15:40:00 Care Unknown, Attending [id number] [id number] Rober as SAURAV?BLEA [id number] [address] MEDICAL OFFICE BUILDING 2023-01-01 2023-01-01 Outpatient R CARLO [facility] [id number] Univers 15:20:00 15:20:00 AINSLEY fischer [facility] 2022-12-16 2022-12-16 Outpatient R LUPE, [facility] [id number] Univers 08:00:00 23:59:00 NING fischer [facility] 2022-12-15 2022-12-15 Outpatient R LUPE, [facility] [id number] Univers 14:00:00 23:59:00 NING rodriguez o [facility] 2022-12-08 2022-12-08 Outpatient R LUPE, [facility] [id number] Univers 10:00:00 10:55:20 NING rodriguez [facility] 2022-12-08 2022-12-08 Office Lupe, [facility] [id number] Univers 10:00:00 10:55:20 Visit Renaeveretteclaudio JOEL [id number] ity [facility] 4.2.7.2.686 [facility] PROFESSIO [phone] Ia dicmalaika NAL 059 [facility] 2022-12-02 2022-12-02 Office Willian, Ace [facility] [id number] [facility] [place] 11:45:00 12:28:18 Visit AMBULATOR 350.1.13.21 College Y 0.2.7.2.686 [id number] [facility] 310 e 2022-12-01 2022-12-01 Emergency X [facility] [id number] Univers 18:34:00 21:44:00 JOSUE ity [facility] 2022-12-01 2022-12-01 Emergency Bright Spencer F [facility] 1.. [id number] Univers 18:34:00 21:44:00 Kathleen Jacobsonram Hannah JOEL [id number] ity of [place] 4.2.7.2.686 [facility] [id number] [address] 2022-11-25 2022-11-25 Emergency X [facility] [id number] Univers 19:32:00 21:59:00 [facility]ON [facility] 2022-11-25 2022-11-25 Emergency [facility] [id number] Univers 19:32:00 21:59:00 Chon MALDONADO 350.1.13.10 i ty of [facility] 4.2.7.2.686 [facility] [id number] [address] 2022-11-24 2022-11-24 Emergency X LANCE WAKEFIELD [facility] ERT 1 [id number] Univers 21:04:00 23:27:00 LANCE WAKEFIELD ity [facility] 2022-11-24 2022-11-24 Emergency Nick, TRAUMA [id number] Univers 21:04:00 23:27:00 [facility] 350.1.13.10 ity of 4.2.7.2.686 [place] [facility] [id number] [facility] 014 Branch 2022-01-25 2022-01-26 Emergency X [facility] ERT [id number] Univers 21:14:00 00:03:00 RAMAN ity [facility] 2022-01-25 2022-01-26 Emergency [facility] [id number] Univers 21:14:00 00:03:00 Raman Sue JOEL 350.1.13.10 ity of [place] 4.2.7.2.686 [facility] [id number] [facility] 084 Branch 2022-01-25 2022-01-25 Orders Doctor MARQUISE 1.2.840.114 [id number] Univers 00:00:00 00:00:00 Only Unassigned, ROMEL 350.1.13.10 ity of [place] [facility] 4.2.7.2.686 Rober as [id number] [facility] 009 Branch 2021-09-21 2021-09-22 Emergency [facility] [id number] Univers 21:01:00 03:07:00 FRANNIE [facility] 2021-09-21 2021-09-22 Emergency [facility] [id number] Univers 21:01:00 03:07:00 Frannie MALDONADO 350.1.13.10 ity of [place] 4.2.7.2.686 [facility] [id number] [facility] 084 Branch 2021-09-21 2021-09-21 Orders Doctor MARQUISE 1.2.840.114 [id number] Univers 00:00:00 00:00:00 Only Unassigned, ROMEL 350.1.13.10 ity of [place] [facility] 4.2.7.2.686 Rober as [id number] [facility] 009 Branch 2021-08-29 2021-08-29 [facility]patient [facility] [id number] Univers 16:33:39 23:59:00 NAYELI tamanna of [facility] 2021-08-29 2021-08-29 Hospital [facility] 1.2.840.114 [id number] Univers 16:33:39 23:59:00 Encounter Nayeli RODRIGUEZ 350.1.13.10 ity of [place] 4.2.7.2.686 Rober as SAURAV?BLEA [id number] [facility] [address] MEDICAL OFFICE BUILDING 2021-08-29 2021-08-29 Urgent [facility] 1.2.840.114 [id number] Univers 16:20:00 16:53:00 Care Nayeli [facility] 350.1.13.10 it y of [place] 4.2.7.2.686 Rober as SAURAV?BLEA [id number] [facility] [address] MEDICAL OFFICE BUILDING 2020-01-22 2020-01-23 Emergency Yaquelin García [facility] 1.2.840.114 [id number] 22:24:14 00:57:00 Juanymanuel [place] 350.1.13.10 [place] 4.2.7.2.686 [place] [id number] 2019-12-04 2019-12-04 Out[facility] [id number] Common 13:30:00 13:30:00 t Specialty/U Sp carmen Specialty rology - [facility] Orders Doctor MARQUISE 1.2.840.114 [id number] Univers 00:00:00 00:00:00 Only Unassigned, ROMEL 350.1.13.10 ity of [place] [facility] 4.2.7.2.686 Rober as [id number] [address] Results Test Description Test Time Test Comments Results Result Comments Source COMP. METABOLIC PANEL (10792) 2022-12-02 01:30:11 Test Item Value Reference Range Interpretation Comme nts NA (test code = 1122107115) 139 mmol/L 135-145 K (test code = 3999281581) 4.1 mmol/L 3.5-5.0 CL (test code = 8292263127) 106 mmol/L 98-108 CO2 TOTAL (test code = 6348123525) 21 mmol/L 23-31 L AGAP (test code = 7930990219) 12 2-16 BUN (test code = 7285441923) 15 mg/dL 7-23 GLUCOSE (test code = 6283414330) 105 mg/dL 70-110 CREATININE (test code = 0.95 mg/dL 0.60-1.25 7014372476) TOTAL BILI (test code = 1.6 mg/dL 0.1-1.1 H 1443106783) CALCIUM (test code = 5678213088) 9.6 mg/dL 8.6-10.6 T PROTEIN (test code = 3429419308) 8.9 g/dL 6.3-8.2 H ALBUMIN (test code = 3067305561) 5.1 g/dL 3.5-5.0 H ALK PHOS (test code = 5283542674) 56 U/L 34-122 ALTv (test code = 1742-6) 66 U/L 5-50 H AST(SGOT) (test code = 7560317694) 38 U/L 13-40 eGFR (test code = 2308377137) 93.1 mL/min/1.73m2 FREDI (test code = FREDI) [...] tests). Lab Interpretation (test code = Abnormal 74295-9) [id number]50 Test Item Value Reference Range Interpretation Comments TROPONIN I (test code = 0.006 ng/mL <=0.034 5938115042) FREDI (test code = FREDI) Reference (Normal) [...] biotin. Lab Interpretation Normal (test code = 60517-5) [id number] 01:11:53 Test Item Value Reference Interpretation Comments Range D-DIMER (test code = See_Comment [Autom ated 4761755390) message] The system which generated this result [...] diagnosis. Lab Interpretation Normal (test code = 89878-6) [facility] 01:09:47 Test Item Value Reference Range Interpretation Comments LIPASE (test code = 6091505955) 63 U/L 0-220 Lab Interpretation (test code = Normal 27447-8) [facility] [id number] 00:58:04 Test Item Value Reference Range Interpretation Comments WBC (test code = 5.72 See_Comment [Automated message] 1390-2) The system [employer] generated this result transmitted ref erence range: 4.20 - 1 0.70 10*3/?L. The re ference range was not u sed to interpret this result as normal/abnor mal. RBC (test code = 4.98 See_Comment [Automated message] 489-8) The system [employer] generated this result transmitted ref erence range: [...] RDW-SD (test code 39.0 fL 38.5-51.6 = 45615-8) RDW-CV (test code 12.8 % 12.1-15.4 = 788-0) PLT (test code = 291 See_Comment [Automated message] 687-3) The system [employer] generated this result transmitted ref erence range: 150 - 32 8 10*3/?L. The re ference range was not u sed to interpret this result as normal/abnor mal. MPV (test code = 10.2 fL 9.8-13.0 46153-4) NRBC/100 WBC (test 0.0 See_Comment [Automat ed message] code = 8956947222) The syste m which generated this result transmitted ref erence range: 0.0 - 10 .0 /100 WBCs. The refer ence range was not u sed to interpret this result as normal/abnor mal. NRBC x10^3 (test See_Comment [Automated message] code = 7151476978) The syste m which generated this result transmitted ref erence range: 10*3/?L. The reference range was not used to interpr et this result as normal/abnormal . GRAN MAT (NEUT) % 49.2 % (test code = 770-8) IMM GRAN % (test 0.20 % code = 8330335952) LYMPH % (test code 38.5 % = 736-9) MONO % (test code 8.7 % = 5905-5) EOS % (test code = 2.4 % 713-8) BASO % (test code 1.0 % = 706-2) GRAN MAT 2.81 10*3/uL 1.99-6.95 x10^3(ANC) (test code = 6613941857) IMM GRAN x10^3 0.00-0.06 (test code = 9728173684) LYMPH x10^3 (test 2.20 10*3/uL 1.09-3.23 code = 731-0) MONO x10^3 (test 0.50 10*3/uL 0.36-1.02 code = 742-7) EOS x10^3 (test 0.14 10*3/uL 0.06-0.53 code = 711-2) BASO x10^3 (test 0.06 10*3/uL 0.01-0.09 code = 704-7) [facility] WITH [id number] 03:26:51 Test Item Value Reference Range Interpretation Comments WBC (test code = 4.68 See_Comment [Automated 8547-2) message] The sy stem which generated this result transmitted reference range : 4.20 - 10.70 10*3/?L. The reference range was not used to interpret this result as normal/abnormal . RBC (test code = 4.55 See_Comment [Automated 623-8) message] The sy stem which generated this [...] RDW-SD (test code = 41.0 fL 38.5-51.6 15431-4) RDW-CV (test code = 13.2 % 12.1-15.4 788-0) PLT (test code = 242 See_Comment [Automated 777-3) message] The sy stem which generated this result transmitted reference range : 150 - 328 10*3/ ?L. The reference r stefan was not used to interpret this result as normal/abnormal . MPV (test code = 10.3 fL 9.8-13.0 49591-3) NRBC/100 WBC (test 0.0 See_Comment [Automat ed code = 5174364041) message] The system which generated this result transmitted reference range : 0.0 - 10.0 /100 WBCs. The refer ence range was not u sed to interpret th is result as normal/abnormal . NRBC x10^3 (test code See_Comment [Auto mated = 0933041107) message] The s ystem which generated this result transmitted reference range : 10*3/?L. The reference range was not used to interpret this result as normal/abnormal . GRAN MAT (NEUT) % 41.9 % (test code = 770-8) IMM GRAN % (test code 0.20 % = 5677690566) LYMPH % (test code = 41.2 % 736-9) MONO % (test code = 9.0 % 5905-5) EOS % (test code = 7.1 % 713-8) BASO % (test code = 0.6 % 706-2) GRAN MAT x10^3(ANC) 1.96 10*3/uL 1.99-6.95 L (test code = 3333792246) IMM GRAN x10^3 (test 0.00-0.06 code = 9358869891) LYMPH x10^3 (test code 1.93 10*3/uL 1.09-3.23 = 731-0) MONO x10^3 (test code 0.42 10*3/uL 0.36-1.02 = 742-7) EOS x10^3 (test code = 0.33 10*3/uL 0.06-0.53 711-2) BASO x10^3 (test code 0.03 10*3/uL 0.01-0.09 = 704-7) Lab Interpretation Abnormal (test code = 34486-2) [facility] [id number] 03:13:03 Test Item Value Reference Range Interpretation Comments TROPONIN I (test code = 0.005 ng/mL <=0.034 4078970105) FREDI (test code = FREDI) Reference (Normal) [...] biotin. Lab Interpretation Normal (test code = 14326-4) [facility] 03:03:43 Test Item Value Reference Range Interpretation Comments LIPASE (test code = 2420165149) 48 U/L 0-220 Lab Interpretation (test code = Normal 61674-0) [facility]05378[facility] (ALB,T.PRO,BILI T,BU/BC,ALT,AST,ALK PHOS)2022-11-25 03:03:42 Test Item Value Reference Range Interpretation Comments TOTAL BILI (test code = 4145866229) 0.5 mg/dL 0.1-1.1 BILI UNCON (test code = 3059971212) 0.3 mg/dL 0.1-1.1 BILI CONJ (test code = 0515588202) 0.0 mg/dL 0.0-0.3 T PROTEIN (test code = 0326339613) 7.8 g/dL 6.3-8.2 ALBUMIN (test code = 6333899023) 4.7 g/dL 3.5-5.0 ALK PHOS (test code = 0013799699) 50 U/L 34-122 ALTv (test code = 1742-6) 77 U/L 5-50 H AST(SGOT) (test code = 0963779761) 39 U/L 13-40 Lab Interpretation (test code = Abnormal 48304-8) [facility] METABOLIC PANEL (NA, K, CL, CO2, GLUCOSE, BUN, CREATININE, CA)2022-11-25 03:03:42 Test Item Value Reference Range Interpretation Comments NA (test code = 140 mmol/L 135-145 2406449504) K (test code = 3.6 mmol/L 3.5-5.0 4706323158) CL (test code = 105 mmol/L 98-108 1314195025) CO2 TOTAL (test code = 25 mmol/L 23-31 9225559693) AGAP (test code = 10 2-16 7546671839) BUN (test code = 13 mg/dL 7-23 8656332992) GLUCOSE (test code = 115 mg/dL 70-110 H 6911695250) CREATININE (test code = 0.80 mg/dL 0.60-1.25 2254729235) CALCIUM (test code = 9.2 mg/dL 8.6-10.6 0818992432) eGFR (test code = 113.5 mL/min/1.73m2 4020283101) FREDI (test code = FREDI) Association of [...] tests). Lab Interpretation Abnormal (test code = 16775-1) [facility] 03:03:42 Test Item Value Reference Range Interpretation Comments MAGNESIUM (test code = 8785211602) 1.9 mg/dL 1.7-2.4 Lab Interpretation (test code = Normal 41554-6) [facility] with Qeayhdvglxah0162-57-98 02:58:40 Test Item Value Reference Range Interpretation Comments WBC (test code = See_Comment [Automated 4222-2) message] The sy stem which generated this result transmitted reference range : 4.20 - 10.70 10*3/?L. The reference range was not used to interpret this result as normal/abnormal . RBC (test code = See_Comment [Automated 613-7) message] The sy stem which generated this [...] (test code = 37.2 fL 38.5-51.6 L 31329-1) RDW-CV (test code = 12.2 % 12.1-15.4 788-0) PLT (test code = See_Comment [Automated 777-3) message] The sy stem which generated this result transmitted reference range : 150 - 328 10*3/ ?L. The reference r stefan was not used to interpret this result as normal/abnormal . MPV (test code = 10.4 fL 9.8-13.0 20549-5) NRBC/100 WBC (test See_Comment [Automat ed code = 7356567318) message] The system which generated this result transmitted reference range : 0.0 - 10.0 /100 WBCs. The refer ence range was not u sed to interpret th is result as normal/abnormal . NRBC x10^3 (test code <0.01 See_Comment [Auto mated = 8206018239) message] The s ystem which generated this result transmitted reference range : 10*3/?L. The reference range was not used to interpret this result as normal/abnormal . GRAN MAT (NEUT) % 43.2 % (test code = 770-8) IMM GRAN % (test code 0.40 % = 3865478905) LYMPH % (test code = 38.8 % 736-9) MONO % (test code = 10.1 % 5905-5) EOS % (test code = 6.7 % 713-8) BASO % (test code = 0.8 % 706-2) GRAN MAT x10^3(ANC) 2.14 10*3/uL 1.99-6.95 (test code = 7074535674) IMM GRAN x10^3 (test <0.03 0.00-0.06 code = 2609499131) LYMPH x10^3 (test code 1.92 10*3/uL 1.09-3.23 = 731-0) MONO x10^3 (test code 0.50 10*3/uL 0.36-1.02 = 742-7) EOS x10^3 (test code = 0.33 10*3/uL 0.06-0.53 711-2) BASO x10^3 (test code 0.04 10*3/uL 0.01-0.09 = 704-7) Lab Interpretation Abnormal (test code = 78562-1) [facility] [id number] 02:47:58 Test Item Value Reference Range Interpretation Comments NA (test code = 141 mmol/L 135-145 4194359221) K (test code = 3.9 mmol/L 3.5-5.0 1046292960) CL (test code = 105 mmol/L 98-108 5070617160) CO2 TOTAL (test code = 27 mmol/L 23-31 0256029923) AGAP (test code = 2-16 5592845924) BUN (test code = 14 mg/dL 7-23 3973256422) GLUCOSE (test code = 147 mg/dL 70-110 H 5298334091) CREATININE (test code = 0.96 mg/dL 0.60-1.25 0001021685) TOTAL BILI (test code = 0.7 mg/dL 0.1-1.9 4387060352) CALCIUM (test code = 9.5 mg/dL 8.6-10.6 0269244119) T PROTEIN (test code = 7.7 g/dL 6.3-8.2 6161174101) ALBUMIN (test code = 4.4 g/dL 3.5-5.0 0234254467) ALK PHOS (test code = 60 U/L 34-122 4731646795) ALTv (test code = 116 U/L 5-50 H 1742-6) AST(SGOT) (test code = 50 U/L 13-40 H 6252997070) eGFR (test code = mL/min/1.73m2 4359751587) FREDI (test code = FREDI) Association of [...] tests). Lab Interpretation Abnormal (test code = 67969-6) [facility], [id number] 02:47:38 Test Item Value Reference Range Interpretation Comments LIPASE (test code = 3448378501) 86 U/L 0-220 Lab Interpretation (test code = Normal 25013-4) [facility]2022-[facility]-20 02:46:58 Test Item Value Reference Range Interpretation Comments ADRIANA (test code = 7953242947) 81 U/L 35-110 Lab Interpretation (test code = Normal 14497-6) [facility]abolic Ojfdf1300-25-76 03:57:42 Test Item Value Reference Range Interpretation Comments NA (test code = 137 mmol/L 135-145 6739319081) K (test code = 4.2 mmol/L 3.5-5.0 1766075863) CL (test code = 105 mmol/L 98-108 4441485728) CO2 TOTAL (test code = 25 mmol/L 23-31 1093008982) AGAP (test code = 2-16 4951421786) BUN (test code = 15 mg/dL 7-23 4324331718) GLUCOSE (test code = 120 mg/dL 70-110 H 3508884609) CREATININE (test code = 1.07 mg/dL 0.60-1.25 7914638900) TOTAL BILI (test code = 1.3 mg/dL 0.1-1.1 H 0477536383) CALCIUM (test code = 9.3 mg/dL 8.6-10.6 2670200833) T PROTEIN (test code = 8.8 g/dL 6.3-8.2 H 8307140562) ALBUMIN (test code = 5.1 g/dL 3.5-5.0 H 1250758751) ALK PHOS (test code = 59 U/L 34-122 8951024124) ALTv (test code = 62 U/L 5-50 H 1742-6) AST(SGOT) (test code = 46 U/L 13-40 H 5655245101) eGFR (test code = mL/min/1.73m2 1027574632) FREDI (test code = FREDI) Association of [...] tests). Lab Interpretation Abnormal (test code = 24570-2) [facility] 03:57:02 Test Item Value Reference Range Interpretation Comments LIPASE (test code = 3280923535) 80 U/L 0-220 Lab Interpretation (test code = Normal 86088-3) [facility] with Kawdpufrlmcy4145-70-33 03:35:00 Test Item Value Reference Range Interpretation Comments WBC (test code = See_Comment [Automated 2690-2) message] The sy stem which generated this [...] (test code = 38.2 fL 38.5-51.6 L 41575-8) RDW-CV (test code = 12.6 % 12.1-15.4 788-0) PLT (test code = See_Comment [Automated 777-3) message] The sy stem which generated this result transmitted reference range : 150 - 328 10*3/ ?L. The reference r stefan was not used to interpret this result as normal/abnormal . MPV (test code = 10.6 fL 9.8-13.0 05480-7) NRBC/100 WBC (test See_Comment [Automat ed code = 8099338243) message] The system which generated this result transmitted reference range : 0.0 - 10.0 /100 WBCs. The refer ence range was not u sed to interpret th is result as normal/abnormal . NRBC x10^3 (test code <0.01 See_Comment [Auto mated = 6275667166) message] The s ystem which generated this result transmitted reference range : 10*3/?L. The reference range was not used to interpret this result as normal/abnormal . GRAN MAT (NEUT) % 80.9 % (test code = 770-8) IMM GRAN % (test code 0.40 % = 9015406654) LYMPH % (test code = 8.0 % 736-9) MONO % (test code = 6.9 % 5905-5) EOS % (test code = 3.4 % 713-8) BASO % (test code = 0.4 % 706-2) GRAN MAT x10^3(ANC) 4.23 10*3/uL 1.99-6.95 (test code = 1550569974) IMM GRAN x10^3 (test <0.03 0.00-0.06 code = 3714224134) LYMPH x10^3 (test code 0.42 10*3/uL 1.09-3.23 L = 731-0) MONO x10^3 (test code 0.36 10*3/uL 0.36-1.02 = 742-7) EOS x10^3 (test code = 0.18 10*3/uL 0.06-0.53 711-2) BASO x10^3 (test code <0.03 0.01-0.09 = 704-7) Lab Interpretation Abnormal (test code = 91788-5) [facility] [id number] 22:35:02 Test Item Value Reference Range Interpretation Comments POCT Molecular Strep (test code = Negative Negative 21700-2) Lab Interpretation (test code = Normal 20709-4) [facility]
[2023-01-23 15:42] LABS: Absolute Lymphocytes (CBC) 1.6 K/uL (0.7-4.9); Hematocrit 40.2 % (39.6-49.0); Lymphocytes % 35.2 % (15.3-44.8); MPV 8.8 fL (7.6-11.3); RBC Red Blood Cell Count 4.73 M/uL (4.33-5.43)
[2023-01-23 16:10] LABS: Magnesium 2.1 mg/dL (1.6-2.4); Potassium 3.9 mEq/L (3.5-5.1); Thyroid Stimulating Hormone 3.13 uIU/mL (0.358-3.740); Troponin High Sensitivity 8.4 pg/mL (<58.9)
--- NOTE | 2023-01-23 16:33 | RAD REPORT ---
EXAM DESCRIPTION: RAD - Chest Single View - 01/23/2023 4:14 pm CLINICAL HISTORY: PALPITATIONS Chest pain. COMPARISON: Chest Single View dated 12/29/2022; Chest Single View dated 12/24/2022; Chest Single View dated 11/29/2022; Chest Single View dated 05/09/2018 FINDINGS: Portable technique limits examination quality. The lungs are grossly clear. The heart is normal in size. No displaced fractures. IMPRESSION: No acute intrathoracic process suspected.
--- NOTE | 2023-01-23 17:26 | EDPHYS ---
Physician Documentation [facility] Name: Kd Velazquez Age: 32 yrs Sex: Male : 1990 Arrival Date: 01/23/2023 Time: 15:21 Bed 7 Private MD: ED Physician Suhas Thao HPI: 01/23 15:51 This 32 yrs old Black Male presents to ER via EMS with complaints of Palpitations, rn Dizziness. 15:51 The patient presents with a history of heart racing. Context: The symptoms occur at rn rest, during sleep. Onset: The symptoms/episode began/occurred just prior to arrival. Duration: The patient or guardian reports a single episode, that is still ongoing. Modifying factors: The symptoms are aggravated by nothing. The symptoms are alleviated by nothing. Severity of symptoms: At their worst the symptoms were moderate in the emergency department the symptoms have improved. The patient has experienced similar episodes in the past. The patient has not recently seen a physician. Pt reports. Historical: - Allergies: 15:38 No Known Allergies; ml4 - Home Meds: 15:32 buspirone 10 mg Oral tablet as needed for generalized anxiety disorder [Active]; ml4 methimazole 10 mg oral tablet once [Active]; diazepam 10 mg Oral tablet daily as needed for anxiety [Active]; - PMHx: 15:32 graves disease; Anxiety; ml4 - PSHx: 15:32 Tonsillectomy; ml4 - Immunization history:: Adult Immunizations up to date. - Social history:: Smoking status: Patient denies any tobacco usage or history of. Patient/guardian denies using alcohol, street drugs, IV drugs. - Family history:: not pertinent. - Hospitalizations: : No recent hospitalization is reported. ROS: 15:51 Constitutional: Negative for fever, chills, and weight loss, Eyes: Negative for injury, rn pain, redness, and discharge, Neck: Negative for injury, pain, and swelling, Cardiovascular: + palpitations, negative for chest pain Respiratory: Negative for shortness of breath, cough, wheezing, and pleuritic chest pain, Abdomen/GI: Negative for abdominal pain, nausea, vomiting, diarrhea, and constipation, Back: Negative for injury and pain, MS/Extremity: Negative for injury and deformity, Skin: Negative for injury, rash, and discoloration, Neuro: Negative for headache, weakness, numbness, tingling, and seizure. Exam: 15:51 Constitutional: This is a well developed, well nourished patient who is awake, alert, rn and in no acute distress. Head/Face: Normocephalic, atraumatic. ENT: MMM Cardiovascular: Regular rate and rhythm. No pulse deficits. Respiratory: No increased work of breathing, no retractions or nasal flaring. Abdomen/GI: Soft, non-tender Skin: Warm, dry with normal turgor. Normal color with no rashes, no lesions, and no evidence of cellulitis. MS/ Extremity: Pulses equal, no cyanosis. Neurovascular intact. Full, normal range of motion. Equal circumference. Neuro: Awake and alert, GCS 15, oriented to person, place, time, and situation. Cranial nerves II-XII grossly intact. Motor strength 5/5 in all extremities. Sensory grossly intact. Cerebellar exam normal. 17:43 ECG was reviewed by the Attending Physician. rn Vital Signs: 15:30 BP 133 / 82; Pulse 78; Resp 16; Temp 98.1(O); Pulse Ox 97% on R/A; Weight 108.86 kg; ml4 Height 6 ft. 0 in. ; Pain 0/10; 16:00 BP 126 / 77; Pulse 78; Resp 18; Pulse Ox 100% on R/A; vg1 15:30 Body Mass Index 32.55 (108.86 kg, 182.88 cm) ml4 15:30 Pain Scale: Adult ml4 Dunlap Coma Score: 15:35 Eye Response: spontaneous(4). Motor Response: obeys commands(6). Verbal Response: ml4 oriented(5). Total: 15. MDM: 15:27 Patient medically screened. rn 17:24 Differential diagnosis: arrythmia, dehydration, stress disorder, anxiety, thyroid rn disorder. Data reviewed: vital signs, nurses notes, lab test result(s), EKG, radiologic studies, plain films, and as a result, I will discharge patient. Counseling: I had a detailed discussion with the patient and/or guardian regarding: the historical points, exam findings, and any diagnostic results supporting the discharge/admit diagnosis, lab results, radiology results, the need for outpatient follow up, to return to the emergency department if symptoms worsen or persist or if there are any questions or concerns that arise at home. Response to treatment: the patient's symptoms have markedly improved after treatment, and as a result, I will discharge patient. Special discussion: I discussed with the patient/guardian in detail that at this point there is no indication for admission to the hospital. It is understood, however, that if the symptoms persist or worsen the patient needs to return immediately for re-evaluation. Based on the history and exam findings, there is no indication for further emergent testing or inpatient evaluation. I discussed with the patient/guardian the need to see the primary care provider for further evaluation of the symptoms. 01/23 15:28 Order name: Basic Metabolic Panel; Complete Time: 16:40 01/23 15:28 Order name: CBC with Diff; Complete Time: 16:01/23 15:28 Order name: D-Dimer; Complete Time: 16:40 01/23 15:28 Order name: Magnesium; Complete Time: 16:40 01/23 15:28 Order name: NT PRO-BNP; Complete Time: 16:01/23 15:28 Order name: Troponin HS; Complete Time: 16:40 01/23 15:54 Order name: T4 Free; Complete Time: 16:40 EDMS 01/23 15:54 Order name: Thyroid Stimulating Hormone; Complete Time: 16:40 EDMS 01/23 15:55 Order name: T4 Free kj1 01/23 15:28 Order name: XRAY Chest (1 view); Complete Time: 16:40 01/23 15:28 Order name: EKG; Complete Time: 15:29 01/23 15:28 Order name: Cardiac monitoring; Complete Time: 15:34 01/23 15:28 Order name: EKG - Nurse/Tech; Complete Time: 15:34 01/23 15:28 Order name: IV Saline Lock; Complete Time: 15:01/23 15:28 Order name: Labs collected and sent; Complete Time: 15:01/23 15:28 Order name: O2 Per Protocol; Complete Time: 15:01/23 15:28 Order name: O2 Sat Monitoring; Complete Time: 15:34 rn EC:43 Rate is 80 beats/min. Rhythm is regular. QRS [place] is Normal. ME interval is normal. QRS rn interval is normal. QT interval is normal. No Q waves. T waves are Normal. No ST changes noted. Clinical impression: NSR w/ Non-specific ST/T Changes. Interpreted by me. Reviewed by me. Administered Medications: No medications were administered Disposition Summary: 01/23/23 17:25 Discharge Ordered Location: Home rn Problem: new rn Symptoms: have improved rn Condition: Stable rn Diagnosis - Palpitations rn Followup: rn - With: Private Physician - When: As needed - Reason: Recheck today's complaints, Re-evaluation by your physician Discharge Instructions: - Discharge Summary Sheet rn - Dizziness rn - Palpitations rn Forms: - Medication Reconciliation Form rn - Thank You Letter rn - Antibiotic tax intern - Prescription Opioid Use rn Signatures: Dispatcher [employer] EDMS Suhas Thao MD MD rn Ellyn, RNIII, YOCASTA Ortega RN ml4 Corrections: (The following items were deleted from the chart) 16:03 15:56 THYROID STIMULAT HORMONE+C.LAB.BRZ ordered. EDMI EDMI
--- NOTE | 2023-01-23 17:26 | ER ---
Nurse's Notes [facility] Name: Kd Velazquez Age: 32 yrs Sex: Male : 1990 Arrival Date: 01/23/2023 Time: 15:21 Bed 7 Private MD: Diagnosis: Palpitations Presentation: 01/23 15:30 Chief complaint: Patient states: palpitations, dizziness x 45 min. Coronavirus screen: ml4 At this time, the client does not indicate any symptoms associated with coronavirus-19. Ebola Screen: No symptoms or risks identified at this time. Initial Sepsis Screen: Does the patient meet any 2 criteria? No. Patient's initial sepsis screen is negative. Does the patient have a suspected source of infection? No. Patient's initial sepsis screen is negative. Risk Assessment: Do you want to hurt yourself or someone else? Patient reports no desire to harm self or others. Onset of symptoms was January 23, 2023 at 14:30. Care prior to arrival: None. Activity prior to arrival: None. Mechanism of Injury: No Mechanism of Injury. 15:30 Method Of Arrival: EMS: [facility] ml4 15:30 Acuity: NIELS 3 ml4 15:38 Note Per patient- took a nap and when woke up around 1430 had sx of dizziness and ml4 palpitations. Dizziness persists. Ambulatory. AOX4. Speech clear. Equal precision agriculture specialist strength. Triage Assessment: 15:32 General: Appears in no apparent distress. comfortable, well groomed, well nourished, ml4 Behavior is calm, cooperative, appropriate for age. Pain: Denies pain. EENT: No deficits noted. No signs and/or symptoms were reported regarding the EENT system. Neuro: No deficits noted. Level of Consciousness is awake, alert, obeys commands, Oriented to person, place, time, situation, Appropriate for age Speech is normal, Reports dizziness, since today 1430. Cardiovascular: Reports palpitations, since 1430, has since lessened in severity since onset Capillary refill < 3 seconds Patient's skin is warm and dry. Respiratory: No deficits noted. Respiratory effort is even, unlabored, Respiratory pattern is regular, symmetrical. GI: No deficits noted. No signs and/or symptoms were reported involving the gastrointestinal system. : No deficits noted. No signs and/or symptoms were reported regarding the genitourinary system. Derm: No deficits noted. No signs and/or symptoms reported regarding the dermatologic system. Musculoskeletal: No deficits noted. No signs and/or symptoms reported regarding the musculoskeletal system. Historical: - Allergies: 15:38 No Known Allergies; ml4 - Home Meds: 15:32 buspirone 10 mg Oral tablet as needed for generalized anxiety disorder [Active]; ml4 methimazole 10 mg oral tablet once [Active]; diazepam 10 mg Oral tablet daily as needed for anxiety [Active]; - PMHx: 15:32 graves disease; Anxiety; ml4 - PSHx: 15:32 Tonsillectomy; ml4 - Immunization history:: Adult Immunizations up to date. - Social history:: Smoking status: Patient denies any tobacco usage or history of. Patient/guardian denies using alcohol, street drugs, IV drugs. - Family history:: not pertinent. - Hospitalizations: : No recent hospitalization is reported. Screenin:35 [facility] ED Fall Risk Assessment (Adult) History of falling in the last 3 months, ml4 including since admission No falls in past 3 months (0 pts) Confusion or Disorientation No (0 pts) Intoxicated or Sedated No (0 pts) Impaired Gait No (0 pts) Mobility Assist Device Used No (0 pt) Altered Elimination No (0 pt) Score/Fall Risk Level 0 - 2 = Low Risk. Abuse screen: Denies threats or abuse. Nutritional screening: No deficits noted. Tuberculosis screening: No symptoms or risk factors identified. Assessment: 15:35 Reassessment: See triage assessment. 4 16:02 Reassessment:. ml4 16:59 Reassessment: Patient appears in no apparent distress at this time. Patient and/or vg1 family updated on plan of care and expected duration. Pain level reassessed. Patient is alert, oriented x 3, equal unlabored respirations, skin warm/dry/pink. Patient states feeling better. Vital Signs: 15:30 BP 133 / 82; Pulse 78; Resp 16; Temp 98.1(O); Pulse Ox 97% on R/A; Weight 108.86 kg; ml4 Height 6 ft. 0 in. ; Pain 0/10; 16:00 BP 126 / 77; Pulse 78; Resp 18; Pulse Ox 100% on R/A; vg1 15:30 Body Mass Index 32.55 (108.86 kg, 182.88 cm) ml4 15:30 Pain Scale: Adult ml4 Scarlett Coma Score: 15:35 Eye Response: spontaneous(4). Motor Response: obeys commands(6). Verbal Response: ml4 oriented(5). Total: 15. ED Course: 15:26 Patient arrived in ED. vg1 15:26 Inserted saline lock: 20 gauge in right antecubital area, using aseptic technique. vg1 Blood collected. 15:27 Suhas Thao MD is Attending Physician. rn 15:30 LINWOOD Ragland, Jordan, RN is Primary Nurse. ml4 15:32 Triage completed. ml4 15:32 Arm band placed on right wrist. Patient placed in the treatment room, on a stretcher, ml4 Patient notified of wait time. EKG completed in triage. Results shown to MD. 15:35 No apparent distress. Awaiting lab results. ml4 15:35 No provider procedures requiring assistance completed. ml4 15:35 Patient has correct armband on for positive identification. Placed in gown. Bed in low ml4 position. Call light in reach. Side rails up X 1. Client placed on continuous cardiac and pulse oximetry monitoring. NIBP monitoring applied. monitoring manager on. Door closed. Head of bed elevated. 15:37 Troponin HS Sent. ml4 15:37 NT PRO-BNP Sent. ml4 15:37 Magnesium Sent. ml4 15:37 D-Dimer Sent. ml4 15:37 CBC with Diff Sent. ml4 15:37 Basic Metabolic Panel Sent. ml4 16:16 XRAY Chest (1 view) In Process Unspecified. EDMS 17:34 IV discontinued, intact, bleeding controlled, No redness/swelling at site. Pressure ss dressing applied. Administered Medications: No medications were administered Medication: 15:35 VIS not applicable for this client. ml4 Outcome: 17:25 Discharge ordered by . rn 17:34 Discharged to home ambulatory. ss 17:34 Condition: good 17:34 Discharge instructions given to patient, family, Instructed on discharge instructions, follow up and referral plans. Demonstrated understanding of instructions, follow-up care. 17:35 Patient left the ED. ss Signatures: Dispatcher [employer] EDMS Suhas Thao MD MD rn Blanchard, Shelby, RN RN ss Lida Silverman RN RN vg1 Lembo, RNIII, Jordan, RN RN ml4
[2023-01-23 17:52] VITALS: TEMP 98.1
[2023-01-23 18:04] VITALS: BP 126/77; O2SAT 100
--- NOTE | 2023-01-25 17:53 | EKG ---
Test Date: 2023-01-23 Test Time: 15:25:33 Saw Boss: ANGIE MEASUREMENT RESULTS: Intervals: Rate: 80 [place]: 176 QRSD: 92 QT: 380 QTc: 438 [place]: P: 66 [place]: 176 QRS: 76 T: 33 INTERPRETIVE STATEMENTS: Normal sinus rhythm Cannot rule out Anterior infarct, age undetermined Abnormal ECG Compared to ECG 12/31/2022 06:28:08 Myocardial infarct finding now present Electronically Signed On 01-25-23 17:50:15 CDT by Freddy Sanchez
== END 2023-01-23 17:35 | disposition home or self-care (01) ==
LOC: ER 15:21
DX: R00.2 Palpitations (principal); R42 Dizziness and giddiness; F41.9 Anxiety disorder, unspecified
CPT/HCPCS: 36415; 71045; 80048; 83735; 83880; 84439; 84443; 84484; 85025; 85379; 93005; 99284

== ENCOUNTER 2024-01-21 15:37 | Emergency (ER) | payer SELFPAY ==
[2024-01-21 16:24] LABS: Absolute Basophils 0.1 K/uL (0-0.5); Absolute Eosinophils 0.2 K/uL (0-0.5); Absolute Lymphocytes (CBC) 1.4 K/uL (0.7-4.9); Absolute Monocytes 0.4 K/uL (0.1-1.3); Absolute Neutrophil 2.2 K/uL (1.8-8.0); Basophils % 1.2 % (0-1.3); Eosinophils % 4.2 % (0-4.4); Hematocrit 38.8 % (39.6-49.0); Hemoglobin 12.3 g/dL (13.6-17.9); Lymphocytes % 33.5 % (15.3-44.8); MCH 27.2 pg (27.0-35.0); MCHC 31.6 g/dL (32.0-36.0); MCV 85.9 fL (80-100); Monocytes % 9.5 % (3.3-12.3); Neutrophils % 51.6 % (41.7-73.7); Platelets 234 thou/uL (152-406); RBC Red Blood Cell Count 4.51 M/uL (4.33-5.43); Red Cell Distribution Width 13.9 % (12.1-15.2)
--- NOTE | 2024-01-21 16:27 | RAD REPORT ---
EXAM DESCRIPTION: RAD - Chest Single View - 01/21/2024 4:20 pm CLINICAL HISTORY: CHEST PAIN Chest pain. COMPARISON: Chest Single View dated 01/23/2023; Chest Single View dated 12/29/2022; Chest Single View dated 12/24/2022; Chest Single View dated 11/29/2022 FINDINGS: Portable technique limits examination quality. The lungs are grossly clear. The heart is normal in size. No displaced fractures. IMPRESSION: No acute intrathoracic process suspected.
[2024-01-21 16:42] LABS: Anion Gap 6.5 mEq/L (5.0-15.0); Potassium 3.5 mEq/L (3.5-5.1); Troponin High Sensitivity 8.7 pg/mL (<58.9)
[2024-01-21] MEDS ORDERED: ONDANSETRON 4 MG/2 ML VIAL ONE (17:14)
--- NOTE | 2024-01-21 17:14 | EDPHYS ---
Physician Documentation [facility] Name: Kd Velazquez Age: 33 yrs Sex: Male : 1990 Arrival Date: 01/21/2024 Time: 15:37 Bed 11 Private MD: ED Physician Antwon Sandoval HPI: 01/20 15:40 This 33 yrs old Black Male presents to ER via Unassigned with complaints of Chest Pain. kb 15:40 Pt is a 33 year old male who presents for chest pain that has been intermittent for one kb year. States he took hydrocodone for the pain today and didn't feel right afterwards so he came in for evaluation. States he has anxiety and felt like he was going to have a panic attack. Denies shortness of breath. Reports slight nausea. 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 . Historical: - Allergies: 15:46 No Known Drug Allergies; ll1 - PMHx: 15:46 Anxiety; graves disease; ll1 - PSHx: 15:46 Tonsillectomy; ll1 - Immunization history:: Adult Immunizations up to date. - Infectious Disease History:: Denies. - Social history:: Smoking status: Patient denies any tobacco usage or history of. ROS: 15:42 Constitutional: As per HPI kb Exam: 15:42 Constitutional: This is a well developed, well nourished patient who is awake, alert, kb and in no acute distress. Head/Face: Normocephalic, atraumatic. ENT: Moist Mucous membranes Cardiovascular: Regular rate Respiratory: Respirations even and unlabored. No increased work of breathing. Talking in full sentences Abdomen/GI: Soft, non-tender. No distention Skin: Warm, dry with normal turgor. Normal color. MS/ Extremity: Pulses equal, no cyanosis. Neurovascular intact. Full, normal range of motion. Neuro: Awake and alert, GCS 15, oriented to person, place, time, and situation. Moves all extremities. Normal gait. 15:57 ECG was reviewed by the Attending Physician. kb Vital Signs: 15:46 BP 135 / 80; Pulse 84; Resp 16; Temp 97.4; Pulse Ox 98% ; Weight 117.93 kg; Height 6 ll1 ft. 0 in. ; 17:20 BP 126 / 74; Pulse 66; Resp 19; Pulse Ox 99% ; as6 15:46 Body Mass Index 35.26 (117.93 kg, 182.88 cm) ll1 MDM: 15:39 Patient medically screened. kb 15:42 Differential diagnosis: arrhythmia, acute mi, anxiety. Data reviewed: vital signs, kb nurses notes. 17:12 Counseling: I had a detailed discussion with the patient and/or guardian regarding the kb historical points, exam findings, and any diagnostic results supporting the discharge/admit diagnosis, lab results, radiology results, the need for outpatient follow up, a family practitioner, to return to the emergency department if symptoms worsen or persist or if there are any questions or concerns that arise at home. ED course: Discussed diagnostic results with pt. Recommended repeat troponin prior to discharge. Pt states he doesn't want to wait on repeat troponin and would like to go home now. . 01/20 15:43 Order name: Basic Metabolic Panel; Complete Time: 16:43 kb 01/20 15:43 Order name: CBC with Diff; Complete Time: 16:34 kb 01/20 15:43 Order name: Troponin HS; Complete Time: 16:43 kb 01/20 15:43 Order name: XRAY Chest (1 view); Complete Time: 16:34 kb 01/20 15:43 Order name: Cardiac monitoring; Complete Time: 16:05 kb 01/20 15:43 Order name: EKG - Nurse/Tech; Complete Time: 16:05 kb 01/20 15:43 Order name: IV Saline Lock; Complete Time: 16:05 kb 01/20 15:43 Order name: Labs collected and sent; Complete Time: 16:05 kb 01/20 15:43 Order name: O2 Per Protocol; Complete Time: 16:05 kb 01/20 15:43 Order name: O2 Sat Monitoring; Complete Time: 16:05 kb EC:57 Rate is 75 beats/min. Rhythm is regular. QRS [place] is Normal. OK interval is normal at kb 184 msec. QRS interval is normal at 110 msec. QT interval is normal at 437 msec. Administered Medications: 17:17 Drug: Ondansetron IVP 4 mg IVP once; over 2 minutes Route: IVP; Site: right antecubital;as6 17:17 Follow up: Response: No adverse reaction as6 Disposition Summary: 01/21/24 17:13 Discharge Ordered Notes: Location: Home kb Condition: Stable kb Diagnosis - Chest pain, unspecified kb Followup: kb - With: Emergency Department - When: As needed - Reason: Worsening of condition Followup: kb - With: Private Physician - When: 2 - 3 days - Reason: Recheck today's complaints, Continuance of care, Re-evaluation by your physician Discharge Instructions: - Discharge Summary Sheet kb - Nonspecific Chest Pain, Adult, [id number] kb - Generalized Anxiety Disorder, Adult kb Forms: - Medication Reconciliation Form kb - Antibiotic Education kb - Prescription Opioid Use kb - Patient Portal Instructions kb - Leadership Thank You Letter kb Addendum: 01/22/2024 17:23 I was immediately available for consultation during this patient's visit. I did not e c2 personally see the patient or discuss the patient with the JOSE GUADALUPE. . Signatures: Dispatcher [employer] Leslie Quick, NAVAL AIRCREWMAN OPERATOR-C NAVAL AIRCREWMAN OPERATOR-Kortney Gonzalez RN RN ll1 Madhav Rangel RN RN as6 Antwon Sandoval MD MD ec2 Corrections: (The following items were deleted from the chart) 01/20 15:43 15:43 Chest Single View+RAD.RAD.BRZ ordered. ALONZO ROSADO
--- NOTE | 2024-01-21 17:14 | ER ---
Nurse's Notes [facility] Name: Kd Velazquez Age: 33 yrs Sex: Male : 1990 Arrival Date: 01/21/2024 Time: 15:37 Bed 11 Private MD: Diagnosis: Chest pain, unspecified Presentation: 01/20 15:46 Chief complaint: Patient states: CP, SOB off/on for 1 year, this episode a few hours ll1 ago. Took a hydrocodone at home, feels anxious now. Coronavirus screen: Client denies travel out of the [place] in the last 14 days. At this time, the client does not indicate any symptoms associated with coronavirus-19. Ebola Screen: Patient denies travel to an Ebola-affected area in the 21 days before illness onset. Initial Sepsis Screen: Does the patient meet any 2 criteria? No. Patient's initial sepsis screen is negative. Does the patient have a suspected source of infection? No. Patient's initial sepsis screen is negative. Risk Assessment: Do you want to hurt yourself or someone else? Patient reports no desire to harm self or others. Onset of symptoms was January 21, 2024. 15:46 Method Of Arrival: Ambulatory ll1 15:46 Acuity: NIELS 3 ll1 Historical: - Allergies: 15:46 No Known Drug Allergies; ll1 - PMHx: 15:46 Anxiety; graves disease; ll1 - PSHx: 15:46 Tonsillectomy; ll1 - Immunization history:: Adult Immunizations up to date. - Infectious Disease History:: Denies. - Social history:: Smoking status: Patient denies any tobacco usage or history of. Screenin:21 [facility] ED Fall Risk Assessment (Adult) History of falling in the last 3 months, as6 including since admission No falls in past 3 months (0 pts) Confusion or Disorientation No (0 pts) Intoxicated or Sedated No (0 pts) Impaired Gait No (0 pts) Mobility Assist Device Used No (0 pt) Altered Elimination No (0 pt) Score/Fall Risk Level 0 - 2 = Low Risk Oriented to surroundings, Maintained a safe environment, Educated pt \T\ family on fall prevention, incl call for assistance when getting out of bed, Assessed \T\ reinforced patient's understanding of fall precautions. Abuse screen: Denies threats or abuse. Denies injuries from another. Nutritional screening: No deficits noted. Tuberculosis screening: No symptoms or risk factors identified. Assessment: 16:00 General: Appears in no apparent distress. Behavior is calm, cooperative. Pain: as6 Complains of pain in chest Pain does not radiate. Neuro: Level of Consciousness is awake, alert, obeys commands, Oriented to person, place, time, situation. Cardiovascular: Reports chest pain, Denies lightheadedness, palpitations, shortness of breath. Respiratory: Respiratory effort is even, unlabored, Respiratory pattern is regular, symmetrical. 17:21 Reassessment: Patient appears in no apparent distress at this time. Patient and/or as6 family updated on plan of care and expected duration. Pain level reassessed. Patient is alert, oriented x 3, equal unlabored respirations, skin warm/dry/pink. Vital Signs: 15:46 BP 135 / 80; Pulse 84; Resp 16; Temp 97.4; Pulse Ox 98% ; Weight 117.93 kg; Height 6 ll1 ft. 0 in. ; 17:20 BP 126 / 74; Pulse 66; Resp 19; Pulse Ox 99% ; as6 15:46 Body Mass Index 35.26 (117.93 kg, 182.88 cm) ll1 ED Course: 15:39 Patient arrived in ED. mr 15:39 Leslie Bueno FNP-C [facility]. kb 15:39 Antwon Sandoval MD is Attending Physician. kb 15:45 Madhav Rangel, YOCASTA is Primary Nurse. as6 15:46 Arm band placed on Patient placed in an exam room, on a stretcher. ll1 15:47 Triage completed. ll1 16:05 Basic Metabolic Panel Sent. as6 16:05 CBC with Diff Sent. as6 16:05 Troponin HS Sent. as6 16:05 Inserted saline lock: 20 gauge in right antecubital area, using aseptic technique. as6 Blood collected. 16:21 Bed in low position. Call light in reach. Side rails up X 1. Client placed on as6 continuous cardiac and pulse oximetry monitoring. NIBP monitoring applied. phototypesetting equipment monitor on. 16:22 XRAY Chest (1 view) In Process Unspecified. EDMS 17:21 Provided Education on: follow up. as6 17:21 No provider procedures requiring assistance completed. IV discontinued, intact, as6 bleeding controlled, No redness/swelling at site. Pressure dressing applied. Administered Medications: 17:17 Drug: Ondansetron IVP 4 mg IVP once; over 2 minutes Route: IVP; Site: right antecubital;as6 17:17 Follow up: Response: No adverse reaction as6 Medication: 16:21 VIS not applicable for this client. as6 Outcome: 17:13 Discharge ordered by MD. leyva 17:21 Discharged to home ambulatory, as6 17:21 Condition: stable 17:21 Discharge instructions given to patient, Instructed on discharge instructions, follow up and referral plans. Demonstrated understanding of instructions, follow-up care, 17:22 Patient left the ED. as6 Signatures: Dispatcher [employer] EDMS Leslie Bueno, MOTION PICTURE OPERATOR-C MOTION PICTURE OPERATOR-Shivani Tran, Reg Reg mr Kortney Bermudez, RN RN ll1 Madhav Rangel, YOCASTA RN as6
[2024-01-21 17:39] VITALS: BP 126/74; TEMP 97.4; O2SAT 99
--- NOTE | 2024-01-24 15:01 | EKG ---
Test Date: 2024-01-21 Test Time: 15:54:12 Fellmongering Machine Operator: MEASUREMENT RESULTS: Intervals: Rate: 75 [place]: 184 QRSD: 110 QT: 392 QTc: 437 [place]: P: 55 [place]: 184 QRS: 101 T: 4 INTERPRETIVE STATEMENTS: Normal sinus rhythm Normal ECG Compared to ECG 01/23/2023 15:25:33 Myocardial infarct finding no longer present Electronically Signed On 01-24-24 14:53:43 CDT by Freddy Sanchez
== END 2024-01-21 17:22 | disposition home or self-care (01) ==
LOC: ER 15:37
DX: R07.9 Chest pain, unspecified (principal)
CPT/HCPCS: 36415; 71045; 80048; 84484; 85025; 93005; 96374; 99285; J2405

== ENCOUNTER 2024-09-26 12:19 | Emergency (ER) | payer SELFPAY ==
[2024-09-26] MEDS ORDERED: ACETAMINOPHEN 500 MG TAB ONE (13:06)
[2024-09-26 13:30] LABS: SARS-CoV-2 Antigen CONTROL BLUE LINE VIS/BG OK; SARS-CoV-2 Antigen Rapid Res Negative (Negative)
--- NOTE | 2024-09-26 14:33 | EDPHYS ---
Physician Documentation [facility] [place], [place] Name: Kd Velazquez Age: 33 yrs Sex: Male : 1990 Arrival Date: 09/26/2024 Time: 12:19 Bed DX3 Private MD: ED Physician Suhas Thao HPI: 09/26 14:29 This 33 yrs old Black Male presents to ER via Ambulatory with complaints of Flu rn Symptoms. 14:30 The patient or guardian reports cough, flu symptoms. Onset: The symptoms/episode rn began/occurred yesterday. Severity of symptoms: At their worst the symptoms were mild, in the emergency department the symptoms are unchanged. Modifying factors: The symptoms are alleviated by nothing, the symptoms are aggravated by nothing. The patient has not experienced similar symptoms in the past. The patient has not recently seen a physician. Patient reports started to feel sick yesterday, reports fever, chills, myalgias, congestion, cough, vomiting and diarrhea. Recent travel noted. Denies shortness of breath. No chest pain. No abdominal pain.. Historical: - Allergies: 13:16 No Known Allergies; iw - PMHx: 13:15 Anxiety; graves disease; iw - PSHx: 13:15 Tonsillectomy; iw - Family history:: not pertinent. - Hospitalizations: : No recent hospitalization is reported. ROS: 14:30 Constitutional: Positive for fever and chills Eyes: Negative for injury, pain, redness, rn and discharge, ENT: Positive for congestion and sore throat Cardiovascular: Negative for chest pain, palpitations, and edema, Respiratory: Positive for cough, negative for shortness of breath Abdomen/GI: Negative for abdominal pain, nausea, vomiting, diarrhea, and constipation, MS/Extremity: Negative for injury and deformity, Neuro: Negative for headache, weakness, numbness, tingling, and seizure, Exam: 14:30 Constitutional: This is a well developed, well nourished patient who is awake, alert, rn and in no acute distress. Head/Face: Normocephalic, atraumatic. ENT: Pharyngeal erythema, no stridor or exudate Cardiovascular: Tachycardic, regular. No pulse deficits. Respiratory: Speaking full sentences, unlabored. Abdomen/GI: Soft, non-tender MS/ Extremity: Pulses equal, no cyanosis. Neurovascular intact. Full, normal range of motion. Equal circumference. Neuro: Awake and alert, GCS 15 Vital Signs: 13:14 BP 140 / 83; Pulse 103; Resp 18; Temp 100.4; Pulse Ox 100% on R/A; iw MDM: 12:45 Medical Screening Exam initiated rn 14:32 Differential Diagnosis: Bronchitis Upper Respiratory Infection Sinusitis Viral rn Syndrome. Data reviewed: vital signs, nurses notes, lab test result(s), and as a result, I will discharge patient. Counseling: I had a detailed discussion with the patient and/or guardian regarding the historical points, exam findings, and any diagnostic results supporting the discharge/admit diagnosis, lab results, the need for outpatient follow up, to return to the emergency department if symptoms worsen or persist or if there are any questions or concerns that arise at home. Special discussion: I discussed with the patient/guardian in detail that at this point there is no indication for admission to the hospital. It is understood, however, that if the symptoms persist or worsen the patient needs to return immediately for re-evaluation. 09/26 12:58 Order name: Flu; Complete Time: 14:03 rn 09/26 12:58 Order name: Strep rn 09/26 12:58 Order name: SARS-COV-2 Antigen Rapid; Complete Time: 14:03 rn 09/26 13:34 Order name: Throat Culture EDMS Administered Medications: 13:13 Drug: Acetaminophen PO 1000 mg PO once Route: PO; iw 14:00 Follow up: Response: No adverse reaction; Pain is decreased iw Disposition Summary: 09/26/24 14:32 Discharge Ordered Notes: Location: Home rn Problem: new rn Symptoms: have improved rn Condition: Stable rn Diagnosis - Fever, unspecified rn - Cough rn Followup: rn - With: Private Physician - When: As needed - Reason: Recheck today's complaints, Re-evaluation by your physician Discharge Instructions: - Discharge Summary Sheet rn - Fever, Adult rn - Cough, Adult rn Forms: - Work release form iw - Medication Reconciliation Form rn - Antibiotic churn driller helper - Prescription Opioid Use rn - Patient Portal Instructions rn - Leadership Thank You Letter rn Prescriptions: - Zithromax Z-Fernando 250 mg Oral Tablet - take 1 tablet ORAL route as directed for 5 days Day 1 - take two (2) tablets rn one time. Day 2, 3, 4 , 5 take one (1) tablet once daily.; 6 tablet; Refills: 0, Product Selection Permitted Signatures: Dispatcher [employer] EDMildred Sanders RN RN iw Suhas Thao MD MD afternoon nanny: (The following items were deleted from the chart) 12:58 12:58 Influenza Screen (A \T\ B)+BA.LAB.BRZ ordered. EDMS EDMS 12:58 12:58 Group A Streptococcus Rapid Sc+BA.LAB.BRZ ordered. EDMS EDMS 12:58 12:58 SARS-COV-2 Antigen Rapid+I.LAB.BRZ ordered. EDMS EDMS 12:58 12:58 Chest Single View+RAD.RAD.BRZ ordered. EDMS EDMS
--- NOTE | 2024-09-26 14:33 | ER ---
Nurse's Notes [facility] Name: Kd Velazquez Age: 33 yrs Sex: Male : 1990 Arrival Date: 09/26/2024 Time: 12:19 Bed DX3 Private MD: Diagnosis: Fever, unspecified;Cough Presentation: 09/26 13:14 Chief complaint: Patient states: cough, fever, body aches since yesterday. Coronavirus iw screen: Client presents with at least one sign or symptom that may indicate coronavirus-19. Ebola Screen: No symptoms or risks identified at this time. Initial Sepsis Screen: Does the patient meet any 2 criteria? No. Patient's initial sepsis screen is negative. Does the patient have a suspected source of infection? No. Patient's initial sepsis screen is negative. Risk Assessment: Do you want to hurt yourself or someone else? Patient reports no desire to harm self or others. 13:14 Acuity: NIELS 4 iw 13:14 Method Of Arrival: Ambulatory iw Triage Assessment: 13:30 General: Appears in no apparent distress. Behavior is calm, cooperative. iw Cardiovascular: Capillary refill < 3 seconds in bilateral fingers Patient's skin is warm and dry. Historical: - Allergies: 13:16 No Known Allergies; iw - PMHx: 13:15 Anxiety; graves disease; iw - PSHx: 13:15 Tonsillectomy; iw - Family history:: not pertinent. - Hospitalizations: : No recent hospitalization is reported. Screenin:32 [facility] ED Fall Risk Assessment (Adult) History of falling in the last 3 months, iw including since admission No falls in past 3 months (0 pts) Confusion or Disorientation No (0 pts) Intoxicated or Sedated No (0 pts) Impaired Gait No (0 pts) Mobility Assist Device Used No (0 pt) Altered Elimination No (0 pt) Score/Fall Risk Level 0 - 2 = Low Risk Oriented to surroundings, Maintained a safe environment. Abuse screen: Denies threats or abuse. Nutritional screening: No deficits noted. Tuberculosis screening: No symptoms or risk factors identified. Assessment: 14:32 Reassessment: Patient appears in no apparent distress at this time. Patient and/or iw family updated on plan of care and expected duration. Pain level reassessed. Patient is alert, oriented x 3, equal unlabored respirations, skin warm/dry/pink. Vital Signs: 13:14 BP 140 / 83; Pulse 103; Resp 18; Temp 100.4; Pulse Ox 100% on R/A; iw ED Course: 12:31 Patient arrived in ED. al6 12:45 Suhas Thao MD is Attending Physician. rn 13:13 Mildred Harp RN is Primary Nurse. iw 13:13 SARS-COV-2 Antigen Rapid Sent. iw 13:13 Strep Sent. iw 13:13 Flu Sent. iw 13:14 Triage completed. iw 13:15 Arm band placed on. iw Administered Medications: 13:13 Drug: Acetaminophen PO 1000 mg PO once Route: PO; iw 14:00 Follow up: Response: No adverse reaction; Pain is decreased iw Outcome: 14:32 Discharge ordered by . rn 14:51 Discharged to home ambulatory, iw 14:51 Condition: good 14:51 Discharge instructions given to patient, Instructed on discharge instructions, follow up and referral plans. medication usage, Demonstrated understanding of instructions, follow-up care, medications, Prescriptions given X 2, 14:52 Patient left the ED. iw Signatures: Mildred Harp, RN RN iw Suhas Thao MD MD rn Landin, Alissa al6
[2024-09-26 15:46] VITALS: BP 140/83; TEMP 100.4; O2SAT 100
== END 2024-09-26 14:52 | disposition home or self-care (01) ==
LOC: ER 12:19
DX: R50.9 Fever, unspecified (principal); R05.9 Cough, unspecified; Z11.52 Encounter for screening for COVID-19
CPT/HCPCS: 36415; 87070; 87081; 87804; 87811